=== PATIENT | male | born 1990 | race Hispanic/Latino ===

== ENCOUNTER 2019-12-17 10:45 | Inpatient (IN) | payer OTHER ==
[2019-12-17] VITALS (19 sets, daily range): BP systolic 126–159; BP diastolic 73–97
[~2019-12-17] VITALS: Ht 165.1 cm; Wt 97.5 kg
[2019-12-17 11:09] LABS: BASOPHILS % (AUTO) 0.4 % (0.0-5.0); HEMATOCRIT 42.5 % (42-54); LYMPHOCYTES % (AUTO) 7.3 % (21.0-51.0); MEAN CORPUSCULAR HEMOGLOBIN 30.9 pg (27.0-33.0); MEAN CORPUSCULAR HGB CONC 35.3 g/dL (32.0-36.0); MEAN CORPUSCULAR VOLUME 87.4 fL (79-99); NEUTROPHILS % (AUTO) 86.2 % (40.0-77.0); PLATELET COUNT (AUTO) 291 K/uL (130-400); RED BLOOD CELL COUNT(AUTO) 4.86 MIL/uL (4.50-6.20); RED CELL DISTRIBUTION WIDTH 11.8 % (11.0-15.5)
[2019-12-17] MEDS ORDERED: MORPHINE SULFATE 4 MG/1ML SYG ONE ×2 (11:18→15:00)
[2019-12-17] MEDS ORDERED: ONDANSETRON HCL 4 MG/2 ML VIAL ONE (11:18)
[2019-12-17] MEDS ORDERED: SODIUM CHLORIDE 0.9% 1000ML 1,000 ML IV ONE ×4 (11:19→17:09)
[2019-12-17] MEDS ORDERED: MORPHINE SULFATE 2 MG/ML 1ML SYG ONE (11:19)
[2019-12-17 11:21] LABS: CREATININE 0.9 mg/dL (0.5-1.5); POTASSIUM 4.1 mmol/L (3.5-5.1)
[2019-12-17 11:27] LABS: ALBUMIN 3.8 g/dL (3.5-5.0); BILIRUBIN,TOTAL 1.2 mg/dL (0.2-1.0); TOTAL PROTEIN, SERUM 8.3 g/dL (6.0-8.3)
[2019-12-17] MEDS ORDERED: IOHEXOL-350 75 ML VIAL IV ONE (12:40)
[2019-12-17 14:40] LABS: APPEARANCE,URINE Cloudy (CLEAR); BILIRUBIN,URINE Negative (NEGATIVE); COLOR,URINE Yellow (YELLOW); GLUCOSE, URINE (UA) >=1000 mg/dL (NEGATIVE); KETONES,URINE Trace mg/dL (NEGATIVE); LEUKOCYTE ESTERASE ,URINE Negative (NEGATIVE); NITRATE,URINE Negative (NEGATIVE); OCCULT BLOOD,URINE Negative (NEGATIVE); PH,URINE 6.5 (5.0-8.0); PROTEIN,URINE POS 1+ mg/dL (NEGATIVE)
[2019-12-17 14:42] LABS: CHOLESTEROL 311 mg/dL (<200); HDL CHOLESTEROL 20 mg/dL (29-71); LDL DIRECT 96 mg/dL (0-99)
[2019-12-17 15:07] LABS: TRIGLYCERIDES 2464 mg/dL (30-200)
[2019-12-17 15:15] LABS: HEMOGLOBIN A1C 7.2 % (4.0-6.0)
[2019-12-17 15:35] LABS: AMORPHOUS SEDIMENT,UR Few /LPF (None Seen); BACTERIA,URINE Few /HPF (None Seen); RBC,URINE None Seen /HPF (0-1); SQUAMOUS EPITHELIAL CELL,UR None Seen /HPF (0-2)
[2019-12-17] MEDS ORDERED: GLUCAGON 1MG KIT 1 MG ML IM PRN (16:30)
[2019-12-17] MEDS ORDERED: INSULIN REGULAR, HUMAN 3ML 100 UNIT in SODIUM CHLORIDE 0.9% 99 ML IV PRN ×2 (16:30)
[2019-12-17] MEDS ORDERED: DEXTROSE 50%-WATER 50 ML DISP.SYRIN IV PRN (16:30)
[2019-12-17] MEDS ORDERED: SODIUM CHLORIDE 0.9% 1000ML 1,000 ML IV SCH ×2 (16:34→16:45)
[2019-12-17] MEDS ORDERED: HYDRALAZINE HCL 20 MG/ML VIAL IV PRN ×2 (16:45→17:00)
[2019-12-17] MEDS ORDERED: ONDANSETRON HCL 4 MG/2 ML VIAL IV PRN (16:45)
[2019-12-17] MEDS ORDERED: ACETAMINOPHEN 325 MG TAB PO PRN ×2 (16:45)
[2019-12-17] MEDS ORDERED: IPRATROPIUM/ALBUTEROL SULFATE 3 ML SOLUTION IH PRN (17:00)
[2019-12-17] MEDS ORDERED: ONDANSETRON HCL 4 MG/2 ML VIAL IVP PRN (17:00)
[2019-12-17] MEDS ORDERED: SODIUM CHLORIDE 0.9% 500ML 500 ML IV ONE (17:10)
[2019-12-17] MEDS ORDERED: INSULIN HUMULIN R 100 UNIT/ML 3ML ONE (17:11)
[2019-12-17 17:20] LABS: ABG BASE EXCESS -3.7 mmol/L (-2.0-3.0); ABG HCO3 20.2 mmol/L (21.0-28.0); ABG OXYGEN SATURATION 92.8 % (95.0-99.0); ABG PCO2 34 mmHg (35-48)
[2019-12-17] MEDS ORDERED: DEXTROSE 5 %-0.45 % NACL 1,000 ML IV ONE (17:50)
--- NOTE | 2019-12-17 18:33 | NUR ---
DR GUEVARA NOTIFIED ABOUT PT'S ADMISSION, C/O ABD PAIN, SUSTAINED TACHYCARDIA 130-136, NEW ORDERS GIVEN.
[2019-12-17] MEDS: HYDROMORPHONE HCL 0.5 MG/0.5 ML ML IVP PRN ×2 (18:59→23:41)
[2019-12-17] MEDS ORDERED: POTASSIUM CHLORIDE 10% ELIXIR 20 MEQ/15 ML UDCUP PO PRN (20:45)
[2019-12-17] MEDS: SODIUM CHLORIDE 0.9% 1000ML 1,000 ML IV SCH (20:53)
[2019-12-17] MEDS: ENOXAPARIN SODIUM 40 MG/0.4 ML SYRINGE SQ SCH (20:54)
[2019-12-17] MEDS: FAMOTIDINE/PF 20 MG/2 ML VIAL IV SCH (20:54)
[2019-12-17] MEDS: ZOSYN 3.375GM+NS 50ML 50 ML IV SCH (21:01)
[2019-12-17] MEDS: METRONIDAZOLE 500 MG TABLET PO SCH (21:01)
[2019-12-18] VITALS (22 sets, daily range): BP systolic 129–157; BP diastolic 76–97
[2019-12-18] MEDS: HYDROMORPHONE HCL 0.5 MG/0.5 ML ML IVP PRN ×2 (03:42→23:44)
[2019-12-18] MEDS: ZOSYN 3.375GM+NS 50ML 50 ML IV SCH ×3 (04:57→21:53)
[2019-12-18] MEDS: SODIUM CHLORIDE 0.9% 1000ML 1,000 ML IV SCH ×3 (04:59→16:45)
[2019-12-18 05:18] LABS: BASOPHILS % (AUTO) 0.3 % (0.0-5.0); EOSINOPHILS % (AUTO) 0.1 % (0.0-8.0); HEMATOCRIT 42.4 % (42-54); LYMPHOCYTES % (AUTO) 13.3 % (21.0-51.0); MEAN CORPUSCULAR HEMOGLOBIN 30.5 pg (27.0-33.0); MEAN CORPUSCULAR HGB CONC 34.2 g/dL (32.0-36.0); MEAN CORPUSCULAR VOLUME 89.1 fL (79-99); MONOCYTES % (AUTO) 4.8 % (3.0-13.0); PLATELET COUNT (AUTO) 230 K/uL (130-400); RED BLOOD CELL COUNT(AUTO) 4.76 MIL/uL (4.50-6.20); WHITE BLOOD COUNT (AUTO) 12.8 K/uL (4.8-10.8)
[2019-12-18 06:03] LABS: ALBUMIN 2.6 g/dL (3.5-5.0); CREATININE 0.9 mg/dL (0.5-1.5); MAGNESIUM 1.3 mg/dL (1.80-2.40); POTASSIUM 3.3 mmol/L (3.5-5.1); TOTAL PROTEIN, SERUM 6.3 g/dL (6.0-8.3)
[2019-12-18] MEDS: MAGNESIUM 2GM PREMIX 50ML 50 ML IV PRN (06:26)
[2019-12-18] MEDS: LIDOCAINE HCL-MPF 1% 2ML VIAL IV PRN (06:26)
[2019-12-18] MEDS: POTASSIUM CHLORIDE 20MEQ/100ML 100 ML IV PRN ×2 (06:27→09:05)
[2019-12-18 06:59] LABS: ABG BASE EXCESS -1.3 mmol/L (-2.0-3.0); ABG HCO3 22.6 mmol/L (21.0-28.0); ABG OXYGEN SATURATION 90.6 % (95.0-99.0); ABG PCO2 36 mmHg (35-48)
--- NOTE | 2019-12-18 07:00 | NUR ---
STATUS 0552 CXR COMPLETED. AFTER CXR PATIENT INDEPENDENTLY REPOSITIONED SELF HR INCREASED TO 140'S AND RESPIRATORY RATE TO HIGH 30'S. SHALLOW AND TACHYPNEIC, UNLABORED. PATIENT CURRENTLY ON 4 L. O2 SATURATIONS DECREASED TO 90-91% PREVIOUSLY 94-96%. DENIES SHORTNESS OF BREATH. 0611 CC DRAPERY COUNSELOR PAGED WAS CALLED WHILE WAS ON THE LINE, NO ANSWER. 0635 CC DRAPERY COUNSELOR WAS PAGED AGAIN. 0641 HOSPITALIST WAS PAGED. AWAITING RETURN PAGE. ABG COMPLETED WHILE ON 4L AND PATIENT WAS PLACED ON VENTI MASK AT 50%. SPO2 INCREASED TO 93%. REPORT GIVEN TO RALPH GONZALEZ
--- NOTE | 2019-12-18 08:00 | NUR ---
Notification to [employer] Notified FIELD COORDINATOR-Amy of patient's current condition, tachycardia and desaturating and SOB laying flat and actions taken. Orders were received, readback and entered into system/ 829: Dr. Galeana at bedside notified of patient's current condition D-Dimer and orders receive by FIELD COORDINATOR. Orders were received and entered into system. See EMR.
[2019-12-18] MEDS: PANTOPRAZOLE SODIUM 40 MG TABLET.DR PO SCH (08:18)
[2019-12-18] MEDS: FAMOTIDINE/PF 20 MG/2 ML VIAL IV SCH ×2 (08:18→21:53)
[2019-12-18] MEDS: GEMFIBROZIL 600 MG TABLET PO SCH ×2 (08:18→16:23)
[2019-12-18] MEDS: METRONIDAZOLE 500 MG TABLET PO SCH ×3 (08:18→21:39)
[2019-12-18] MEDS: ENOXAPARIN SODIUM 40 MG/0.4 ML SYRINGE SQ SCH ×2 (08:19→21:53)
[2019-12-18] MEDS: HYDROCODONE/ACETAMINOPHEN 5/325 MG TAB PO PRN ×2 (09:05→16:27)
--- NOTE | 2019-12-18 11:57 | NUR ---
RD NOTIFICATION DX ACUTE PANCREATITIS AND ELEVATED TG. ALTERED NUTRITION RELATED LABS REVIEWED (TG 865 (IMPROVING), CHOL 224, LIPASE 1061, A1C 7.2). MEDS REVIEWED. SKIN INTACT. DIET: NPO AT THIS TIME. RD RECOMMENDS TO CONTINUE NPO DUE TO ELEVATED LABS ADVANCE DIET TOLERATED TO 75GMCCD, LOW FAT, AND HEART HEALTHY RD PENDING NUTRITION EDUCATION AT THIS TIME RD WILL CONTINUE TO MONITOR AND FOLLOW UP, THANK YOU. Addendum: 12/18/19 at [address] Amended: Links added.
[2019-12-18] MEDS: DEXTROSE 5 % AND 0.9 % NACL 1,000 ML IV SCH ×2 (12:09→21:39)
[2019-12-18] MEDS ORDERED: HYDR25TA PO (14:20)
[2019-12-18] MEDS ORDERED: ATEN25TA PO (14:20)
[2019-12-18] MEDS ORDERED: ALLO100T PO (14:20)
--- NOTE | 2019-12-18 14:42 | NUR ---
INITIAL Patient lives with spouse, Edelmira Benitez, [phone]. No home services. DME: BPM. Patient is independent and drives. PCP is MD at [facility]. Pharmacy is [facility]. DCP is home. Patient has no insurance or benefits. He is a [place] citizen and has worked in the [place]. Patient was provided with community resources for post hospitalization follow up. Patient was also provided with Good RX card for prescriptions and educated on [employer] $4 medication program and [employer] $5 medication program. Patient is being assisted by [employer] for financial matters. Addendum: 12/18/19 at 1444 by TUNG HOGUE Amended: Links added.
[2019-12-19] VITALS (24 sets, daily range): BP systolic 131–157; BP diastolic 74–102
[2019-12-19] MEDS: SODIUM CHLORIDE 0.9% 1000ML 1,000 ML IV SCH ×4 (00:45→23:50)
[2019-12-19] MEDS: DEXTROSE 5 % AND 0.9 % NACL 1,000 ML IV SCH ×3 (03:38→20:17)
[2019-12-19] MEDS: ZOSYN 3.375GM+NS 50ML 50 ML IV SCH ×3 (05:08→21:12)
[2019-12-19 05:20] LABS: BASOPHILS % (AUTO) 0.3 % (0.0-5.0); EOSINOPHILS % (AUTO) 0.1 % (0.0-8.0); HEMATOCRIT 39.6 % (42-54); LYMPHOCYTES % (AUTO) 9.7 % (21.0-51.0); MEAN CORPUSCULAR HEMOGLOBIN 29.6 pg (27.0-33.0); MEAN CORPUSCULAR HGB CONC 33.1 g/dL (32.0-36.0); MEAN CORPUSCULAR VOLUME 89.6 fL (79-99); MONOCYTES % (AUTO) 5.5 % (3.0-13.0); NEUTROPHILS % (AUTO) 83.2 % (40.0-77.0); PLATELET COUNT (AUTO) 212 K/uL (130-400); RED BLOOD CELL COUNT(AUTO) 4.42 MIL/uL (4.50-6.20); RED CELL DISTRIBUTION WIDTH 12.2 % (11.0-15.5); WHITE BLOOD COUNT (AUTO) 15.6 K/uL (4.8-10.8)
[2019-12-19] MEDS: HYDROMORPHONE HCL 0.5 MG/0.5 ML ML IVP PRN (05:20)
[2019-12-19 05:29] LABS: MAGNESIUM 1.9 mg/dL (1.80-2.40); POTASSIUM 3.6 mmol/L (3.5-5.1)
[2019-12-19 08:11] LABS: ABG BASE EXCESS -0.8 mmol/L (-2.0-3.0); ABG HCO3 23.4 mmol/L (21.0-28.0); ABG OXYGEN SATURATION 92.6 % (95.0-99.0); ABG PCO2 37 mmHg (35-48)
[2019-12-19] MEDS: PANTOPRAZOLE SODIUM 40 MG TABLET.DR PO SCH (10:18)
[2019-12-19] MEDS: FAMOTIDINE/PF 20 MG/2 ML VIAL IV SCH (10:18)
[2019-12-19] MEDS: GEMFIBROZIL 600 MG TABLET PO SCH ×2 (10:18→18:19)
[2019-12-19] MEDS: HYDROCODONE/ACETAMINOPHEN 5/325 MG TAB PO PRN ×2 (10:20→18:19)
[2019-12-19] MEDS: ENOXAPARIN SODIUM 40 MG/0.4 ML SYRINGE SQ SCH ×2 (10:21→21:13)
[2019-12-19] MEDS: INSULIN HUMULIN R 100 UNIT/ML 3ML SQ SCH ×3 (11:03→21:00)
[2019-12-19] MEDS: METOCLOPRAMIDE 10 MG/2 ML VIAL IVP SCH ×2 (15:19→21:12)
[2019-12-19] MEDS: ATENOLOL 25 MG TABLET PO SCH (21:12)
[2019-12-19] MEDS: INSULIN GLARGINE 100 UNITS/ML 10 ML VIAL SQ SCH (21:19)
[2019-12-20] VITALS (17 sets, daily range): BP systolic 113–145; BP diastolic 52–88
[2019-12-20] MEDS: DEXTROSE 5 % AND 0.9 % NACL 1,000 ML IV SCH ×3 (03:35→23:19)
[2019-12-20 04:15] LABS: BASOPHILS % (AUTO) 0.3 % (0.0-5.0); EOSINOPHILS % (AUTO) 0.6 % (0.0-8.0); HEMATOCRIT 32.5 % (42-54); LYMPHOCYTES % (AUTO) 12.6 % (21.0-51.0); MEAN CORPUSCULAR HEMOGLOBIN 30.6 pg (27.0-33.0); MEAN CORPUSCULAR HGB CONC 33.8 g/dL (32.0-36.0); MEAN CORPUSCULAR VOLUME 90.3 fL (79-99); MONOCYTES % (AUTO) 6.5 % (3.0-13.0); NEUTROPHILS % (AUTO) 78.5 % (40.0-77.0); PLATELET COUNT (AUTO) 244 K/uL (130-400); RED CELL DISTRIBUTION WIDTH 12.2 % (11.0-15.5); WHITE BLOOD COUNT (AUTO) 17.4 K/uL (4.8-10.8)
[2019-12-20 04:39] LABS: CREATININE 0.7 mg/dL (0.5-1.5); MAGNESIUM 1.9 mg/dL (1.80-2.40); POTASSIUM 3.9 mmol/L (3.5-5.1)
[2019-12-20] MEDS: MAGNESIUM 2GM PREMIX 50ML 50 ML IV PRN (05:41)
[2019-12-20] MEDS: GEMFIBROZIL 600 MG TABLET PO SCH ×2 (05:41→16:52)
[2019-12-20] MEDS: ZOSYN 3.375GM+NS 50ML 50 ML IV SCH ×3 (05:41→20:39)
[2019-12-20] MEDS: METOCLOPRAMIDE 10 MG/2 ML VIAL IVP SCH ×3 (05:42→23:16)
[2019-12-20] MEDS: INSULIN HUMULIN R 100 UNIT/ML 3ML SQ SCH ×3 (06:35→20:13)
[2019-12-20] MEDS: SODIUM CHLORIDE 0.9% 1000ML 1,000 ML IV SCH ×2 (08:42→16:45)
[2019-12-20] MEDS: PANTOPRAZOLE SODIUM 40 MG TABLET.DR PO SCH (08:43)
[2019-12-20] MEDS: ATENOLOL 25 MG TABLET PO SCH ×2 (08:43→20:42)
[2019-12-20] MEDS: ALLOPURINOL 100 MG TABLET PO SCH (08:43)
[2019-12-20] MEDS: HYDROCHLOROTHIAZIDE 25 MG TABLET PO SCH (08:43)
[2019-12-20] MEDS: ENOXAPARIN SODIUM 40 MG/0.4 ML SYRINGE SQ SCH ×2 (08:44→20:41)
--- NOTE | 2019-12-20 13:08 | NUR ---
TRANSFERRED TO 324 WITHOUT INCIDENT. VS STABLE. SBAR REPORT TO ROSLYN ROSAS
--- NOTE | 2019-12-20 15:18 | NUR ---
NUTRITION EDUCATION LEW Provided Pancreatitis, Diabetes nutrition education. RD provided reference materials and handouts. RD answered all of Pt questions. Pt verbalized understanding. Addendum: 12/20/19 at [address] Amended: Links added.
[2019-12-20] MEDS: INSULIN GLARGINE 100 UNITS/ML 10 ML VIAL SQ SCH (20:44)
[2019-12-20] MEDS ORDERED: NIACIN 250 MG TABLET.SA PO SCH (21:00)
[2019-12-21] MEDS: SODIUM CHLORIDE 0.9% 1000ML 1,000 ML IV SCH ×3 (00:45→16:45)
[2019-12-21 03:32] VITALS: BP 122/69
[2019-12-21] MEDS: ZOSYN 3.375GM+NS 50ML 50 ML IV SCH ×3 (05:20→21:52)
[2019-12-21] MEDS: GEMFIBROZIL 600 MG TABLET PO SCH (06:24)
[2019-12-21] MEDS: METOCLOPRAMIDE 10 MG/2 ML VIAL IVP SCH ×3 (06:24→22:00)
[2019-12-21] MEDS: INSULIN HUMULIN R 100 UNIT/ML 3ML SQ SCH ×4 (06:55→21:00)
[2019-12-21 07:30] VITALS: BP 130/80
[2019-12-21] MEDS: ATENOLOL 25 MG TABLET PO SCH ×2 (09:00→21:53)
[2019-12-21] MEDS: PANTOPRAZOLE SODIUM 40 MG TABLET.DR PO SCH (09:41)
[2019-12-21] MEDS: ALLOPURINOL 100 MG TABLET PO SCH (09:41)
[2019-12-21] MEDS: HYDROCHLOROTHIAZIDE 25 MG TABLET PO SCH (09:41)
[2019-12-21] MEDS: ENOXAPARIN SODIUM 40 MG/0.4 ML SYRINGE SQ SCH ×2 (09:43→21:54)
--- NOTE | 2019-12-21 09:44 | NUR ---
ATENOLOL HELD THIS AM .BP 97/69
[2019-12-21 11:00] VITALS: BP 126/77
--- NOTE | 2019-12-21 12:08 | NUR ---
DR CALLE IN TO SEE PT.
[2019-12-21 16:00] VITALS: BP 124/71
[2019-12-21] MEDS ORDERED: ATORVASTATIN CALCIUM 40 MG TABLET PO SCH (16:30)
[2019-12-21] MEDS ORDERED: FENOFIBRATE NANOCRYSTALLIZED 145 MG TAB PO SCH (16:30)
[2019-12-21] MEDS: DEXTROSE 5 % AND 0.9 % NACL 1,000 ML IV SCH ×2 (17:22→20:00)
[2019-12-21 20:13] VITALS: BP 131/80
[2019-12-21] MEDS: INSULIN GLARGINE 100 UNITS/ML 10 ML VIAL SQ SCH (21:49)
[2019-12-21 23:37] VITALS: BP 131/81
[2019-12-22] MEDS: SODIUM CHLORIDE 0.9% 1000ML 1,000 ML IV SCH ×3 (00:45→16:45)
[2019-12-22] MEDS: DEXTROSE 5 % AND 0.9 % NACL 1,000 ML IV SCH ×4 (04:00→21:44)
[2019-12-22 04:07] VITALS: BP 129/73
[2019-12-22] MEDS: METOCLOPRAMIDE 10 MG/2 ML VIAL IVP SCH ×3 (05:22→21:36)
[2019-12-22] MEDS: ZOSYN 3.375GM+NS 50ML 50 ML IV SCH ×3 (05:29→21:41)
[2019-12-22 05:35] LABS: LIPASE 1575 U/L (114-286); TRIGLYCERIDES 524 mg/dL (30-200)
[2019-12-22] MEDS: INSULIN HUMULIN R 100 UNIT/ML 3ML SQ SCH ×4 (05:39→21:00)
[2019-12-22 07:30] VITALS: BP 126/80
[2019-12-22] MEDS: PANTOPRAZOLE SODIUM 40 MG TABLET.DR PO SCH (09:04)
[2019-12-22] MEDS: FENOFIBRATE NANOCRYSTALLIZED 145 MG TAB PO SCH (09:05)
[2019-12-22] MEDS: ATORVASTATIN CALCIUM 40 MG TABLET PO SCH (09:05)
[2019-12-22] MEDS: ENOXAPARIN SODIUM 40 MG/0.4 ML SYRINGE SQ SCH ×2 (09:05→21:36)
[2019-12-22] MEDS: ATENOLOL 25 MG TABLET PO SCH ×2 (09:05→21:37)
[2019-12-22] MEDS: ALLOPURINOL 100 MG TABLET PO SCH (09:05)
[2019-12-22] MEDS: HYDROCHLOROTHIAZIDE 25 MG TABLET PO SCH (09:05)
[2019-12-22 11:00] VITALS: BP 134/79
[2019-12-22 13:11] LABS: CREATININE 0.9 mg/dL (0.5-1.5); POTASSIUM 3.1 mmol/L (3.5-5.1)
[2019-12-22 16:00] VITALS: BP 131/76
[2019-12-22 19:58] VITALS: BP 149/83
[2019-12-22] MEDS: INSULIN GLARGINE 100 UNITS/ML 10 ML VIAL SQ SCH (21:35)
[2019-12-22 23:20] VITALS: BP 140/83
[2019-12-23] MEDS: SODIUM CHLORIDE 0.9% 1000ML 1,000 ML IV SCH (00:45)
[2019-12-23 04:36] VITALS: BP 136/79
[2019-12-23] MEDS: METOCLOPRAMIDE 10 MG/2 ML VIAL IVP SCH (05:31)
[2019-12-23] MEDS: DEXTROSE 5 % AND 0.9 % NACL 1,000 ML IV SCH ×2 (05:31→12:00)
[2019-12-23] MEDS: ZOSYN 3.375GM+NS 50ML 50 ML IV SCH ×2 (05:31→13:00)
[2019-12-23 05:35] LABS: EOSINOPHILS % (AUTO) 0.8 % (0.0-8.0); HEMATOCRIT 34.2 % (42-54); LYMPHOCYTES % (AUTO) 14.5 % (21.0-51.0); MEAN CORPUSCULAR HEMOGLOBIN 29.7 pg (27.0-33.0); MEAN CORPUSCULAR HGB CONC 32.7 g/dL (32.0-36.0); MEAN CORPUSCULAR VOLUME 90.7 fL (79-99); MONOCYTES % (AUTO) 6.8 % (3.0-13.0); NEUTROPHILS % (AUTO) 60.6 % (40.0-77.0); NUCLEATED RED BLOOD CELLS 0.5 % (0.0-0.19); PLATELET COUNT (AUTO) 315 K/uL (130-400); RED BLOOD CELL COUNT(AUTO) 3.77 MIL/uL (4.50-6.20); RED CELL DISTRIBUTION WIDTH 12.3 % (11.0-15.5); WHITE BLOOD COUNT (AUTO) 19.5 K/uL (4.8-10.8)
[2019-12-23 06:06] LABS: CREATININE 0.9 mg/dL (0.5-1.5)
[2019-12-23] MEDS: INSULIN HUMULIN R 100 UNIT/ML 3ML SQ SCH ×4 (06:15→21:00)
[2019-12-23] MEDS: POTASSIUM CHLORIDE 20 MEQ ERTAB PO PRN ×2 (06:31→12:51)
[2019-12-23 08:00] VITALS: BP 130/76
[2019-12-23] MEDS: ENOXAPARIN SODIUM 40 MG/0.4 ML SYRINGE SQ SCH ×2 (09:31→22:59)
[2019-12-23] MEDS: MAGNESIUM 2GM PREMIX 50ML 50 ML IV PRN (09:32)
[2019-12-23] MEDS: HYDROCHLOROTHIAZIDE 25 MG TABLET PO SCH (09:32)
[2019-12-23] MEDS: FENOFIBRATE NANOCRYSTALLIZED 145 MG TAB PO SCH (09:32)
[2019-12-23] MEDS: ATENOLOL 25 MG TABLET PO SCH ×2 (09:33→23:00)
[2019-12-23] MEDS: PANTOPRAZOLE SODIUM 40 MG TABLET.DR PO SCH (09:33)
[2019-12-23] MEDS: ALLOPURINOL 100 MG TABLET PO SCH (09:34)
[2019-12-23] MEDS: LIDOCAINE HCL-MPF 1% 2ML VIAL IV PRN (09:34)
[2019-12-23] MEDS: ATORVASTATIN CALCIUM 40 MG TABLET PO SCH (09:34)
[2019-12-23] MEDS: POTASSIUM CHLORIDE 20MEQ/100ML 100 ML IV PRN (09:35)
[2019-12-23 11:50] VITALS: BP 136/88
[2019-12-23 13:18] LABS: ALBUMIN 2.5 g/dL (3.5-5.0); BILIRUBIN,DIRECT 0.2 mg/dL (0.0-0.3); BILIRUBIN,TOTAL 0.7 mg/dL (0.2-1.0); TOTAL PROTEIN, SERUM 7.1 g/dL (6.0-8.3)
[2019-12-23 16:00] VITALS: BP 140/81
[2019-12-23 17:04] LABS: CREATININE 0.9 mg/dL (0.5-1.5); MAGNESIUM 2.3 mg/dL (1.80-2.40)
[2019-12-23 20:00] VITALS: BP 138/84
[2019-12-23] MEDS: INSULIN GLARGINE 100 UNITS/ML 10 ML VIAL SQ SCH (23:02)
[2019-12-23 23:43] VITALS: BP 144/79
[2019-12-24 04:01] VITALS: BP 144/83
[2019-12-24] MEDS: ZOSYN 3.375GM+NS 50ML 50 ML IV SCH ×3 (05:06→20:54)
[2019-12-24] MEDS: DEXTROSE 5 % AND 0.9 % NACL 1,000 ML IV SCH ×2 (05:06→16:40)
[2019-12-24] MEDS: INSULIN HUMULIN R 100 UNIT/ML 3ML SQ SCH ×4 (05:12→20:56)
[2019-12-24 05:58] LABS: BASOPHILS % (AUTO) 0.4 % (0.0-5.0); EOSINOPHILS % (AUTO) 0.9 % (0.0-8.0); HEMATOCRIT 36.1 % (42-54); LYMPHOCYTES % (AUTO) 14.4 % (21.0-51.0); MEAN CORPUSCULAR HEMOGLOBIN 30.5 pg (27.0-33.0); MEAN CORPUSCULAR VOLUME 92.6 fL (79-99); MONOCYTES % (AUTO) 5.7 % (3.0-13.0); NEUTROPHILS % (AUTO) 58.2 % (40.0-77.0); NUCLEATED RED BLOOD CELLS 0.4 % (0.0-0.19); PLATELET COUNT (AUTO) 369 K/uL (130-400); RED CELL DISTRIBUTION WIDTH 12.3 % (11.0-15.5)
[2019-12-24 06:27] LABS: CREATININE 0.9 mg/dL (0.5-1.5); MAGNESIUM 2.1 mg/dL (1.80-2.40); POTASSIUM 3.7 mmol/L (3.5-5.1)
[2019-12-24 08:00] VITALS: BP 127/74
[2019-12-24] MEDS: ENOXAPARIN SODIUM 40 MG/0.4 ML SYRINGE SQ SCH ×2 (09:00→20:55)
--- NOTE | 2019-12-24 09:10 | NUR ---
FLORENTINO FROM DR. SIMS'S OFFICE AWARE OF CONSULT PANCREATIC CYST.
[2019-12-24] MEDS: ATORVASTATIN CALCIUM 40 MG TABLET PO SCH (11:10)
[2019-12-24] MEDS: PANTOPRAZOLE SODIUM 40 MG TABLET.DR PO SCH (11:10)
[2019-12-24] MEDS: HYDROCHLOROTHIAZIDE 25 MG TABLET PO SCH (11:10)
[2019-12-24] MEDS: ALLOPURINOL 100 MG TABLET PO SCH (11:11)
[2019-12-24] MEDS: FENOFIBRATE NANOCRYSTALLIZED 145 MG TAB PO SCH (11:11)
[2019-12-24] MEDS: ATENOLOL 25 MG TABLET PO SCH ×2 (11:13→20:58)
--- NOTE | 2019-12-24 11:20 | NUR ---
DR. BOOTH AWARE OF WBC 22 STATES HE WILL SEE PT, CONT. ZOSYN.
[2019-12-24 12:00] VITALS: BP 108/56
--- NOTE | 2019-12-24 13:00 | NUR ---
PT DIALYZED; 1.3 LITERS OUT TOLERATED WELL. MILD NAUSEA. Addendum: 12/24/19 at 1941 by MERI XAVIER RN RN WRONG PATIENT
[2019-12-24 16:00] VITALS: BP 128/82
[2019-12-24 20:00] VITALS: BP 130/79
[2019-12-24] MEDS: INSULIN GLARGINE 100 UNITS/ML 10 ML VIAL SQ SCH (20:54)
[2019-12-25] VITALS (7 sets, daily range): BP systolic 113–140; BP diastolic 64–86
[2019-12-25] MEDS: ZOSYN 3.375GM+NS 50ML 50 ML IV SCH ×3 (04:39→21:12)
[2019-12-25] MEDS: DEXTROSE 5 % AND 0.9 % NACL 1,000 ML IV SCH ×2 (04:40→16:34)
[2019-12-25 05:10] LABS: BASOPHILS % (AUTO) 1.4 % (0.0-5.0); EOSINOPHILS % (AUTO) 1.1 % (0.0-8.0); HEMATOCRIT 37.7 % (42-54); LYMPHOCYTES % (AUTO) 13.9 % (21.0-51.0); MEAN CORPUSCULAR HGB CONC 32.6 g/dL (32.0-36.0); MONOCYTES % (AUTO) 5.8 % (3.0-13.0); NEUTROPHILS % (AUTO) 60.2 % (40.0-77.0); NUCLEATED RED BLOOD CELLS 0.3 % (0.0-0.19); PLATELET COUNT (AUTO) 398 K/uL (130-400); RED CELL DISTRIBUTION WIDTH 12.3 % (11.0-15.5); WHITE BLOOD COUNT (AUTO) 19.2 K/uL (4.8-10.8)
[2019-12-25 05:33] LABS: CREATININE 1.1 mg/dL (0.5-1.5); POTASSIUM 4.2 mmol/L (3.5-5.1)
[2019-12-25] MEDS: INSULIN HUMULIN R 100 UNIT/ML 3ML SQ SCH ×4 (06:19→21:00)
[2019-12-25] MEDS: ATORVASTATIN CALCIUM 40 MG TABLET PO SCH (09:51)
[2019-12-25] MEDS: ENOXAPARIN SODIUM 40 MG/0.4 ML SYRINGE SQ SCH ×2 (09:51→21:16)
[2019-12-25] MEDS: FENOFIBRATE NANOCRYSTALLIZED 145 MG TAB PO SCH (09:52)
[2019-12-25] MEDS: ATENOLOL 25 MG TABLET PO SCH ×2 (09:52→21:14)
[2019-12-25] MEDS: HYDROCHLOROTHIAZIDE 25 MG TABLET PO SCH (09:53)
[2019-12-25] MEDS: PANTOPRAZOLE SODIUM 40 MG TABLET.DR PO SCH (09:53)
[2019-12-25] MEDS: ALLOPURINOL 100 MG TABLET PO SCH (09:53)
--- NOTE | 2019-12-25 11:37 | NUR ---
PAGED DR. PRITCHETT FOR THE CONSULT AT THIS TIME. WILL WAIT FOR THE CALL BACK.
--- NOTE | 2019-12-25 11:39 | NUR ---
DR. PRITCHETT NOTIFIED OF THE CONSULT AND VERBALIZED THAT HE WILL TAKE A LOOK AT PATIENT'S CHART.
--- NOTE | 2019-12-25 15:05 | NUR ---
notify dr. seay of dr. fuentes's nursing communication, he verbalized that he will talk to dr. fuentes.
--- NOTE | 2019-12-25 20:10 | NUR ---
PM Assessment Received pt watching TV with D5NS at 75cc/hr infusing well, routine assessment done, plan of care discuss, reminded to remain NPO till further orders. Pt currently denies discomfort.
[2019-12-25] MEDS: INSULIN GLARGINE 100 UNITS/ML 10 ML VIAL SQ SCH (21:24)
[2019-12-26 03:25] VITALS: BP 114/74
[2019-12-26] MEDS: ZOSYN 3.375GM+NS 50ML 50 ML IV SCH ×2 (05:17→13:00)
[2019-12-26 06:15] LABS: EOSINOPHILS % (AUTO) 1.4 % (0.0-8.0); HEMATOCRIT 36.9 % (42-54); LYMPHOCYTES % (AUTO) 14.8 % (21.0-51.0); MEAN CORPUSCULAR HEMOGLOBIN 29.7 pg (27.0-33.0); MEAN CORPUSCULAR VOLUME 92.9 fL (79-99); MONOCYTES % (AUTO) 5.4 % (3.0-13.0); NEUTROPHILS % (AUTO) 64.9 % (40.0-77.0); NUCLEATED RED BLOOD CELLS 0.1 % (0.0-0.19); PLATELET COUNT (AUTO) 430 K/uL (130-400); RED BLOOD CELL COUNT(AUTO) 3.97 MIL/uL (4.50-6.20); RED CELL DISTRIBUTION WIDTH 12.2 % (11.0-15.5); WHITE BLOOD COUNT (AUTO) 17.3 K/uL (4.8-10.8)
[2019-12-26] MEDS: DEXTROSE 5 % AND 0.9 % NACL 1,000 ML IV SCH (07:19)
[2019-12-26] MEDS: INSULIN HUMULIN R 100 UNIT/ML 3ML SQ SCH ×2 (07:30→11:30)
[2019-12-26 08:00] VITALS: BP 115/63
[2019-12-26] MEDS: ENOXAPARIN SODIUM 40 MG/0.4 ML SYRINGE SQ SCH (09:00)
[2019-12-26 12:00] VITALS: BP 119/64
[2019-12-26 13:12] VITALS: BP 119/64
[2019-12-26] MEDS: ATENOLOL 25 MG TABLET PO SCH (13:12)
[2019-12-26] MEDS: HYDROCHLOROTHIAZIDE 25 MG TABLET PO SCH (13:14)
[2019-12-26] MEDS: PANTOPRAZOLE SODIUM 40 MG TABLET.DR PO SCH (13:16)
[2019-12-26] MEDS: ATORVASTATIN CALCIUM 40 MG TABLET PO SCH (13:16)
[2019-12-26] MEDS: FENOFIBRATE NANOCRYSTALLIZED 145 MG TAB PO SCH (13:17)
[2019-12-26] MEDS: ALLOPURINOL 100 MG TABLET PO SCH (13:17)
[2019-12-26] MEDS ORDERED: LEVOFLOXACIN 750 MG TABLET PO SCH (15:30)
== END 2019-12-26 16:30 | disposition home or self-care (01) | DRG 438 ==
LOC: EDH 10:45 → EDHIP 10:46 → 2BH 18:00 → 3DH 12-20 14:28
PROVIDERS: ADMIT Hospitalist; ATTEND Hospitalist
DX: K85.90 Acute pancreatitis without necrosis or infection, unspecified (principal); J96.01 Acute respiratory failure with hypoxia; E87.1 Hypo-osmolality and hyponatremia; E87.2 Acidosis; K56.7 Ileus, unspecified; J98.11 Atelectasis; K86.3 Pseudocyst of pancreas; N39.0 Urinary tract infection, site not specified; E78.1 Pure hyperglyceridemia; E11.65 Type 2 diabetes mellitus with hyperglycemia; E86.1 Hypovolemia; Z68.35 Body mass index [BMI] 35.0-35.9, adult; E78.5 Hyperlipidemia, unspecified; E66.9 Obesity, unspecified; E78.00 Pure hypercholesterolemia, unspecified; E87.6 Hypokalemia; F17.210 Nicotine dependence, cigarettes, uncomplicated; I10 Essential (primary) hypertension; Z79.4 Long term (current) use of insulin; Z83.3 Family history of diabetes mellitus; Z91.14 Patient's other noncompliance with medication regimen; R53.81 Other malaise
CPT/HCPCS: 36415; 36600; 71045; 74176; 74177; 80048; 80053; 80061; 80076; 81001; 82150; 82803; 82948; 83036; 83690; 83735; 84100; 84145; 84478; 84484; 85025; 85378; 93005; 94664; G0378; J1170; J1650; J1815; J2270; J2405; J2543; J2765; J3475; J3480; J3490; J7030; J7040; J7042; Q9967

== ENCOUNTER 2020-02-02 20:16 | Inpatient (IN) | payer OTHER, SELFPAY ==
[~2020-02-02] VITALS: Ht 172.7 cm; Wt 86.1 kg
[~2020-02-02 20:16] MED LIST: ALLO100T PO; ATEN25TA PO; HYDR25TA PO
[2020-02-02 20:35] LABS: BASOPHILS % (AUTO) 0.4 % (0.0-5.0); EOSINOPHILS % (AUTO) 0.2 % (0.0-8.0); LYMPHOCYTES % (AUTO) 16.2 % (21.0-51.0); MEAN CORPUSCULAR HEMOGLOBIN 30.8 pg (27.0-33.0); MEAN CORPUSCULAR HGB CONC 35.5 g/dL (32.0-36.0); MEAN CORPUSCULAR VOLUME 86.8 fL (79-99); MONOCYTES % (AUTO) 5.5 % (3.0-13.0); NEUTROPHILS % (AUTO) 76.7 % (40.0-77.0); PLATELET COUNT (AUTO) 396 K/uL (130-400); RED BLOOD CELL COUNT(AUTO) 5.07 MIL/uL (4.50-6.20); WHITE BLOOD COUNT (AUTO) 22.5 K/uL (4.8-10.8)
[2020-02-02] MEDS ORDERED: ONDANSETRON HCL 4 MG/2 ML VIAL ONE (20:43)
[2020-02-02] MEDS ORDERED: MORPHINE SULFATE 4 MG/1ML SYG ONE ×2 (20:44→21:29)
[2020-02-02] MEDS ORDERED: KETOROLAC TROMETHAMINE 30MG/ML ONE (20:44)
[2020-02-02 20:46] LABS: CREATININE 0.7 mg/dL (0.5-1.5); POTASSIUM 4.1 mmol/L (3.5-5.1)
[2020-02-02 20:55] LABS: ALBUMIN 3.9 g/dL (3.5-5.0); BILIRUBIN,TOTAL 0.9 mg/dL (0.2-1.0); TOTAL PROTEIN, SERUM 8.3 g/dL (6.0-8.3)
[2020-02-02 21:05] LABS: CHOLESTEROL 296 mg/dL (<200); LDL DIRECT 79 mg/dL (0-99)
[2020-02-02 21:07] LABS: APPEARANCE,URINE Clear (CLEAR); BILIRUBIN,URINE Negative (NEGATIVE); COLOR,URINE Yellow (YELLOW); GLUCOSE, URINE (UA) Negative (NEGATIVE); KETONES,URINE Negative (NEGATIVE); LEUKOCYTE ESTERASE ,URINE Negative (NEGATIVE); NITRATE,URINE Negative (NEGATIVE); OCCULT BLOOD,URINE Negative (NEGATIVE); PH,URINE 7.5 (5.0-8.0); PROTEIN,URINE POS 1+ mg/dL (NEGATIVE); UROBILINOGEN,URINE 0.2 mg/dL (0.2-1.0)
[2020-02-02 21:20] LABS: HDL CHOLESTEROL 60 mg/dL (29-71); TRIGLYCERIDES 1874 mg/dL (30-200)
[2020-02-02 22:00] LABS: BACTERIA,URINE Few /HPF (None Seen); RBC,URINE 0-1 /HPF (0-1); SQUAMOUS EPITHELIAL CELL,UR 0-2 /HPF (0-2)
[2020-02-02] MEDS ORDERED: MORPHINE SULFATE 2 MG/ML 1ML SYG IV PRN (22:15)
[2020-02-02] MEDS: DEXTROSE 5 % AND 0.9 % NACL 1,000 ML IV SCH (22:15)
[2020-02-02] MEDS ORDERED: ONDANSETRON HCL 4 MG/2 ML VIAL IV PRN (22:15)
[2020-02-02] MEDS ORDERED: ZOSYN 3.375GM+NS 50ML 50 ML IV SCH (22:45)
[2020-02-02] MEDS ORDERED: ZOSYN 3.375GM+NS 50ML 50 ML IV ONE (23:01)
[2020-02-02] MEDS ORDERED: FAMOTIDINE/PF 20 MG/2 ML VIAL IV ONE (23:02)
[2020-02-02] MEDS ORDERED: LACTATED RINGERS 1000ML 1,000 ML IV ONE (23:02)
[2020-02-02] MEDS ORDERED: INSULIN HUMULIN R 100 UNIT/ML 3ML ONE (23:04)
[2020-02-02] MEDS ORDERED: PHARMACY COMMUNICATION MISC SCH (23:45)
[2020-02-03] VITALS (12 sets, daily range): BP systolic 92–133; BP diastolic 66–83
[2020-02-03] MEDS ORDERED: ONDANSETRON HCL 4 MG/2 ML VIAL ONE (02:07)
[2020-02-03] MEDS ORDERED: MORPHINE SULFATE 2 MG/ML 1ML SYG ONE ×3 (03:49→06:29)
[2020-02-03] MEDS ORDERED: LACTATED RINGERS 1000ML IV SCH (04:00)
[2020-02-03] MEDS ORDERED: MORPHINE SULFATE 4 MG/1ML SYG IV PRN (04:00)
[2020-02-03] MEDS ORDERED: MORPHINE SULFATE 2 MG/ML 1ML SYG IVP ONE (04:00)
[2020-02-03] MEDS ORDERED: LACTATED RINGERS 1000ML 1,000 ML IV ONE (04:12)
[2020-02-03 04:29] LABS: BASOPHILS % (AUTO) 0.6 % (0.0-5.0); EOSINOPHILS % (AUTO) 1.2 % (0.0-8.0); HEMATOCRIT 48.9 % (42-54); MEAN CORPUSCULAR HGB CONC 34.6 g/dL (32.0-36.0); MEAN CORPUSCULAR VOLUME 86.9 fL (79-99); MONOCYTES % (AUTO) 3.9 % (3.0-13.0); NEUTROPHILS % (AUTO) 85.8 % (40.0-77.0); PLATELET COUNT (AUTO) 402 K/uL (130-400); RED BLOOD CELL COUNT(AUTO) 5.63 MIL/uL (4.50-6.20); RED CELL DISTRIBUTION WIDTH 12.1 % (11.0-15.5); WHITE BLOOD COUNT (AUTO) 15.4 K/uL (4.8-10.8)
[2020-02-03] MEDS: DEXTROSE 5 % AND 0.9 % NACL 1,000 ML IV SCH (04:55)
[2020-02-03 04:59] LABS: ALBUMIN 3.6 g/dL (3.5-5.0); BILIRUBIN,TOTAL 1.2 mg/dL (0.2-1.0); CREATININE 1.1 mg/dL (0.5-1.5); POTASSIUM 4.2 mmol/L (3.5-5.1); TOTAL PROTEIN, SERUM 7.1 g/dL (6.0-8.3)
[2020-02-03] MEDS ORDERED: ACETAMINOPHEN 650 MG SUPPOSITORY RC PRN (07:15)
[2020-02-03] MEDS: ZOSYN 3.375GM+NS 50ML 50 ML IV SCH ×3 (07:15→22:14)
[2020-02-03] MEDS ORDERED: ZOSYN 3.375GM+NS 50ML 50 ML IV ONE (07:33)
[2020-02-03] MEDS ORDERED: ACETAMINOPHEN EXTRA STRENGTH 500 MG TABLET ONE (07:34)
[2020-02-03] MEDS ORDERED: METOPROLOL TARTRATE 1 MG/ML 5ML VIAL IV ONE (07:50)
[2020-02-03] MEDS ORDERED: ENOXAPARIN SODIUM 30 MG/0.3 ML SQ SCH (09:00)
[2020-02-03] MEDS: FAMOTIDINE/PF 20 MG/2 ML VIAL IV SCH ×2 (09:00→22:14)
[2020-02-03] MEDS ORDERED: FAMOTIDINE/PF 20 MG/2 ML VIAL IV SCH (09:00)
[2020-02-03] MEDS: METOPROLOL TARTRATE 1 MG/ML 5ML VIAL IV SCH ×3 (09:30→21:00)
[2020-02-03] MEDS ORDERED: HYDROMORPHONE HCL 2 MG/ML VIAL IVP PRN (09:30)
--- NOTE | 2020-02-03 09:30 | NUR ---
ADMISSION RECEIVED PT FROM ER, A&OX3, CALM COOPERATIVE AND DOES NOT APPEAR TO BE IN ANY DISTRESS NOR ANY NEURO DEFICIT PRESENT. PT DOES HAVE C/O ABDOMINAL DISCOMFORT WITH INTERMITTENT NAUSEA. TELE MONITOR DISPLAYS SINUS TACHYCARDIA WITH A RATE OF 150-160 BEATS PER MINUTE, O2SATS 92% ON 4LNC. PT INFORMED TO REMAIN NPO. CALL LIGHT WITHIN REACH.
--- NOTE | 2020-02-03 09:35 | NUR ---
DR CALLE/DR GARCIA AT BEDSIDE UPDATE GIVEN, ORDERS RECEIVED.
[2020-02-03] MEDS ORDERED: INSULIN REGULAR, HUMAN 3ML 100 UNIT in SODIUM CHLORIDE 0.9% 99 ML IV PRN ×2 (09:45)
[2020-02-03] MEDS: HYDROMORPHONE HCL 0.5 MG/0.5 ML ML IVP PRN ×3 (10:06→17:15)
[2020-02-03] MEDS ORDERED: SODIUM CHLORIDE 0.9% 250 ML IV ONE (10:08)
[2020-02-03] MEDS ORDERED: METOPROLOL TARTRATE 1 MG/ML 5ML VIAL IV PRN (10:30)
[2020-02-03] MEDS ORDERED: LACTATED RINGERS 1000ML 1,000 ML IV SCH ×2 (10:30→10:46)
[2020-02-03] MEDS: AZITHROMYCIN 500MG+NS 250ML 250 ML IV SCH (10:30)
[2020-02-03] MEDS: DEXTROSE 5%-LACTATED RINGERS 1,000 ML IV SCH ×3 (11:30→22:15)
[2020-02-03 16:22] LABS: APPEARANCE,URINE Cloudy (CLEAR); BILIRUBIN,URINE Negative (NEGATIVE); COLOR,URINE Yellow (YELLOW); GLUCOSE, URINE (UA) Negative (NEGATIVE); KETONES,URINE Trace mg/dL (NEGATIVE); LEUKOCYTE ESTERASE ,URINE Negative (NEGATIVE); NITRATE,URINE Negative (NEGATIVE); OCCULT BLOOD,URINE Small (NEGATIVE); PROTEIN,URINE POS 1+ mg/dL (NEGATIVE); UROBILINOGEN,URINE 0.2 mg/dL (0.2-1.0)
[2020-02-03 16:29] LABS: AMPHET/METH SCREEN,URINE NEGATIVE (NEGATIVE); BARBITURATE SCREEN, URINE NEGATIVE (NEGATIVE); BENZODIAZEPINES SCREEN,URINE NEGATIVE (NEGATIVE); CANNABINOID SCREEN,URINE NEGATIVE (NEGATIVE); COCAINE SCREEN,URINE NEGATIVE (NEGATIVE); OPIATE SCREEN,URINE POSITIVE (NEGATIVE); PHENCYCLIDINE SCREEN,URINE NEGATIVE (NEGATIVE)
[2020-02-03 16:32] LABS: WBC,URINE 0-1 /HPF (0-1)
[2020-02-03 16:34] LABS: BACTERIA,URINE Few /HPF (None Seen); MUCUS,URINE Rare LPF (None Seen); SQUAMOUS EPITHELIAL CELL,UR Few /HPF (0-2)
[2020-02-03 17:04] LABS: ALBUMIN 2.6 g/dL (3.5-5.0); BILIRUBIN,TOTAL 1.1 mg/dL (0.2-1.0); CREATININE 2.2 mg/dL (0.5-1.5); POTASSIUM 4.4 mmol/L (3.5-5.1)
--- NOTE | 2020-02-03 17:20 | NUR ---
PLACED ON NONREBREATHER PT ASLEEP BUT AROUSEABLE AFTER DILAUDID IV ADMINISTRATION, PT SNORING AND BREATHING THROUGH MOUTH, O2SATS 83% ON 6LNC, 84% ON 40% VM AND THEN 96% ON NON REBREATHER. DR GARCIA AND DR BULLOCK UPDATED, ORDERS RECEIVED.
[2020-02-03] MEDS: METOPROLOL TARTRATE 1 MG/ML 5ML VIAL IV PRN (19:48)
[2020-02-03] MEDS ORDERED: KETOROLAC TROMETHAMINE 30MG/ML IV SCH (21:45)
[2020-02-03] MEDS: HYDROMORPHONE HCL 2 MG/ML VIAL IVP PRN (22:20)
[2020-02-04] VITALS (23 sets, daily range): BP systolic 115–160; BP diastolic 50–98
[2020-02-04] MEDS: METOPROLOL TARTRATE 1 MG/ML 5ML VIAL IV SCH ×4 (03:30→20:09)
[2020-02-04] MEDS: DEXTROSE 5%-LACTATED RINGERS 1,000 ML IV SCH ×2 (03:59→08:52)
[2020-02-04] MEDS: METOPROLOL TARTRATE 1 MG/ML 5ML VIAL IV PRN ×2 (03:59→07:31)
[2020-02-04] MEDS: ZOSYN 3.375GM+NS 50ML 50 ML IV SCH ×3 (05:57→21:58)
[2020-02-04 07:49] LABS: HEMATOCRIT 41.9 % (42-54); MEAN CORPUSCULAR HEMOGLOBIN 30.3 pg (27.0-33.0); MEAN CORPUSCULAR HGB CONC 33.7 g/dL (32.0-36.0); MEAN CORPUSCULAR VOLUME 89.9 fL (79-99); RED BLOOD CELL COUNT(AUTO) 4.66 MIL/uL (4.50-6.20); RED CELL DISTRIBUTION WIDTH 12.5 % (11.0-15.5); WHITE BLOOD COUNT (AUTO) 13.6 K/uL (4.8-10.8)
[2020-02-04 08:16] LABS: CREATININE 1.8 mg/dL (0.5-1.5); POTASSIUM 3.5 mmol/L (3.5-5.1)
[2020-02-04] MEDS: FAMOTIDINE/PF 20 MG/2 ML VIAL IV SCH ×2 (08:51→20:06)
[2020-02-04] MEDS: ENOXAPARIN SODIUM 40 MG/0.4 ML SYRINGE SQ SCH (08:52)
[2020-02-04] MEDS ORDERED: D5 NS WITH 20 mEq KCl 1000ML IV SCH (09:15)
[2020-02-04] MEDS ORDERED: LIDOCAINE HCL-MPF 1% 2ML VIAL IV PRN (09:15)
[2020-02-04] MEDS ORDERED: POTASSIUM CHLORIDE 20MEQ/100ML 100 ML IV PRN (09:15)
[2020-02-04] MEDS ORDERED: DEXTROSE IV SCH (09:30)
[2020-02-04] MEDS ORDERED: POTASSIUM CHLORIDE IV SCH (09:30)
[2020-02-04] MEDS ORDERED: NACL IV SCH (09:30)
--- NOTE | 2020-02-04 09:50 | NUR ---
RD NOTIFICATION - POST PYLORIC TUBE FEEDING Recommend initiate continuous Vital AF 1.2 @25mls/hour for 5 hours. Increase rate as tolerated by 5mls every 5 hours to goal. Goal rate: 60mls/hour to provide 1728kcal, 108gm protein, 1168 free H2O Recommend flushes: 100mL every 4 hours. Recommendations faxed to 2nd floor POD C [phone]. RN notified. Pt admitted with acute pancreatitis, acute hypertriglyceridemia. Improving TG (571), Lipase (995). Hypoxemic respiratory failure per EMR. RD to follow up with nutrition education when stable. RD to continue to monitor nutritional labs, weight, tolerance. Please notify as additional nutrition concerns arise. Thank you. Addendum: 02/04/20 at [address] Amended: Links added.
[2020-02-04] MEDS: AZITHROMYCIN 500MG+NS 250ML 250 ML IV SCH (10:11)
[2020-02-04] MEDS: POTASSIUM CHLORIDE 20 MEQ in DEXTROSE 5%-LACTATED RINGERS 1,000 ML IV SCH ×2 (10:27→14:52)
[2020-02-04] MEDS ORDERED: DIATR MEGLU/DIATRIZOATE SODIUM 30 ML BOTTLE ONE (10:29)
[2020-02-04] MEDS: HYDROMORPHONE HCL 0.5 MG/0.5 ML ML IVP PRN (12:02)
[2020-02-04 13:05] LABS: ABG BASE EXCESS -1.6 mmol/L (-2.0-3.0); ABG HCO3 22.6 mmol/L (21.0-28.0); ABG OXYGEN SATURATION 94.1 % (95.0-99.0); ABG PCO2 37 mmHg (35-48)
[2020-02-04 13:06] LABS: ABG BASE EXCESS -6.9 mmol/L (-2.0-3.0); ABG HCO3 18.1 mmol/L (21.0-28.0); ABG OXYGEN SATURATION 95.2 % (95.0-99.0); ABG PCO2 35 mmHg (35-48)
--- NOTE | 2020-02-04 14:53 | NUR ---
INITAL SPOKE W SPOUSE ARAM VIA PHONE STATES PT OF [facility], HAS NOT HAD DM FOR VERY LONG, DIAGNOSEDWITHIN THE LAST FEW MONTHS- WAS HERE IN THE HOSPITAL WITH PANCREATITIS 2/2/ HIGH TRIGLYCERIDES LAST ADMIT - SENT HOME WITHOUT RX FOR FENOFIBRATE AND LIPITOR. UNABLE TO GET APPOINTMENT AT [facility] FOR FOLLOW UP ON DC. PT INDEPENDENT, NO DME, DRIVES, SUPPORTIVE FAMILY, STATES TOOK MEDICINE FAITHFULLY THAT WAS PRESCRIBED BACK AGAIN WITH PANCREATITIS AND HIGH TRIGLYCERIDES. ASSURED SPOUSE THAT THIS TIME WE CAN FLAG CHART TO SEND INFO TO [facility] AT DISCHARGE AND MAKE SURE MEDS FOR HIGH TRIGLYCERIDES ARE PRESCRIBED. WILL FOLLOW UP WITH MD. Addendum: 02/04/20 at 1457 by MICHAEL DOWNING RN CM Amended: Links added.
--- NOTE | 2020-02-04 14:59 | NUR ---
REVIEW OF OLD CHART SPOUSE STATES NO RX FOR triglycerides was given at last discharge chart reviewd, cannot find RX for lipitor or fenofibrate note in dc summary, spouse states did not recieve. noted welder setter resistance machine note that says pt was not compliant with meds. adding this info to assist MD with correction.
[2020-02-04] MEDS: FISH OIL 1000 MG/CAP NG SCH (20:06)
[2020-02-04] MEDS: FENOFIBRATE NANOCRYSTALLIZED 145 MG TAB NG SCH (20:06)
[2020-02-04] MEDS: METOPROLOL TARTRATE 25 MG TAB PO SCH (20:07)
[2020-02-05] VITALS (20 sets, daily range): BP systolic 134–170; BP diastolic 84–99
[2020-02-05] MEDS: POTASSIUM CHLORIDE 20 MEQ in DEXTROSE 5%-LACTATED RINGERS 1,000 ML IV SCH ×3 (01:33→21:12)
[2020-02-05] MEDS: METOPROLOL TARTRATE 1 MG/ML 5ML VIAL IV SCH ×4 (02:50→21:12)
[2020-02-05 03:58] LABS: ABG BASE EXCESS 1.2 mmol/L (-2.0-3.0); ABG HCO3 25.4 mmol/L (21.0-28.0); ABG OXYGEN SATURATION 94.3 % (95.0-99.0); ABG PCO2 39 mmHg (35-48)
[2020-02-05 05:16] LABS: BASOPHILS % (AUTO) 0.2 % (0.0-5.0); EOSINOPHILS % (AUTO) 0.6 % (0.0-8.0); HEMATOCRIT 32.6 % (42-54); LYMPHOCYTES % (AUTO) 15.3 % (21.0-51.0); MEAN CORPUSCULAR HEMOGLOBIN 30.3 pg (27.0-33.0); MEAN CORPUSCULAR HGB CONC 33.1 g/dL (32.0-36.0); MEAN CORPUSCULAR VOLUME 91.3 fL (79-99); MONOCYTES % (AUTO) 3.7 % (3.0-13.0); NEUTROPHILS % (AUTO) 79.3 % (40.0-77.0); PLATELET COUNT (AUTO) 207 K/uL (130-400); RED BLOOD CELL COUNT(AUTO) 3.57 MIL/uL (4.50-6.20); RED CELL DISTRIBUTION WIDTH 12.3 % (11.0-15.5); WHITE BLOOD COUNT (AUTO) 13.2 K/uL (4.8-10.8)
[2020-02-05 05:43] LABS: ALBUMIN 2.2 g/dL (3.5-5.0); BILIRUBIN,TOTAL 1.1 mg/dL (0.2-1.0); CREATININE 0.9 mg/dL (0.5-1.5); MAGNESIUM 1.3 mg/dL (1.80-2.40); PHOSPHORUS 4.1 mg/dL (2.5-4.9); POTASSIUM 3.6 mmol/L (3.5-5.1); TOTAL PROTEIN, SERUM 5.9 g/dL (6.0-8.3)
[2020-02-05] MEDS: ZOSYN 3.375GM+NS 50ML 50 ML IV SCH ×3 (05:51→21:12)
[2020-02-05 05:59] LABS: CRP QUANTITATIVE 472.9 mg/L (0.00-9.0)
[2020-02-05] MEDS: MAGNESIUM 2GM PREMIX 50ML 50 ML IV PRN (08:20)
[2020-02-05] MEDS: ENOXAPARIN SODIUM 40 MG/0.4 ML SYRINGE SQ SCH (08:21)
[2020-02-05] MEDS: FISH OIL 1000 MG/CAP NG SCH ×3 (08:22→21:12)
[2020-02-05] MEDS: FAMOTIDINE/PF 20 MG/2 ML VIAL IV SCH ×2 (08:22→21:12)
[2020-02-05] MEDS: METOPROLOL TARTRATE 25 MG TAB PO SCH ×2 (08:22→21:11)
[2020-02-05] MEDS ORDERED: SODIUM CHLORIDE 0.9% 500ML 500 ML IV ONE (08:34)
--- NOTE | 2020-02-05 08:40 | NUR ---
DISCUSSED patient compliance w MD- Advised him that spouse insisted pt was given limited RX's on last discharge- CM unable to determine r/t conflicting information from spouse /pt. On this admit, CM to assist w seamless transition to aftercare. RD consult appropriate on this admission when more stable, CM to follow up. Client of Sonia Moreno, Spouse encouraged to call to inquire re educational services/programs for follow up on discharge.
[2020-02-05] MEDS: AZITHROMYCIN 500MG+NS 250ML 250 ML IV SCH (09:34)
[2020-02-05] MEDS: FENOFIBRATE NANOCRYSTALLIZED 145 MG TAB NG SCH (21:11)
[2020-02-06] VITALS (24 sets, daily range): BP systolic 130–161; BP diastolic 75–101
[2020-02-06] MEDS: METOPROLOL TARTRATE 1 MG/ML 5ML VIAL IV SCH ×4 (03:52→21:30)
[2020-02-06] MEDS: POTASSIUM CHLORIDE 20 MEQ in DEXTROSE 5%-LACTATED RINGERS 1,000 ML IV SCH ×4 (04:00→23:45)
[2020-02-06 05:55] LABS: BASOPHILS % (AUTO) 0.3 % (0.0-5.0); EOSINOPHILS % (AUTO) 0.8 % (0.0-8.0); HEMATOCRIT 31.6 % (42-54); LYMPHOCYTES % (AUTO) 12.8 % (21.0-51.0); MEAN CORPUSCULAR HGB CONC 33.5 g/dL (32.0-36.0); MEAN CORPUSCULAR VOLUME 89.5 fL (79-99); MONOCYTES % (AUTO) 5.6 % (3.0-13.0); NEUTROPHILS % (AUTO) 79.1 % (40.0-77.0); PLATELET COUNT (AUTO) 256 K/uL (130-400); RED BLOOD CELL COUNT(AUTO) 3.53 MIL/uL (4.50-6.20); RED CELL DISTRIBUTION WIDTH 12.2 % (11.0-15.5); WHITE BLOOD COUNT (AUTO) 14.2 K/uL (4.8-10.8)
[2020-02-06] MEDS: ZOSYN 3.375GM+NS 50ML 50 ML IV SCH ×3 (05:58→22:06)
[2020-02-06 06:18] LABS: ALBUMIN 2.3 g/dL (3.5-5.0); BILIRUBIN,TOTAL 0.8 mg/dL (0.2-1.0); CREATININE 0.8 mg/dL (0.5-1.5); MAGNESIUM 1.5 mg/dL (1.80-2.40); PHOSPHORUS 1.7 mg/dL (2.5-4.9); POTASSIUM 3.3 mmol/L (3.5-5.1); TOTAL PROTEIN, SERUM 6.4 g/dL (6.0-8.3)
[2020-02-06] MEDS ORDERED: POTASSIUM CHLORIDE 10% ELIXIR 20 MEQ/15 ML UDCUP PO PRN (06:30)
[2020-02-06] MEDS ORDERED: POTASSIUM PHOS 15 mMOL+NS250ML 250 ML IV PRN ×2 (06:30→07:15)
[2020-02-06] MEDS ORDERED: POTASSIUM CHLORIDE 10% ELIXIR 20 MEQ/15 ML UDCUP ONE (06:32)
[2020-02-06] MEDS: MAGNESIUM 2GM PREMIX 50ML 50 ML IV PRN (06:34)
[2020-02-06] MEDS: FAMOTIDINE/PF 20 MG/2 ML VIAL IV SCH ×2 (08:30→20:45)
[2020-02-06] MEDS: ENOXAPARIN SODIUM 40 MG/0.4 ML SYRINGE SQ SCH (08:30)
[2020-02-06] MEDS: FISH OIL 1000 MG/CAP NG SCH ×3 (08:30→20:45)
[2020-02-06] MEDS: METOPROLOL TARTRATE 25 MG TAB PO SCH ×2 (08:30→20:46)
[2020-02-06] MEDS: AZITHROMYCIN 500MG+NS 250ML 250 ML IV SCH (09:39)
[2020-02-06] MEDS: ACETAMINOPHEN EXTRA STRENGTH 500 MG TABLET PO PRN (10:11)
--- NOTE | 2020-02-06 10:20 | NUR ---
Patient stable. Transferred safely to Day Patient ICU. Report given to RALPH Ortiz
[2020-02-06] MEDS: HYDROMORPHONE HCL 2 MG/ML VIAL IVP PRN (14:33)
[2020-02-06 18:29] LABS: PHOSPHORUS 3.2 mg/dL (2.5-4.9)
[2020-02-06] MEDS: FENOFIBRATE NANOCRYSTALLIZED 145 MG TAB NG SCH (20:45)
[2020-02-06] MEDS: ATORVASTATIN CALCIUM 20 MG TABLET PO SCH (20:46)
[2020-02-07] VITALS (17 sets, daily range): BP systolic 114–158; BP diastolic 52–98
[2020-02-07] MEDS: METOPROLOL TARTRATE 1 MG/ML 5ML VIAL IV SCH ×3 (02:31→14:20)
[2020-02-07] MEDS: ZOSYN 3.375GM+NS 50ML 50 ML IV SCH ×3 (05:08→19:20)
[2020-02-07] MEDS: HYDROMORPHONE HCL 2 MG/ML VIAL IVP PRN ×2 (05:20→14:14)
[2020-02-07 09:17] LABS: CREATININE 0.9 mg/dL (0.5-1.5); MAGNESIUM 1.6 mg/dL (1.80-2.40); PHOSPHORUS 3.7 mg/dL (2.5-4.9); POTASSIUM 3.8 mmol/L (3.5-5.1)
[2020-02-07] MEDS: POTASSIUM CHLORIDE 20 MEQ in DEXTROSE 5%-LACTATED RINGERS 1,000 ML IV SCH (09:31)
[2020-02-07] MEDS: METOPROLOL TARTRATE 25 MG TAB PO SCH ×2 (09:31→19:42)
[2020-02-07] MEDS: FAMOTIDINE/PF 20 MG/2 ML VIAL IV SCH ×2 (09:31→19:20)
[2020-02-07] MEDS: FISH OIL 1000 MG/CAP NG SCH ×3 (09:31→19:21)
[2020-02-07] MEDS: ENOXAPARIN SODIUM 40 MG/0.4 ML SYRINGE SQ SCH (09:33)
[2020-02-07] MEDS: METOPROLOL TARTRATE 1 MG/ML 5ML VIAL IV PRN ×2 (09:55→19:22)
[2020-02-07] MEDS: MAGNESIUM 2GM PREMIX 50ML 50 ML IV PRN (09:56)
[2020-02-07] MEDS: INSULIN GLARGINE 100 UNITS/ML 10 ML VIAL SQ SCH ×2 (15:53→17:41)
[2020-02-07] MEDS: INSULIN LISPRO 100 UNIT/ML 3ML SQ SCH ×2 (15:58→20:14)
--- NOTE | 2020-02-07 18:25 | NUR ---
RECEIVED PT UNIT TRANSFER FROM [facility]; PT IS AAOX3, NO C/O PAIN; I HAVE ORIENTED HIM TO ROOM AND CALL LIGHT SYSTEM.
[2020-02-07] MEDS: ATORVASTATIN CALCIUM 20 MG TABLET PO SCH (19:21)
[2020-02-07] MEDS: FENOFIBRATE NANOCRYSTALLIZED 145 MG TAB NG SCH (19:21)
--- NOTE | 2020-02-07 22:52 | NUR ---
patient refused a shower
[2020-02-08] MEDS: HYDROMORPHONE HCL 2 MG/ML VIAL IVP PRN (03:28)
[2020-02-08 04:13] VITALS: BP 142/95
[2020-02-08] MEDS: ZOSYN 3.375GM+NS 50ML 50 ML IV SCH (05:03)
[2020-02-08] MEDS: INSULIN LISPRO 100 UNIT/ML 3ML SQ SCH ×4 (05:23→21:00)
[2020-02-08 05:38] LABS: BASOPHILS % (AUTO) 0.9 % (0.0-5.0); EOSINOPHILS % (AUTO) 0.5 % (0.0-8.0); HEMATOCRIT 35.8 % (42-54); MEAN CORPUSCULAR HEMOGLOBIN 30.4 pg (27.0-33.0); MEAN CORPUSCULAR HGB CONC 33.2 g/dL (32.0-36.0); MEAN CORPUSCULAR VOLUME 91.3 fL (79-99); MONOCYTES % (AUTO) 7.6 % (3.0-13.0); NEUTROPHILS % (AUTO) 65.9 % (40.0-77.0); NUCLEATED RED BLOOD CELLS 0.2 % (0.0-0.19); PLATELET COUNT (AUTO) 398 K/uL (130-400); RED BLOOD CELL COUNT(AUTO) 3.92 MIL/uL (4.50-6.20); RED CELL DISTRIBUTION WIDTH 12.3 % (11.0-15.5); WHITE BLOOD COUNT (AUTO) 21.7 K/uL (4.8-10.8)
[2020-02-08 05:56] LABS: ALBUMIN 2.9 g/dL (3.5-5.0); BILIRUBIN,TOTAL 0.8 mg/dL (0.2-1.0); CREATININE 0.9 mg/dL (0.5-1.5); POTASSIUM 4.2 mmol/L (3.5-5.1); TOTAL PROTEIN, SERUM 7.6 g/dL (6.0-8.3)
[2020-02-08 07:34] VITALS: BP 138/98
[2020-02-08] MEDS ORDERED: ACETAMINOPHEN 325 MG TAB ONE (10:04)
[2020-02-08] MEDS: FAMOTIDINE/PF 20 MG/2 ML VIAL IV SCH ×2 (10:08→21:23)
[2020-02-08] MEDS: ENOXAPARIN SODIUM 40 MG/0.4 ML SYRINGE SQ SCH (10:09)
[2020-02-08] MEDS: FISH OIL 1000 MG/CAP NG SCH ×3 (10:09→21:24)
[2020-02-08] MEDS: METOPROLOL TARTRATE 25 MG TAB PO SCH ×2 (10:09→21:24)
[2020-02-08 10:52] VITALS: BP 129/85
--- NOTE | 2020-02-08 15:12 | NUR ---
RD FOLLOW UP Tube feeding discontinued. Pt tolerating 75gm CC diet order with no report of GI distress, fair PO intake, as per RN. Recommend continue diet order. RD to continue to monitor. Please notify as additional nutrition concerns arise. Thank you. Addendum: 02/08/20 at [address] Amended: Links added.
[2020-02-08 15:49] VITALS: BP 139/90
[2020-02-08] MEDS: LEVOFLOXACIN 750 MG/D5W 150 ML 150 ML IV SCH (17:14)
[2020-02-08 20:52] VITALS: BP 142/92
[2020-02-08] MEDS: FENOFIBRATE NANOCRYSTALLIZED 145 MG TAB NG SCH (21:24)
[2020-02-08] MEDS: ATORVASTATIN CALCIUM 20 MG TABLET PO SCH (21:24)
[2020-02-08] MEDS: ACETAMINOPHEN EXTRA STRENGTH 500 MG TABLET PO PRN (21:25)
[2020-02-08] MEDS: INSULIN GLARGINE 100 UNITS/ML 10 ML VIAL SQ SCH (21:33)
[2020-02-08 23:38] VITALS: BP 139/87
[2020-02-09 03:54] VITALS: BP 148/93
[2020-02-09] MEDS: HYDROMORPHONE HCL 0.5 MG/0.5 ML ML IVP PRN (04:53)
[2020-02-09 06:23] LABS: BASOPHILS % (AUTO) 0.2 % (0.0-5.0); EOSINOPHILS % (AUTO) 0.6 % (0.0-8.0); HEMATOCRIT 38.4 % (42-54); LYMPHOCYTES % (AUTO) 13.6 % (21.0-51.0); MEAN CORPUSCULAR HEMOGLOBIN 29.4 pg (27.0-33.0); MEAN CORPUSCULAR HGB CONC 32.8 g/dL (32.0-36.0); MEAN CORPUSCULAR VOLUME 89.7 fL (79-99); MONOCYTES % (AUTO) 7.6 % (3.0-13.0); NEUTROPHILS % (AUTO) 63.9 % (40.0-77.0); NUCLEATED RED BLOOD CELLS 0.1 % (0.0-0.19); PLATELET COUNT (AUTO) 461 K/uL (130-400); RED BLOOD CELL COUNT(AUTO) 4.28 MIL/uL (4.50-6.20); RED CELL DISTRIBUTION WIDTH 12.3 % (11.0-15.5); WHITE BLOOD COUNT (AUTO) 23.3 K/uL (4.8-10.8)
[2020-02-09] MEDS: INSULIN LISPRO 100 UNIT/ML 3ML SQ SCH ×4 (06:23→20:59)
[2020-02-09 06:41] LABS: ALBUMIN 3.1 g/dL (3.5-5.0); BILIRUBIN,TOTAL 0.6 mg/dL (0.2-1.0); POTASSIUM 4.4 mmol/L (3.5-5.1); TOTAL PROTEIN, SERUM 8.2 g/dL (6.0-8.3)
[2020-02-09 08:25] VITALS: BP 134/84
[2020-02-09] MEDS: FAMOTIDINE/PF 20 MG/2 ML VIAL IV SCH ×2 (09:16→19:59)
[2020-02-09] MEDS: FISH OIL 1000 MG/CAP NG SCH ×3 (09:16→20:01)
[2020-02-09] MEDS: METOPROLOL TARTRATE 25 MG TAB PO SCH ×2 (09:16→19:59)
[2020-02-09] MEDS: LEVOFLOXACIN 500 MG/D5W 100 ML 100 ML IV SCH (09:16)
[2020-02-09] MEDS: ENOXAPARIN SODIUM 40 MG/0.4 ML SYRINGE SQ SCH (09:16)
[2020-02-09 11:26] VITALS: BP 124/78
[2020-02-09] MEDS: LEVOFLOXACIN 750 MG/D5W 150 ML 150 ML IV SCH ×2 (16:00→16:44)
[2020-02-09 16:07] VITALS: BP 128/82
--- NOTE | 2020-02-09 17:51 | NUR ---
CM NOTE/GOOD RX MEET WITH PATIENT IN ROOM. PER PATIENT, NO INSURANCE. [facility] AND [employer] $4 DOLLAR PROGRAM PACKET GIVEN, PATIENT VERBALIZED UNDERSTANDING OF PACKET.
[2020-02-09] MEDS: ATORVASTATIN CALCIUM 20 MG TABLET PO SCH (19:59)
[2020-02-09] MEDS: FENOFIBRATE NANOCRYSTALLIZED 145 MG TAB NG SCH (19:59)
[2020-02-09 20:45] VITALS: BP 131/77
[2020-02-09] MEDS: HYDROMORPHONE HCL 2 MG/ML VIAL IVP PRN ×2 (21:01→23:13)
[2020-02-09] MEDS: INSULIN GLARGINE 100 UNITS/ML 10 ML VIAL SQ SCH (21:05)
[2020-02-09 23:59] VITALS: BP 151/89
[2020-02-10] MEDS: HYDROMORPHONE HCL 2 MG/ML VIAL IVP PRN ×3 (01:02→05:08)
[2020-02-10 03:26] VITALS: BP 124/83
[2020-02-10 05:41] LABS: BASOPHILS % (AUTO) 0.2 % (0.0-5.0); EOSINOPHILS % (AUTO) 0.8 % (0.0-8.0); HEMATOCRIT 40.6 % (42-54); LYMPHOCYTES % (AUTO) 17.4 % (21.0-51.0); MEAN CORPUSCULAR HEMOGLOBIN 29.8 pg (27.0-33.0); MEAN CORPUSCULAR VOLUME 90.2 fL (79-99); PLATELET COUNT (AUTO) 524 K/uL (130-400); RED CELL DISTRIBUTION WIDTH 12.1 % (11.0-15.5); WHITE BLOOD COUNT (AUTO) 22.4 K/uL (4.8-10.8)
[2020-02-10] MEDS: INSULIN LISPRO 100 UNIT/ML 3ML SQ SCH ×3 (05:51→16:30)
[2020-02-10 06:17] LABS: ALBUMIN 3.1 g/dL (3.5-5.0); BILIRUBIN,TOTAL 0.4 mg/dL (0.2-1.0); TOTAL PROTEIN, SERUM 8.1 g/dL (6.0-8.3)
[2020-02-10 07:40] VITALS: BP 132/85
[2020-02-10] MEDS: LEVOFLOXACIN 750 MG/D5W 150 ML 150 ML IV SCH (08:02)
[2020-02-10] MEDS: METOPROLOL TARTRATE 25 MG TAB PO SCH (09:01)
[2020-02-10] MEDS: LEVOFLOXACIN 500 MG/D5W 100 ML 100 ML IV SCH (09:01)
[2020-02-10] MEDS: ENOXAPARIN SODIUM 40 MG/0.4 ML SYRINGE SQ SCH (09:01)
[2020-02-10] MEDS: FISH OIL 1000 MG/CAP NG SCH ×2 (09:01→14:25)
[2020-02-10] MEDS: FAMOTIDINE/PF 20 MG/2 ML VIAL IV SCH (09:01)
[2020-02-10 10:47] VITALS: BP 128/81
[2020-02-10 16:00] VITALS: BP 128/85
[2020-02-10] MEDS ORDERED: METO25 PO (17:55)
--- NOTE | 2020-02-10 19:45 | NUR ---
D/C INSTRUCTIONS GIVEN ON PANCREATITIS AND DIABETES; IMPORTANCE STRESSED ON F/U WITH PCP AT [facility] AND FILLING NEW SCRIPTS; PT STATED UNDERSTANDING OF ALL INSTRUCTIONS AND NEED FOR F/U; IV ACCESS REMOVED AND PT'S FAMILY WAITING DOWNSTAIRS FOR TABLE TENDER SLUDGE. PT INSTRUCTED TO RETURN TO ED FOR RETURN OF SYMPTOMS
[2020-02-10] MEDS ORDERED: INSULIN GLARGINE 100 UNITS/ML 10 ML VIAL SQ SCH (21:00)
== END 2020-02-10 19:45 | disposition home or self-care (01) | DRG 438 ==
LOC: EDH 20:16 → EDHIP 20:17 → 2CH 02-03 08:26 → DAHIP 02-06 10:03 → 3CH 02-07 17:57
PROVIDERS: ADMIT Internal Medicine; ATTEND Internal Medicine
PROC: 0DH97UZ Insertion of Feeding Device into Duodenum, Via Natural or Artificial Opening (ICD-10-PCS; principal; 2020-02-04)
DX: K85.80 Other acute pancreatitis without necrosis or infection (principal); J96.01 Acute respiratory failure with hypoxia; K65.0 Generalized (acute) peritonitis; J15.9 Unspecified bacterial pneumonia; E87.1 Hypo-osmolality and hyponatremia; N17.9 Acute kidney failure, unspecified; E87.2 Acidosis; R65.10 Systemic inflammatory response syndrome (SIRS) of non-infectious origin without acute organ dysfunction; K86.1 Other chronic pancreatitis; E86.1 Hypovolemia; E78.1 Pure hyperglyceridemia; D72.828 Other elevated white blood cell count; E11.9 Type 2 diabetes mellitus without complications; E66.9 Obesity, unspecified; E78.5 Hyperlipidemia, unspecified; F17.210 Nicotine dependence, cigarettes, uncomplicated; I10 Essential (primary) hypertension; Z20.828 Contact with and (suspected) exposure to other viral communicable diseases; Z68.28 Body mass index [BMI] 28.0-28.9, adult; Z91.14 Patient's other noncompliance with medication regimen; Z91.19 Patient's noncompliance with other medical treatment and regimen; Z83.3 Family history of diabetes mellitus; Z82.49 Family history of ischemic heart disease and other diseases of the circulatory system
CPT/HCPCS: 36415; 36600; 71045; 74018; 76705; 80048; 80053; 80061; 80305; 81001; 82150; 82803; 82948; 83605; 83615; 83690; 83735; 84100; 84132; 84145; 84478; 85025; 85027; 86140; 87040; 87633; 87635; 93005; B4081; G0378; J0456; J1170; J1650; J1815; J1885; J1956; J2270; J2405; J2543; J3475; J3480; J3490; J7040; J7042; J7050; J7120; Q9963

== ENCOUNTER 2020-03-23 17:23 | Inpatient (IN) | payer OTHER, SELFPAY ==
[~2020-03-23] VITALS: Ht 167.6 cm; Wt 83.5 kg
[~2020-03-23 17:23] MED LIST changes: +METO25 PO
[2020-03-23 19:26] LABS: BASOPHILS % (AUTO) 0.3 % (0.0-5.0); EOSINOPHILS % (AUTO) 0.1 % (0.0-8.0); HEMATOCRIT 48.3 % (42-54); LYMPHOCYTES % (AUTO) 11.8 % (21.0-51.0); MEAN CORPUSCULAR HEMOGLOBIN 29.5 pg (27.0-33.0); MEAN CORPUSCULAR HGB CONC 33.5 g/dL (32.0-36.0); MEAN CORPUSCULAR VOLUME 87.8 fL (79-99); MONOCYTES % (AUTO) 4.2 % (3.0-13.0); NEUTROPHILS % (AUTO) 82.8 % (40.0-77.0); PLATELET COUNT (AUTO) 438 K/uL (130-400); RED CELL DISTRIBUTION WIDTH 12.2 % (11.0-15.5); WHITE BLOOD COUNT (AUTO) 19.2 K/uL (4.8-10.8)
[2020-03-23 19:36] LABS: CREATININE 1.1 mg/dL (0.5-1.5); POTASSIUM 4.7 mmol/L (3.5-5.1)
[2020-03-23 19:38] LABS: ALBUMIN 4.7 g/dL (3.5-5.0); BILIRUBIN,TOTAL 0.5 mg/dL (0.2-1.0); TOTAL PROTEIN, SERUM 8.9 g/dL (6.0-8.3)
[2020-03-23] MEDS ORDERED: MORPHINE SULFATE 4 MG/1ML SYG ONE (19:59)
[2020-03-23] MEDS ORDERED: ONDANSETRON HCL 4 MG/2 ML VIAL ONE (19:59)
[2020-03-23] MEDS ORDERED: KETOROLAC TROMETHAMINE 30MG/ML ONE (19:59)
[2020-03-23] MEDS ORDERED: SODIUM CHLORIDE 0.9% 1000ML 1,000 ML IV ONE (20:00)
[2020-03-23] MEDS ORDERED: IOHEXOL-350 75 ML VIAL IV ONE (20:09)
[2020-03-23 20:39] LABS: INR 0.95 (0.85-1.15); PARTIAL THROMBOPLASTIN TIME 24.8 SEC (26.3-35.5); PROTHROMBIN TIME 10.3 SEC (9.6-11.6)
[2020-03-23] MEDS ORDERED: ONDANSETRON HCL 4 MG/2 ML VIAL IV PRN (21:00)
[2020-03-23] MEDS ORDERED: LACTULOSE 20 GM/30 ML UDCUP PO PRN (21:00)
[2020-03-23] MEDS: ZOSYN 3.375GM+NS 50ML 50 ML IV SCH (21:00)
[2020-03-23] MEDS ORDERED: MORPHINE SULFATE 2 MG/ML 1ML SYG IVP PRN (21:00)
[2020-03-23] MEDS ORDERED: INSULIN REGULAR, HUMAN 3ML 100 UNIT in SODIUM CHLORIDE 0.9% 99 ML IV PRN ×2 (21:00)
[2020-03-23] MEDS ORDERED: ACETAMINOPHEN 325 MG TAB PO PRN ×2 (21:00)
[2020-03-23] MEDS ORDERED: SODIUM CHLORIDE 0.9% 100 ML IV ONE (21:57)
[2020-03-23] MEDS ORDERED: ZOSYN 3.375GM+NS 50ML 50 ML IV ONE (21:57)
[2020-03-23] MEDS ORDERED: MORPHINE SULFATE 2 MG/ML 1ML SYG ONE (21:57)
[2020-03-23] MEDS ORDERED: FAMOTIDINE/PF 20 MG/2 ML VIAL IV ONE (21:58)
[2020-03-23] MEDS ORDERED: INSULIN HUMULIN R 100 UNIT/ML 3ML ONE (21:58)
[2020-03-23 22:22] LABS: CHOLESTEROL 218 mg/dL (<200); LDL DIRECT 103 mg/dL (0-99); TRIGLYCERIDES 699 mg/dL (30-200)
[2020-03-23 22:46] LABS: HDL CHOLESTEROL 34 mg/dL (29-71)
[2020-03-23 23:56] LABS: APPEARANCE,URINE Clear (CLEAR); BILIRUBIN,URINE Negative (NEGATIVE); COLOR,URINE Yellow (YELLOW); GLUCOSE, URINE (UA) Negative (NEGATIVE); KETONES,URINE Negative (NEGATIVE); LEUKOCYTE ESTERASE ,URINE Negative (NEGATIVE); NITRATE,URINE Negative (NEGATIVE); OCCULT BLOOD,URINE Negative (NEGATIVE); PH,URINE 5.5 (5.0-8.0); PROTEIN,URINE Negative (NEGATIVE); UROBILINOGEN,URINE 0.2 mg/dL (0.2-1.0)
[2020-03-24] VITALS (12 sets, daily range): BP systolic 137–158; BP diastolic 76–104
[2020-03-24] MEDS ORDERED: MORPHINE SULFATE 2 MG/ML 1ML SYG ONE ×2 (02:19→20:07)
[2020-03-24] MEDS: SODIUM CHLORIDE 0.9% 1000ML 1,000 ML IV SCH ×4 (04:47→21:34)
[2020-03-24] MEDS: ZOSYN 3.375GM+NS 50ML 50 ML IV SCH ×3 (05:00→21:00)
[2020-03-24 05:26] LABS: BASOPHILS % (AUTO) 0.2 % (0.0-5.0); EOSINOPHILS % (AUTO) 0.5 % (0.0-8.0); HEMATOCRIT 42.9 % (42-54); LYMPHOCYTES % (AUTO) 12.5 % (21.0-51.0); MEAN CORPUSCULAR HEMOGLOBIN 29.3 pg (27.0-33.0); MEAN CORPUSCULAR HGB CONC 33.3 g/dL (32.0-36.0); MEAN CORPUSCULAR VOLUME 87.9 fL (79-99); MONOCYTES % (AUTO) 5.3 % (3.0-13.0); NEUTROPHILS % (AUTO) 80.8 % (40.0-77.0); PLATELET COUNT (AUTO) 333 K/uL (130-400); RED BLOOD CELL COUNT(AUTO) 4.88 MIL/uL (4.50-6.20); RED CELL DISTRIBUTION WIDTH 12.6 % (11.0-15.5); WHITE BLOOD COUNT (AUTO) 16.3 K/uL (4.8-10.8)
[2020-03-24 05:56] LABS: POTASSIUM 3.8 mmol/L (3.5-5.1)
[2020-03-24] MEDS ORDERED: ZOSYN 3.375GM+NS 50ML 50 ML IV ONE ×2 (06:53→15:20)
[2020-03-24] MEDS: ENOXAPARIN SODIUM 40 MG/0.4 ML SYRINGE SQ SCH (09:00)
[2020-03-24] MEDS: FAMOTIDINE/PF 20 MG/2 ML VIAL IV SCH ×3 (09:00→21:32)
[2020-03-24] MEDS ORDERED: ENOXAPARIN SODIUM 40 MG/0.4 ML SYRINGE SQ ONE (09:50)
[2020-03-24] MEDS ORDERED: FAMOTIDINE/PF 20 MG/2 ML VIAL IV ONE (09:50)
[2020-03-24] MEDS ORDERED: ACETAMINOPHEN 325 MG TAB ONE (11:31)
--- NOTE | 2020-03-24 21:00 | NUR ---
ADMISSION PATIENT ARRIVED TO ROOM 216 VIA STRETCHER. PATIENT AMBULATED TO BATHROOM AND TRANSFERRED INDEPENDENTLY TO BED. AAOX3 BREATHING REGULAR AND UNLABORED ON ROOM AIR, ST, HYPERTENSIVE, AFEBRILE. NS INFUSING TO LAC AT 125 ML/HR. ASSESSMENT COMPLETED. PLAN OF CARE DISCUSSED WITH PATIENT. ORIENTED TO ROOM.
[2020-03-24 21:02] LABS: HEMOGLOBIN A1C 6.9 % (4.0-6.0)
[2020-03-25] VITALS (14 sets, daily range): BP systolic 118–150; BP diastolic 69–100
[2020-03-25] MEDS: ZOSYN 3.375GM+NS 50ML 50 ML IV SCH ×4 (04:12→20:16)
[2020-03-25 04:14] LABS: BASOPHILS % (AUTO) 0.3 % (0.0-5.0); EOSINOPHILS % (AUTO) 1.7 % (0.0-8.0); HEMATOCRIT 35.9 % (42-54); LYMPHOCYTES % (AUTO) 21.3 % (21.0-51.0); MEAN CORPUSCULAR HEMOGLOBIN 28.4 pg (27.0-33.0); MEAN CORPUSCULAR HGB CONC 32.3 g/dL (32.0-36.0); MEAN CORPUSCULAR VOLUME 87.8 fL (79-99); MONOCYTES % (AUTO) 6.6 % (3.0-13.0); NEUTROPHILS % (AUTO) 69.5 % (40.0-77.0); PLATELET COUNT (AUTO) 208 K/uL (130-400); RED BLOOD CELL COUNT(AUTO) 4.09 MIL/uL (4.50-6.20); RED CELL DISTRIBUTION WIDTH 12.4 % (11.0-15.5); WHITE BLOOD COUNT (AUTO) 9.8 K/uL (4.8-10.8)
[2020-03-25] MEDS: SODIUM CHLORIDE 0.9% 1000ML 1,000 ML IV SCH ×4 (04:14→20:16)
[2020-03-25 04:43] LABS: CREATININE 0.9 mg/dL (0.5-1.5); POTASSIUM 3.3 mmol/L (3.5-5.1)
[2020-03-25] MEDS ORDERED: LIDOCAINE HCL-MPF 1% 2ML VIAL IV PRN (05:45)
[2020-03-25] MEDS ORDERED: POTASSIUM CHLORIDE 20MEQ/100ML 100 ML IV PRN (05:45)
[2020-03-25] MEDS: ENOXAPARIN SODIUM 40 MG/0.4 ML SYRINGE SQ SCH (08:17)
[2020-03-25] MEDS: FAMOTIDINE/PF 20 MG/2 ML VIAL IV SCH ×2 (08:17→20:16)
[2020-03-25] MEDS: MAGNESIUM 2GM PREMIX 50ML 50 ML IV PRN ×2 (08:18→09:24)
--- NOTE | 2020-03-25 10:22 | NUR ---
Morning Rounds Patient assessed in morning rounds. Patient is known to me from a previous admission with the same medical problem of pancreatitis. Patient was instructed last admission to watch and be mindful of the foods he ate and to continue to take his medication as this is the 3rd admission he has come in with for pancreatitis. He does have abdominal pain 6/10 tender to palpation in all 4 quadrants more so on upper quadrants. Morphine for pain management was given and patient is now resting comfortably. Insulin drip off overnight triglycerides less than 500. DOWNSTAIRS MAID made rounds and added clear liquid diet to be started at lunch time if pain is better controlled and patient is able to tolerate diet. Patient downgraded to Medical status.
[2020-03-26 03:45] LABS: BASOPHILS % (AUTO) 0.4 % (0.0-5.0); EOSINOPHILS % (AUTO) 2.6 % (0.0-8.0); HEMATOCRIT 33.9 % (42-54); LYMPHOCYTES % (AUTO) 22.2 % (21.0-51.0); MEAN CORPUSCULAR HGB CONC 33.3 g/dL (32.0-36.0); MEAN CORPUSCULAR VOLUME 87.1 fL (79-99); MONOCYTES % (AUTO) 5.5 % (3.0-13.0); NEUTROPHILS % (AUTO) 68.9 % (40.0-77.0); PLATELET COUNT (AUTO) 231 K/uL (130-400); RED BLOOD CELL COUNT(AUTO) 3.89 MIL/uL (4.50-6.20); RED CELL DISTRIBUTION WIDTH 12.2 % (11.0-15.5); WHITE BLOOD COUNT (AUTO) 9.8 K/uL (4.8-10.8)
[2020-03-26 03:53] VITALS: BP 155/94
[2020-03-26 04:07] LABS: CREATININE 0.9 mg/dL (0.5-1.5); MAGNESIUM 1.9 mg/dL (1.80-2.40); POTASSIUM 3.4 mmol/L (3.5-5.1)
[2020-03-26] MEDS: ZOSYN 3.375GM+NS 50ML 50 ML IV SCH ×3 (05:11→20:35)
[2020-03-26] MEDS: SODIUM CHLORIDE 0.9% 1000ML 1,000 ML IV SCH ×3 (05:12→20:35)
[2020-03-26] MEDS ORDERED: POTASSIUM CHLORIDE 20 MEQ ERTAB PO ONE (06:22)
[2020-03-26] MEDS: MAGNESIUM 2GM PREMIX 50ML 50 ML IV PRN (06:24)
--- NOTE | 2020-03-26 06:38 | NUR ---
ELECTROLYTES REPLACEMENT K+ this am at 3.4 with Mg sat 1.90, started hypokalemia protocol, 20meq kdur tab administered and 2 gms of Magnesium sulfate hung to run over 2 hrs as per protocol. Pt comfortable overnight, no complaints of any abdominal pain. no nausea and vomiting. Tolerating a clear liquid diet.
[2020-03-26 07:30] VITALS: BP 148/87
[2020-03-26] MEDS ORDERED: METF-446 PO (08:46)
[2020-03-26] MEDS ORDERED: ATOR40TA71 PO (08:46)
[2020-03-26] MEDS ORDERED: FENO145T PO (08:46)
[2020-03-26] MEDS: FAMOTIDINE/PF 20 MG/2 ML VIAL IV SCH ×2 (08:53→20:35)
[2020-03-26] MEDS: ENOXAPARIN SODIUM 40 MG/0.4 ML SYRINGE SQ SCH (08:56)
[2020-03-26 11:20] VITALS: BP 131/83
[2020-03-26 15:30] VITALS: BP 125/80
--- NOTE | 2020-03-26 19:02 | NUR ---
INITIAL SW spoke with patient. Patient lives with spouse, Edelmira Benitez, [phone]. No home services. DME: BPM, glucometer (no insulin). Patient is able to complete ADL's independently and drives. PCP is MD at [facility]. Pharmacy is [facility]. DCP is home. Patient has no insurance or benefits. He is a [place] citizen or legal resident. Patient was educated on [employer] $4 medication program and [employer] $5 medication program. Patient is being assisted by [employer] for financial matters. Addendum: 03/26/20 at 1905 by TUNG HOGUE Amended: Links added.
[2020-03-26 20:18] VITALS: BP 139/82
[2020-03-26 23:56] VITALS: BP 136/89
[2020-03-27 03:40] VITALS: BP 131/94
[2020-03-27 04:28] LABS: HEMATOCRIT 33.7 % (42-54); MEAN CORPUSCULAR HGB CONC 33.5 g/dL (32.0-36.0); MEAN CORPUSCULAR VOLUME 86.4 fL (79-99); PLATELET COUNT (AUTO) 270 K/uL (130-400); RED CELL DISTRIBUTION WIDTH 12.2 % (11.0-15.5); WHITE BLOOD COUNT (AUTO) 7.8 K/uL (4.8-10.8)
[2020-03-27 04:53] LABS: ALBUMIN 3.3 g/dL (3.5-5.0); BILIRUBIN,TOTAL 0.4 mg/dL (0.2-1.0); CREATININE 0.9 mg/dL (0.5-1.5); POTASSIUM 3.6 mmol/L (3.5-5.1)
[2020-03-27 05:16] LABS: BAND NEUTROPHILS % (MANUAL) 7 % (0-2); EOSINOPHILS % (MANUAL) 7 % (1-6); LYMPHOCYTES % (MANUAL) 11 % (22-44); MAN.DIFF COMMENT-IMPRESSION MANUAL DIFFERENTIAL; MONOCYTES % (MANUAL) 8 % (2-9); SEGMENTED NEUTROPHILS % 67 % (40-70)
[2020-03-27 05:17] LABS: PLATELET MORPHOLOGY COMMENT ADEQUATE
[2020-03-27] MEDS ORDERED: LIDOCAINE HCL-MPF 1% 2ML VIAL IJ PRN (05:45)
[2020-03-27] MEDS ORDERED: POTASSIUM CHLORIDE 20 MEQ ERTAB PO PRN (05:45)
[2020-03-27] MEDS ORDERED: POTASSIUM CHLORIDE 20MEQ/100ML 100 ML IV PRN (05:45)
[2020-03-27] MEDS ORDERED: POTASSIUM CHLORIDE 10% ELIXIR 20 MEQ/15 ML UDCUP PO PRN (05:45)
[2020-03-27] MEDS: ZOSYN 3.375GM+NS 50ML 50 ML IV SCH ×2 (05:57→13:15)
[2020-03-27] MEDS: SODIUM CHLORIDE 0.9% 1000ML 1,000 ML IV SCH ×2 (05:57→12:47)
[2020-03-27 07:30] VITALS: BP 163/107
[2020-03-27 09:00] VITALS: BP 141/89
[2020-03-27] MEDS: ENOXAPARIN SODIUM 40 MG/0.4 ML SYRINGE SQ SCH (09:00)
[2020-03-27] MEDS: FAMOTIDINE/PF 20 MG/2 ML VIAL IV SCH (09:11)
--- NOTE | 2020-03-27 11:00 | NUR ---
DR. DANI KRUEGER HERE TO SEE PATIENT. MD SPOKE TO PATIENT ABOUT ELEVATION IN LIPASE AND PLAN TO CHANGE DIET FROM SOFT/BLAND TO CLEAR LIQUIDS AND PLAN TO KEEP PATIENT ANOTHER NIGHT. PATIENT IN AGREEMENT.
[2020-03-27 11:30] VITALS: BP 129/77
[2020-03-27 15:30] VITALS: BP 151/97
--- NOTE | 2020-03-27 19:00 | NUR ---
AMA PATIENT CALLED ME TO HIS ROOM TO TELL ME THAT HE WANTS TO "SIGN MYSELF OUT OF HERE." I ASKED PATIENT "YOU WANT TO LEAVE THE HOSPITAL AGAINST MEDICAL ADVICE?" AND PATIENT REPLIED "YES. I FEEL GOOD, I DON'T HAVE ANYMORE STOMACH PAIN, AND I WANT TO SEE MY FAMILY." EDUCATED PATIENT ON RISKS OF GOING HOME AGAINST MEDICAL ADVICE. I TOLD PATIENT THAT IN THE HOSPITAL HIS LABWORK IS BEING EVALUATED ON A DAILY BASIS AND ELECTROLYTES ARE BEING REPLACED TO SUPPLEMENT YOUR DIET. I REINFORCED DR. PEARSON INSTRUCTIONS TO PATIENT THAT ELEVATED LIPASE AFTER STARTING A SOFT DIET WAS NOT AN UNEXPECTED OUTCOME. I REMINDED PATIENT THAT A CLEAR LIQUID DIET MAY HELPFULLY HELP LOWER HIS LIPASE. BUT WE WILL NOT KNOW IF LIPASE WILL BE ELEVATED OR LOWERED TOMORROW IF PATIENT LEAVE THE HOSPITAL. I ADVISED PATIENT THAT STAYING SO WE CAN MONITOR HIS SYMPTOMS AND LABWORK IN RESPONSE TO DIET CHANGE. I TOLD PATIENT THAT THERE IS A RISK THAT IF HE GOES HOME AND EATS REGULAR FOOD, THERE IS A CHANCE LIPASE COULD DRASTICALLY ELEVATED AND ABDOMINAL PAIN WILL RESUME. PATIENT STATES "I GET WHAT YOU'RE TRYING TO SAY. BUT I FEEL LIKE IF I GO HOME AND TAKE CARE OF MYSELF, LIKE WHAT I EAT AND MY MEDICATIONS, THAT I WILL BE OKAY." I INFORMED PATIENT THAT IF HE LEAVES "AMA" THAT HE WILL NOT GET PRESCRIPTIONS AND MAY ALSO AFFECT INSURANCE FINANCING OF HOSPITAL STAY. PATIENT REPLIED THAT HE JUST WANT TO GO HOME. PATIENT SIGNED "AGAINST MEDICAL ADVICE" FORM WILLINGLY. REMOVED 20G IV FROM LEFT AC. SPOKE TO Cherelle BRIGGS NP FOR HOSPITALIST AND INFORMED THAT PATIENT LEFT "AMA".
== END 2020-03-27 19:00 | disposition left against medical advice (07) | DRG 439 ==
LOC: EDH 17:23 → DAHIP 17:24 → EDHIP 17:25 → 2CH 03-24 20:41 → 4DH 03-25 17:40
PROVIDERS: ADMIT Hospitalist; ATTEND Hospitalist
DX: K85.80 Other acute pancreatitis without necrosis or infection (principal); K86.3 Pseudocyst of pancreas; K86.1 Other chronic pancreatitis; E78.1 Pure hyperglyceridemia; K76.0 Fatty (change of) liver, not elsewhere classified; F17.200 Nicotine dependence, unspecified, uncomplicated; K57.30 Diverticulosis of large intestine without perforation or abscess without bleeding; E11.9 Type 2 diabetes mellitus without complications; E83.42 Hypomagnesemia; E87.6 Hypokalemia; Z91.14 Patient's other noncompliance with medication regimen; Z83.3 Family history of diabetes mellitus; Z82.49 Family history of ischemic heart disease and other diseases of the circulatory system
CPT/HCPCS: 36415; 71045; 74177; 76705; 80048; 80053; 80061; 81003; 82948; 83036; 83605; 83690; 83735; 84145; 84478; 84484; 85025; 85610; 85730; 87040; G0378; J1650; J1815; J1885; J2270; J2405; J2543; J3475; J3480; J3490; J7030; Q9967

== ENCOUNTER 2020-12-12 14:06 | Inpatient (IN) | payer OTHER ==
[~2020-12-12] VITALS: Ht 167.6 cm; Wt 83.9 kg
[~2020-12-12 14:06] MED LIST changes: +ATOR40TA71 PO; +FENO145T PO; +METF-446 PO
[2020-12-12 14:27] LABS: BASOPHILS % (AUTO) 0.4 % (0.0-5.0); EOSINOPHILS % (AUTO) 0.2 % (0.0-8.0); HEMATOCRIT 39.4 % (42-54); LYMPHOCYTES % (AUTO) 11.2 % (21.0-51.0); MEAN CORPUSCULAR HEMOGLOBIN 30.5 pg (27.0-33.0); MEAN CORPUSCULAR HGB CONC 35.8 g/dL (32.0-36.0); MEAN CORPUSCULAR VOLUME 85.3 fL (79-99); MONOCYTES % (AUTO) 4.2 % (3.0-13.0); NEUTROPHILS % (AUTO) 83.3 % (40.0-77.0); PLATELET COUNT (AUTO) 251 K/uL (130-400); RED BLOOD CELL COUNT(AUTO) 4.62 MIL/uL (4.50-6.20); RED CELL DISTRIBUTION WIDTH 11.6 % (11.0-15.5)
[2020-12-12] MEDS ORDERED: LIDOCAINE HCL 2% VISCOUS 15 ML UDCUP ONE (14:30)
[2020-12-12] MEDS ORDERED: MAG HYDROX/AL HYDROX/SIMETH ES 30 ML SUSP UDCUP ONE (14:30)
[2020-12-12] MEDS ORDERED: DICYCLOMINE HCL 20 MG TAB ONE (14:31)
[2020-12-12] MEDS ORDERED: FAMOTIDINE 20MG TAB 20 MG TAB ONE (14:31)
[2020-12-12] MEDS ORDERED: SODIUM CHLORIDE 0.9% 1000ML 1,000 ML IV ONE (14:32)
[2020-12-12] MEDS ORDERED: SODIUM CHLORIDE 0.9% 50 ML IV ONE (14:33)
[2020-12-12 14:35] LABS: CREATININE 0.9 mg/dL (0.5-1.5); POTASSIUM 3.9 mmol/L (3.5-5.1)
[2020-12-12 14:37] LABS: APPEARANCE,URINE Cloudy (CLEAR); BILIRUBIN,URINE Negative (NEGATIVE); COLOR,URINE Dark Yellow (YELLOW); GLUCOSE, URINE (UA) >=1000 mg/dL (NEGATIVE); KETONES,URINE Trace mg/dL (NEGATIVE); LEUKOCYTE ESTERASE ,URINE Negative (NEGATIVE); NITRATE,URINE Negative (NEGATIVE); OCCULT BLOOD,URINE Negative (NEGATIVE); PROTEIN,URINE POS 2+ mg/dL (NEGATIVE)
[2020-12-12 14:40] LABS: ALBUMIN 4.2 g/dL (3.5-5.0); BILIRUBIN,TOTAL 0.8 mg/dL (0.2-1.0); TOTAL PROTEIN, SERUM 7.9 g/dL (6.0-8.3)
[2020-12-12 14:56] LABS: BACTERIA,URINE Few /HPF (None Seen); MUCUS,URINE Many LPF (None Seen); SQUAMOUS EPITHELIAL CELL,UR Few /HPF (0-2)
[2020-12-12] MEDS ORDERED: IOHEXOL-350 75 ML VIAL IV ONE (15:00)
[2020-12-12] MEDS ORDERED: ZOSYN 3.375GM+NS 50ML 50 ML IV ONE ×2 (15:29→20:39)
[2020-12-12] MEDS ORDERED: KETOROLAC TROMETHAMINE 30MG/ML ONE (15:30)
[2020-12-12] MEDS ORDERED: ACETAMINOPHEN 325 MG TAB PO PRN ×2 (19:00)
[2020-12-12 19:31] LABS: CHOLESTEROL 240 mg/dL (<200); LDL DIRECT 44 mg/dL (0-99); TRIGLYCERIDES 1366 mg/dL (30-200)
[2020-12-12 19:44] LABS: HDL CHOLESTEROL 34 mg/dL (29-71)
[2020-12-12] MEDS ORDERED: MORPHINE SULFATE 2 MG/ML 1ML SYG ONE (20:39)
[2020-12-12] MEDS: ZOSYN 3.375GM+NS 50ML 50 ML IV SCH (21:00)
[2020-12-12 21:30] VITALS: BP 149/84
[2020-12-12] MEDS: SODIUM CHLORIDE 0.9% 1000ML 1,000 ML IV SCH (22:00)
[2020-12-12] MEDS: FAMOTIDINE/PF 20 MG/2 ML VIAL IV SCH (22:00)
[2020-12-12 23:05] VITALS: BP 168/98
[2020-12-13] VITALS (30 sets, daily range): BP systolic 134–159; BP diastolic 73–101
[2020-12-13] MEDS ORDERED: INSULIN REGULAR, HUMAN 3ML 100 UNIT in SODIUM CHLORIDE 0.9% 99 ML IV PRN ×2
[2020-12-13] MEDS ORDERED: INSULIN HUMULIN R 100 UNIT/ML 3ML SQ SCH
[2020-12-13] MEDS ORDERED: SODIUM CHLORIDE 0.9% 100 ML IV ONE (02:16)
[2020-12-13] MEDS: MORPHINE SULFATE 2 MG/ML 1ML SYG IV PRN ×4 (02:21→17:38)
[2020-12-13] MEDS: SODIUM CHLORIDE 0.9% 1000ML 1,000 ML IV SCH ×2 (02:22→05:09)
[2020-12-13] MEDS: ONDANSETRON HCL 4 MG/2 ML VIAL IV PRN (02:24)
[2020-12-13] MEDS: ZOSYN 3.375GM+NS 50ML 50 ML IV SCH ×3 (05:31→20:13)
[2020-12-13 05:41] LABS: BASOPHILS % (AUTO) 0.2 % (0.0-5.0); EOSINOPHILS % (AUTO) 0.4 % (0.0-8.0); HEMATOCRIT 36.4 % (42-54); LYMPHOCYTES % (AUTO) 6.9 % (21.0-51.0); MEAN CORPUSCULAR HEMOGLOBIN 29.6 pg (27.0-33.0); MEAN CORPUSCULAR HGB CONC 34.1 g/dL (32.0-36.0); MEAN CORPUSCULAR VOLUME 86.9 fL (79-99); MONOCYTES % (AUTO) 5.6 % (3.0-13.0); NEUTROPHILS % (AUTO) 86.3 % (40.0-77.0); PLATELET COUNT (AUTO) 230 K/uL (130-400); RED BLOOD CELL COUNT(AUTO) 4.19 MIL/uL (4.50-6.20); RED CELL DISTRIBUTION WIDTH 11.8 % (11.0-15.5)
[2020-12-13 06:01] LABS: ALBUMIN 3.5 g/dL (3.5-5.0); BILIRUBIN,TOTAL 1.2 mg/dL (0.2-1.0); CREATININE 0.9 mg/dL (0.5-1.5); POTASSIUM 3.9 mmol/L (3.5-5.1); TOTAL PROTEIN, SERUM 6.9 g/dL (6.0-8.3)
[2020-12-13] MEDS: FENOFIBRATE NANOCRYSTALLIZED 145 MG TAB PO SCH (08:33)
[2020-12-13] MEDS: FAMOTIDINE/PF 20 MG/2 ML VIAL IV SCH ×2 (08:40→20:08)
[2020-12-13] MEDS: ENOXAPARIN SODIUM 30 MG/0.3 ML SQ SCH (08:40)
[2020-12-13] MEDS ORDERED: DEXTROSE 5 % AND 0.9 % NACL 1,000 ML IV SCH (09:43)
[2020-12-13] MEDS: DEXTROSE 5 % AND 0.9 % NACL 1,000 ML IV SCH ×2 (16:15→20:08)
[2020-12-13] MEDS: ATORVASTATIN CALCIUM 40 MG TABLET PO SCH (20:13)
[2020-12-14] VITALS (19 sets, daily range): BP systolic 102–160; BP diastolic 55–106
[2020-12-14] MEDS: MORPHINE SULFATE 2 MG/ML 1ML SYG IV PRN (00:26)
[2020-12-14] MEDS: ONDANSETRON HCL 4 MG/2 ML VIAL IV PRN (00:26)
[2020-12-14] MEDS: DEXTROSE 5 % AND 0.9 % NACL 1,000 ML IV SCH ×2 (01:01→05:19)
[2020-12-14 04:40] LABS: ALBUMIN 2.9 g/dL (3.5-5.0); BILIRUBIN,TOTAL 0.9 mg/dL (0.2-1.0); POTASSIUM 3.7 mmol/L (3.5-5.1); TOTAL PROTEIN, SERUM 6.1 g/dL (6.0-8.3)
[2020-12-14] MEDS: ZOSYN 3.375GM+NS 50ML 50 ML IV SCH ×3 (04:40→20:31)
[2020-12-14 06:40] LABS: HEMATOCRIT 33.5 % (42-54); MEAN CORPUSCULAR HEMOGLOBIN 29.3 pg (27.0-33.0); MEAN CORPUSCULAR HGB CONC 32.5 g/dL (32.0-36.0); MEAN CORPUSCULAR VOLUME 90.1 fL (79-99); PLATELET COUNT (AUTO) 157 K/uL (130-400); RED BLOOD CELL COUNT(AUTO) 3.72 MIL/uL (4.50-6.20); WHITE BLOOD COUNT (AUTO) 12.3 K/uL (4.8-10.8)
[2020-12-14] MEDS ORDERED: PROPOFOL 10 MG/ML 20ML VIAL IV ONE ×2 (07:07→07:17)
[2020-12-14] MEDS ORDERED: LIDOCAINE HCL 1% 20 ML VIAL ONE (07:07)
[2020-12-14 07:22] LABS: LYMPHOCYTES % (MANUAL) 14 % (22-44); MAN.DIFF COMMENT-IMPRESSION MANUAL DIFFERENTIAL; MONOCYTES % (MANUAL) 3 % (2-9); PLATELET MORPHOLOGY COMMENT ADEQUATE; SEGMENTED NEUTROPHILS % 83 % (40-70)
[2020-12-14] MEDS: FENOFIBRATE NANOCRYSTALLIZED 145 MG TAB PO SCH (09:00)
[2020-12-14] MEDS: ENOXAPARIN SODIUM 30 MG/0.3 ML SQ SCH (09:00)
[2020-12-14] MEDS: FAMOTIDINE/PF 20 MG/2 ML VIAL IV SCH ×2 (09:00→20:31)
[2020-12-14] MEDS ORDERED: INSULIN GLARGINE 100 UNITS/ML 10 ML VIAL SQ SCH (09:45)
[2020-12-14] MEDS ORDERED: LACTATED RINGERS 1000ML 1,000 ML IV SCH (09:45)
[2020-12-14] MEDS: INSULIN HUMULIN R 100 UNIT/ML 3ML SQ SCH ×3 (11:11→23:45)
[2020-12-14] MEDS: FISH OIL 1000 MG/CAP PO SCH ×2 (14:00→20:31)
[2020-12-14] MEDS: ATORVASTATIN CALCIUM 40 MG TABLET PO SCH (20:31)
[2020-12-15] VITALS: BP 125/71
[2020-12-15 04:00] VITALS: BP 127/77
[2020-12-15] MEDS: ZOSYN 3.375GM+NS 50ML 50 ML IV SCH (04:29)
[2020-12-15 04:59] LABS: BASOPHILS % (AUTO) 0.3 % (0.0-5.0); HEMATOCRIT 32.2 % (42-54); LYMPHOCYTES % (AUTO) 16.6 % (21.0-51.0); MEAN CORPUSCULAR HEMOGLOBIN 29.8 pg (27.0-33.0); MEAN CORPUSCULAR HGB CONC 33.9 g/dL (32.0-36.0); MONOCYTES % (AUTO) 7.2 % (3.0-13.0); NEUTROPHILS % (AUTO) 72.5 % (40.0-77.0); PLATELET COUNT (AUTO) 194 K/uL (130-400); RED BLOOD CELL COUNT(AUTO) 3.66 MIL/uL (4.50-6.20); RED CELL DISTRIBUTION WIDTH 11.7 % (11.0-15.5); WHITE BLOOD COUNT (AUTO) 11.5 K/uL (4.8-10.8)
[2020-12-15 05:16] LABS: CREATININE 0.9 mg/dL (0.5-1.5); POTASSIUM 3.4 mmol/L (3.5-5.1)
[2020-12-15] MEDS: INSULIN HUMULIN R 100 UNIT/ML 3ML SQ SCH ×2 (05:38→12:00)
[2020-12-15] MEDS ORDERED: MAGNESIUM 2GM PREMIX 50ML 50 ML IV PRN (05:45)
[2020-12-15] MEDS ORDERED: MAGNESIUM 2GM PREMIX 50ML 50 ML IV ONE (05:48)
[2020-12-15] MEDS: ENOXAPARIN SODIUM 30 MG/0.3 ML SQ SCH (08:23)
[2020-12-15] MEDS: FISH OIL 1000 MG/CAP PO SCH (08:23)
[2020-12-15] MEDS: FAMOTIDINE/PF 20 MG/2 ML VIAL IV SCH (08:23)
[2020-12-15] MEDS: FENOFIBRATE NANOCRYSTALLIZED 145 MG TAB PO SCH (08:23)
[2020-12-15] MEDS ORDERED: POTASSIUM CHLORIDE 20 MEQ ERTAB PO PRN (08:45)
[2020-12-15] MEDS ORDERED: LIDOCAINE HCL-MPF 1% 2ML VIAL IV PRN (08:45)
[2020-12-15] MEDS ORDERED: POTASSIUM CHLORIDE 10% ELIXIR 20 MEQ/15 ML UDCUP PO PRN (08:45)
[2020-12-15] MEDS ORDERED: POTASSIUM CHLORIDE 20MEQ/100ML 100 ML IV PRN (08:45)
[2020-12-15 09:42] VITALS: BP 119/71
[2020-12-15 12:00] VITALS: BP 116/71
[2020-12-15] MEDS ORDERED: FISH1CAP20 PO (15:19)
[2020-12-15] MEDS ORDERED: CIPR500T10 PO (15:22)
== END 2020-12-15 16:00 | disposition home or self-care (01) | DRG 438 ==
LOC: EDH 14:06 → EDHIP 14:07 → 3DH 21:19 → 2CH 12-13 02:07 → 3BH 12-14 18:08
PROVIDERS: ADMIT Hospitalist; ATTEND Hospitalist
PROC: 0F9G8ZZ Drainage of Pancreas, Via Natural or Artificial Opening Endoscopic (ICD-10-PCS; principal; 2020-12-14)
DX: K86.3 Pseudocyst of pancreas (principal); K85.90 Acute pancreatitis without necrosis or infection, unspecified; K86.2 Cyst of pancreas; K86.1 Other chronic pancreatitis; K76.0 Fatty (change of) liver, not elsewhere classified; I10 Essential (primary) hypertension; K29.70 Gastritis, unspecified, without bleeding; E11.9 Type 2 diabetes mellitus without complications; F17.210 Nicotine dependence, cigarettes, uncomplicated; E78.1 Pure hyperglyceridemia; E86.1 Hypovolemia; Z20.822 Contact with and (suspected) exposure to COVID-19; E78.5 Hyperlipidemia, unspecified; Z82.49 Family history of ischemic heart disease and other diseases of the circulatory system; Z91.14 Patient's other noncompliance with medication regimen; Z83.3 Family history of diabetes mellitus; Z84.1 Family history of disorders of kidney and ureter; Z79.899 Other long term (current) drug therapy; Z79.84 Long term (current) use of oral hypoglycemic drugs
CPT/HCPCS: 36415; 43242; 74177; 80048; 80053; 80061; 81001; 82150; 82378; 82948; 83036; 83690; 83735; 84145; 84478; 84484; 85025; 87040; 87071; 87205; 87426; 93005; 99291; G0378; J1650; J1815; J1885; J2405; J2543; J2704; J3475; J3490; J7030; J7042; J7120; Q9967; U0003

== ENCOUNTER 2021-01-08 23:32 | Inpatient (IN) | payer SELFPAY ==
[~2021-01-08] VITALS: Ht 165.1 cm; Wt 86.0 kg
[~2021-01-08 23:32] MED LIST changes: -ALLO100T PO; -ATEN25TA PO; +CIPR500T10 PO; +FISH1CAP20 PO; -HYDR25TA PO; -METO25 PO
[2021-01-08] MEDS ORDERED: ONDANSETRON 4MG INJ ONE (23:49)
[2021-01-08] MEDS ORDERED: ACETAMINOPHEN 325 MG TAB ONE (23:49)
[2021-01-09] VITALS (14 sets, daily range): BP systolic 120–146; BP diastolic 75–97
[2021-01-09 00:17] LABS: BASOPHILS % (AUTO) 0.3 % (0.0-5.0); EOSINOPHILS % (AUTO) 0.2 % (0.0-8.0); HEMATOCRIT 40.5 % (42-54); LYMPHOCYTES % (AUTO) 12.9 % (21.0-51.0); MEAN CORPUSCULAR HEMOGLOBIN 30.3 pg (27.0-33.0); MEAN CORPUSCULAR HGB CONC 35.1 g/dL (32.0-36.0); MEAN CORPUSCULAR VOLUME 86.5 fL (79-99); MONOCYTES % (AUTO) 5.4 % (3.0-13.0); NEUTROPHILS % (AUTO) 80.3 % (40.0-77.0); PLATELET COUNT (AUTO) 281 K/uL (130-400); RED BLOOD CELL COUNT(AUTO) 4.68 MIL/uL (4.50-6.20); RED CELL DISTRIBUTION WIDTH 11.9 % (11.0-15.5); WHITE BLOOD COUNT (AUTO) 18.8 K/uL (4.8-10.8)
[2021-01-09 00:33] LABS: CREATININE 0.9 mg/dL (0.5-1.5); POTASSIUM 3.8 mmol/L (3.5-5.1)
[2021-01-09] MEDS ORDERED: HYDROMORPHONE 1 MG INJ ONE (00:33)
[2021-01-09 00:37] LABS: ALBUMIN 4.2 g/dL (3.5-5.0); BILIRUBIN,TOTAL 1.1 mg/dL (0.2-1.0); TOTAL PROTEIN, SERUM 8.2 g/dL (6.0-8.3)
[2021-01-09 02:50] LABS: APPEARANCE,URINE Clear (CLEAR); BILIRUBIN,URINE Negative (NEGATIVE); COLOR,URINE Yellow (YELLOW); GLUCOSE, URINE (UA) >=1000 mg/dL (NEGATIVE); KETONES,URINE 40 mg/dL (NEGATIVE); LEUKOCYTE ESTERASE ,URINE Negative (NEGATIVE); NITRATE,URINE Negative (NEGATIVE); OCCULT BLOOD,URINE Negative (NEGATIVE); PROTEIN,URINE POS 2+ mg/dL (NEGATIVE); UROBILINOGEN,URINE 0.2 mg/dL (0.2-1.0)
[2021-01-09 02:58] LABS: AMPHET/METH SCREEN,URINE NEGATIVE (NEGATIVE); BARBITURATE SCREEN, URINE NEGATIVE (NEGATIVE); BENZODIAZEPINES SCREEN,URINE NEGATIVE (NEGATIVE); CANNABINOID SCREEN,URINE NEGATIVE (NEGATIVE); COCAINE SCREEN,URINE NEGATIVE (NEGATIVE); OPIATE SCREEN,URINE NEGATIVE (NEGATIVE); PHENCYCLIDINE SCREEN,URINE NEGATIVE (NEGATIVE)
[2021-01-09] MEDS ORDERED: ONDANSETRON 4MG INJ IV PRN (03:00)
[2021-01-09] MEDS: 0.9%NACL 1000ML 1,000 ML IV SCH ×2 (03:00→12:18)
[2021-01-09 03:09] LABS: BACTERIA,URINE None Seen /HPF (None Seen); RBC,URINE None Seen /HPF (0-1); SQUAMOUS EPITHELIAL CELL,UR Rare /HPF (0-2); WBC,URINE None Seen /HPF (0-1); YEAST,URINE BUDDING None Seen /HPF (None Seen)
[2021-01-09] MEDS ORDERED: HYDROMORPHONE 2 MG VIAL (2MG/ML) IVP PRN (03:30)
[2021-01-09 03:32] LABS: HEMOGLOBIN A1C 8.8 % (4.0-6.0)
[2021-01-09 03:44] LABS: CHOLESTEROL 250 mg/dL (<200); LDL DIRECT 56 mg/dL (0-99); TRIGLYCERIDES 1839 mg/dL (30-200)
[2021-01-09] MEDS ORDERED: ZOSYN 3.375GM+NS 50ML 50 ML IV ONE (03:49)
[2021-01-09 03:56] LABS: HDL CHOLESTEROL 22 mg/dL (29-71)
[2021-01-09] MEDS: ZOSYN 3.375GM+NS 50ML 50 ML IV SCH ×3 (05:00→22:26)
[2021-01-09] MEDS: FAMOTIDINE 20MG VIAL IV SCH ×2 (09:57→22:24)
[2021-01-09] MEDS: HYDROMORPHONE 1 MG INJ IVP PRN ×3 (09:58→19:21)
[2021-01-09] MEDS: INSULIN HUMULIN R 100 UNIT/ML 3ML SQ SCH ×2 (12:00→18:00)
[2021-01-09] MEDS ORDERED: INSULIN REGULAR, HUMAN 3ML 100 UNIT in 0.9%NACL 100ML 99 ML IV PRN ×2 (12:17)
[2021-01-09] MEDS: FENOFIBRATE NANOCRYSTALLIZED 145 MG TAB PO SCH (12:18)
[2021-01-09] MEDS ORDERED: DEXTROSE 5 % AND 0.9 % NACL 1,000 ML IV STA (14:46)
[2021-01-09] MEDS ORDERED: DEXTROSE 5 % AND 0.9 % NACL 1,000 ML IV ONE (14:49)
[2021-01-09] MEDS: ATORVASTATIN 20 MG TABLET PO SCH (20:10)
[2021-01-09] MEDS: FISH OIL 1000 MG/CAP PO SCH (20:10)
[2021-01-09] MEDS: DEXTROSE 5 % AND 0.9 % NACL 1,000 ML IV SCH (23:54)
[2021-01-10] VITALS (22 sets, daily range): BP systolic 99–137; BP diastolic 68–97
[2021-01-10] MEDS: HYDROMORPHONE 1 MG INJ IVP PRN ×2 (01:55→22:44)
[2021-01-10] MEDS: DEXTROSE 5 % AND 0.9 % NACL 1,000 ML IV SCH ×3 (02:49→23:11)
[2021-01-10 03:36] LABS: BASOPHILS % (AUTO) 0.4 % (0.0-5.0); EOSINOPHILS % (AUTO) 3.2 % (0.0-8.0); HEMATOCRIT 33.1 % (42-54); LYMPHOCYTES % (AUTO) 16.8 % (21.0-51.0); MEAN CORPUSCULAR HEMOGLOBIN 29.6 pg (27.0-33.0); MEAN CORPUSCULAR HGB CONC 34.1 g/dL (32.0-36.0); MEAN CORPUSCULAR VOLUME 86.6 fL (79-99); MONOCYTES % (AUTO) 7.8 % (3.0-13.0); NEUTROPHILS % (AUTO) 71.2 % (40.0-77.0); PLATELET COUNT (AUTO) 183 K/uL (130-400); RED BLOOD CELL COUNT(AUTO) 3.82 MIL/uL (4.50-6.20); RED CELL DISTRIBUTION WIDTH 11.8 % (11.0-15.5); WHITE BLOOD COUNT (AUTO) 10.3 K/uL (4.8-10.8)
[2021-01-10 03:48] LABS: CREATININE 0.8 mg/dL (0.5-1.5); POTASSIUM 3.4 mmol/L (3.5-5.1)
[2021-01-10 03:50] LABS: ALBUMIN 3.1 g/dL (3.5-5.0); BILIRUBIN,TOTAL 0.7 mg/dL (0.2-1.0); TOTAL PROTEIN, SERUM 6.6 g/dL (6.0-8.3)
[2021-01-10] MEDS: ZOSYN 3.375GM+NS 50ML 50 ML IV SCH ×3 (05:57→19:45)
[2021-01-10] MEDS ORDERED: POTASSIUM CHLORIDE 10% ELIXIR 20 MEQ/15 ML UDCUP PO SCH (08:00)
[2021-01-10] MEDS: FISH OIL 1000 MG/CAP PO SCH ×2 (08:50→19:45)
[2021-01-10] MEDS: FENOFIBRATE NANOCRYSTALLIZED 145 MG TAB PO SCH (08:50)
[2021-01-10] MEDS: FAMOTIDINE 20MG VIAL IV SCH ×2 (08:50→19:45)
[2021-01-10] MEDS: DEXTROSE IV SCH ×2 (09:30→17:06)
[2021-01-10] MEDS: POTASSIUM CHLORIDE IV SCH ×2 (09:30→17:06)
[2021-01-10] MEDS: NACL IV SCH ×2 (09:30→17:06)
[2021-01-10 15:45] LABS: CREATININE 0.8 mg/dL (0.5-1.5); POTASSIUM 3.7 mmol/L (3.5-5.1)
[2021-01-10] MEDS: ATORVASTATIN 20 MG TABLET PO SCH (19:45)
[2021-01-11] VITALS (14 sets, daily range): BP systolic 102–132; BP diastolic 67–91
[2021-01-11] MEDS: POTASSIUM CHLORIDE IV SCH ×2 (00:38→03:21)
[2021-01-11] MEDS: DEXTROSE 5 % AND 0.9 % NACL 1,000 ML IV SCH (00:38)
[2021-01-11] MEDS: DEXTROSE IV SCH ×2 (00:38→03:21)
[2021-01-11] MEDS: NACL IV SCH ×2 (00:38→03:21)
[2021-01-11 03:32] LABS: BASOPHILS % (AUTO) 0.4 % (0.0-5.0); EOSINOPHILS % (AUTO) 4.3 % (0.0-8.0); LYMPHOCYTES % (AUTO) 20.2 % (21.0-51.0); MEAN CORPUSCULAR HGB CONC 33.1 g/dL (32.0-36.0); MEAN CORPUSCULAR VOLUME 87.7 fL (79-99); MONOCYTES % (AUTO) 7.4 % (3.0-13.0); NEUTROPHILS % (AUTO) 67.1 % (40.0-77.0); PLATELET COUNT (AUTO) 196 K/uL (130-400); RED BLOOD CELL COUNT(AUTO) 3.65 MIL/uL (4.50-6.20); RED CELL DISTRIBUTION WIDTH 11.9 % (11.0-15.5); WHITE BLOOD COUNT (AUTO) 7.2 K/uL (4.8-10.8)
[2021-01-11 03:47] LABS: ALBUMIN 3.1 g/dL (3.5-5.0); BILIRUBIN,TOTAL 0.6 mg/dL (0.2-1.0); CREATININE 0.8 mg/dL (0.5-1.5); POTASSIUM 3.5 mmol/L (3.5-5.1); TOTAL PROTEIN, SERUM 6.8 g/dL (6.0-8.3)
[2021-01-11] MEDS: ZOSYN 3.375GM+NS 50ML 50 ML IV SCH ×3 (04:51→20:13)
[2021-01-11] MEDS ORDERED: LACTATED RINGERS 1000ML 1,000 ML IV PRN (07:30)
[2021-01-11] MEDS ORDERED: INSULIN GLARGINE 100 UNITS/ML 10 ML VIAL SQ SCH (07:30)
[2021-01-11] MEDS: INSULIN HUMULIN R 100 UNIT/ML 3ML SQ SCH ×4 (07:30→20:15)
[2021-01-11] MEDS: FISH OIL 1000 MG/CAP PO SCH ×2 (08:00→20:13)
[2021-01-11] MEDS: FENOFIBRATE NANOCRYSTALLIZED 145 MG TAB PO SCH (08:01)
[2021-01-11] MEDS: FAMOTIDINE 20MG VIAL IV SCH ×2 (08:01→20:13)
[2021-01-11] MEDS: ATORVASTATIN 20 MG TABLET PO SCH (20:13)
[2021-01-12 00:04] VITALS: BP 117/71
[2021-01-12] MEDS ORDERED: ACETAMINOPHEN 325 MG TAB PO PRN ×2 (03:15)
[2021-01-12] MEDS ORDERED: ACETAMINOPHEN 325 MG TAB ONE (03:32)
[2021-01-12] MEDS: ZOSYN 3.375GM+NS 50ML 50 ML IV SCH ×2 (03:36→13:03)
[2021-01-12 04:08] VITALS: BP 123/75
[2021-01-12] MEDS: INSULIN HUMULIN R 100 UNIT/ML 3ML SQ SCH ×3 (05:15→16:54)
[2021-01-12 05:44] LABS: BASOPHILS % (AUTO) 0.5 % (0.0-5.0); HEMATOCRIT 33.9 % (42-54); LYMPHOCYTES % (AUTO) 21.1 % (21.0-51.0); MEAN CORPUSCULAR HGB CONC 33.9 g/dL (32.0-36.0); MEAN CORPUSCULAR VOLUME 85.4 fL (79-99); MONOCYTES % (AUTO) 6.7 % (3.0-13.0); NEUTROPHILS % (AUTO) 67.8 % (40.0-77.0); PLATELET COUNT (AUTO) 248 K/uL (130-400); RED BLOOD CELL COUNT(AUTO) 3.97 MIL/uL (4.50-6.20); RED CELL DISTRIBUTION WIDTH 11.6 % (11.0-15.5); WHITE BLOOD COUNT (AUTO) 7.6 K/uL (4.8-10.8)
[2021-01-12 05:57] LABS: ALBUMIN 3.2 g/dL (3.5-5.0); BILIRUBIN,TOTAL 0.8 mg/dL (0.2-1.0); CREATININE 0.9 mg/dL (0.5-1.5); POTASSIUM 3.4 mmol/L (3.5-5.1); TOTAL PROTEIN, SERUM 7.2 g/dL (6.0-8.3)
[2021-01-12 08:50] VITALS: BP 123/84
[2021-01-12] MEDS: FAMOTIDINE 20MG VIAL IV SCH (09:15)
[2021-01-12] MEDS: FENOFIBRATE NANOCRYSTALLIZED 145 MG TAB PO SCH (09:15)
[2021-01-12] MEDS: FISH OIL 1000 MG/CAP PO SCH (09:15)
[2021-01-12 12:00] VITALS: BP 135/77
[2021-01-12 17:04] VITALS: BP 127/76
== END 2021-01-12 17:30 | disposition home or self-care (01) | DRG 637 ==
LOC: EDH 23:32 → INTOOBSV 23:33 → 3DH 23:33 → OBSVTOIN 23:33 → 2DH 01-09 12:56 → 3BH 01-11 14:49
PROVIDERS: ADMIT Internal Medicine; ATTEND Internal Medicine
DX: E11.65 Type 2 diabetes mellitus with hyperglycemia (principal); K85.90 Acute pancreatitis without necrosis or infection, unspecified; K86.1 Other chronic pancreatitis; E78.5 Hyperlipidemia, unspecified; E78.1 Pure hyperglyceridemia; F17.210 Nicotine dependence, cigarettes, uncomplicated; M54.5 Low back pain; I10 Essential (primary) hypertension; Z82.49 Family history of ischemic heart disease and other diseases of the circulatory system; Z91.14 Patient's other noncompliance with medication regimen; Z56.0 Unemployment, unspecified
CPT/HCPCS: 36415; 74150; 80048; 80053; 80061; 80305; 81001; 82550; 82948; 83036; 83605; 83690; 83735; 85025; 87040; 87088; 93005; G0378; J1170; J1815; J2405; J2543; J3480; J3490; J7030; J7042

== ENCOUNTER 2021-04-05 09:48 | Inpatient (IN) | payer SELFPAY ==
[~2021-04-05] VITALS: Ht 172.7 cm; Wt 81.8 kg
[~2021-04-05 09:48] MED LIST changes: -CIPR500T10 PO
[2021-04-05 09:49] VITALS: BP 149/92
[2021-04-05 10:13] LABS: BASOPHILS % (AUTO) 0.4 % (0.0-5.0); EOSINOPHILS % (AUTO) 0.6 % (0.0-8.0); HEMATOCRIT 43.2 % (42-54); LYMPHOCYTES % (AUTO) 18.3 % (21.0-51.0); MEAN CORPUSCULAR HEMOGLOBIN 29.4 pg (27.0-33.0); MEAN CORPUSCULAR HGB CONC 32.6 g/dL (32.0-36.0); MONOCYTES % (AUTO) 5.7 % (3.0-13.0); NEUTROPHILS % (AUTO) 74.2 % (40.0-77.0); PLATELET COUNT (AUTO) 332 K/uL (130-400); RED CELL DISTRIBUTION WIDTH 11.9 % (11.0-15.5); WHITE BLOOD COUNT (AUTO) 15.6 K/uL (4.8-10.8)
[2021-04-05 10:23] LABS: APPEARANCE,URINE Clear (CLEAR); BILIRUBIN,URINE Negative (NEGATIVE); COLOR,URINE Yellow (YELLOW); GLUCOSE, URINE (UA) Negative (NEGATIVE); KETONES,URINE Trace mg/dL (NEGATIVE); LEUKOCYTE ESTERASE ,URINE Trace (NEGATIVE); NITRATE,URINE Negative (NEGATIVE); OCCULT BLOOD,URINE Nonhemolyzed Trace (NEGATIVE); PROTEIN,URINE POS 1+ mg/dL (NEGATIVE)
[2021-04-05 10:25] LABS: CREATININE 1.1 mg/dL (0.5-1.5); POTASSIUM 4.4 mmol/L (3.5-5.1)
[2021-04-05 10:25] LABS: BACTERIA,URINE Rare /HPF (None Seen); CALCIUM OXALATE CRYSTALS,UR Few /LPF (None Seen); MUCUS,URINE Few LPF (None Seen); RBC,URINE 0-1 /HPF (0-1); SQUAMOUS EPITHELIAL CELL,UR Rare /HPF (0-2); URIC ACID CRYSTALS,URINE Few /LPF (None Seen); WBC,URINE 0-1 /HPF (0-1)
[2021-04-05 10:30] LABS: AMPHET/METH SCREEN,URINE NEGATIVE (NEGATIVE); BARBITURATE SCREEN, URINE NEGATIVE (NEGATIVE); BENZODIAZEPINES SCREEN,URINE NEGATIVE (NEGATIVE); CANNABINOID SCREEN,URINE NEGATIVE (NEGATIVE); COCAINE SCREEN,URINE NEGATIVE (NEGATIVE); OPIATE SCREEN,URINE NEGATIVE (NEGATIVE); PHENCYCLIDINE SCREEN,URINE NEGATIVE (NEGATIVE)
[2021-04-05 10:30] LABS: ALBUMIN 4.2 g/dL (3.5-5.0); BILIRUBIN,TOTAL 0.3 mg/dL (0.2-1.0); TOTAL PROTEIN, SERUM 7.9 g/dL (6.0-8.3)
[2021-04-05] MEDS ORDERED: 0.9%NACL 1000ML 1,000 ML IV SCH (11:00)
[2021-04-05 11:10] VITALS: BP 141/94
[2021-04-05] MEDS ORDERED: MORPHINE 4 MG SYG ONE (11:27)
[2021-04-05] MEDS ORDERED: PROCHLORPERAZINE EDISYLATE 10 MG/2 ML VIAL ONE (11:27)
[2021-04-05] MEDS ORDERED: PROCHLORPERAZINE EDISYLATE 10 MG/2 ML VIAL IV SCH (11:30)
[2021-04-05] MEDS ORDERED: MORPHINE 4 MG SYG IV SCH (11:30)
[2021-04-05] MEDS ORDERED: ONDANSETRON 4MG INJ IV PRN (12:30)
[2021-04-05] MEDS: 0.9%NACL 1000ML 1,000 ML IV SCH ×2 (12:30→22:14)
[2021-04-05] MEDS ORDERED: LACTULOSE 20 GM/30 ML UDCUP PO PRN (12:30)
[2021-04-05] MEDS ORDERED: ACETAMINOPHEN 325 MG TAB PO PRN ×2 (12:30)
[2021-04-05] MEDS ORDERED: PIP/TAZ ZOSYN 3.375G 3.375 GM VIAL IVPB SCH (12:30)
[2021-04-05] MEDS ORDERED: 0.9%NACL 50ML IV SCH (12:30)
[2021-04-05] MEDS: 0.9%NACL 50ML 50 ML IV SCH ×2 (13:00→22:07)
[2021-04-05] MEDS: ZOSYN 3.375GM +NS 50ML IV SCH ×2 (13:00→22:07)
[2021-04-05 13:36] LABS: CHOLESTEROL 152 mg/dL (<200); HDL CHOLESTEROL 25 mg/dL (29-71); LDL DIRECT 69 mg/dL (0-99); TRIGLYCERIDES 327 mg/dL (30-200)
[2021-04-05 14:19] VITALS: BP 137/89
[2021-04-05 14:26] LABS: AMPHET/METH SCREEN,URINE NEGATIVE (NEGATIVE); BARBITURATE SCREEN, URINE NEGATIVE (NEGATIVE); BENZODIAZEPINES SCREEN,URINE NEGATIVE (NEGATIVE); CANNABINOID SCREEN,URINE NEGATIVE (NEGATIVE); COCAINE SCREEN,URINE NEGATIVE (NEGATIVE); OPIATE SCREEN,URINE NEGATIVE (NEGATIVE); PHENCYCLIDINE SCREEN,URINE NEGATIVE (NEGATIVE)
[2021-04-05] MEDS: MORPHINE 2 MG SYG IV PRN (17:15)
[2021-04-05] MEDS: KETOROLAC 15MG/ML VIAL (15MG/ML) IV PRN (17:48)
[2021-04-05] MEDS: INSULIN HUMULIN R 100 UNIT/ML 3ML SQ SCH ×2 (18:00→23:36)
[2021-04-05 20:46] VITALS: BP 131/85
[2021-04-05] MEDS: ATORVASTATIN 40 MG TABLET PO SCH (20:55)
[2021-04-05] MEDS: FISH OIL 1000 MG/CAP PO SCH (20:55)
[2021-04-05] MEDS: FAMOTIDINE 20MG VIAL IV SCH (22:07)
[2021-04-05 22:41] VITALS: BP 136/85
[2021-04-05 23:00] VITALS: BP 156/88
[2021-04-06] MEDS ORDERED: HYDROMORPHONE 0.5 MG SYG (0.5MG/0.5ML) IVP ONE
[2021-04-06] MEDS ORDERED: HYDROMORPHONE 0.5 MG SYG (0.5MG/0.5ML) ONE (00:14)
[2021-04-06] MEDS: 0.9%NACL 1000ML 1,000 ML IV SCH ×4 (01:50→19:44)
[2021-04-06 04:01] LABS: BASOPHILS % (AUTO) 0.2 % (0.0-5.0); EOSINOPHILS % (AUTO) 0.2 % (0.0-8.0); HEMATOCRIT 38.9 % (42-54); LYMPHOCYTES % (AUTO) 11.2 % (21.0-51.0); MEAN CORPUSCULAR HEMOGLOBIN 29.4 pg (27.0-33.0); MEAN CORPUSCULAR HGB CONC 33.7 g/dL (32.0-36.0); MEAN CORPUSCULAR VOLUME 87.2 fL (79-99); MONOCYTES % (AUTO) 6.7 % (3.0-13.0); NEUTROPHILS % (AUTO) 81.1 % (40.0-77.0); PLATELET COUNT (AUTO) 283 K/uL (130-400); RED BLOOD CELL COUNT(AUTO) 4.46 MIL/uL (4.50-6.20); WHITE BLOOD COUNT (AUTO) 12.6 K/uL (4.8-10.8)
[2021-04-06] MEDS: MORPHINE 2 MG SYG IV PRN ×4 (04:30→21:50)
[2021-04-06 04:32] LABS: CREATININE 1.1 mg/dL (0.5-1.5); POTASSIUM 3.9 mmol/L (3.5-5.1)
[2021-04-06 04:59] VITALS: BP 146/94
[2021-04-06] MEDS: ZOSYN 3.375GM +NS 50ML IV SCH ×3 (05:26→19:40)
[2021-04-06] MEDS: 0.9%NACL 50ML 50 ML IV SCH ×3 (05:26→19:40)
[2021-04-06] MEDS: INSULIN HUMULIN R 100 UNIT/ML 3ML SQ SCH ×3 (06:00→18:00)
[2021-04-06] MEDS: FENOFIBRATE NANOCRYSTALLIZED 145 MG TAB PO SCH (07:13)
[2021-04-06] MEDS: FISH OIL 1000 MG/CAP PO SCH ×2 (07:13→19:40)
[2021-04-06] MEDS: FAMOTIDINE 20MG VIAL IV SCH ×2 (07:16→19:41)
[2021-04-06 08:00] VITALS: BP 158/93
[2021-04-06 12:00] VITALS: BP 141/85
[2021-04-06 16:00] VITALS: BP 137/86
[2021-04-06] MEDS: KETOROLAC 15MG/ML VIAL (15MG/ML) IV PRN (18:03)
[2021-04-06] MEDS: ATORVASTATIN 40 MG TABLET PO SCH (19:41)
[2021-04-06 20:05] VITALS: BP 121/72
[2021-04-06] MEDS: MAGNESIUM 2GM PREMIX 50ML 50 ML IV SCH (21:23)
[2021-04-07] VITALS (7 sets, daily range): BP systolic 125–136; BP diastolic 73–82
[2021-04-07] MEDS: 0.9%NACL 50ML 50 ML IV SCH ×3 (04:42→20:56)
[2021-04-07] MEDS: ZOSYN 3.375GM +NS 50ML IV SCH ×3 (04:42→20:56)
[2021-04-07] MEDS: 0.9%NACL 1000ML 1,000 ML IV SCH ×3 (04:43→16:48)
[2021-04-07] MEDS: MORPHINE 2 MG SYG IV PRN (05:27)
[2021-04-07] MEDS: INSULIN HUMULIN R 100 UNIT/ML 3ML SQ SCH ×4 (06:00→16:48)
[2021-04-07 06:11] LABS: BILIRUBIN,TOTAL 0.6 mg/dL (0.2-1.0); CREATININE 0.9 mg/dL (0.5-1.5); POTASSIUM 3.5 mmol/L (3.5-5.1); TOTAL PROTEIN, SERUM 6.1 g/dL (6.0-8.3)
[2021-04-07] MEDS: MAGNESIUM 2GM PREMIX 50ML 50 ML IV SCH (06:49)
[2021-04-07] MEDS: FENOFIBRATE NANOCRYSTALLIZED 145 MG TAB PO SCH (09:00)
[2021-04-07] MEDS: FISH OIL 1000 MG/CAP PO SCH ×2 (09:00→20:56)
[2021-04-07] MEDS: FAMOTIDINE 20MG VIAL IV SCH ×2 (09:49→20:56)
[2021-04-07] MEDS ORDERED: POTASSIUM CHLORIDE 20MEQ/100ML 100 ML IV PRN (10:00)
[2021-04-07] MEDS ORDERED: LIDOCAINE HCL-MPF 1% 2ML VIAL IV PRN (10:00)
[2021-04-07] MEDS: ATORVASTATIN 40 MG TABLET PO SCH (20:56)
[2021-04-08] MEDS: 0.9%NACL 1000ML 1,000 ML IV SCH ×4 (00:30→23:39)
[2021-04-08] MEDS: MORPHINE 2 MG SYG IV PRN (03:38)
[2021-04-08 03:41] VITALS: BP 139/86
[2021-04-08] MEDS: 0.9%NACL 50ML 50 ML IV SCH ×3 (04:16→20:33)
[2021-04-08] MEDS: ZOSYN 3.375GM +NS 50ML IV SCH ×3 (04:16→20:33)
[2021-04-08] MEDS: INSULIN HUMULIN R 100 UNIT/ML 3ML SQ SCH ×4 (06:00→17:01)
[2021-04-08 06:03] LABS: BASOPHILS % (AUTO) 0.4 % (0.0-5.0); EOSINOPHILS % (AUTO) 3.3 % (0.0-8.0); HEMATOCRIT 31.4 % (42-54); LYMPHOCYTES % (AUTO) 21.4 % (21.0-51.0); MEAN CORPUSCULAR HEMOGLOBIN 29.7 pg (27.0-33.0); MEAN CORPUSCULAR HGB CONC 33.8 g/dL (32.0-36.0); MONOCYTES % (AUTO) 6.8 % (3.0-13.0); NEUTROPHILS % (AUTO) 67.7 % (40.0-77.0); PLATELET COUNT (AUTO) 210 K/uL (130-400); RED BLOOD CELL COUNT(AUTO) 3.57 MIL/uL (4.50-6.20); RED CELL DISTRIBUTION WIDTH 11.8 % (11.0-15.5); WHITE BLOOD COUNT (AUTO) 10.4 K/uL (4.8-10.8)
[2021-04-08 06:17] LABS: ALBUMIN 2.9 g/dL (3.5-5.0); BILIRUBIN,TOTAL 0.6 mg/dL (0.2-1.0); CREATININE 0.8 mg/dL (0.5-1.5); POTASSIUM 3.7 mmol/L (3.5-5.1); TOTAL PROTEIN, SERUM 6.2 g/dL (6.0-8.3)
[2021-04-08 08:45] VITALS: BP 130/75
[2021-04-08] MEDS: FISH OIL 1000 MG/CAP PO SCH ×2 (09:48→20:33)
[2021-04-08] MEDS: FAMOTIDINE 20MG VIAL IV SCH ×2 (09:48→20:33)
[2021-04-08] MEDS: FENOFIBRATE NANOCRYSTALLIZED 145 MG TAB PO SCH (09:48)
[2021-04-08 11:42] VITALS: BP 133/82
[2021-04-08 17:09] VITALS: BP 140/91
[2021-04-08] MEDS ORDERED: IOHEXOL 350 MG/ML 100ML INFUS..BTL IV ONE (17:48)
[2021-04-08 19:28] VITALS: BP 143/93
[2021-04-08] MEDS: ATORVASTATIN 40 MG TABLET PO SCH (20:33)
[2021-04-08 23:22] VITALS: BP 140/90
[2021-04-09] MEDS: HEPARIN 5,000 UNIT VIAL SQ SCH ×3 (02:00→16:37)
[2021-04-09 04:07] VITALS: BP 141/87
[2021-04-09] MEDS: 0.9%NACL 50ML 50 ML IV SCH ×3 (04:26→21:49)
[2021-04-09] MEDS: ZOSYN 3.375GM +NS 50ML IV SCH ×3 (04:26→21:49)
[2021-04-09 05:49] LABS: BASOPHILS % (AUTO) 0.4 % (0.0-5.0); EOSINOPHILS % (AUTO) 3.5 % (0.0-8.0); HEMATOCRIT 30.3 % (42-54); LYMPHOCYTES % (AUTO) 21.7 % (21.0-51.0); MEAN CORPUSCULAR HEMOGLOBIN 29.6 pg (27.0-33.0); MEAN CORPUSCULAR VOLUME 84.6 fL (79-99); PLATELET COUNT (AUTO) 252 K/uL (130-400); RED BLOOD CELL COUNT(AUTO) 3.58 MIL/uL (4.50-6.20); RED CELL DISTRIBUTION WIDTH 11.6 % (11.0-15.5); WHITE BLOOD COUNT (AUTO) 8.4 K/uL (4.8-10.8)
[2021-04-09 06:14] LABS: ALBUMIN 3.1 g/dL (3.5-5.0); BILIRUBIN,TOTAL 0.6 mg/dL (0.2-1.0); CREATININE 0.8 mg/dL (0.5-1.5); POTASSIUM 3.6 mmol/L (3.5-5.1); TOTAL PROTEIN, SERUM 6.7 g/dL (6.0-8.3)
[2021-04-09] MEDS: INSULIN HUMULIN R 100 UNIT/ML 3ML SQ SCH ×4 (07:30→21:00)
[2021-04-09 08:35] VITALS: BP 132/84
[2021-04-09] MEDS: FAMOTIDINE 20MG VIAL IV SCH ×2 (09:39→21:49)
[2021-04-09] MEDS: FENOFIBRATE NANOCRYSTALLIZED 145 MG TAB PO SCH (09:39)
[2021-04-09] MEDS: FISH OIL 1000 MG/CAP PO SCH ×2 (09:40→21:48)
[2021-04-09 12:05] VITALS: BP 134/79
[2021-04-09] MEDS: 0.9%NACL 1000ML 1,000 ML IV SCH (12:15)
[2021-04-09 16:45] VITALS: BP 140/88
[2021-04-09 20:10] VITALS: BP 139/87
[2021-04-09] MEDS: ATORVASTATIN 40 MG TABLET PO SCH (21:48)
[2021-04-09 23:49] VITALS: BP 131/79
[2021-04-10] MEDS: HEPARIN 5,000 UNIT VIAL SQ SCH ×2 (02:00→08:53)
[2021-04-10 04:03] VITALS: BP 126/87
[2021-04-10] MEDS: ZOSYN 3.375GM +NS 50ML IV SCH (05:00)
[2021-04-10] MEDS: 0.9%NACL 50ML 50 ML IV SCH (05:00)
[2021-04-10 06:32] LABS: BASOPHILS % (AUTO) 0.4 % (0.0-5.0); EOSINOPHILS % (AUTO) 3.1 % (0.0-8.0); HEMATOCRIT 33.7 % (42-54); LYMPHOCYTES % (AUTO) 25.4 % (21.0-51.0); MEAN CORPUSCULAR HGB CONC 33.5 g/dL (32.0-36.0); MEAN CORPUSCULAR VOLUME 86.4 fL (79-99); MONOCYTES % (AUTO) 7.3 % (3.0-13.0); NEUTROPHILS % (AUTO) 63.2 % (40.0-77.0); PLATELET COUNT (AUTO) 269 K/uL (130-400); RED CELL DISTRIBUTION WIDTH 11.7 % (11.0-15.5); WHITE BLOOD COUNT (AUTO) 7.9 K/uL (4.8-10.8)
[2021-04-10 07:09] LABS: ALBUMIN 3.3 g/dL (3.5-5.0); BILIRUBIN,TOTAL 0.5 mg/dL (0.2-1.0); CREATININE 0.9 mg/dL (0.5-1.5); POTASSIUM 3.4 mmol/L (3.5-5.1)
[2021-04-10] MEDS: INSULIN HUMULIN R 100 UNIT/ML 3ML SQ SCH ×2 (07:30→11:30)
[2021-04-10 07:53] VITALS: BP 132/87
[2021-04-10] MEDS: FENOFIBRATE NANOCRYSTALLIZED 145 MG TAB PO SCH (08:48)
[2021-04-10] MEDS: FISH OIL 1000 MG/CAP PO SCH (08:48)
[2021-04-10] MEDS: 0.9%NACL 1000ML 1,000 ML IV SCH (08:48)
[2021-04-10] MEDS: FAMOTIDINE 20MG VIAL IV SCH (08:48)
[2021-04-10 11:36] VITALS: BP 139/91
== END 2021-04-10 19:00 | disposition home or self-care (01) | DRG 439 ==
LOC: EDH 09:48 → EDHIP 09:49 → 4BH 23:37
PROVIDERS: ADMIT Internal Medicine; ATTEND Internal Medicine
DX: K85.90 Acute pancreatitis without necrosis or infection, unspecified (principal); K86.3 Pseudocyst of pancreas; K86.1 Other chronic pancreatitis; E78.5 Hyperlipidemia, unspecified; E78.1 Pure hyperglyceridemia; K76.0 Fatty (change of) liver, not elsewhere classified; E11.9 Type 2 diabetes mellitus without complications; E78.00 Pure hypercholesterolemia, unspecified; E86.0 Dehydration; F17.210 Nicotine dependence, cigarettes, uncomplicated; I10 Essential (primary) hypertension; K57.90 Diverticulosis of intestine, part unspecified, without perforation or abscess without bleeding; Z83.3 Family history of diabetes mellitus; Z84.1 Family history of disorders of kidney and ureter; Z82.49 Family history of ischemic heart disease and other diseases of the circulatory system
CPT/HCPCS: 36415; 71045; 74176; 74177; 80048; 80053; 80061; 80305; 81001; 82150; 82330; 82948; 83036; 83690; 83735; 84484; 85025; G0378; J0780; J1170; J1644; J1815; J1885; J2270; J2543; J3475; J3480; J3490; J7030; Q9967

== ENCOUNTER 2021-05-16 16:31 | Inpatient (IN) | payer SELFPAY ==
[~2021-05-16] VITALS: Ht 172.7 cm; Wt 83.0 kg
[2021-05-16 16:32] VITALS: BP 159/99
[2021-05-16 22:37] LABS: BASOPHILS % (AUTO) 0.3 % (0.0-5.0); HEMATOCRIT 39.5 % (42-54); LYMPHOCYTES % (AUTO) 6.2 % (21.0-51.0); MEAN CORPUSCULAR HEMOGLOBIN 31.2 pg (27.0-33.0); MEAN CORPUSCULAR HGB CONC 36.2 g/dL (32.0-36.0); MEAN CORPUSCULAR VOLUME 86.1 fL (79-99); MONOCYTES % (AUTO) 4.4 % (3.0-13.0); NEUTROPHILS % (AUTO) 88.4 % (40.0-77.0); PLATELET COUNT (AUTO) 346 K/uL (130-400); RED BLOOD CELL COUNT(AUTO) 4.59 MIL/uL (4.50-6.20); RED CELL DISTRIBUTION WIDTH 12.4 % (11.0-15.5); WHITE BLOOD COUNT (AUTO) 20.6 K/uL (4.8-10.8)
[2021-05-16 22:59] LABS: ALBUMIN 3.9 g/dL (3.5-5.0); BILIRUBIN,TOTAL 1.6 mg/dL (0.2-1.0); POTASSIUM 5.6 mmol/L (3.5-5.1)
[2021-05-16 23:28] LABS: APPEARANCE,URINE Clear (CLEAR); BILIRUBIN,URINE Negative (NEGATIVE); COLOR,URINE Yellow (YELLOW); GLUCOSE, URINE (UA) >=1000 mg/dL (NEGATIVE); KETONES,URINE 40 mg/dL (NEGATIVE); LEUKOCYTE ESTERASE ,URINE Negative (NEGATIVE); NITRATE,URINE Negative (NEGATIVE); OCCULT BLOOD,URINE Trace (NEGATIVE); PROTEIN,URINE POS 1+ mg/dL (NEGATIVE); UROBILINOGEN,URINE 0.2 mg/dL (0.2-1.0)
[2021-05-16 23:35] LABS: AMPHET/METH SCREEN,URINE NEGATIVE (NEGATIVE); BARBITURATE SCREEN, URINE NEGATIVE (NEGATIVE); BENZODIAZEPINES SCREEN,URINE NEGATIVE (NEGATIVE); CANNABINOID SCREEN,URINE NEGATIVE (NEGATIVE); COCAINE SCREEN,URINE NEGATIVE (NEGATIVE); OPIATE SCREEN,URINE NEGATIVE (NEGATIVE); PHENCYCLIDINE SCREEN,URINE NEGATIVE (NEGATIVE)
[2021-05-16] MEDS ORDERED: 0.9%NACL 1000ML 1,000 ML IV ONE (23:35)
[2021-05-16] MEDS ORDERED: FAMOTIDINE 20MG TAB ONE (23:38)
[2021-05-16] MEDS ORDERED: ONDANSETRON 4MG INJ ONE (23:38)
[2021-05-16 23:41] LABS: BACTERIA,URINE Rare /HPF (None Seen); MUCUS,URINE Rare LPF (None Seen); RBC,URINE 0-1 /HPF (0-1); SQUAMOUS EPITHELIAL CELL,UR None Seen /HPF (0-2); WBC,URINE 0-1 /HPF (0-1)
[2021-05-16 23:56] LABS: CREATININE 0.8 mg/dL (0.5-1.5); TOTAL PROTEIN, SERUM 8.6 g/dL (6.0-8.3)
[2021-05-17] VITALS (13 sets, daily range): BP systolic 125–155; BP diastolic 76–92
[2021-05-17] MEDS ORDERED: LIDOCAINE HCL 2% VISCOUS 15 ML UDCUP PO ONE
[2021-05-17] MEDS ORDERED: FAMOTIDINE 20MG TAB PO ONE
[2021-05-17] MEDS ORDERED: 0.9%NACL 1000ML 1,000 ML IV ONE
[2021-05-17] MEDS ORDERED: ONDANSETRON 4MG INJ IVP ONE ×2 (01:00)
[2021-05-17] MEDS ORDERED: MORPHINE 10 MG SYG IVP ONE (01:00)
[2021-05-17 01:06] LABS: ABG HCO3 22.7 mmol/L (21.0-28.0); ABG PCO2 39 mmHg (35-48)
[2021-05-17] MEDS ORDERED: GLUCAGON 1MG KIT 1 MG ML IM PRN (01:30)
[2021-05-17] MEDS: LACTATED RINGERS 1000ML 1,000 ML IV SCH ×4 (01:30→19:24)
[2021-05-17] MEDS ORDERED: ONDANSETRON 4MG INJ IV PRN (01:30)
[2021-05-17] MEDS ORDERED: DEXTROSE 50%-WATER 50 ML DISP.SYRIN IV PRN (01:30)
[2021-05-17] MEDS ORDERED: LACTATED RINGERS 1000ML 1,000 ML IV ONE (01:30)
[2021-05-17] MEDS ORDERED: NITROGLYCERIN 0.4 MG SL TAB SL PRN (01:30)
[2021-05-17] MEDS ORDERED: INSULIN HUMULIN R 100 UNIT/ML 3ML SQ ONE (01:30)
[2021-05-17] MEDS ORDERED: MORPHINE 4 MG SYG ONE (02:01)
[2021-05-17 02:19] LABS: HEMOGLOBIN A1C 9.6 % (4.0-6.0)
[2021-05-17] MEDS ORDERED: MORPHINE 4 MG SYG IV ONE (02:30)
[2021-05-17 02:50] LABS: CRP QUANTITATIVE 9.9 mg/L (0.00-9.0); MAGNESIUM 1.6 mg/dL (1.80-2.40)
[2021-05-17] MEDS ORDERED: INSULIN HUMULIN R 100 UNIT/ML 3ML SQ SCH (06:00)
[2021-05-17 06:28] LABS: HEMATOCRIT 37.7 % (42-54); MEAN CORPUSCULAR HEMOGLOBIN 30.2 pg (27.0-33.0); MEAN CORPUSCULAR VOLUME 86.3 fL (79-99); PLATELET COUNT (AUTO) 257 K/uL (130-400); RED BLOOD CELL COUNT(AUTO) 4.37 MIL/uL (4.50-6.20); RED CELL DISTRIBUTION WIDTH 12.3 % (11.0-15.5); WHITE BLOOD COUNT (AUTO) 14.1 K/uL (4.8-10.8)
[2021-05-17 06:43] LABS: LYMPHOCYTES % (MANUAL) 18 % (22-44); MONOCYTES % (MANUAL) 3 % (2-9); SEGMENTED NEUTROPHILS % 79 % (40-70)
[2021-05-17 06:44] LABS: MAN.DIFF COMMENT-IMPRESSION MANUAL DIFFERENTIAL; PLATELET MORPHOLOGY COMMENT ADEQUATE
[2021-05-17 06:52] LABS: POTASSIUM 4.1 mmol/L (3.5-5.1)
[2021-05-17] MEDS ORDERED: PHARMACY COMMUNICATION MISC SCH (08:30)
[2021-05-17] MEDS ORDERED: INSULIN IV PRN ×2 (09:00)
[2021-05-17] MEDS: FAMOTIDINE 20MG VIAL IV SCH ×2 (09:42→20:23)
[2021-05-17] MEDS: ENOXAPARIN SODIUM 30 MG/0.3 ML SQ SCH (09:43)
[2021-05-17 11:16] LABS: CREATININE 0.8 mg/dL (0.5-1.5); MAGNESIUM 1.5 mg/dL (1.80-2.40); POTASSIUM 3.6 mmol/L (3.5-5.1)
[2021-05-17] MEDS ORDERED: KCL 20 MEQ ERTAB PO ONE ×2 (12:30→15:36)
[2021-05-17] MEDS: MAGNESIUM 2GM PREMIX 50ML 50 ML IV SCH (15:27)
[2021-05-17] MEDS: FISH OIL 1000 MG/CAP PO SCH (20:23)
[2021-05-17 21:15] LABS: CREATININE 0.8 mg/dL (0.5-1.5); POTASSIUM 3.5 mmol/L (3.5-5.1)
[2021-05-17] MEDS: DEXTROSE 5%-LACTATED RINGERS 1,000 ML IV SCH (21:38)
[2021-05-18] VITALS (16 sets, daily range): BP systolic 116–146; BP diastolic 68–101
[2021-05-18] MEDS: MORPHINE 2 MG SYG IVP PRN ×2 (02:12→22:06)
[2021-05-18 03:27] LABS: BASOPHILS % (AUTO) 0.4 % (0.0-5.0); EOSINOPHILS % (AUTO) 1.5 % (0.0-8.0); HEMATOCRIT 34.3 % (42-54); LYMPHOCYTES % (AUTO) 18.8 % (21.0-51.0); MEAN CORPUSCULAR HEMOGLOBIN 29.7 pg (27.0-33.0); MEAN CORPUSCULAR HGB CONC 33.8 g/dL (32.0-36.0); MEAN CORPUSCULAR VOLUME 87.9 fL (79-99); MONOCYTES % (AUTO) 6.3 % (3.0-13.0); NEUTROPHILS % (AUTO) 72.6 % (40.0-77.0); PLATELET COUNT (AUTO) 180 K/uL (130-400); RED CELL DISTRIBUTION WIDTH 12.4 % (11.0-15.5); WHITE BLOOD COUNT (AUTO) 10.3 K/uL (4.8-10.8)
[2021-05-18] MEDS: DEXTROSE 5%-LACTATED RINGERS 1,000 ML IV SCH ×3 (03:37→21:57)
[2021-05-18 03:48] LABS: ALBUMIN 2.9 g/dL (3.5-5.0); BILIRUBIN,TOTAL 1.4 mg/dL (0.2-1.0); CREATININE 0.8 mg/dL (0.5-1.5); MAGNESIUM 1.8 mg/dL (1.80-2.40); POTASSIUM 3.5 mmol/L (3.5-5.1); TOTAL PROTEIN, SERUM 6.5 g/dL (6.0-8.3)
[2021-05-18] MEDS: MAGNESIUM 2GM PREMIX 50ML 50 ML IV SCH (04:07)
[2021-05-18] MEDS ORDERED: KCL 20 MEQ ERTAB PO ONE (08:13)
[2021-05-18] MEDS: FISH OIL 1000 MG/CAP PO SCH ×2 (08:16→21:53)
[2021-05-18] MEDS: FAMOTIDINE 20MG VIAL IV SCH ×2 (08:16→21:53)
[2021-05-18] MEDS: ENOXAPARIN SODIUM 30 MG/0.3 ML SQ SCH (08:17)
[2021-05-18] MEDS ORDERED: POTASSIUM CHLORIDE 20MEQ/100ML 100 ML IV PRN (08:30)
[2021-05-18] MEDS ORDERED: LIDOCAINE HCL-MPF 1% 2ML VIAL IV PRN (08:30)
[2021-05-18 08:53] LABS: CHOLESTEROL 290 mg/dL (<200); HDL CHOLESTEROL 24 mg/dL (29-71); LDL DIRECT 45 mg/dL (0-99); TRIGLYCERIDES 1219 mg/dL (30-200)
[2021-05-19] VITALS (24 sets, daily range): BP systolic 107–155; BP diastolic 62–97
[2021-05-19] MEDS: DEXTROSE 5%-LACTATED RINGERS 1,000 ML IV SCH ×3 (09:00→19:37)
[2021-05-19] MEDS: ENOXAPARIN SODIUM 30 MG/0.3 ML SQ SCH (09:00)
[2021-05-19] MEDS: FISH OIL 1000 MG/CAP PO SCH ×2 (09:00→19:37)
[2021-05-19] MEDS: FAMOTIDINE 20MG VIAL IV SCH ×2 (09:00→19:37)
[2021-05-19] MEDS: FENOFIBRATE NANOCRYSTALLIZED 145 MG TAB PO SCH (14:00)
[2021-05-19] MEDS: ATORVASTATIN 40 MG TABLET PO SCH (19:37)
[2021-05-20] VITALS (13 sets, daily range): BP systolic 118–145; BP diastolic 70–93
[2021-05-20 03:53] LABS: CREATININE 0.7 mg/dL (0.5-1.5); POTASSIUM 3.4 mmol/L (3.5-5.1)
[2021-05-20] MEDS: DEXTROSE 5%-LACTATED RINGERS 1,000 ML IV SCH (04:38)
[2021-05-20] MEDS: INSULIN HUMULIN R 100 UNIT/ML 3ML SQ SCH ×5 (06:00→20:27)
[2021-05-20] MEDS: FAMOTIDINE 20MG VIAL IV SCH ×2 (08:10→21:07)
[2021-05-20] MEDS: FENOFIBRATE NANOCRYSTALLIZED 145 MG TAB PO SCH (08:10)
[2021-05-20] MEDS: ENOXAPARIN SODIUM 30 MG/0.3 ML SQ SCH (08:10)
[2021-05-20] MEDS: FISH OIL 1000 MG/CAP PO SCH ×2 (08:10→21:06)
[2021-05-20] MEDS ORDERED: INSULIN GLARGINE 100 UNITS/ML 10 ML VIAL SQ ONE (09:00)
[2021-05-20] MEDS: ATORVASTATIN 40 MG TABLET PO SCH (21:07)
[2021-05-21 03:31] VITALS: BP 134/85
[2021-05-21 04:09] LABS: CREATININE 0.7 mg/dL (0.5-1.5); POTASSIUM 3.6 mmol/L (3.5-5.1)
[2021-05-21] MEDS ORDERED: KCL 20 MEQ ERTAB PO ONE (04:28)
[2021-05-21] MEDS ORDERED: POTASSIUM CHLORIDE 10% ELIXIR 20 MEQ/15 ML UDCUP PO PRN (04:30)
[2021-05-21] MEDS ORDERED: KCL 20 MEQ ERTAB PO PRN (04:30)
[2021-05-21] MEDS: INSULIN HUMULIN R 100 UNIT/ML 3ML SQ SCH ×2 (05:43→11:10)
[2021-05-21] MEDS ORDERED: GLIM2TAB30 PO (07:34)
[2021-05-21 08:00] VITALS: BP 121/75
[2021-05-21] MEDS: FAMOTIDINE 20MG VIAL IV SCH (09:07)
[2021-05-21] MEDS: ENOXAPARIN SODIUM 30 MG/0.3 ML SQ SCH (09:07)
[2021-05-21] MEDS: FISH OIL 1000 MG/CAP PO SCH (09:08)
[2021-05-21] MEDS: FENOFIBRATE NANOCRYSTALLIZED 145 MG TAB PO SCH (09:08)
[2021-05-21 12:00] VITALS: BP 126/76
== END 2021-05-21 16:00 | disposition home or self-care (01) | DRG 637 ==
LOC: EDH 16:31 → EDHIP 16:32 → OBSVTOIN 16:32 → INTOOBSV 16:32 → 2CH 05-17 16:24 → 2DH 05-18 04:25
PROVIDERS: ADMIT Internal Medicine; ATTEND Internal Medicine
DX: E11.65 Type 2 diabetes mellitus with hyperglycemia (principal); K85.90 Acute pancreatitis without necrosis or infection, unspecified; K86.1 Other chronic pancreatitis; E87.5 Hyperkalemia; E78.5 Hyperlipidemia, unspecified; E83.42 Hypomagnesemia; K76.0 Fatty (change of) liver, not elsewhere classified; R16.0 Hepatomegaly, not elsewhere classified; F17.210 Nicotine dependence, cigarettes, uncomplicated; I10 Essential (primary) hypertension; E78.1 Pure hyperglyceridemia; E78.00 Pure hypercholesterolemia, unspecified; Z20.822 Contact with and (suspected) exposure to COVID-19; Z79.84 Long term (current) use of oral hypoglycemic drugs; Z79.899 Other long term (current) drug therapy; Z91.19 Patient's noncompliance with other medical treatment and regimen; Z91.14 Patient's other noncompliance with medication regimen; Z83.3 Family history of diabetes mellitus; Z84.1 Family history of disorders of kidney and ureter; Z82.49 Family history of ischemic heart disease and other diseases of the circulatory system
CPT/HCPCS: 36415; 36600; 71046; 76705; 80048; 80053; 80061; 80305; 81001; 82150; 82803; 82948; 83036; 83690; 83735; 84132; 84478; 85025; 86140; 87040; 87426; 87635; G0378; J1650; J1815; J2270; J2405; J3475; J3480; J3490; J7030; J7120

== ENCOUNTER 2021-07-19 15:15 | Inpatient (IN) | payer OTHER ==
[~2021-07-19] VITALS: Ht 172.7 cm; Wt 77.1 kg
[~2021-07-19 15:15] MED LIST changes: +GLIM2TAB30 PO
[2021-07-19] MEDS ORDERED: ONDANSETRON 4MG INJ IVP SCH (16:00)
[2021-07-19] MEDS ORDERED: 0.9%NACL 1000ML 1,000 ML IV SCH (16:00)
[2021-07-19] MEDS ORDERED: HYDROMORPHONE 1 MG INJ IVP SCH (16:00)
[2021-07-19 16:08] LABS: BASOPHILS % (AUTO) 0.2 % (0.0-5.0); EOSINOPHILS % (AUTO) 0.2 % (0.0-8.0); HEMATOCRIT 42.9 % (42-54); LYMPHOCYTES % (AUTO) 13.4 % (21.0-51.0); MEAN CORPUSCULAR HEMOGLOBIN 29.6 pg (27.0-33.0); MEAN CORPUSCULAR VOLUME 86.8 fL (79-99); MONOCYTES % (AUTO) 5.7 % (3.0-13.0); NEUTROPHILS % (AUTO) 79.9 % (40.0-77.0); PLATELET COUNT (AUTO) 291 K/uL (130-400); RED BLOOD CELL COUNT(AUTO) 4.94 MIL/uL (4.50-6.20); RED CELL DISTRIBUTION WIDTH 12.2 % (11.0-15.5); WHITE BLOOD COUNT (AUTO) 14.2 K/uL (4.8-10.8)
[2021-07-19 16:33] LABS: ALBUMIN 4.5 g/dL (3.5-5.0); BILIRUBIN,TOTAL 0.9 mg/dL (0.2-1.0); CREATININE 0.8 mg/dL (0.5-1.5); POTASSIUM 3.9 mmol/L (3.5-5.1); TOTAL PROTEIN, SERUM 7.7 g/dL (6.0-8.3)
[2021-07-19] MEDS ORDERED: ACETAMINOPHEN 325 MG TAB PO PRN ×2 (18:30)
[2021-07-19] MEDS ORDERED: DEXTROSE 50%-WATER 50 ML DISP.SYRIN IV PRN (18:30)
[2021-07-19] MEDS: INSULIN HUMULIN R 100 UNIT/ML 3ML SQ SCH (18:30)
[2021-07-19] MEDS ORDERED: ONDANSETRON 4MG INJ IV PRN (18:30)
[2021-07-19] MEDS ORDERED: NITROGLYCERIN 0.4 MG SL TAB SL PRN (18:30)
[2021-07-19] MEDS ORDERED: GLUCAGON 1MG KIT 1 MG ML IM PRN (18:30)
[2021-07-19] MEDS ORDERED: IOHEXOL-350 75 ML VIAL IV ONE (18:54)
[2021-07-19 19:11] LABS: CRP QUANTITATIVE 19.8 mg/L (0.00-9.0)
[2021-07-19 19:22] LABS: INR 1.01 (0.85-1.15)
[2021-07-19 19:23] LABS: PARTIAL THROMBOPLASTIN TIME 24.4 SEC (26.3-35.5)
[2021-07-19] MEDS: LACTATED RINGERS 1000ML 1,000 ML IV SCH (20:15)
[2021-07-19] MEDS: ZOSYN 3.375GM +NS 50ML IV SCH (20:15)
[2021-07-19] MEDS ORDERED: MAGNESIUM 2GM PREMIX 50ML 50 ML IV SCH (20:30)
[2021-07-19] MEDS: FAMOTIDINE 20MG VIAL IV SCH (20:53)
[2021-07-19] MEDS: HYDROMORPHONE 0.5 MG SYG (0.5MG/0.5ML) IVP PRN (20:54)
[2021-07-20] VITALS (7 sets, daily range): BP systolic 116–149; BP diastolic 72–92
[2021-07-20] MEDS: HYDROMORPHONE 0.5 MG SYG (0.5MG/0.5ML) IVP PRN ×3 (01:06→14:35)
[2021-07-20] MEDS: LACTATED RINGERS 1000ML 1,000 ML IV SCH ×3 (03:23→15:45)
[2021-07-20] MEDS: ZOSYN 3.375GM +NS 50ML IV SCH ×3 (03:23→20:58)
[2021-07-20 05:17] LABS: BASOPHILS % (AUTO) 0.4 % (0.0-5.0); EOSINOPHILS % (AUTO) 1.1 % (0.0-8.0); HEMATOCRIT 37.2 % (42-54); LYMPHOCYTES % (AUTO) 16.9 % (21.0-51.0); MEAN CORPUSCULAR HEMOGLOBIN 29.5 pg (27.0-33.0); MEAN CORPUSCULAR HGB CONC 33.3 g/dL (32.0-36.0); MEAN CORPUSCULAR VOLUME 88.6 fL (79-99); NEUTROPHILS % (AUTO) 74.3 % (40.0-77.0); PLATELET COUNT (AUTO) 236 K/uL (130-400); RED CELL DISTRIBUTION WIDTH 12.2 % (11.0-15.5); WHITE BLOOD COUNT (AUTO) 10.4 K/uL (4.8-10.8)
[2021-07-20 05:30] LABS: ALBUMIN 3.6 g/dL (3.5-5.0); BILIRUBIN,TOTAL 0.9 mg/dL (0.2-1.0); CREATININE 0.9 mg/dL (0.5-1.5); MAGNESIUM 1.9 mg/dL (1.80-2.40); TOTAL PROTEIN, SERUM 6.5 g/dL (6.0-8.3)
[2021-07-20] MEDS: INSULIN HUMULIN R 100 UNIT/ML 3ML SQ SCH ×3 (06:00→12:00)
[2021-07-20] MEDS: FAMOTIDINE 20MG VIAL IV SCH ×2 (08:23→20:58)
[2021-07-20] MEDS: ENOXAPARIN SODIUM 40 MG/0.4 ML SYRINGE SQ SCH (08:24)
[2021-07-21] MEDS: LACTATED RINGERS 1000ML 1,000 ML IV SCH ×3 (01:19→19:00)
[2021-07-21] MEDS: HYDROMORPHONE 0.5 MG SYG (0.5MG/0.5ML) IVP PRN (01:23)
[2021-07-21 03:19] VITALS: BP 122/76
[2021-07-21 04:10] LABS: BASOPHILS % (AUTO) 0.4 % (0.0-5.0); HEMATOCRIT 34.7 % (42-54); MEAN CORPUSCULAR HEMOGLOBIN 29.4 pg (27.0-33.0); MEAN CORPUSCULAR HGB CONC 33.4 g/dL (32.0-36.0); MEAN CORPUSCULAR VOLUME 87.8 fL (79-99); MONOCYTES % (AUTO) 7.2 % (3.0-13.0); NEUTROPHILS % (AUTO) 64.8 % (40.0-77.0); PLATELET COUNT (AUTO) 205 K/uL (130-400); RED BLOOD CELL COUNT(AUTO) 3.95 MIL/uL (4.50-6.20); RED CELL DISTRIBUTION WIDTH 11.9 % (11.0-15.5)
[2021-07-21 04:22] LABS: ALBUMIN 3.3 g/dL (3.5-5.0); BILIRUBIN,TOTAL 0.8 mg/dL (0.2-1.0); CREATININE 0.9 mg/dL (0.5-1.5); POTASSIUM 3.6 mmol/L (3.5-5.1); TOTAL PROTEIN, SERUM 6.6 g/dL (6.0-8.3)
[2021-07-21] MEDS: ZOSYN 3.375GM +NS 50ML IV SCH ×3 (05:07→20:43)
[2021-07-21] MEDS: INSULIN HUMULIN R 100 UNIT/ML 3ML SQ SCH ×4 (06:00→17:22)
[2021-07-21 08:26] VITALS: BP 116/74
[2021-07-21] MEDS: ENOXAPARIN SODIUM 40 MG/0.4 ML SYRINGE SQ SCH (08:34)
[2021-07-21] MEDS: FAMOTIDINE 20MG VIAL IV SCH ×2 (08:34→20:43)
[2021-07-21 10:50] VITALS: BP 126/72
[2021-07-21 16:01] VITALS: BP 141/86
[2021-07-21 20:00] VITALS: BP 134/79
[2021-07-22 00:34] VITALS: BP 124/77
[2021-07-22] MEDS: LACTATED RINGERS 1000ML 1,000 ML IV SCH (02:24)
[2021-07-22] MEDS: ZOSYN 3.375GM +NS 50ML IV SCH (02:37)
[2021-07-22 04:42] VITALS: BP 123/75
[2021-07-22 05:27] LABS: BASOPHILS % (AUTO) 0.4 % (0.0-5.0); EOSINOPHILS % (AUTO) 2.2 % (0.0-8.0); HEMATOCRIT 34.5 % (42-54); LYMPHOCYTES % (AUTO) 26.9 % (21.0-51.0); MEAN CORPUSCULAR HEMOGLOBIN 29.3 pg (27.0-33.0); MEAN CORPUSCULAR HGB CONC 33.3 g/dL (32.0-36.0); MONOCYTES % (AUTO) 7.3 % (3.0-13.0); NEUTROPHILS % (AUTO) 62.8 % (40.0-77.0); PLATELET COUNT (AUTO) 244 K/uL (130-400); RED BLOOD CELL COUNT(AUTO) 3.92 MIL/uL (4.50-6.20); RED CELL DISTRIBUTION WIDTH 12.1 % (11.0-15.5); WHITE BLOOD COUNT (AUTO) 7.7 K/uL (4.8-10.8)
[2021-07-22] MEDS: INSULIN HUMULIN R 100 UNIT/ML 3ML SQ SCH ×3 (05:36→11:51)
[2021-07-22 05:54] LABS: ALBUMIN 3.4 g/dL (3.5-5.0); BILIRUBIN,TOTAL 0.6 mg/dL (0.2-1.0); CREATININE 0.9 mg/dL (0.5-1.5); POTASSIUM 3.7 mmol/L (3.5-5.1)
[2021-07-22 08:07] VITALS: BP 116/75
[2021-07-22] MEDS ORDERED: FAMOTIDINE 20MG TAB PO SCH (09:00)
[2021-07-22] MEDS: ENOXAPARIN SODIUM 40 MG/0.4 ML SYRINGE SQ SCH (09:18)
[2021-07-22 11:00] VITALS: BP 121/64
[2021-07-22] MEDS ORDERED: ZOSYN 3.375GM+NS 50ML 50 ML IV SCH (13:00)
== END 2021-07-22 17:15 | disposition home or self-care (01) | DRG 439 ==
LOC: EDH 15:15 → EDHIP 15:16 → 3CH 07-20 01:56
PROVIDERS: ADMIT Hospitalist; ATTEND Hospitalist
DX: K85.90 Acute pancreatitis without necrosis or infection, unspecified (principal); K86.3 Pseudocyst of pancreas; K86.1 Other chronic pancreatitis; E83.42 Hypomagnesemia; E11.9 Type 2 diabetes mellitus without complications; E78.5 Hyperlipidemia, unspecified; I10 Essential (primary) hypertension; Z20.822 Contact with and (suspected) exposure to COVID-19; E78.00 Pure hypercholesterolemia, unspecified; K57.30 Diverticulosis of large intestine without perforation or abscess without bleeding; E78.1 Pure hyperglyceridemia; Z83.3 Family history of diabetes mellitus; Z84.1 Family history of disorders of kidney and ureter; Z82.49 Family history of ischemic heart disease and other diseases of the circulatory system
CPT/HCPCS: 36415; 71045; 74177; 80053; 80061; 82150; 82550; 82948; 83036; 83605; 83690; 83735; 84145; 85025; 85610; 85651; 85730; 86140; 87040; 87635; 87804; 87880; 93005; 99291; G0378; J1170; J1650; J1815; J2405; J2543; J3475; J3490; J7030; J7120; Q9967

== ENCOUNTER 2021-10-06 06:25 | Inpatient (IN) | payer SELFPAY ==
[~2021-10-06] VITALS: Ht 167.6 cm; Wt 82.4 kg
[2021-10-06 06:47] LABS: BASOPHILS % (AUTO) 0.3 % (0.0-5.0); EOSINOPHILS % (AUTO) 1.2 % (0.0-8.0); HEMATOCRIT 40.3 % (42-54); LYMPHOCYTES % (AUTO) 36.8 % (21.0-51.0); MEAN CORPUSCULAR HEMOGLOBIN 29.9 pg (27.0-33.0); MEAN CORPUSCULAR HGB CONC 35.2 g/dL (32.0-36.0); MEAN CORPUSCULAR VOLUME 84.8 fL (79-99); MONOCYTES % (AUTO) 7.2 % (3.0-13.0); NEUTROPHILS % (AUTO) 53.7 % (40.0-77.0); PLATELET COUNT (AUTO) 250 K/uL (130-400); RED BLOOD CELL COUNT(AUTO) 4.75 MIL/uL (4.50-6.20); RED CELL DISTRIBUTION WIDTH 11.4 % (11.0-15.5); WHITE BLOOD COUNT (AUTO) 9.5 K/uL (4.8-10.8)
[2021-10-06 06:55] LABS: APPEARANCE,URINE Clear (CLEAR); BILIRUBIN,URINE Negative (NEGATIVE); COLOR,URINE Yellow (YELLOW); GLUCOSE, URINE (UA) >=1000 mg/dL (NEGATIVE); KETONES,URINE Negative (NEGATIVE); LEUKOCYTE ESTERASE ,URINE Negative (NEGATIVE); NITRATE,URINE Negative (NEGATIVE); OCCULT BLOOD,URINE Negative (NEGATIVE); PH,URINE 5.5 (5.0-8.0); PROTEIN,URINE Trace mg/dL (NEGATIVE)
[2021-10-06 07:01] LABS: BILIRUBIN,TOTAL 0.7 mg/dL (0.2-1.0); CREATININE 0.8 mg/dL (0.5-1.5); POTASSIUM 4.4 mmol/L (3.5-5.1)
[2021-10-06 07:01] LABS: BACTERIA,URINE Rare /HPF (None Seen); CALCIUM OXALATE CRYSTALS,UR Rare /LPF (None Seen); RBC,URINE 0-1 /HPF (0-1); SQUAMOUS EPITHELIAL CELL,UR Rare /HPF (0-2); WBC,URINE 0-1 /HPF (0-1)
[2021-10-06] MEDS ORDERED: MORPHINE 4 MG SYG IVP ONE (07:30)
[2021-10-06] MEDS ORDERED: LACTATED RINGERS 1000ML 1,000 ML IV ONE (07:30)
[2021-10-06] MEDS ORDERED: KETOROLAC 15MG/ML VIAL (15MG/ML) IV ONE (07:30)
[2021-10-06] MEDS ORDERED: ONDANSETRON 4MG INJ IVP ONE (07:30)
[2021-10-06 07:49] LABS: TOTAL PROTEIN, SERUM 7.9 g/dL (6.0-8.3)
[2021-10-06 08:07] LABS: AMPHET/METH SCREEN,URINE NEGATIVE (NEGATIVE); BARBITURATE SCREEN, URINE NEGATIVE (NEGATIVE); BENZODIAZEPINES SCREEN,URINE NEGATIVE (NEGATIVE); CANNABINOID SCREEN,URINE NEGATIVE (NEGATIVE); COCAINE SCREEN,URINE NEGATIVE (NEGATIVE); OPIATE SCREEN,URINE NEGATIVE (NEGATIVE); PHENCYCLIDINE SCREEN,URINE NEGATIVE (NEGATIVE)
[2021-10-06 08:14] LABS: CHOLESTEROL 237 mg/dL (<200); HDL CHOLESTEROL 18 mg/dL (29-71); LDL DIRECT 35 mg/dL (0-99)
[2021-10-06] MEDS ORDERED: IOHEXOL-350 75 ML VIAL IV ONE (08:51)
[2021-10-06 09:00] LABS: TRIGLYCERIDES 2048 mg/dL (30-200)
[2021-10-06] MEDS ORDERED: MORPHINE 4 MG SYG IV ONE (11:00)
[2021-10-06] MEDS ORDERED: MORPHINE 4 MG SYG ONE (11:01)
[2021-10-06] MEDS ORDERED: HYDRALAZINE 20MG/ML VIAL IV PRN (12:30)
[2021-10-06] MEDS: LACTATED RINGERS 1000ML 1,000 ML IV SCH ×4 (13:26→21:13)
[2021-10-06 15:30] VITALS: BP 147/92
[2021-10-06] MEDS ORDERED: MORPHINE 2 MG SYG ONE (17:45)
[2021-10-06] MEDS: INSULIN HUMULIN R 100 UNIT/ML 3ML SQ SCH (18:44)
[2021-10-06 20:07] VITALS: BP 151/96
[2021-10-06] MEDS ORDERED: KETOROLAC 30MG VIAL (30MG/ML) ONE (21:08)
[2021-10-06] MEDS: PANTOPRAZOLE 40 MG/VIAL IVP SCH (21:13)
[2021-10-06] MEDS: ATORVASTATIN 40 MG TABLET PO SCH (21:13)
[2021-10-06] MEDS ORDERED: KETOROLAC 30MG VIAL (30MG/ML) IV ONE (21:30)
[2021-10-07] VITALS (14 sets, daily range): BP systolic 115–150; BP diastolic 55–98
[2021-10-07] MEDS: ONDANSETRON 4MG INJ IV PRN ×2 (00:05→10:22)
[2021-10-07] MEDS: MORPHINE 2 MG SYG IVP PRN ×3 (00:06→17:04)
[2021-10-07] MEDS: INSULIN HUMULIN R 100 UNIT/ML 3ML SQ SCH ×2 (00:18→06:43)
[2021-10-07 02:24] LABS: CHLORIDE,URINE RANDOM 151 mmol/L (110-250); CREATININE,URINE RANDOM 177 mg/dL (30-135); POTASSIUM,URINE RANDOM 43 mmol/L (25-125); SODIUM,URINE RANDOM 134 mmol/l (40-220)
[2021-10-07] MEDS: LACTATED RINGERS 1000ML 1,000 ML IV SCH ×2 (03:54→20:08)
[2021-10-07 04:12] LABS: HEMATOCRIT 38.2 % (42-54); MEAN CORPUSCULAR HEMOGLOBIN 29.1 pg (27.0-33.0); MEAN CORPUSCULAR HGB CONC 33.8 g/dL (32.0-36.0); MEAN CORPUSCULAR VOLUME 86.2 fL (79-99); RED BLOOD CELL COUNT(AUTO) 4.43 MIL/uL (4.50-6.20); RED CELL DISTRIBUTION WIDTH 11.4 % (11.0-15.5); WHITE BLOOD COUNT (AUTO) 16.4 K/uL (4.8-10.8)
[2021-10-07 04:32] LABS: ALBUMIN 3.7 g/dL (3.5-5.0); BILIRUBIN,TOTAL 1.1 mg/dL (0.2-1.0); CREATININE 0.8 mg/dL (0.5-1.5); MAGNESIUM 1.3 mg/dL (1.80-2.40); POTASSIUM 3.7 mmol/L (3.5-5.1); TOTAL PROTEIN, SERUM 6.9 g/dL (6.0-8.3); URIC ACID 4.5 mg/dL (2.6-7.2)
[2021-10-07 06:49] LABS: LIPASE 1526 U/L (114-286); TRIGLYCERIDES 825 mg/dL (30-200)
[2021-10-07] MEDS: FENOFIBRATE NANOCRYSTALLIZED 145 MG TAB PO SCH (09:00)
[2021-10-07] MEDS ORDERED: FISH OIL 1000 MG/CAP PO SCH (09:00)
[2021-10-07] MEDS: PANTOPRAZOLE 40 MG/VIAL IVP SCH ×2 (10:26→20:09)
[2021-10-07] MEDS: MAGNESIUM 2GM PREMIX 50ML 50 ML IV PRN ×2 (10:27→17:03)
[2021-10-07] MEDS ORDERED: INSULIN REGULAR, HUMAN 3ML 100 UNIT in 0.9%NACL 100ML 99 ML IV PRN ×2 (11:00)
[2021-10-07 11:30] LABS: CREATININE 0.9 mg/dL (0.5-1.5); MAGNESIUM 1.7 mg/dL (1.80-2.40); POTASSIUM 3.9 mmol/L (3.5-5.1)
[2021-10-07] MEDS: DEXTROSE 5 %-0.45 % NACL 1,000 ML IV SCH (11:30)
[2021-10-07 11:35] LABS: AMYLASE 165 U/L (25-115); CREATINE KINASE, TOTAL 40 U/L (21-232)
[2021-10-07] MEDS ORDERED: KETOROLAC 15MG/ML VIAL (15MG/ML) IV PRN (12:00)
[2021-10-07] MEDS: KETOROLAC 15MG/ML VIAL (15MG/ML) IV PRN ×2 (12:00→20:10)
[2021-10-07] MEDS: ZOSYN 3.375GM +NS 50ML IV SCH ×2 (12:50→20:09)
[2021-10-07] MEDS: LACTATED RINGERS 1000ML IV SCH (12:50)
[2021-10-07 16:03] LABS: CREATININE 0.8 mg/dL (0.5-1.5); MAGNESIUM 1.8 mg/dL (1.80-2.40); POTASSIUM 3.5 mmol/L (3.5-5.1)
[2021-10-07] MEDS ORDERED: KCL 20 MEQ ERTAB PO SCH (16:30)
[2021-10-07] MEDS: FISH OIL 1000 MG/CAP PO SCH (17:00)
[2021-10-07] MEDS ORDERED: PHARMACY COMMUNICATION MISC SCH (19:30)
[2021-10-07 19:50] LABS: CREATININE 0.8 mg/dL (0.5-1.5); MAGNESIUM 2.3 mg/dL (1.80-2.40); POTASSIUM 3.5 mmol/L (3.5-5.1)
[2021-10-07] MEDS: ATORVASTATIN 40 MG TABLET PO SCH (20:10)
[2021-10-08] VITALS (13 sets, daily range): BP systolic 120–151; BP diastolic 66–99
[2021-10-08 01:00] LABS: MAGNESIUM 1.9 mg/dL (1.80-2.40); POTASSIUM 3.3 mmol/L (3.5-5.1)
[2021-10-08] MEDS: MAGNESIUM 2GM PREMIX 50ML 50 ML IV PRN (01:06)
[2021-10-08] MEDS: FISH OIL 1000 MG/CAP PO SCH ×3 (01:06→17:08)
[2021-10-08] MEDS ORDERED: KCL 20 MEQ ERTAB PO ONE ×2 (01:42→02:00)
[2021-10-08] MEDS: LACTATED RINGERS 1000ML 1,000 ML IV SCH ×3 (01:44→20:57)
[2021-10-08] MEDS: KETOROLAC 15MG/ML VIAL (15MG/ML) IV PRN (02:22)
[2021-10-08] MEDS: ZOSYN 3.375GM +NS 50ML IV SCH ×3 (03:20→20:57)
[2021-10-08 04:33] LABS: BASOPHILS % (AUTO) 0.2 % (0.0-5.0); HEMATOCRIT 32.6 % (42-54); LYMPHOCYTES % (AUTO) 11.3 % (21.0-51.0); MEAN CORPUSCULAR HEMOGLOBIN 28.6 pg (27.0-33.0); MEAN CORPUSCULAR HGB CONC 33.7 g/dL (32.0-36.0); MEAN CORPUSCULAR VOLUME 84.9 fL (79-99); MONOCYTES % (AUTO) 7.1 % (3.0-13.0); NEUTROPHILS % (AUTO) 79.9 % (40.0-77.0); PLATELET COUNT (AUTO) 184 K/uL (130-400); RED BLOOD CELL COUNT(AUTO) 3.84 MIL/uL (4.50-6.20); RED CELL DISTRIBUTION WIDTH 11.9 % (11.0-15.5); WHITE BLOOD COUNT (AUTO) 11.2 K/uL (4.8-10.8)
[2021-10-08 05:00] LABS: ALBUMIN 3.1 g/dL (3.5-5.0); BILIRUBIN,DIRECT 0.1 mg/dL (0.0-0.3); BILIRUBIN,TOTAL 0.8 mg/dL (0.2-1.0); CREATININE 0.9 mg/dL (0.5-1.5); MAGNESIUM 2.5 mg/dL (1.80-2.40); POTASSIUM 3.6 mmol/L (3.5-5.1); TOTAL PROTEIN, SERUM 6.5 g/dL (6.0-8.3)
[2021-10-08] MEDS: DEXTROSE 5 %-0.45 % NACL 1,000 ML IV SCH (07:30)
[2021-10-08 08:08] LABS: CREATININE 0.8 mg/dL (0.5-1.5); POTASSIUM 3.8 mmol/L (3.5-5.1)
[2021-10-08] MEDS: PANTOPRAZOLE 40 MG/VIAL IVP SCH (08:36)
[2021-10-08] MEDS: FENOFIBRATE NANOCRYSTALLIZED 145 MG TAB PO SCH (08:36)
[2021-10-08] MEDS ORDERED: KETOROLAC 15MG/ML VIAL (15MG/ML) IV PRN (11:00)
[2021-10-08] MEDS: LACTATED RINGERS 1000ML IV SCH (12:00)
[2021-10-08] MEDS: INSULIN HUMULIN R 100 UNIT/ML 3ML SQ SCH ×2 (16:30→20:57)
[2021-10-08] MEDS: ATORVASTATIN 40 MG TABLET PO SCH (20:57)
[2021-10-09] MEDS: FISH OIL 1000 MG/CAP PO SCH ×3 (01:28→16:45)
[2021-10-09] MEDS: ZOSYN 3.375GM +NS 50ML IV SCH ×2 (03:54→12:39)
[2021-10-09 04:49] VITALS: BP_SYST 126; BP_SYST 130; BP_DIAS 85; BP_DIAS 86
[2021-10-09] MEDS: INSULIN HUMULIN R 100 UNIT/ML 3ML SQ SCH ×3 (06:23→16:48)
[2021-10-09 07:07] LABS: BASOPHILS % (AUTO) 0.4 % (0.0-5.0); EOSINOPHILS % (AUTO) 2.1 % (0.0-8.0); HEMATOCRIT 34.1 % (42-54); LYMPHOCYTES % (AUTO) 22.8 % (21.0-51.0); MEAN CORPUSCULAR HEMOGLOBIN 29.2 pg (27.0-33.0); MEAN CORPUSCULAR HGB CONC 33.4 g/dL (32.0-36.0); MEAN CORPUSCULAR VOLUME 87.2 fL (79-99); MONOCYTES % (AUTO) 7.7 % (3.0-13.0); NEUTROPHILS % (AUTO) 66.3 % (40.0-77.0); PLATELET COUNT (AUTO) 230 K/uL (130-400); RED BLOOD CELL COUNT(AUTO) 3.91 MIL/uL (4.50-6.20); RED CELL DISTRIBUTION WIDTH 11.9 % (11.0-15.5); WHITE BLOOD COUNT (AUTO) 10.4 K/uL (4.8-10.8)
[2021-10-09 07:25] LABS: ALBUMIN 3.2 g/dL (3.5-5.0); BILIRUBIN,TOTAL 0.8 mg/dL (0.2-1.0); CREATININE 0.9 mg/dL (0.5-1.5); POTASSIUM 3.9 mmol/L (3.5-5.1); TOTAL PROTEIN, SERUM 7.1 g/dL (6.0-8.3)
[2021-10-09 07:52] VITALS: BP 124/79
[2021-10-09] MEDS: FENOFIBRATE NANOCRYSTALLIZED 145 MG TAB PO SCH (08:29)
[2021-10-09] MEDS ORDERED: PANTOPRAZOLE 40 MG/VIAL IVP SCH (09:00)
[2021-10-09 12:00] VITALS: BP 121/72
[2021-10-09] MEDS: LACTATED RINGERS 1000ML IV SCH (12:00)
[2021-10-09] MEDS: LACTATED RINGERS 1000ML 1,000 ML IV SCH (12:45)
[2021-10-09] MEDS ORDERED: PIOG45TA4 PO (13:23)
[2021-10-09 16:00] VITALS: BP 120/74
== END 2021-10-09 19:08 | disposition home or self-care (01) | DRG 439 ==
LOC: EDH 06:25 → EDHIP 06:26 → OBSVTOIN 06:26 → 4CH 14:43 → 2DH 10-07 14:25 → 3DH 10-09 06:35
PROVIDERS: ADMIT Internal Medicine; ATTEND Internal Medicine
DX: K86.3 Pseudocyst of pancreas (principal); E87.1 Hypo-osmolality and hyponatremia; E86.0 Dehydration; K86.1 Other chronic pancreatitis; E87.6 Hypokalemia; E83.42 Hypomagnesemia; E86.1 Hypovolemia; E78.1 Pure hyperglyceridemia; E78.5 Hyperlipidemia, unspecified; I10 Essential (primary) hypertension; E11.9 Type 2 diabetes mellitus without complications; F17.210 Nicotine dependence, cigarettes, uncomplicated; K76.0 Fatty (change of) liver, not elsewhere classified; E78.00 Pure hypercholesterolemia, unspecified; Z91.14 Patient's other noncompliance with medication regimen; Z79.84 Long term (current) use of oral hypoglycemic drugs; Z83.3 Family history of diabetes mellitus; Z84.1 Family history of disorders of kidney and ureter; Z82.49 Family history of ischemic heart disease and other diseases of the circulatory system
CPT/HCPCS: 36415; 74177; 76705; 80048; 80053; 80061; 80076; 80305; 81001; 82150; 82436; 82550; 82570; 82948; 83690; 83735; 83935; 84133; 84145; 84300; 84478; 84550; 85025; 85027; C9113; G0378; J0360; J1815; J1885; J2270; J2405; J2543; J3475; J7120; Q9967

== ENCOUNTER 2022-02-13 23:33 | Inpatient (IN) | payer OTHER ==
[~2022-02-13] VITALS: Ht 172.7 cm; Wt 77.4 kg
[~2022-02-13 23:33] MED LIST changes: -GLIM2TAB30 PO; +INSU3INS3 SQ; +PIOG45TA4 PO
[2022-02-14] MEDS ORDERED: MORPHINE 4 MG SYG IVP ONE ×2 (00:30→01:30)
[2022-02-14] MEDS ORDERED: KETOROLAC 15MG/ML VIAL (15MG/ML) IV ONE (00:30)
[2022-02-14] MEDS ORDERED: ONDANSETRON 4MG INJ IVP ONE (00:30)
[2022-02-14] MEDS ORDERED: 0.9%NACL 1000ML 1,000 ML IV ONE (00:30)
[2022-02-14 00:43] LABS: POTASSIUM 4.5 mmol/L (3.5-5.1)
[2022-02-14 00:48] LABS: ALBUMIN 4.4 g/dL (3.5-5.0); BILIRUBIN,TOTAL 0.5 mg/dL (0.2-1.0); MAGNESIUM 1.5 mg/dL (1.80-2.40)
[2022-02-14 00:51] LABS: BASOPHILS % (AUTO) 0.5 % (0.0-5.0); EOSINOPHILS % (AUTO) 0.7 % (0.0-8.0); HEMATOCRIT 41.7 % (42-54); LYMPHOCYTES % (AUTO) 32.9 % (21.0-51.0); MEAN CORPUSCULAR HEMOGLOBIN 29.2 pg (27.0-33.0); MEAN CORPUSCULAR HGB CONC 34.1 g/dL (32.0-36.0); MEAN CORPUSCULAR VOLUME 85.8 fL (79-99); MONOCYTES % (AUTO) 5.6 % (3.0-13.0); NEUTROPHILS % (AUTO) 59.5 % (40.0-77.0); PLATELET COUNT (AUTO) 260 K/uL (130-400); RED BLOOD CELL COUNT(AUTO) 4.86 MIL/uL (4.50-6.20); RED CELL DISTRIBUTION WIDTH 11.5 % (11.0-15.5)
[2022-02-14] MEDS: MAGNESIUM 2GM PREMIX 50ML 50 ML IV SCH (02:13)
[2022-02-14 02:23] LABS: CHOLESTEROL 180 mg/dL (<200); HDL CHOLESTEROL 24 mg/dL (29-71); LDL DIRECT 46 mg/dL (0-99); TRIGLYCERIDES 786 mg/dL (30-200)
[2022-02-14] MEDS ORDERED: MORPHINE 4 MG SYG IV PRN (03:00)
[2022-02-14] MEDS ORDERED: MAGNESIUM 2GM PREMIX 50ML 50 ML IV PRN (03:00)
[2022-02-14] MEDS ORDERED: LIDOCAINE HCL-MPF 1% 2ML VIAL IV PRN (03:00)
[2022-02-14] MEDS ORDERED: POTASSIUM CHLORIDE 20MEQ/100ML 100 ML IV PRN (03:00)
[2022-02-14] MEDS ORDERED: KETOROLAC 30MG VIAL (30MG/ML) IM PRN (03:00)
[2022-02-14] MEDS ORDERED: ONDANSETRON 4MG INJ IV PRN (03:00)
[2022-02-14 03:12] LABS: HEMOGLOBIN A1C 10.9 % (4.0-6.0)
[2022-02-14] MEDS: 0.9%NACL 1000ML 1,000 ML IV SCH ×4 (03:20→23:00)
[2022-02-14 04:55] VITALS: BP 136/96
[2022-02-14] MEDS: INSULIN HUMULIN R 100 UNIT/ML 3ML SQ SCH ×4 (06:42→21:00)
[2022-02-14 08:00] VITALS: BP 130/91
[2022-02-14] MEDS: ENOXAPARIN SODIUM 40 MG/0.4 ML SYRINGE SQ SCH (09:23)
[2022-02-14] MEDS: FAMOTIDINE 20MG VIAL IV SCH ×2 (09:24→21:53)
[2022-02-14] MEDS: FENOFIBRATE NANOCRYSTALLIZED 145 MG TAB PO SCH (09:24)
[2022-02-14 10:04] LABS: APPEARANCE,URINE Turbid (CLEAR); BILIRUBIN,URINE Negative (NEGATIVE); COLOR,URINE Yellow (YELLOW); GLUCOSE, URINE (UA) >=1000 mg/dL (NEGATIVE); KETONES,URINE Trace mg/dL (NEGATIVE); LEUKOCYTE ESTERASE ,URINE Moderate (NEGATIVE); NITRATE,URINE Negative (NEGATIVE); OCCULT BLOOD,URINE Negative (NEGATIVE); PH,URINE 6.5 (5.0-8.0); PROTEIN,URINE Negative (NEGATIVE)
[2022-02-14 10:31] LABS: BACTERIA,URINE Few /HPF (None Seen); WBC,URINE 51-100 /HPF (0-1)
[2022-02-14 10:32] LABS: AMORPHOUS SEDIMENT,UR Few /LPF (None Seen); SQUAMOUS EPITHELIAL CELL,UR Few /HPF (0-2)
[2022-02-14 12:00] VITALS: BP 113/65
[2022-02-14 16:00] VITALS: BP 132/90
[2022-02-14] MEDS: MORPHINE 2 MG SYG IV PRN ×2 (16:33→22:05)
[2022-02-14 19:45] VITALS: BP 134/85
[2022-02-14] MEDS: ATORVASTATIN 40 MG TABLET PO SCH (21:53)
[2022-02-14 23:31] VITALS: BP 126/79
[2022-02-15 03:34] VITALS: BP 125/82
[2022-02-15 05:12] LABS: BASOPHILS % (AUTO) 0.1 % (0.0-5.0); EOSINOPHILS % (AUTO) 1.1 % (0.0-8.0); HEMATOCRIT 32.5 % (42-54); LYMPHOCYTES % (AUTO) 29.5 % (21.0-51.0); MEAN CORPUSCULAR HEMOGLOBIN 28.7 pg (27.0-33.0); MEAN CORPUSCULAR HGB CONC 32.6 g/dL (32.0-36.0); MEAN CORPUSCULAR VOLUME 88.1 fL (79-99); MONOCYTES % (AUTO) 7.7 % (3.0-13.0); NEUTROPHILS % (AUTO) 61.5 % (40.0-77.0); PLATELET COUNT (AUTO) 167 K/uL (130-400); RED BLOOD CELL COUNT(AUTO) 3.69 MIL/uL (4.50-6.20); RED CELL DISTRIBUTION WIDTH 11.9 % (11.0-15.5); WHITE BLOOD COUNT (AUTO) 7.3 K/uL (4.8-10.8)
[2022-02-15 05:29] LABS: CREATININE 0.8 mg/dL (0.5-1.5); MAGNESIUM 1.5 mg/dL (1.80-2.40); PHOSPHORUS 2.7 mg/dL (2.5-4.9); POTASSIUM 3.5 mmol/L (3.5-5.1)
[2022-02-15] MEDS: 0.9%NACL 1000ML 1,000 ML IV SCH (05:40)
[2022-02-15] MEDS: MORPHINE 2 MG SYG IV PRN ×2 (06:01→22:24)
[2022-02-15] MEDS: INSULIN HUMULIN R 100 UNIT/ML 3ML SQ SCH ×4 (07:08→19:42)
[2022-02-15] MEDS ORDERED: MAGNESIUM 2GM PREMIX 50ML 50 ML IV PRN (07:30)
[2022-02-15 07:45] VITALS: BP 129/83
[2022-02-15] MEDS: FAMOTIDINE 20MG VIAL IV SCH ×2 (08:35→21:29)
[2022-02-15] MEDS: FENOFIBRATE NANOCRYSTALLIZED 145 MG TAB PO SCH (08:35)
[2022-02-15] MEDS: ENOXAPARIN SODIUM 40 MG/0.4 ML SYRINGE SQ SCH (08:36)
[2022-02-15 09:01] LABS: AMYLASE 152 U/L (25-115); LIPASE 855 U/L (114-286); TRIGLYCERIDES 250 mg/dL (30-200)
[2022-02-15] MEDS: MAGNESIUM 2GM PREMIX 50ML 50 ML IV SCH (09:12)
[2022-02-15 11:30] VITALS: BP 131/79
[2022-02-15 15:45] VITALS: BP 117/77
[2022-02-15 19:44] VITALS: BP 124/81
[2022-02-15] MEDS: ATORVASTATIN 40 MG TABLET PO SCH (21:29)
[2022-02-15 23:45] VITALS: BP 115/74
[2022-02-16 03:38] VITALS: BP 126/72
[2022-02-16 04:52] LABS: BASOPHILS % (AUTO) 0.4 % (0.0-5.0); EOSINOPHILS % (AUTO) 2.2 % (0.0-8.0); HEMATOCRIT 33.3 % (42-54); LYMPHOCYTES % (AUTO) 30.9 % (21.0-51.0); MEAN CORPUSCULAR HEMOGLOBIN 28.4 pg (27.0-33.0); MEAN CORPUSCULAR HGB CONC 33.6 g/dL (32.0-36.0); MEAN CORPUSCULAR VOLUME 84.5 fL (79-99); MONOCYTES % (AUTO) 7.8 % (3.0-13.0); NEUTROPHILS % (AUTO) 58.3 % (40.0-77.0); PLATELET COUNT (AUTO) 188 K/uL (130-400); RED BLOOD CELL COUNT(AUTO) 3.94 MIL/uL (4.50-6.20); RED CELL DISTRIBUTION WIDTH 11.6 % (11.0-15.5); WHITE BLOOD COUNT (AUTO) 7.9 K/uL (4.8-10.8)
[2022-02-16 05:04] LABS: ALBUMIN 3.4 g/dL (3.5-5.0); BILIRUBIN,TOTAL 0.9 mg/dL (0.2-1.0); CREATININE 0.7 mg/dL (0.5-1.5); POTASSIUM 3.6 mmol/L (3.5-5.1); TOTAL PROTEIN, SERUM 6.6 g/dL (6.0-8.3)
[2022-02-16] MEDS: INSULIN HUMULIN R 100 UNIT/ML 3ML SQ SCH ×3 (07:20→16:21)
[2022-02-16 07:45] VITALS: BP 116/72
[2022-02-16] MEDS: ENOXAPARIN SODIUM 40 MG/0.4 ML SYRINGE SQ SCH (09:09)
[2022-02-16] MEDS: FENOFIBRATE NANOCRYSTALLIZED 145 MG TAB PO SCH (09:09)
[2022-02-16] MEDS: FAMOTIDINE 20MG VIAL IV SCH (09:09)
[2022-02-16 11:10] VITALS: BP 124/79
[2022-02-16 15:45] VITALS: BP 121/74
== END 2022-02-16 18:44 | disposition home or self-care (01) | DRG 440 ==
LOC: EDH 23:33 → EDHIP 23:34 → 3DH 02-14 04:36
PROVIDERS: ADMIT Internal Medicine; ATTEND Internal Medicine
DX: K85.90 Acute pancreatitis without necrosis or infection, unspecified (principal); E11.65 Type 2 diabetes mellitus with hyperglycemia; E83.42 Hypomagnesemia; K76.0 Fatty (change of) liver, not elsewhere classified; F17.210 Nicotine dependence, cigarettes, uncomplicated; E78.5 Hyperlipidemia, unspecified; D72.829 Elevated white blood cell count, unspecified; Z82.49 Family history of ischemic heart disease and other diseases of the circulatory system; Z83.3 Family history of diabetes mellitus; Z79.4 Long term (current) use of insulin
CPT/HCPCS: 36415; 80048; 80053; 80061; 81001; 82150; 82948; 83036; 83690; 83735; 84100; 84478; 85025; 87088; G0378; J1650; J1815; J1885; J2270; J2405; J3475; J3490; J7030

== ENCOUNTER 2022-04-24 14:27 | Inpatient (IN) | payer OTHER ==
[2022-04-24 15:24] LABS: BASOPHILS % (AUTO) 0.3 % (0.0-5.0); EOSINOPHILS % (AUTO) 0.5 % (0.0-8.0); HEMATOCRIT 40.9 % (42-54); LYMPHOCYTES % (AUTO) 24.2 % (21.0-51.0); MEAN CORPUSCULAR HEMOGLOBIN 29.4 pg (27.0-33.0); MEAN CORPUSCULAR HGB CONC 34.2 g/dL (32.0-36.0); MEAN CORPUSCULAR VOLUME 85.7 fL (79-99); MONOCYTES % (AUTO) 4.9 % (3.0-13.0); NEUTROPHILS % (AUTO) 69.6 % (40.0-77.0); PLATELET COUNT (AUTO) 302 K/uL (130-400); RED BLOOD CELL COUNT(AUTO) 4.77 MIL/uL (4.50-6.20); RED CELL DISTRIBUTION WIDTH 12.2 % (11.0-15.5); WHITE BLOOD COUNT (AUTO) 9.9 K/uL (4.8-10.8)
[2022-04-24 15:27] LABS: APPEARANCE,URINE Cloudy (CLEAR); BILIRUBIN,URINE Small (NEGATIVE); COLOR,URINE Dark Yellow (YELLOW); GLUCOSE, URINE (UA) TRACE mg/dL (NEGATIVE); KETONES,URINE Trace mg/dL (NEGATIVE); LEUKOCYTE ESTERASE ,URINE Moderate (NEGATIVE); NITRATE,URINE Negative (NEGATIVE); OCCULT BLOOD,URINE Negative (NEGATIVE); PROTEIN,URINE POS 1+ mg/dL (NEGATIVE)
[2022-04-24] MEDS ORDERED: KETOROLAC 30MG VIAL (30MG/ML) IVP ONE (15:30)
[2022-04-24] MEDS ORDERED: ONDANSETRON 4MG INJ IVP ONE (15:30)
[2022-04-24] MEDS ORDERED: MORPHINE 2 MG SYG IVP ONE (15:30)
[2022-04-24] MEDS ORDERED: 0.9%NACL 1000ML 1,000 ML IV ONE (15:30)
[2022-04-24 15:38] LABS: CREATININE 0.9 mg/dL (0.5-1.5); POTASSIUM 3.7 mmol/L (3.5-5.1)
[2022-04-24 15:43] LABS: TOTAL PROTEIN, SERUM 7.2 g/dL (6.0-8.3)
[2022-04-24 15:52] LABS: BACTERIA,URINE Few /HPF (None Seen); MUCUS,URINE Few LPF (None Seen); SQUAMOUS EPITHELIAL CELL,UR Few /HPF (0-2); WBC,URINE 26-50 /HPF (0-1)
[2022-04-24] MEDS ORDERED: ONDANSETRON 4MG INJ IV PRN (19:00)
[2022-04-24] MEDS ORDERED: ACETAMINOPHEN 325 MG TAB PO PRN (19:00)
[2022-04-24] MEDS ORDERED: MAGNESIUM 2GM PREMIX 50ML 50 ML IV PRN (19:00)
[2022-04-24 19:04] LABS: CHOLESTEROL 161 mg/dL (<200); HDL CHOLESTEROL 29 mg/dL (29-71); LDL DIRECT 81 mg/dL (0-99); TRIGLYCERIDES 336 mg/dL (30-200)
[2022-04-24] MEDS: FAMOTIDINE 20MG VIAL IV SCH (19:33)
[2022-04-24] MEDS: CEFTRIAXONE 1G VIAL IV SCH (19:33)
[2022-04-24] MEDS: 0.9%NACL 1000ML 1,000 ML IV SCH (19:33)
[2022-04-24] MEDS: HYDROMORPHONE 1 MG INJ IV PRN (22:00)
[2022-04-25] MEDS: 0.9%NACL 1000ML 1,000 ML IV SCH ×3 (04:56→22:02)
[2022-04-25] MEDS: HYDROMORPHONE 1 MG INJ IV PRN ×2 (08:34→15:55)
[2022-04-25] MEDS: FAMOTIDINE 20MG VIAL IV SCH ×2 (08:34→22:01)
[2022-04-25] MEDS: ENOXAPARIN SODIUM 40 MG/0.4 ML SYRINGE SQ SCH (08:37)
[2022-04-25 09:00] LABS: BASOPHILS % (AUTO) 0.2 % (0.0-5.0); EOSINOPHILS % (AUTO) 0.3 % (0.0-8.0); HEMATOCRIT 34.9 % (42-54); LYMPHOCYTES % (AUTO) 16.2 % (21.0-51.0); MEAN CORPUSCULAR HEMOGLOBIN 29.4 pg (27.0-33.0); MEAN CORPUSCULAR HGB CONC 34.1 g/dL (32.0-36.0); MEAN CORPUSCULAR VOLUME 86.2 fL (79-99); NEUTROPHILS % (AUTO) 75.9 % (40.0-77.0); PLATELET COUNT (AUTO) 234 K/uL (130-400); RED BLOOD CELL COUNT(AUTO) 4.05 MIL/uL (4.50-6.20); RED CELL DISTRIBUTION WIDTH 11.9 % (11.0-15.5); WHITE BLOOD COUNT (AUTO) 11.2 K/uL (4.8-10.8)
[2022-04-25 09:05] LABS: HEMOGLOBIN A1C 9.2 % (4.0-6.0)
[2022-04-25 09:26] LABS: CREATININE 0.7 mg/dL (0.5-1.5); MAGNESIUM 1.4 mg/dL (1.80-2.40); POTASSIUM 3.5 mmol/L (3.5-5.1)
[2022-04-25 18:05] VITALS: BP 128/80
[2022-04-25] MEDS: CEFTRIAXONE 1G VIAL IV SCH (18:44)
[2022-04-25] MEDS: MORPHINE 2 MG SYG IV PRN (18:46)
[2022-04-25 20:00] VITALS: BP 122/77
[2022-04-25] MEDS ORDERED: DEXTROSE 5%-WATER 500 ML IV SCH ×2 (20:25→20:30)
[2022-04-25] MEDS ORDERED: ATORVASTATIN 40 MG TABLET PO SCH (21:00)
[2022-04-25] MEDS ORDERED: DEXTROSE 50%-WATER 50 ML DISP.SYRIN IV ONE (21:29)
[2022-04-26] VITALS: BP 126/75
[2022-04-26] MEDS: MORPHINE 2 MG SYG IV PRN ×2 (00:26→06:38)
[2022-04-26 04:00] VITALS: BP 124/72
[2022-04-26] MEDS: FAMOTIDINE 20MG VIAL IV SCH (08:47)
[2022-04-26] MEDS: ENOXAPARIN SODIUM 40 MG/0.4 ML SYRINGE SQ SCH (08:48)
[2022-04-26] MEDS ORDERED: FENOFIBRATE NANOCRYSTALLIZED 145 MG TAB PO SCH (09:00)
[2022-04-26] MEDS ORDERED: FENO145T PO (09:44)
[2022-04-26] MEDS ORDERED: ATOR40TA71 PO (09:44)
[2022-04-26 12:00] VITALS: BP 128/80
== END 2022-04-26 14:30 | disposition home or self-care (01) | DRG 439 ==
LOC: EDH 14:27 → EDHIP 14:28 → UNDOADMIN 18:43 → 3CH 04-25 18:17
PROVIDERS: ADMIT Internal Medicine; ATTEND Internal Medicine
DX: K85.90 Acute pancreatitis without necrosis or infection, unspecified (principal); N39.0 Urinary tract infection, site not specified; E78.1 Pure hyperglyceridemia; E11.65 Type 2 diabetes mellitus with hyperglycemia; F17.210 Nicotine dependence, cigarettes, uncomplicated; E78.00 Pure hypercholesterolemia, unspecified; I10 Essential (primary) hypertension; K86.1 Other chronic pancreatitis; Z83.3 Family history of diabetes mellitus; Z82.49 Family history of ischemic heart disease and other diseases of the circulatory system
CPT/HCPCS: 36415; 76705; 80048; 80053; 80061; 81001; 82948; 83036; 83690; 83735; 84100; 84478; 85025; 87088; G0378; J0696; J1170; J1650; J1885; J2405; J3475; J3490; J7030; J7070

== ENCOUNTER 2022-06-28 00:30 | Inpatient (IN) | payer OTHER ==
[~2022-06-28] VITALS: Ht 165.1 cm; Wt 84.9 kg
[~2022-06-28 00:30] MED LIST changes: -METF-446 PO
[2022-06-28 00:59] LABS: BASOPHILS % (AUTO) 0.4 % (0.0-5.0); EOSINOPHILS % (AUTO) 0.4 % (0.0-8.0); HEMATOCRIT 40.5 % (42-54); LYMPHOCYTES % (AUTO) 34.6 % (21.0-51.0); MEAN CORPUSCULAR HEMOGLOBIN 29.4 pg (27.0-33.0); MEAN CORPUSCULAR HGB CONC 34.3 g/dL (32.0-36.0); MEAN CORPUSCULAR VOLUME 85.8 fL (79-99); MONOCYTES % (AUTO) 4.6 % (3.0-13.0); NEUTROPHILS % (AUTO) 58.9 % (40.0-77.0); PLATELET COUNT (AUTO) 342 K/uL (130-400); RED BLOOD CELL COUNT(AUTO) 4.72 MIL/uL (4.50-6.20); RED CELL DISTRIBUTION WIDTH 11.8 % (11.0-15.5); WHITE BLOOD COUNT (AUTO) 17.2 K/uL (4.8-10.8)
[2022-06-28 01:14] LABS: CARBON DIOXIDE 30 mmol/L (21-32); CHLORIDE 104 mmol/L (101-111); GLOMERULAR FILTR. RATE CALC 93 mL/min (>60); GLUCOSE,RANDOM 332 mg/dL (70-105); POTASSIUM 3.7 mmol/L (3.5-5.1); SODIUM SERUM 139 mmol/L (136-145); UREA NITROGEN, BLOOD 14 mg/dL (7-18)
[2022-06-28 01:19] LABS: ALANINE AMINOTRANSFERASE 48 U/L (12-78); ALBUMIN 3.4 g/dL (3.5-5.0); ASPARTATE AMINOTRANSFERASE 6 U/L (10-37); TOTAL PROTEIN, SERUM 6.1 g/dL (6.0-8.3)
[2022-06-28 01:28] LABS: INR 0.96 (0.85-1.15); LIPASE 4650 U/L (114-286); PROTHROMBIN TIME 10.5 SEC (9.6-11.6)
[2022-06-28 01:29] LABS: PARTIAL THROMBOPLASTIN TIME 21.2 SEC (26.3-35.5)
[2022-06-28] MEDS ORDERED: HALOPERIDOL INJ 5 MG/ML VIAL ONE (01:29)
[2022-06-28] MEDS ORDERED: KETOROLAC 30MG VIAL (30MG/ML) IVP ONE (01:30)
[2022-06-28] MEDS ORDERED: HALOPERIDOL INJ 5 MG/ML VIAL IM SCH (01:30)
[2022-06-28 01:41] LABS: ACETAMINOPHEN < 1 mcg/mL (10-29); SALICYLATE < 2.8 mg/dL (2.8-20.0)
[2022-06-28] MEDS ORDERED: MORPHINE 4 MG SYG IVP ONE (02:00)
[2022-06-28] MEDS ORDERED: MORPHINE 4 MG SYG ONE (02:12)
[2022-06-28 02:23] LABS: ALCOHOL, BLOOD < 3 mg/dL (0-10); TRIGLYCERIDES 608 mg/dL (30-200)
[2022-06-28] MEDS ORDERED: 0.9%NACL 1000ML 2,000 ML IV ONE (02:30)
[2022-06-28] MEDS ORDERED: ONDANSETRON 4MG INJ IV PRN (03:00)
[2022-06-28] MEDS ORDERED: ACETAMINOPHEN 325 MG TAB PO PRN ×2 (03:00)
[2022-06-28] MEDS ORDERED: LACTULOSE 20 GM/30 ML UDCUP PO PRN (03:00)
[2022-06-28 03:34] LABS: AMPHET/METH SCREEN,URINE NEGATIVE (NEGATIVE); BARBITURATE SCREEN, URINE NEGATIVE (NEGATIVE); BENZODIAZEPINES SCREEN,URINE NEGATIVE (NEGATIVE); CANNABINOID SCREEN,URINE NEGATIVE (NEGATIVE); COCAINE SCREEN,URINE NEGATIVE (NEGATIVE); PHENCYCLIDINE SCREEN,URINE NEGATIVE (NEGATIVE)
[2022-06-28 03:36] LABS: APPEARANCE,URINE CLEAR (CLEAR); BACTERIA,URINE RARE /HPF (None Seen); BILIRUBIN,URINE NEGATIVE (NEGATIVE); COLOR,URINE COLORLESS (YELLOW); GLUCOSE, URINE (UA) >=1000 mg/dL (NEGATIVE); KETONES,URINE 10 mg/dL (NEGATIVE); LEUKOCYTE ESTERASE ,URINE 75 Leu/uL (NEGATIVE); MUCUS,URINE RARE LPF (None Seen); NITRATE,URINE NEGATIVE (NEGATIVE); OCCULT BLOOD,URINE NEGATIVE (NEGATIVE); PH,URINE 5.5 (5.0-8.0); PROTEIN,URINE NEGATIVE (NEGATIVE); UROBILINOGEN,URINE 0.2 mg/dL (0.2-1.0)
[2022-06-28] MEDS: 0.9%NACL 1000ML 1,000 ML IV SCH ×3 (04:01→16:58)
[2022-06-28] MEDS: INSULIN HUMULIN R 100 UNIT/ML 3ML SQ SCH ×4 (07:06→23:40)
[2022-06-28] MEDS: FAMOTIDINE 20MG VIAL IV SCH ×2 (08:10→19:59)
[2022-06-28] MEDS: ENOXAPARIN SODIUM 40 MG/0.4 ML SYRINGE SQ SCH (08:11)
[2022-06-28] MEDS: MORPHINE 2 MG SYG IV PRN ×4 (08:15→22:11)
[2022-06-28 14:23] VITALS: BP 137/90
[2022-06-28 15:52] VITALS: BP 144/94
[2022-06-28 20:12] VITALS: BP 136/82
[2022-06-28 23:58] VITALS: BP 124/84
[2022-06-29] MEDS: 0.9%NACL 1000ML 1,000 ML IV SCH ×3 (03:33→20:28)
[2022-06-29] MEDS: MORPHINE 2 MG SYG IV PRN ×3 (04:11→20:28)
[2022-06-29 04:16] VITALS: BP 126/79
[2022-06-29] MEDS: INSULIN HUMULIN R 100 UNIT/ML 3ML SQ SCH ×3 (06:00→23:44)
[2022-06-29 08:00] VITALS: BP 124/73
[2022-06-29 08:41] LABS: HEMATOCRIT 31.8 % (42-54); MEAN CORPUSCULAR HEMOGLOBIN 29.6 pg (27.0-33.0); MEAN CORPUSCULAR HGB CONC 34.3 g/dL (32.0-36.0); MEAN CORPUSCULAR VOLUME 86.4 fL (79-99); RED BLOOD CELL COUNT(AUTO) 3.68 MIL/uL (4.50-6.20); RED CELL DISTRIBUTION WIDTH 11.9 % (11.0-15.5); WHITE BLOOD COUNT (AUTO) 9.9 K/uL (4.8-10.8)
[2022-06-29 08:55] LABS: CREATININE 0.8 mg/dL (0.5-1.5); POTASSIUM 3.2 mmol/L (3.5-5.1)
[2022-06-29 08:59] LABS: ALBUMIN 2.6 g/dL (3.5-5.0); TOTAL PROTEIN, SERUM 5.3 g/dL (6.0-8.3)
[2022-06-29] MEDS: ENOXAPARIN SODIUM 40 MG/0.4 ML SYRINGE SQ SCH (09:10)
[2022-06-29] MEDS: FAMOTIDINE 20MG VIAL IV SCH ×2 (09:10→20:28)
[2022-06-29 11:21] VITALS: BP 125/78
[2022-06-29 16:00] VITALS: BP 127/76
[2022-06-29 20:17] VITALS: BP 127/79
[2022-06-30 00:02] VITALS: BP 119/72
[2022-06-30] MEDS: 0.9%NACL 1000ML 1,000 ML IV SCH ×3 (02:17→20:07)
[2022-06-30] MEDS: MORPHINE 2 MG SYG IV PRN (03:34)
[2022-06-30 04:04] VITALS: BP 118/71
[2022-06-30 04:56] LABS: HEMATOCRIT 29.5 % (42-54); MEAN CORPUSCULAR HEMOGLOBIN 29.7 pg (27.0-33.0); MEAN CORPUSCULAR HGB CONC 34.6 g/dL (32.0-36.0); RED BLOOD CELL COUNT(AUTO) 3.43 MIL/uL (4.50-6.20); RED CELL DISTRIBUTION WIDTH 11.6 % (11.0-15.5); WHITE BLOOD COUNT (AUTO) 9.8 K/uL (4.8-10.8)
[2022-06-30 05:07] LABS: POTASSIUM 3.1 mmol/L (3.5-5.1)
[2022-06-30 05:45] LABS: CREATININE 0.6 mg/dL (0.5-1.5)
[2022-06-30] MEDS: INSULIN HUMULIN R 100 UNIT/ML 3ML SQ SCH ×4 (06:00→20:11)
[2022-06-30 08:36] VITALS: BP 108/64
[2022-06-30] MEDS: FAMOTIDINE 20MG VIAL IV SCH ×2 (08:50→20:08)
[2022-06-30] MEDS: ENOXAPARIN SODIUM 40 MG/0.4 ML SYRINGE SQ SCH (08:50)
[2022-06-30] MEDS ORDERED: KETOROLAC 15MG/ML VIAL (15MG/ML) IV PRN (10:00)
[2022-06-30] MEDS ORDERED: POTASSIUM CHLORIDE 10MEQ/100ML 10 MEQ/100 ML ML IV SCH (10:00)
[2022-06-30] MEDS: MAGNESIUM 2GM PREMIX 50ML 50 ML IV SCH (10:34)
[2022-06-30] MEDS: KCL 20 MEQ ERTAB PO SCH (10:37)
[2022-06-30 11:36] VITALS: BP 120/80
[2022-06-30 16:39] VITALS: BP 115/76
[2022-06-30 20:00] VITALS: BP 126/68
[2022-06-30] MEDS: FISH OIL 1000 MG/CAP PO SCH (20:08)
[2022-06-30] MEDS ORDERED: ATORVASTATIN 40 MG TABLET PO SCH (21:00)
[2022-07-01] VITALS: BP 122/69
[2022-07-01 04:00] VITALS: BP 117/72
[2022-07-01] MEDS: INSULIN HUMULIN R 100 UNIT/ML 3ML SQ SCH ×2 (06:00→12:00)
[2022-07-01] MEDS: 0.9%NACL 1000ML 1,000 ML IV SCH ×2 (06:27→10:39)
[2022-07-01 08:00] VITALS: BP 126/68
[2022-07-01] MEDS ORDERED: FENOFIBRATE NANOCRYSTALLIZED 145 MG TAB PO SCH (09:00)
[2022-07-01] MEDS: FAMOTIDINE 20MG VIAL IV SCH (09:27)
[2022-07-01] MEDS: ENOXAPARIN SODIUM 40 MG/0.4 ML SYRINGE SQ SCH (09:27)
[2022-07-01] MEDS: FISH OIL 1000 MG/CAP PO SCH (09:27)
[2022-07-01 10:01] LABS: ALBUMIN 2.7 g/dL (3.5-5.0); CREATININE 0.7 mg/dL (0.5-1.5); MAGNESIUM 1.5 mg/dL (1.80-2.40); POTASSIUM 3.4 mmol/L (3.5-5.1)
[2022-07-01] MEDS: MAGNESIUM 2GM PREMIX 50ML 50 ML IV SCH (10:39)
[2022-07-01] MEDS: KCL 20 MEQ ERTAB PO SCH (10:39)
[2022-07-01 12:00] VITALS: BP 117/74
[2022-07-01 13:31] LABS: POTASSIUM 3.6 mmol/L (3.5-5.1)
== END 2022-07-01 16:10 | disposition home or self-care (01) | DRG 440 ==
LOC: EDH 00:30 → EDHIP 00:31 → 4DH 13:38
PROVIDERS: ADMIT Hospitalist; ATTEND Hospitalist
DX: K85.90 Acute pancreatitis without necrosis or infection, unspecified (principal); E11.65 Type 2 diabetes mellitus with hyperglycemia; K86.1 Other chronic pancreatitis; I10 Essential (primary) hypertension; E78.00 Pure hypercholesterolemia, unspecified; E78.1 Pure hyperglyceridemia; Z79.4 Long term (current) use of insulin; Z82.49 Family history of ischemic heart disease and other diseases of the circulatory system; Z83.3 Family history of diabetes mellitus
CPT/HCPCS: 36415; 74176; 80048; 80053; 80305; 81001; 82948; 83690; 83735; 84132; 84478; 85025; 85027; 85610; 85730; 87088; G0378; G0481; J1630; J1650; J1815; J1885; J2270; J3475; J3490; J7030

== ENCOUNTER 2022-12-12 05:46 | Inpatient (IN) | payer OTHER ==
[2022-12-12] VITALS (10 sets, daily range): BP systolic 111–149; BP diastolic 72–101
[~2022-12-12] VITALS: Ht 172.7 cm; Wt 74.8 kg
[2022-12-12] MEDS ORDERED: ONDANSETRON 4MG INJ ONE (06:15)
[2022-12-12 06:17] LABS: BASOPHILS % (AUTO) 0.3 % (0.0-5.0); EOSINOPHILS % (AUTO) 1.2 % (0.0-8.0); HEMATOCRIT 39.3 % (42-54); LYMPHOCYTES % (AUTO) 54.3 % (21.0-51.0); MEAN CORPUSCULAR HEMOGLOBIN 30.1 pg (27.0-33.0); MEAN CORPUSCULAR HGB CONC 35.4 g/dL (32.0-36.0); MEAN CORPUSCULAR VOLUME 85.1 fL (79-99); MONOCYTES % (AUTO) 6.3 % (3.0-13.0); NEUTROPHILS % (AUTO) 37.4 % (40.0-77.0); PLATELET COUNT (AUTO) 294 K/uL (130-400); RED BLOOD CELL COUNT(AUTO) 4.62 MIL/uL (4.50-6.20); RED CELL DISTRIBUTION WIDTH 11.5 % (11.0-15.5); WHITE BLOOD COUNT (AUTO) 11.6 K/uL (4.8-10.8)
[2022-12-12] MEDS ORDERED: ONDANSETRON 4MG INJ IVP ONE (06:30)
[2022-12-12 06:41] LABS: CREATININE 0.8 mg/dL (0.5-1.5); POTASSIUM 3.7 mmol/L (3.5-5.1); TOTAL PROTEIN, SERUM 7.5 g/dL (6.0-8.3)
[2022-12-12 06:45] LABS: APPEARANCE,URINE CLEAR (CLEAR); BILIRUBIN,URINE NEGATIVE (NEGATIVE); COLOR,URINE LIGHT-YELLOW (YELLOW); GLUCOSE, URINE (UA) >=1000 mg/dL (NEGATIVE); KETONES,URINE NEGATIVE (NEGATIVE); LEUKOCYTE ESTERASE ,URINE 75 Leu/uL (NEGATIVE); NITRATE,URINE NEGATIVE (NEGATIVE); OCCULT BLOOD,URINE NEGATIVE (NEGATIVE); PH,URINE 5.5 (5.0-8.0); PROTEIN,URINE 10 mg/dL (NEGATIVE); UROBILINOGEN,URINE 0.2 mg/dL (0.2-1.0)
[2022-12-12] MEDS ORDERED: POTASSIUM CHLORIDE 10MEQ/100ML 100 ML IV PRN (07:30)
[2022-12-12] MEDS ORDERED: MORPHINE 2 MG SYG IV PRN (07:30)
[2022-12-12] MEDS ORDERED: INSULIN REGULAR, HUMAN 3ML 100 UNIT in 0.9%NACL 100ML 100 ML IV SCH ×2 (07:30)
[2022-12-12] MEDS ORDERED: D5W-1/2 NS/20MEQ KCL 1,000 ML IV SCH (07:30)
[2022-12-12] MEDS ORDERED: ONDANSETRON 4MG INJ IVP PRN (07:30)
[2022-12-12] MEDS ORDERED: POTASSIUM CHLORIDE 10% ELIXIR 20 MEQ/15 ML UDCUP PO PRN (07:30)
[2022-12-12] MEDS ORDERED: MAGNESIUM 2GM PREMIX 50ML 50 ML IV PRN (07:30)
[2022-12-12] MEDS ORDERED: KCL 20 MEQ ERTAB PO PRN (07:30)
[2022-12-12] MEDS ORDERED: MAGNESIUM 2GM PREMIX 50ML 50 ML IV SCH (07:30)
[2022-12-12] MEDS ORDERED: 0.9%NACL 1000ML 1,000 ML IV SCH (07:30)
[2022-12-12 07:54] LABS: SQUAMOUS EPITHELIAL CELL,UR RARE /HPF (0-2); WBC,URINE 26-50 /HPF (0-1)
[2022-12-12] MEDS ORDERED: INSULIN HUMULIN R 100 UNIT/ML 3ML ONE (07:54)
[2022-12-12] MEDS: ENOXAPARIN SODIUM 40 MG/0.4 ML SYRINGE SQ SCH (07:57)
[2022-12-12] MEDS: HYDROMORPHONE 1 MG INJ IV PRN ×2 (08:27→21:57)
[2022-12-12] MEDS ORDERED: D5 NS WITH 20 mEq KCl 1000ML IV SCH (08:30)
[2022-12-12] MEDS ORDERED: D5 NS WITH 20 mEq KCl 1000ML 1,000 ML IV PRN (08:30)
[2022-12-12] MEDS ORDERED: INSULIN REGULAR, HUMAN 3ML 100 UNIT in 0.9%NACL 100ML 99 ML IV PRN ×2 (08:30)
[2022-12-12 13:15] LABS: CREATININE 0.7 mg/dL (0.5-1.5); POTASSIUM 3.4 mmol/L (3.5-5.1)
[2022-12-12 13:19] LABS: LIPASE 448 U/L (114-286); TRIGLYCERIDES 814 mg/dL (30-200)
[2022-12-12] MEDS: D5W-1/2 NS/20MEQ KCL 1,000 ML IV SCH ×2 (13:50→18:52)
[2022-12-12] MEDS: LIDOCAINE HCL-MPF 1% 2ML VIAL IV PRN ×2 (14:15→17:04)
[2022-12-12] MEDS: POTASSIUM CHLORIDE 20MEQ/100ML 100 ML IV PRN ×2 (14:15→17:04)
[2022-12-12] MEDS ORDERED: METF-444 PO (15:49)
[2022-12-12 17:22] LABS: CREATININE 0.8 mg/dL (0.5-1.5); POTASSIUM 3.8 mmol/L (3.5-5.1)
[2022-12-13] VITALS (18 sets, daily range): BP systolic 99–140; BP diastolic 61–101
[2022-12-13] MEDS: D5W-1/2 NS/20MEQ KCL 1,000 ML IV SCH ×2 (00:03→06:22)
[2022-12-13 07:29] LABS: ALBUMIN 3.3 g/dL (3.5-5.0); CREATININE 0.6 mg/dL (0.5-1.5); POTASSIUM 4.1 mmol/L (3.5-5.1); TOTAL PROTEIN, SERUM 5.8 g/dL (6.0-8.3)
[2022-12-13] MEDS: ENOXAPARIN SODIUM 40 MG/0.4 ML SYRINGE SQ SCH (08:05)
[2022-12-13] MEDS: 0.9%NACL 1000ML 1,000 ML IV SCH (08:48)
[2022-12-13] MEDS ORDERED: DEXTROSE 50%-WATER 50 ML DISP.SYRIN IV PRN (09:00)
[2022-12-13] MEDS ORDERED: GLUCAGON 1MG KIT 1 MG ML IM PRN (09:00)
[2022-12-13] MEDS: INSULIN HUMULIN R 100 UNIT/ML 3ML SQ SCH ×3 (11:26→21:05)
[2022-12-13] MEDS ORDERED: ATORVASTATIN 40 MG TABLET ONE (17:29)
[2022-12-13] MEDS ORDERED: ATORVASTATIN 40 MG TABLET PO SCH (21:00)
[2022-12-13] MEDS ORDERED: INSULIN GLARGINE 100 UNITS/ML 10 ML VIAL SQ SCH (21:00)
[2022-12-14] VITALS: BP 149/81
[2022-12-14 04:00] VITALS: BP 115/71
[2022-12-14 04:45] LABS: BASOPHILS % (AUTO) 0.6 % (0.0-5.0); EOSINOPHILS % (AUTO) 1.7 % (0.0-8.0); HEMATOCRIT 37.7 % (42-54); LYMPHOCYTES % (AUTO) 34.4 % (21.0-51.0); MEAN CORPUSCULAR HEMOGLOBIN 29.5 pg (27.0-33.0); MEAN CORPUSCULAR HGB CONC 34.2 g/dL (32.0-36.0); MEAN CORPUSCULAR VOLUME 86.3 fL (79-99); MONOCYTES % (AUTO) 7.1 % (3.0-13.0); NEUTROPHILS % (AUTO) 55.6 % (40.0-77.0); PLATELET COUNT (AUTO) 248 K/uL (130-400); RED BLOOD CELL COUNT(AUTO) 4.37 MIL/uL (4.50-6.20); RED CELL DISTRIBUTION WIDTH 11.7 % (11.0-15.5); WHITE BLOOD COUNT (AUTO) 7.2 K/uL (4.8-10.8)
[2022-12-14] MEDS: INSULIN HUMULIN R 100 UNIT/ML 3ML SQ SCH ×2 (05:23→11:30)
[2022-12-14 05:27] LABS: ALBUMIN 3.6 g/dL (3.5-5.0); CREATININE 0.9 mg/dL (0.5-1.5); POTASSIUM 3.7 mmol/L (3.5-5.1); TOTAL PROTEIN, SERUM 6.8 g/dL (6.0-8.3)
[2022-12-14] MEDS: 0.9%NACL 1000ML 1,000 ML IV SCH (05:56)
[2022-12-14 07:05] VITALS: BP 112/73
[2022-12-14] MEDS: ENOXAPARIN SODIUM 40 MG/0.4 ML SYRINGE SQ SCH (09:00)
[2022-12-14] MEDS ORDERED: FENOFIBRATE NANOCRYSTALLIZED 145 MG TAB PO SCH (09:00)
[2022-12-14 11:05] VITALS: BP 130/83
== END 2022-12-14 12:01 | disposition home or self-care (01) | DRG 440 ==
LOC: EDH 05:46 → EDHIP 05:47 → 2BH 14:00 → 4AH 12-13 17:00
PROVIDERS: ADMIT Internal Medicine; ATTEND Internal Medicine
DX: K85.90 Acute pancreatitis without necrosis or infection, unspecified (principal); K86.1 Other chronic pancreatitis; E11.9 Type 2 diabetes mellitus without complications; E78.2 Mixed hyperlipidemia; Z79.4 Long term (current) use of insulin; Z91.14 Patient's other noncompliance with medication regimen; Z82.49 Family history of ischemic heart disease and other diseases of the circulatory system; Z83.3 Family history of diabetes mellitus
CPT/HCPCS: 36415; 80048; 80053; 81001; 82948; 83690; 84478; 85025; 87088; G0378; J1170; J1650; J1815; J2405; J3480; J3490; J7030

== ENCOUNTER 2023-02-08 08:42 | Inpatient (IN) | payer OTHER ==
[~2023-02-08] VITALS: Ht 167.6 cm; Wt 73.9 kg
[~2023-02-08 08:42] MED LIST changes: +METF-444 PO; -PIOG45TA4 PO
[2023-02-08] MEDS ORDERED: MORPHINE 2 MG SYG IVP ONE (09:00)
[2023-02-08] MEDS ORDERED: ONDANSETRON 4MG INJ IVP ONE (09:00)
[2023-02-08] MEDS ORDERED: LACTATED RINGERS 1000ML 1,000 ML IV ONE (09:00)
[2023-02-08 09:08] LABS: BASOPHILS % (AUTO) 0.6 % (0.0-5.0); EOSINOPHILS % (AUTO) 1.1 % (0.0-8.0); HEMATOCRIT 40.9 % (42-54); LYMPHOCYTES % (AUTO) 33.2 % (21.0-51.0); MEAN CORPUSCULAR HEMOGLOBIN 29.4 pg (27.0-33.0); MEAN CORPUSCULAR HGB CONC 34.2 g/dL (32.0-36.0); MEAN CORPUSCULAR VOLUME 85.7 fL (79-99); MONOCYTES % (AUTO) 6.6 % (3.0-13.0); PLATELET COUNT (AUTO) 275 K/uL (130-400); RED BLOOD CELL COUNT(AUTO) 4.77 MIL/uL (4.50-6.20); RED CELL DISTRIBUTION WIDTH 11.3 % (11.0-15.5); WHITE BLOOD COUNT (AUTO) 8.4 K/uL (4.8-10.8)
[2023-02-08 09:23] LABS: CREATININE 0.9 mg/dL (0.5-1.5); POTASSIUM 3.7 mmol/L (3.5-5.1)
[2023-02-08 09:28] LABS: ALBUMIN 4.3 g/dL (3.5-5.0); TOTAL PROTEIN, SERUM 6.9 g/dL (6.0-8.3)
[2023-02-08 11:25] LABS: APPEARANCE,URINE CLEAR (CLEAR); BILIRUBIN,URINE NEGATIVE (NEGATIVE); COLOR,URINE YELLOW (YELLOW); GLUCOSE, URINE (UA) >=1000 mg/dL (NEGATIVE); KETONES,URINE 5 mg/dL (NEGATIVE); LEUKOCYTE ESTERASE ,URINE NEGATIVE Leu/uL (NEGATIVE); NITRATE,URINE NEGATIVE (NEGATIVE); OCCULT BLOOD,URINE NEGATIVE (NEGATIVE); PROTEIN,URINE 30 mg/dL (NEGATIVE); UROBILINOGEN,URINE 0.2 mg/dL (0.2-1.0)
[2023-02-08 11:26] LABS: MUCUS,URINE RARE LPF (None Seen); SQUAMOUS EPITHELIAL CELL,UR RARE /HPF (0-2)
[2023-02-08 11:45] LABS: AMPHET/METH SCREEN,URINE NEGATIVE (NEGATIVE); BARBITURATE SCREEN, URINE NEGATIVE (NEGATIVE); BENZODIAZEPINES SCREEN,URINE NEGATIVE (NEGATIVE); CANNABINOID SCREEN,URINE NEGATIVE (NEGATIVE); COCAINE SCREEN,URINE NEGATIVE (NEGATIVE); OPIATE SCREEN,URINE POSITIVE (NEGATIVE); PHENCYCLIDINE SCREEN,URINE NEGATIVE (NEGATIVE)
[2023-02-08] MEDS ORDERED: ACETAMINOPHEN 325 MG TAB PO PRN (12:00)
[2023-02-08] MEDS ORDERED: ONDANSETRON 4MG INJ IV PRN (12:00)
[2023-02-08] MEDS: LACTATED RINGERS 1000ML 1,000 ML IV SCH ×2 (12:24→22:03)
[2023-02-08] MEDS: MORPHINE 2 MG SYG IV PRN ×2 (13:57→20:14)
[2023-02-08 16:00] VITALS: BP 126/82
[2023-02-08 20:00] VITALS: BP 119/77
[2023-02-08] MEDS: ATORVASTATIN 40 MG TABLET PO SCH (20:13)
[2023-02-08] MEDS: FISH OIL 1000 MG/CAP PO SCH (20:13)
[2023-02-09] VITALS (7 sets, daily range): BP systolic 110–131; BP diastolic 66–82
[2023-02-09 06:04] LABS: HEMATOCRIT 36.5 % (42-54); MEAN CORPUSCULAR HEMOGLOBIN 29.4 pg (27.0-33.0); MEAN CORPUSCULAR HGB CONC 34.2 g/dL (32.0-36.0); MEAN CORPUSCULAR VOLUME 85.9 fL (79-99); RED BLOOD CELL COUNT(AUTO) 4.25 MIL/uL (4.50-6.20); RED CELL DISTRIBUTION WIDTH 11.6 % (11.0-15.5); WHITE BLOOD COUNT (AUTO) 10.9 K/uL (4.8-10.8)
[2023-02-09 06:24] LABS: CREATININE 0.9 mg/dL (0.5-1.5); POTASSIUM 3.6 mmol/L (3.5-5.1)
[2023-02-09] MEDS: FENOFIBRATE NANOCRYSTALLIZED 145 MG TAB PO SCH (09:00)
[2023-02-09] MEDS: FISH OIL 1000 MG/CAP PO SCH ×2 (09:00→21:09)
[2023-02-09] MEDS: PANTOPRAZOLE 40 MG/VIAL IVP SCH (09:52)
[2023-02-09] MEDS: ENOXAPARIN SODIUM 40 MG/0.4 ML SYRINGE SQ SCH (09:53)
[2023-02-09] MEDS: MORPHINE 2 MG SYG IV PRN (10:00)
[2023-02-09 10:09] LABS: HEMOGLOBIN A1C 11.7 % (4.0-6.0)
[2023-02-09] MEDS: LACTATED RINGERS 1000ML 1,000 ML IV SCH (13:25)
[2023-02-09] MEDS: ATORVASTATIN 40 MG TABLET PO SCH (21:09)
[2023-02-10] MEDS: LACTATED RINGERS 1000ML 1,000 ML IV SCH (00:53)
[2023-02-10 04:00] VITALS: BP 121/72
[2023-02-10 06:25] LABS: BASOPHILS % (AUTO) 0.5 % (0.0-5.0); EOSINOPHILS % (AUTO) 1.9 % (0.0-8.0); HEMATOCRIT 34.8 % (42-54); LYMPHOCYTES % (AUTO) 32.2 % (21.0-51.0); MEAN CORPUSCULAR HEMOGLOBIN 29.2 pg (27.0-33.0); MEAN CORPUSCULAR HGB CONC 34.2 g/dL (32.0-36.0); MEAN CORPUSCULAR VOLUME 85.5 fL (79-99); MONOCYTES % (AUTO) 7.4 % (3.0-13.0); NEUTROPHILS % (AUTO) 57.7 % (40.0-77.0); PLATELET COUNT (AUTO) 238 K/uL (130-400); RED BLOOD CELL COUNT(AUTO) 4.07 MIL/uL (4.50-6.20); RED CELL DISTRIBUTION WIDTH 11.4 % (11.0-15.5); WHITE BLOOD COUNT (AUTO) 8.8 K/uL (4.8-10.8)
[2023-02-10 06:35] LABS: CREATININE 0.7 mg/dL (0.5-1.5); POTASSIUM 3.5 mmol/L (3.5-5.1)
[2023-02-10 07:55] VITALS: BP 106/66
[2023-02-10] MEDS: FENOFIBRATE NANOCRYSTALLIZED 145 MG TAB PO SCH (08:27)
[2023-02-10] MEDS: FISH OIL 1000 MG/CAP PO SCH (08:27)
[2023-02-10] MEDS: PANTOPRAZOLE 40 MG/VIAL IVP SCH (08:27)
[2023-02-10] MEDS: ENOXAPARIN SODIUM 40 MG/0.4 ML SYRINGE SQ SCH (08:28)
[2023-02-10 12:00] VITALS: BP 118/74
[2023-02-10] MEDS ORDERED: LIPASE/PROTEASE/AMYLASE 5000/17000/24000 PO SCH (12:00)
[2023-02-10] MEDS ORDERED: AMYL1CAP63 PO (12:27)
== END 2023-02-10 13:35 | disposition home or self-care (01) | DRG 440 ==
LOC: EDH 08:42 → EDHIP 08:43 → 3BH 14:25
PROVIDERS: ADMIT Internal Medicine; ATTEND Internal Medicine
DX: K85.90 Acute pancreatitis without necrosis or infection, unspecified (principal); E11.65 Type 2 diabetes mellitus with hyperglycemia; E78.00 Pure hypercholesterolemia, unspecified; E78.1 Pure hyperglyceridemia; I10 Essential (primary) hypertension; Z82.49 Family history of ischemic heart disease and other diseases of the circulatory system; Z83.3 Family history of diabetes mellitus
CPT/HCPCS: 36415; 71045; 74176; 76705; 80048; 80053; 80061; 80305; 81001; 82010; 82150; 82550; 82948; 83036; 83605; 83690; 84145; 84478; 84484; 85025; 85027; 85651; 86140; 87088; 99291; C9113; G0378; J1650; J2405; J7120

== ENCOUNTER 2023-03-06 11:15 | Inpatient (IN) | payer OTHER ==
[~2023-03-06] VITALS: Ht 172.7 cm; Wt 74.8 kg
[~2023-03-06 11:15] MED LIST changes: +AMYL1CAP63 PO
[2023-03-06] MEDS ORDERED: ONDANSETRON 4MG INJ IVP ONE (11:30)
[2023-03-06] MEDS ORDERED: 0.9%NACL 1000ML 2,000 ML IV ONE (11:30)
[2023-03-06 11:46] LABS: BASOPHILS % (AUTO) 0.7 % (0.0-5.0); HEMATOCRIT 41.7 % (42-54); LYMPHOCYTES % (AUTO) 29.7 % (21.0-51.0); MEAN CORPUSCULAR HEMOGLOBIN 29.6 pg (27.0-33.0); MEAN CORPUSCULAR HGB CONC 35.3 g/dL (32.0-36.0); MEAN CORPUSCULAR VOLUME 83.9 fL (79-99); MONOCYTES % (AUTO) 7.5 % (3.0-13.0); NEUTROPHILS % (AUTO) 60.4 % (40.0-77.0); PLATELET COUNT (AUTO) 280 K/uL (130-400); RED BLOOD CELL COUNT(AUTO) 4.97 MIL/uL (4.50-6.20); RED CELL DISTRIBUTION WIDTH 11.4 % (11.0-15.5); WHITE BLOOD COUNT (AUTO) 7.6 K/uL (4.8-10.8)
[2023-03-06 12:07] LABS: CREATININE 0.7 mg/dL (0.5-1.5); POTASSIUM 3.8 mmol/L (3.5-5.1)
[2023-03-06 12:13] LABS: ALBUMIN 4.7 g/dL (3.5-5.0); TOTAL PROTEIN, SERUM 7.9 g/dL (6.0-8.3)
[2023-03-06] MEDS ORDERED: MORPHINE 4 MG SYG IVP ONE (12:30)
[2023-03-06 12:31] LABS: APPEARANCE,URINE CLEAR (CLEAR); BILIRUBIN,URINE NEGATIVE (NEGATIVE); COLOR,URINE YELLOW (YELLOW); GLUCOSE, URINE (UA) >=1000 mg/dL (NEGATIVE); KETONES,URINE 5 mg/dL (NEGATIVE); LEUKOCYTE ESTERASE ,URINE 250 Leu/uL (NEGATIVE); NITRATE,URINE NEGATIVE (NEGATIVE); OCCULT BLOOD,URINE NEGATIVE (NEGATIVE); PH,URINE 5.5 (5.0-8.0); PROTEIN,URINE 30 mg/dL (NEGATIVE); UROBILINOGEN,URINE 0.2 mg/dL (0.2-1.0)
[2023-03-06 12:55] LABS: BACTERIA,URINE FEW /HPF (None Seen); MUCUS,URINE RARE LPF (None Seen); RBC,URINE 26-50 /HPF (0-1); SQUAMOUS EPITHELIAL CELL,UR RARE /HPF (0-2); WBC,URINE 26-50 /HPF (0-1)
[2023-03-06] MEDS ORDERED: IOHEXOL-350 75 ML VIAL IV ONE (13:02)
[2023-03-06 13:23] LABS: AMPHET/METH SCREEN,URINE NEGATIVE (NEGATIVE); BARBITURATE SCREEN, URINE NEGATIVE (NEGATIVE); BENZODIAZEPINES SCREEN,URINE NEGATIVE (NEGATIVE); CANNABINOID SCREEN,URINE NEGATIVE (NEGATIVE); COCAINE SCREEN,URINE NEGATIVE (NEGATIVE); OPIATE SCREEN,URINE NEGATIVE (NEGATIVE); PHENCYCLIDINE SCREEN,URINE NEGATIVE (NEGATIVE)
[2023-03-06] MEDS ORDERED: ONDANSETRON 4MG INJ IVP PRN (14:00)
[2023-03-06] MEDS ORDERED: MAGNESIUM 2GM PREMIX 50ML 50 ML IV PRN (14:00)
[2023-03-06] MEDS ORDERED: 0.9%NACL 1000ML 1,000 ML IV ONE (14:00)
[2023-03-06] MEDS ORDERED: CEFTRIAXONE 1G VIAL IVPB ONE (14:00)
[2023-03-06] MEDS ORDERED: 0.9%NACL 50ML IV SCH (14:00)
[2023-03-06] MEDS ORDERED: POTASSIUM CHLORIDE 20MEQ/100ML 100 ML IV PRN (14:00)
[2023-03-06 14:18] LABS: ABG BASE EXCESS -3.7 mmol/L (-2.0-3.0); ABG HCO3 22.6 mmol/L (21.0-28.0); ABG OXYGEN SATURATION 93.5 % (95.0-99.0); ABG PCO2 46 mmHg (35-48)
[2023-03-06] MEDS: ZOSYN 3.375GM +NS 50ML IVPB SCH ×2 (15:32→21:43)
[2023-03-06] MEDS: AZITHROMYCIN 500MG+NS 250ML IVPB SCH (15:32)
[2023-03-06] MEDS: 0.9%NACL 1000ML 1,000 ML IV SCH ×2 (15:32→20:40)
[2023-03-06] MEDS: MORPHINE 2 MG SYG IVP PRN ×2 (15:35→21:46)
[2023-03-06] MEDS: INSULIN HUMULIN R 100 UNIT/ML 3ML SQ SCH ×2 (16:50→21:04)
[2023-03-06 18:00] VITALS: BP 122/79
[2023-03-06 19:00] VITALS: BP 131/74
[2023-03-06] MEDS: FAMOTIDINE 20MG VIAL IV SCH (20:24)
[2023-03-06] MEDS: ATORVASTATIN 40 MG TABLET PO SCH (20:24)
[2023-03-06] MEDS ORDERED: INSULIN GLARGINE 100 UNITS/ML 10 ML VIAL SQ SCH (21:00)
[2023-03-06 23:33] VITALS: BP 118/68
[2023-03-07] MEDS: 0.9%NACL 1000ML 1,000 ML IV SCH ×4 (03:20→20:27)
[2023-03-07 04:00] VITALS: BP 115/76
[2023-03-07 05:27] LABS: HEMOGLOBIN A1C 11.8 % (4.0-6.0)
[2023-03-07 05:35] LABS: CHOLESTEROL 118 mg/dL (<200); HDL CHOLESTEROL 21 mg/dL (29-71); LDL DIRECT 48 mg/dL (0-99); LIPASE 805 U/L (114-286); TRIGLYCERIDES 294 mg/dL (30-200)
[2023-03-07] MEDS: MORPHINE 2 MG SYG IVP PRN ×2 (05:38→23:35)
[2023-03-07] MEDS: ZOSYN 3.375GM +NS 50ML IVPB SCH ×3 (05:38→23:33)
[2023-03-07] MEDS: INSULIN HUMULIN R 100 UNIT/ML 3ML SQ SCH ×4 (06:09→20:23)
[2023-03-07 07:38] LABS: HEMATOCRIT 31.1 % (42-54); MEAN CORPUSCULAR HEMOGLOBIN 30.6 pg (27.0-33.0); MEAN CORPUSCULAR HGB CONC 36.7 g/dL (32.0-36.0); MEAN CORPUSCULAR VOLUME 83.6 fL (79-99); PLATELET COUNT (AUTO) 372 K/uL (130-400); RED BLOOD CELL COUNT(AUTO) 3.72 MIL/uL (4.50-6.20); RED CELL DISTRIBUTION WIDTH 11.9 % (11.0-15.5); WHITE BLOOD COUNT (AUTO) 9.7 K/uL (4.8-10.8)
[2023-03-07 08:00] VITALS: BP 110/67
[2023-03-07] MEDS: FAMOTIDINE 20MG VIAL IV SCH ×2 (08:59→20:27)
[2023-03-07 09:00] LABS: ERYTHROCYTE SEDIMENTATION RATE 10 MM/HR (0-15)
[2023-03-07] MEDS: FENOFIBRATE NANOCRYSTALLIZED 145 MG TAB PO SCH (09:00)
[2023-03-07] MEDS: AZITHROMYCIN 500MG+NS 250ML IVPB SCH (14:37)
[2023-03-07 15:30] VITALS: BP 108/77
[2023-03-07 19:00] VITALS: BP 118/72
[2023-03-07] MEDS: ATORVASTATIN 40 MG TABLET PO SCH (20:24)
[2023-03-07 23:41] VITALS: BP 120/69
[2023-03-08] MEDS: 0.9%NACL 1000ML 1,000 ML IV SCH ×2 (02:22→08:59)
[2023-03-08 04:00] VITALS: BP 109/69
[2023-03-08 05:21] LABS: HEMATOCRIT 31.7 % (42-54); MEAN CORPUSCULAR HEMOGLOBIN 29.7 pg (27.0-33.0); MEAN CORPUSCULAR HGB CONC 34.1 g/dL (32.0-36.0); MEAN CORPUSCULAR VOLUME 87.1 fL (79-99); RED BLOOD CELL COUNT(AUTO) 3.64 MIL/uL (4.50-6.20); RED CELL DISTRIBUTION WIDTH 11.7 % (11.0-15.5); WHITE BLOOD COUNT (AUTO) 7.5 K/uL (4.8-10.8)
[2023-03-08 05:49] LABS: ALBUMIN 2.8 g/dL (3.5-5.0); CREATININE 0.7 mg/dL (0.5-1.5); POTASSIUM 3.3 mmol/L (3.5-5.1); TOTAL PROTEIN, SERUM 5.5 g/dL (6.0-8.3)
[2023-03-08] MEDS: INSULIN HUMULIN R 100 UNIT/ML 3ML SQ SCH ×2 (05:58→11:30)
[2023-03-08] MEDS: ZOSYN 3.375GM +NS 50ML IVPB SCH (06:51)
[2023-03-08] MEDS: FENOFIBRATE NANOCRYSTALLIZED 145 MG TAB PO SCH (07:45)
[2023-03-08 07:59] VITALS: BP 112/77
[2023-03-08] MEDS: FAMOTIDINE 20MG VIAL IV SCH (08:56)
[2023-03-08 12:00] VITALS: BP 120/81
[2023-03-08] MEDS ORDERED: LEVO-70 PO (13:43)
[2023-03-08] MEDS ORDERED: AZIT500T4 PO (13:55)
== END 2023-03-08 16:25 | disposition home or self-care (01) | DRG 439 ==
LOC: EDH 11:15 → EDHIP 11:16 → 3BH 17:46
PROVIDERS: ADMIT Hospitalist; ATTEND Hospitalist
DX: K85.90 Acute pancreatitis without necrosis or infection, unspecified (principal); N39.0 Urinary tract infection, site not specified; J02.0 Streptococcal pharyngitis; K86.1 Other chronic pancreatitis; Z20.822 Contact with and (suspected) exposure to COVID-19; E78.1 Pure hyperglyceridemia; E11.65 Type 2 diabetes mellitus with hyperglycemia; E78.00 Pure hypercholesterolemia, unspecified; I10 Essential (primary) hypertension; Z79.4 Long term (current) use of insulin; Z79.899 Other long term (current) drug therapy; Z82.49 Family history of ischemic heart disease and other diseases of the circulatory system; Z83.3 Family history of diabetes mellitus
CPT/HCPCS: 36415; 36600; 71045; 74177; 80053; 80061; 80305; 81001; 82803; 82948; 83036; 83605; 83690; 84145; 85025; 85027; 85651; 86140; 87088; 87635; 87804; 87880; C9803; G0378; J0456; J0696; J1815; J2270; J2405; J2543; J3490; Q9967

== ENCOUNTER 2023-04-26 16:49 | Emergency (ER) | payer OTHER ==
[~2023-04-26] VITALS: Ht 172.7 cm; Wt 72.6 kg
[~2023-04-26 16:49] MED LIST changes: +AZIT500T4 PO
[2023-04-26 16:51] VITALS: BP 155/96; PULSE 78; RESP 16
[2023-04-26 18:08] LABS: BASOPHILS % (AUTO) 0.4 % (0.0-5.0); EOSINOPHILS % (AUTO) 0.4 % (0.0-8.0); HEMATOCRIT 40.1 % (42-54); LYMPHOCYTES % (AUTO) 29.2 % (21.0-51.0); MEAN CORPUSCULAR HEMOGLOBIN 29.3 pg (27.0-33.0); MEAN CORPUSCULAR HGB CONC 33.7 g/dL (32.0-36.0); MEAN CORPUSCULAR VOLUME 87.2 fL (79-99); MONOCYTES % (AUTO) 7.1 % (3.0-13.0); NEUTROPHILS % (AUTO) 62.4 % (40.0-77.0); PLATELET COUNT (AUTO) 282 K/uL (130-400); RED CELL DISTRIBUTION WIDTH 11.7 % (11.0-15.5); WHITE BLOOD COUNT (AUTO) 9.7 K/uL (4.8-10.8)
[2023-04-26 18:16] LABS: CREATININE 0.9 mg/dL (0.5-1.5); POTASSIUM 3.9 mmol/L (3.5-5.1)
[2023-04-26 18:25] LABS: ALBUMIN 4.2 g/dL (3.5-5.0); TOTAL PROTEIN, SERUM 7.5 g/dL (6.0-8.3)
[2023-04-26] MEDS ORDERED: ONDANSETRON 4MG INJ IVP ONE (18:30)
[2023-04-26] MEDS ORDERED: MORPHINE 2 MG SYG IVP ONE (18:30)
[2023-04-26] MEDS ORDERED: 0.9%NACL 1000ML 1,000 ML IV ONE (18:30)
== END 2023-04-26 20:20 | disposition home or self-care (01) ==
LOC: EDH 16:49
DX: K29.70 Gastritis, unspecified, without bleeding (principal); R11.0 Nausea; I10 Essential (primary) hypertension; E78.00 Pure hypercholesterolemia, unspecified; E11.9 Type 2 diabetes mellitus without complications; Z79.84 Long term (current) use of oral hypoglycemic drugs; Z79.899 Other long term (current) drug therapy
CPT/HCPCS: 99285; 96374; 71045; 96361; 96375; 84484; 80053; 83690; 85025; 36415; 93005; J2270; J7030; J2405

== ENCOUNTER 2023-09-24 15:54 | Inpatient (IN) | payer OTHER ==
[~2023-09-24] VITALS: Ht 172.7 cm; Wt 75.2 kg
[~2023-09-24 15:54] MED LIST changes: -AZIT500T4 PO
[2023-09-24 16:45] LABS: BASOPHILS # (AUTO) 0.04 K/uL (0.00-0.20); BASOPHILS % (AUTO) 0.3 % (0.0-5.0); EOSINOPHILS # (AUTO) 0.07 K/uL (0.00-0.70); EOSINOPHILS % (AUTO) 0.6 % (0.0-8.0); HEMATOCRIT 41.6 % (42-54); IMMATURE GRANULOCYTE ABSOLUTE 0.05 K/uL (0-1); LYMPHOCYTES # (AUTO) 3.2 K/uL (1.0-4.8); LYMPHOCYTES % (AUTO) 27.7 % (21.0-51.0); MEAN CORPUSCULAR HEMOGLOBIN 29.4 pg (27.0-33.0); MEAN CORPUSCULAR HGB CONC 34.4 g/dL (32.0-36.0); MEAN CORPUSCULAR VOLUME 85.4 fL (79-99); MONOCYTES % (AUTO) 8.2 % (3.0-13.0); NEUTROPHILS # (AUTO) 7.3 K/uL (1.8-7.7); NEUTROPHILS % (AUTO) 62.8 % (40.0-77.0); PLATELET COUNT (AUTO) 334 K/uL (130-400); RED BLOOD CELL COUNT(AUTO) 4.87 MIL/uL (4.50-6.20); RED CELL DISTRIBUTION WIDTH 11.6 % (11.0-15.5); WHITE BLOOD COUNT (AUTO) 11.7 K/uL (4.8-10.8)
[2023-09-24 16:58] LABS: CREATININE 0.9 mg/dL (0.5-1.5); POTASSIUM 4.2 mmol/L (3.5-5.1)
[2023-09-24 17:04] LABS: ALBUMIN 4.6 g/dL (3.5-5.0); BILIRUBIN,TOTAL 0.5 mg/dL (0.2-1.0); TOTAL PROTEIN, SERUM 8.1 g/dL (6.0-8.3)
[2023-09-24 18:55] LABS: CHOLESTEROL 131 mg/dL (<200); HDL CHOLESTEROL 29 mg/dL (29-71); LDL DIRECT 62 mg/dL (0-99); TRIGLYCERIDES 286 mg/dL (30-200)
[2023-09-24] MEDS ORDERED: 0.9%NACL 1000ML 1,000 ML IV ONE (19:00)
[2023-09-24] MEDS ORDERED: MORPHINE 4 MG SYG IVP ONE (19:00)
[2023-09-24] MEDS ORDERED: ONDANSETRON 4MG INJ IVP ONE (19:00)
[2023-09-24] MEDS ORDERED: MAGNESIUM 2GM PREMIX 50ML 50 ML IV PRN (20:30)
[2023-09-24] MEDS ORDERED: ONDANSETRON 4MG INJ IV PRN (20:30)
[2023-09-24] MEDS ORDERED: POTASSIUM CHLORIDE 20MEQ/100ML 100 ML IV PRN (20:30)
[2023-09-24] MEDS: FAMOTIDINE 20MG VIAL IV SCH (21:35)
[2023-09-24] MEDS: INSULIN HUMULIN R 100 UNIT/ML 3ML SQ SCH (21:35)
[2023-09-24] MEDS: HYDROMORPHONE 1 MG INJ IV PRN (21:36)
[2023-09-24] MEDS: LACTATED RINGERS 1000ML 1,000 ML IV SCH (21:36)
[2023-09-24 23:00] VITALS: BP 140/94; PULSE 84; RESP 18; O2SAT 93
[2023-09-25] VITALS (8 sets, daily range): BP systolic 122–141; BP diastolic 78–97; PULSE 81–89; RESP 16–20; O2SAT 97
[2023-09-25] MEDS: HYDROMORPHONE 1 MG INJ IV PRN (02:03)
[2023-09-25 04:37] LABS: BASOPHILS # (AUTO) 0.02 K/uL (0.00-0.20); BASOPHILS % (AUTO) 0.2 % (0.0-5.0); HEMATOCRIT 38.5 % (42-54); IMMATURE GRANULOCYTE ABSOLUTE 0.06 K/uL (0-1); LYMPHOCYTES # (AUTO) 1.7 K/uL (1.0-4.8); MEAN CORPUSCULAR HEMOGLOBIN 30.2 pg (27.0-33.0); MEAN CORPUSCULAR HGB CONC 34.5 g/dL (32.0-36.0); MEAN CORPUSCULAR VOLUME 87.5 fL (79-99); MONOCYTES # (AUTO) 0.8 K/uL (0.1-1.0); MONOCYTES % (AUTO) 6.4 % (3.0-13.0); NEUTROPHILS # (AUTO) 10.1 K/uL (1.8-7.7); NEUTROPHILS % (AUTO) 79.9 % (40.0-77.0); PLATELET COUNT (AUTO) 276 K/uL (130-400); RED CELL DISTRIBUTION WIDTH 11.8 % (11.0-15.5); WHITE BLOOD COUNT (AUTO) 12.7 K/uL (4.8-10.8)
[2023-09-25 04:43] LABS: HEMOGLOBIN A1C 8.5 % (4.0-6.0)
[2023-09-25 04:53] LABS: CREATININE 0.8 mg/dL (0.5-1.5); MAGNESIUM 1.5 mg/dL (1.80-2.40); PHOSPHORUS 3.8 mg/dL (2.5-4.9); POTASSIUM 3.8 mmol/L (3.5-5.1)
[2023-09-25] MEDS: LACTATED RINGERS 1000ML 1,000 ML IV SCH ×3 (05:30→16:30)
[2023-09-25] MEDS: INSULIN HUMULIN R 100 UNIT/ML 3ML SQ SCH ×4 (06:14→21:00)
[2023-09-25] MEDS: ENOXAPARIN SODIUM 40 MG/0.4 ML SYRINGE SQ SCH (09:54)
[2023-09-25] MEDS: FAMOTIDINE 20MG VIAL IV SCH ×2 (09:54→21:22)
[2023-09-25] MEDS: MORPHINE 2 MG SYG IV PRN ×2 (09:55→16:31)
[2023-09-26] MEDS: MORPHINE 2 MG SYG IV PRN (01:02)
[2023-09-26 03:00] VITALS: BP 120/78; PULSE 70; RESP 16
[2023-09-26 07:10] LABS: BASOPHILS # (AUTO) 0.02 K/uL (0.00-0.20); BASOPHILS % (AUTO) 0.2 % (0.0-5.0); EOSINOPHILS # (AUTO) 0.06 K/uL (0.00-0.70); EOSINOPHILS % (AUTO) 0.6 % (0.0-8.0); HEMATOCRIT 33.3 % (42-54); IMMATURE GRANULOCYTE ABSOLUTE 0.04 K/uL (0-1); LYMPHOCYTES # (AUTO) 2.1 K/uL (1.0-4.8); LYMPHOCYTES % (AUTO) 20.4 % (21.0-51.0); MEAN CORPUSCULAR HEMOGLOBIN 29.7 pg (27.0-33.0); MEAN CORPUSCULAR HGB CONC 34.5 g/dL (32.0-36.0); MONOCYTES # (AUTO) 0.8 K/uL (0.1-1.0); MONOCYTES % (AUTO) 7.7 % (3.0-13.0); NEUTROPHILS # (AUTO) 7.2 K/uL (1.8-7.7); NEUTROPHILS % (AUTO) 70.7 % (40.0-77.0); PLATELET COUNT (AUTO) 211 K/uL (130-400); RED BLOOD CELL COUNT(AUTO) 3.87 MIL/uL (4.50-6.20); RED CELL DISTRIBUTION WIDTH 11.9 % (11.0-15.5); WHITE BLOOD COUNT (AUTO) 10.2 K/uL (4.8-10.8)
[2023-09-26 07:27] LABS: ALBUMIN 3.2 g/dL (3.5-5.0); BILIRUBIN,TOTAL 0.9 mg/dL (0.2-1.0); CREATININE 0.8 mg/dL (0.5-1.5); POTASSIUM 3.5 mmol/L (3.5-5.1); TOTAL PROTEIN, SERUM 6.2 g/dL (6.0-8.3)
[2023-09-26 07:30] VITALS: BP 125/77; PULSE 88; RESP 20
[2023-09-26 08:15] VITALS: O2SAT 96
[2023-09-26] MEDS: FAMOTIDINE 20MG VIAL IV SCH ×2 (10:09→21:39)
[2023-09-26] MEDS: ENOXAPARIN SODIUM 40 MG/0.4 ML SYRINGE SQ SCH (10:10)
[2023-09-26 11:30] VITALS: BP 120/79; PULSE 83; RESP 20
[2023-09-26 15:15] VITALS: BP 132/80; PULSE 89; RESP 20
[2023-09-26 20:00] VITALS: BP 133/76; PULSE 89; RESP 18; O2SAT 97
[2023-09-26] MEDS: INSULIN HUMULIN R 100 UNIT/ML 3ML SQ SCH (21:00)
[2023-09-27] VITALS: BP 123/73; PULSE 90; RESP 16
[2023-09-27 04:00] VITALS: BP 116/71; PULSE 80; RESP 16
[2023-09-27 06:39] LABS: BASOPHILS # (AUTO) 0.03 K/uL (0.00-0.20); BASOPHILS % (AUTO) 0.3 % (0.0-5.0); EOSINOPHILS # (AUTO) 0.14 K/uL (0.00-0.70); EOSINOPHILS % (AUTO) 1.6 % (0.0-8.0); HEMATOCRIT 33.5 % (42-54); IMMATURE GRANULOCYTE ABSOLUTE 0.04 K/uL (0-1); LYMPHOCYTES # (AUTO) 2.2 K/uL (1.0-4.8); LYMPHOCYTES % (AUTO) 25.8 % (21.0-51.0); MEAN CORPUSCULAR HEMOGLOBIN 30.1 pg (27.0-33.0); MEAN CORPUSCULAR HGB CONC 34.3 g/dL (32.0-36.0); MEAN CORPUSCULAR VOLUME 87.7 fL (79-99); MONOCYTES # (AUTO) 0.8 K/uL (0.1-1.0); MONOCYTES % (AUTO) 8.9 % (3.0-13.0); NEUTROPHILS # (AUTO) 5.5 K/uL (1.8-7.7); NEUTROPHILS % (AUTO) 62.9 % (40.0-77.0); PLATELET COUNT (AUTO) 222 K/uL (130-400); RED BLOOD CELL COUNT(AUTO) 3.82 MIL/uL (4.50-6.20); RED CELL DISTRIBUTION WIDTH 11.7 % (11.0-15.5); WHITE BLOOD COUNT (AUTO) 8.7 K/uL (4.8-10.8)
[2023-09-27] MEDS: INSULIN HUMULIN R 100 UNIT/ML 3ML SQ SCH (06:44)
[2023-09-27 06:53] LABS: ALBUMIN 3.2 g/dL (3.5-5.0); BILIRUBIN,TOTAL 0.8 mg/dL (0.2-1.0); POTASSIUM 3.5 mmol/L (3.5-5.1); TOTAL PROTEIN, SERUM 6.6 g/dL (6.0-8.3)
[2023-09-27 08:00] VITALS: O2SAT 97
[2023-09-27] MEDS ORDERED: LIPASE/PROTEASE/AMYLASE 5000/17000/24000 PO SCH (08:00)
[2023-09-27] MEDS ORDERED: [UNRECOGNIZED DRUG - OTHER] PO SCH (08:00)
[2023-09-27] MEDS ORDERED: LIPASE PO SCH (08:00)
[2023-09-27] MEDS ORDERED: AMYLASE PO SCH (08:00)
[2023-09-27] MEDS ORDERED: PROTEASE PO SCH (08:00)
[2023-09-27] MEDS ORDERED: FENOFIBRATE NANOCRYSTALLIZED 145 MG TAB PO SCH (09:00)
[2023-09-27] MEDS ORDERED: METFORMIN HCL 500 MG TABLET PO SCH (09:00)
[2023-09-27] MEDS ORDERED: FISH OIL 1000 MG/CAP PO SCH (09:00)
[2023-09-27 09:20] VITALS: BP 123/77; PULSE 72; RESP 16
[2023-09-27] MEDS ORDERED: ATORVASTATIN 40 MG TABLET PO SCH (21:00)
[2023-09-27] MEDS ORDERED: [UNRECOGNIZED DRUG - OTHER] SQ SCH (21:00)
[2023-09-27] MEDS ORDERED: INSULIN GLARGINE 100 UNITS/ML 10 ML VIAL SQ SCH (21:00)
[2023-09-27] MEDS ORDERED: INSULIN GLARGINE HUM REC ANLOG 15 UNIT SQ SCH (21:00)
== END 2023-09-27 10:00 | disposition home or self-care (01) | DRG 440 ==
LOC: EDH 15:54 → EDHIP 15:55 → 3DH 22:33
PROVIDERS: ADMIT Internal Medicine; ATTEND Internal Medicine
DX: K85.90 Acute pancreatitis without necrosis or infection, unspecified (principal); E11.9 Type 2 diabetes mellitus without complications; E78.00 Pure hypercholesterolemia, unspecified; F17.210 Nicotine dependence, cigarettes, uncomplicated; I10 Essential (primary) hypertension; K86.1 Other chronic pancreatitis; Z79.4 Long term (current) use of insulin; Z82.49 Family history of ischemic heart disease and other diseases of the circulatory system; Z83.3 Family history of diabetes mellitus; Z84.1 Family history of disorders of kidney and ureter
CPT/HCPCS: 36415; 74176; 80048; 80053; 80061; 82948; 83036; 83690; 83735; 84100; 85025; G0378; J1170; J1650; J1815; J2270; J2405; J3475; J3490; J7120

== ENCOUNTER 2024-01-03 15:51 | Observation (INO) | payer OTHER ==
[~2024-01-03] VITALS: Ht 172.7 cm; Wt 74.3 kg
[~2024-01-03 15:51] MED LIST changes: +CEPH500B PO
[2024-01-03 21:17] LABS: BASOPHILS # (AUTO) 0.04 K/uL (0.00-0.20); BASOPHILS % (AUTO) 0.3 % (0.0-5.0); EOSINOPHILS # (AUTO) 0.04 K/uL (0.00-0.70); EOSINOPHILS % (AUTO) 0.3 % (0.0-8.0); IMMATURE GRANULOCYTE ABSOLUTE 0.08 K/uL (0-1); LYMPHOCYTES # (AUTO) 2.7 K/uL (1.0-4.8); LYMPHOCYTES % (AUTO) 19.3 % (21.0-51.0); MEAN CORPUSCULAR HEMOGLOBIN 29.5 pg (27.0-33.0); MEAN CORPUSCULAR HGB CONC 34.2 g/dL (32.0-36.0); MEAN CORPUSCULAR VOLUME 86.2 fL (79-99); MONOCYTES # (AUTO) 0.7 K/uL (0.1-1.0); NEUTROPHILS # (AUTO) 10.4 K/uL (1.8-7.7); NEUTROPHILS % (AUTO) 74.5 % (40.0-77.0); PLATELET COUNT (AUTO) 325 K/uL (130-400); RED BLOOD CELL COUNT(AUTO) 5.22 MIL/uL (4.50-6.20); RED CELL DISTRIBUTION WIDTH 12.2 % (11.0-15.5)
[2024-01-03 21:38] LABS: TRIGLYCERIDES 346 mg/dL (30-200)
[2024-01-03] MEDS: ONDANSETRON 4MG INJ IVP ONE (21:50)
[2024-01-03] MEDS: 0.9%NACL 1000ML 1,000 ML IV ONE (21:51)
[2024-01-03] MEDS: MORPHINE 2 MG SYG IVP ONE (21:51)
[2024-01-03 23:24] LABS: CREATININE 0.9 mg/dL (0.5-1.3); POTASSIUM 3.8 mmol/L (3.5-5.1)
[2024-01-03 23:29] LABS: ALBUMIN 4.3 g/dL (3.5-5.0); BILIRUBIN,TOTAL 0.7 mg/dL (0.2-1.0); TOTAL PROTEIN, SERUM 7.3 g/dL (6.0-8.3)
[2024-01-03] MEDS ORDERED: ACETAMINOPHEN WITH CODEINE 1 TAB TAB PO PRN (23:30)
[2024-01-03] MEDS ORDERED: MAG/ALUM/SIMETH 30 ML UDCUP PO PRN (23:30)
[2024-01-03] MEDS ORDERED: ACETAMINOPHEN 325 MG TAB PO PRN ×2 (23:30)
[2024-01-03] MEDS ORDERED: HYDRALAZINE 20MG/ML VIAL IV PRN (23:30)
[2024-01-03] MEDS ORDERED: ZOLPIDEM TARTRATE 5 MG TAB PO PRN (23:30)
[2024-01-03] MEDS ORDERED: GUAIFENESIN-DM 200/20 MG 10 ML PO PRN (23:30)
[2024-01-03] MEDS ORDERED: ONDANSETRON 4MG INJ IV PRN (23:30)
[2024-01-03] MEDS ORDERED: DiphenhydrAMINE HCL 50 MG/ML VIAL IV PRN (23:30)
[2024-01-03] MEDS ORDERED: NITROGLYCERIN 0.4 MG SL TAB SL PRN (23:30)
[2024-01-03] MEDS ORDERED: LACTULOSE 20 GM/30 ML UDCUP PO PRN (23:30)
[2024-01-03] MEDS ORDERED: FAMOTIDINE 20MG VIAL IV PRN (23:30)
[2024-01-04] VITALS (7 sets, daily range): BP systolic 113–125; BP diastolic 68–80; PULSE 67–76; RESP 17–18; O2SAT 94
[2024-01-04] MEDS: LACTATED RINGERS 1000ML 1,000 ML IV SCH (00:04)
[2024-01-04] MEDS ORDERED: IOHEXOL-350 75 ML VIAL IV ONE (00:31)
[2024-01-04] MEDS: ACETAMINOPHEN WITH CODEINE 1 TAB TAB PO PRN (03:54)
[2024-01-04] MEDS: INSULIN HUMULIN R 100 UNIT/ML 3ML SQ SCH (05:47)
[2024-01-04 05:55] LABS: BASOPHILS # (AUTO) 0.03 K/uL (0.00-0.20); BASOPHILS % (AUTO) 0.3 % (0.0-5.0); EOSINOPHILS # (AUTO) 0.07 K/uL (0.00-0.70); EOSINOPHILS % (AUTO) 0.6 % (0.0-8.0); HEMATOCRIT 37.2 % (42-54); IMMATURE GRANULOCYTE ABSOLUTE 0.06 K/uL (0-1); LYMPHOCYTES # (AUTO) 3.3 K/uL (1.0-4.8); LYMPHOCYTES % (AUTO) 29.2 % (21.0-51.0); MEAN CORPUSCULAR HEMOGLOBIN 30.2 pg (27.0-33.0); MEAN CORPUSCULAR HGB CONC 34.7 g/dL (32.0-36.0); MEAN CORPUSCULAR VOLUME 87.1 fL (79-99); MONOCYTES # (AUTO) 0.7 K/uL (0.1-1.0); MONOCYTES % (AUTO) 6.1 % (3.0-13.0); NEUTROPHILS # (AUTO) 7.2 K/uL (1.8-7.7); NEUTROPHILS % (AUTO) 63.3 % (40.0-77.0); PLATELET COUNT (AUTO) 264 K/uL (130-400); RED BLOOD CELL COUNT(AUTO) 4.27 MIL/uL (4.50-6.20); RED CELL DISTRIBUTION WIDTH 12.2 % (11.0-15.5); WHITE BLOOD COUNT (AUTO) 11.3 K/uL (4.8-10.8)
[2024-01-04 06:12] LABS: INR 0.95 (0.85-1.15); PROTHROMBIN TIME 11.3 SEC (9.6-11.6)
[2024-01-04 06:16] LABS: ALBUMIN 3.9 g/dL (3.5-5.0); BILIRUBIN,DIRECT 0.1 mg/dL (0.0-0.3); BILIRUBIN,TOTAL 0.7 mg/dL (0.2-1.0); CREATININE 0.9 mg/dL (0.5-1.3); MAGNESIUM 1.3 mg/dL (1.80-2.40); POTASSIUM 3.6 mmol/L (3.5-5.1); THYROID STIMULATING HORMONE 4.17 uIU/mL (0.36-3.74); TOTAL PROTEIN, SERUM 6.9 g/dL (6.0-8.3)
[2024-01-04] MEDS: MAGNESIUM 2GM PREMIX 50ML 50 ML IV PRN (06:24)
[2024-01-04] MEDS: FENOFIBRATE NANOCRYSTALLIZED 145 MG TAB PO SCH (09:06)
[2024-01-04] MEDS: FISH OIL 1000 MG/CAP PO SCH (09:07)
[2024-01-04] MEDS: LIPASE/PROTEASE/AMYLASE 5000/17000/24000 PO SCH (09:07)
[2024-01-04] MEDS: FAMOTIDINE 20MG VIAL IV SCH (09:07)
[2024-01-04] MEDS: HEPARIN 5,000 UNIT VIAL SQ SCH (09:08)
[2024-01-04] MEDS: ATORVASTATIN 40 MG TABLET PO SCH (21:10)
[2024-01-04] MEDS: INSULIN GLARGINE 100 UNITS/ML 10 ML VIAL SQ SCH (21:14)
[2024-01-05 03:44] VITALS: BP_SYST 102; BP_SYST 120; BP_DIAS 43; BP_DIAS 58; PULSE 70; RESP 17
[2024-01-05 06:19] LABS: MEAN CORPUSCULAR HGB CONC 34.7 g/dL (32.0-36.0); MEAN CORPUSCULAR VOLUME 86.5 fL (79-99); RED BLOOD CELL COUNT(AUTO) 3.93 MIL/uL (4.50-6.20); RED CELL DISTRIBUTION WIDTH 11.9 % (11.0-15.5); WHITE BLOOD COUNT (AUTO) 7.6 K/uL (4.8-10.8)
[2024-01-05 06:42] LABS: CREATININE 0.9 mg/dL (0.5-1.3); POTASSIUM 3.8 mmol/L (3.5-5.1)
[2024-01-05 08:00] VITALS: O2SAT 94
[2024-01-05 08:30] VITALS: BP 115/74; PULSE 70; RESP 48
[2024-01-05 12:17] VITALS: BP 132/78; PULSE 68; RESP 18
== END 2024-01-05 15:10 | disposition home or self-care (01) ==
LOC: EDH 15:51 → EDHIP 15:52 → 3BH 01-04 00:23
PROVIDERS: ADMIT Hospitalist; ATTEND Hospitalist
DX: K86.1 Other chronic pancreatitis (principal); K85.90 Acute pancreatitis without necrosis or infection, unspecified; K57.30 Diverticulosis of large intestine without perforation or abscess without bleeding; K76.0 Fatty (change of) liver, not elsewhere classified; E11.65 Type 2 diabetes mellitus with hyperglycemia; I10 Essential (primary) hypertension; E78.5 Hyperlipidemia, unspecified; E78.1 Pure hyperglyceridemia; K80.20 Calculus of gallbladder without cholecystitis without obstruction; E86.0 Dehydration; Z79.4 Long term (current) use of insulin; Z79.84 Long term (current) use of oral hypoglycemic drugs
CPT/HCPCS: 96374; 96361 ×3; 96375 ×3; 99284; 84478 ×2; 80053; 83690 ×2; 85025 ×2; 85378; 85651; 87040 ×2; 36415 ×3; 71045; 74177; 96376 ×2; 96372 ×2; 83036; 84443; 82550; 80076; 83735; 80048 ×2; 83880; 82140; 85610; 82948 ×5; 83605; 76700; 97161; 97116; 97530 ×2; 84145; 85027; G0378 ×38; J2270; J7030; J2405; J3475; J3490 ×3; J1644 ×3; Q9967; J7120

== ENCOUNTER 2024-02-01 23:37 | Inpatient (IN) | payer OTHER ==
[~2024-02-01] VITALS: Ht 172.7 cm; Wt 72.3 kg
[2024-02-01 23:59] LABS: BASOPHILS # (AUTO) 0.05 K/uL (0.00-0.20); BASOPHILS % (AUTO) 0.5 % (0.0-5.0); EOSINOPHILS # (AUTO) 0.12 K/uL (0.00-0.70); EOSINOPHILS % (AUTO) 1.3 % (0.0-8.0); HEMATOCRIT 38.7 % (42-54); IMMATURE GRANULOCYTE ABSOLUTE 0.04 K/uL (0-1); LYMPHOCYTES # (AUTO) 3.7 K/uL (1.0-4.8); LYMPHOCYTES % (AUTO) 40.4 % (21.0-51.0); MEAN CORPUSCULAR HEMOGLOBIN 31.1 pg (27.0-33.0); MEAN CORPUSCULAR HGB CONC 35.4 g/dL (32.0-36.0); MONOCYTES # (AUTO) 0.7 K/uL (0.1-1.0); MONOCYTES % (AUTO) 7.1 % (3.0-13.0); NEUTROPHILS # (AUTO) 4.6 K/uL (1.8-7.7); NEUTROPHILS % (AUTO) 50.3 % (40.0-77.0); PLATELET COUNT (AUTO) 264 K/uL (130-400); RED CELL DISTRIBUTION WIDTH 11.8 % (11.0-15.5); WHITE BLOOD COUNT (AUTO) 9.1 K/uL (4.8-10.8)
[2024-02-02 00:19] LABS: CREATININE 1.1 mg/dL (0.5-1.3); POTASSIUM 4.1 mmol/L (3.5-5.1)
[2024-02-02 00:23] LABS: ALBUMIN 4.4 g/dL (3.5-5.0); BILIRUBIN,TOTAL 0.4 mg/dL (0.2-1.0); TOTAL PROTEIN, SERUM 7.8 g/dL (6.0-8.3)
[2024-02-02] MEDS: KETOROLAC 15MG/ML VIAL (15MG/ML) IV ONE (00:54)
[2024-02-02] MEDS ORDERED: IOHEXOL-350 75 ML VIAL IV ONE (01:24)
[2024-02-02] MEDS: DEXTROSE 10%-WATER 1,000 ML IV SCH (02:19)
[2024-02-02] MEDS: INSULIN HUMULIN R 100 UNIT/ML 3ML ONE (02:20)
[2024-02-02] MEDS ORDERED: INSULIN REGULAR, HUMAN 3ML 100 UNIT in 0.9%NACL 100ML 99 ML IV PRN (02:30)
[2024-02-02] MEDS: POTASSIUM BICARB/CIT AC 25 MEQ TABLET.EFF PO STA (03:09)
[2024-02-02] MEDS: MEROPENEM 1 GM in 0.9%NACL 100ML 100 ML IVPB STA (03:56)
[2024-02-02] MEDS: MEROPENEM 1 GM VIAL ONE (04:01)
[2024-02-02] MEDS: DEXTROSE 5%-LACTATED RINGERS 1,000 ML IV SCH (04:17)
[2024-02-02] MEDS: CEFEPIME HCL 1 GM VIAL IVPB SCH (04:22)
[2024-02-02] MEDS ORDERED: DEXTROSE 50%-WATER 50 ML DISP.SYRIN IV PRN (04:30)
[2024-02-02] MEDS ORDERED: ONDANSETRON 4MG INJ IV PRN (04:30)
[2024-02-02] MEDS ORDERED: GLUCAGON 1MG KIT 1 MG ML IM PRN (04:30)
[2024-02-02] MEDS: MORPHINE 2 MG SYG IVP PRN (08:02)
[2024-02-02] MEDS: FAMOTIDINE 20MG VIAL IV SCH (08:31)
[2024-02-02 08:50] LABS: BASOPHILS # (AUTO) 0.03 K/uL (0.00-0.20); BASOPHILS % (AUTO) 0.3 % (0.0-5.0); EOSINOPHILS # (AUTO) 0.11 K/uL (0.00-0.70); EOSINOPHILS % (AUTO) 0.9 % (0.0-8.0); IMMATURE GRANULOCYTE ABSOLUTE 0.05 K/uL (0-1); LYMPHOCYTES # (AUTO) 3.7 K/uL (1.0-4.8); LYMPHOCYTES % (AUTO) 31.3 % (21.0-51.0); MEAN CORPUSCULAR HGB CONC 35.4 g/dL (32.0-36.0); MEAN CORPUSCULAR VOLUME 84.7 fL (79-99); MONOCYTES % (AUTO) 8.4 % (3.0-13.0); NEUTROPHILS % (AUTO) 58.7 % (40.0-77.0); PLATELET COUNT (AUTO) 253 K/uL (130-400); RED BLOOD CELL COUNT(AUTO) 4.13 MIL/uL (4.50-6.20); RED CELL DISTRIBUTION WIDTH 11.9 % (11.0-15.5); WHITE BLOOD COUNT (AUTO) 11.9 K/uL (4.8-10.8)
[2024-02-02 09:38] LABS: ABG BASE EXCESS -1.8 mmol/L (-2.0-3.0); ABG HCO3 22.7 mmol/L (21.0-28.0); ABG PCO2 38 mmHg (35-48); ABG PH 7.395 (7.350-7.450); DEVICE COMMENT RR RA; PO2, ARTERIAL BG 81.3 mmHg (83.0-108.0)
[2024-02-02 09:39] LABS: ALBUMIN 4.1 g/dL (3.5-5.0); BILIRUBIN,TOTAL 0.4 mg/dL (0.2-1.0); CREATININE 0.8 mg/dL (0.5-1.3)
[2024-02-02 09:53] LABS: POTASSIUM 2.9 mmol/L (3.5-5.1)
[2024-02-02] MEDS: POTASSIUM CHLORIDE 20MEQ/100ML 100 ML IV PRN (10:03)
[2024-02-02] MEDS: LACTATED RINGERS 1000ML 1,000 ML IV SCH (10:34)
[2024-02-02 11:00] VITALS: BP 113/78; PULSE 81; RESP 16
[2024-02-02] MEDS: PROTEASE PO SCH (11:09)
[2024-02-02] MEDS: AMYLASE PO SCH (11:09)
[2024-02-02] MEDS: LIPASE PO SCH (11:09)
[2024-02-02 11:13] VITALS: O2SAT 98
[2024-02-02] MEDS ORDERED: POTASSIUM CHLORIDE 20MEQ/100ML 100 ML IV PRN (11:30)
[2024-02-02] MEDS ORDERED: POTASSIUM CHLORIDE 10% ELIXIR 20 MEQ/15 ML UDCUP PO PRN (11:30)
[2024-02-02] MEDS: KCL 20 MEQ ERTAB PO PRN (11:43)
[2024-02-02 16:00] VITALS: BP 129/80; PULSE 77; RESP 16
[2024-02-02 19:29] LABS: MAGNESIUM 1.4 mg/dL (1.80-2.40); POTASSIUM 3.9 mmol/L (3.5-5.1)
[2024-02-02 20:00] VITALS: BP 138/93; PULSE 78; RESP 16; O2SAT 98
[2024-02-02] MEDS: ATORVASTATIN 40 MG TABLET PO SCH (21:18)
[2024-02-02] MEDS: FISH OIL 1000 MG/CAP PO SCH (21:18)
[2024-02-02 21:58] LABS: AMPHET/METH SCREEN,URINE NEGATIVE (NEGATIVE); APPEARANCE,URINE CLOUDY (CLEAR); BARBITURATE SCREEN, URINE NEGATIVE (NEGATIVE); BENZODIAZEPINES SCREEN,URINE NEGATIVE (NEGATIVE); BILIRUBIN,URINE NEGATIVE (NEGATIVE); CANNABINOID SCREEN,URINE NEGATIVE (NEGATIVE); COCAINE SCREEN,URINE NEGATIVE (NEGATIVE); COLOR,URINE YELLOW (YELLOW); GLUCOSE, URINE (UA) NEGATIVE (NEGATIVE); KETONES,URINE 5 mg/dL (NEGATIVE); LEUKOCYTE ESTERASE ,URINE 250 Leu/uL (NEGATIVE); NITRATE,URINE NEGATIVE (NEGATIVE); OCCULT BLOOD,URINE NEGATIVE (NEGATIVE); OPIATE SCREEN,URINE NEGATIVE (NEGATIVE); PH,URINE 6.5 (5.0-8.0); PHENCYCLIDINE SCREEN,URINE NEGATIVE (NEGATIVE); PROTEIN,URINE 20 mg/dL (NEGATIVE); UROBILINOGEN,URINE 0.2 mg/dL (0.2-1.0)
[2024-02-02 22:06] LABS: BACTERIA,URINE None Seen /HPF (None Seen); RBC,URINE 0-1 /HPF (0-1); SQUAMOUS EPITHELIAL CELL,UR Rare /HPF (0-2)
[2024-02-03] VITALS (8 sets, daily range): BP systolic 124–139; BP diastolic 80–88; PULSE 69–81; RESP 16–19; O2SAT 99
[2024-02-03 04:36] LABS: BASOPHILS # (AUTO) 0.02 K/uL (0.00-0.20); BASOPHILS % (AUTO) 0.2 % (0.0-5.0); EOSINOPHILS # (AUTO) 0.11 K/uL (0.00-0.70); EOSINOPHILS % (AUTO) 1.3 % (0.0-8.0); IMMATURE GRANULOCYTE ABSOLUTE 0.03 K/uL (0-1); LYMPHOCYTES # (AUTO) 2.4 K/uL (1.0-4.8); LYMPHOCYTES % (AUTO) 29.5 % (21.0-51.0); MEAN CORPUSCULAR HGB CONC 34.1 g/dL (32.0-36.0); MEAN CORPUSCULAR VOLUME 87.9 fL (79-99); MONOCYTES # (AUTO) 0.6 K/uL (0.1-1.0); NEUTROPHILS # (AUTO) 5.1 K/uL (1.8-7.7); NEUTROPHILS % (AUTO) 61.6 % (40.0-77.0); PLATELET COUNT (AUTO) 213 K/uL (130-400); RED BLOOD CELL COUNT(AUTO) 3.87 MIL/uL (4.50-6.20); RED CELL DISTRIBUTION WIDTH 11.8 % (11.0-15.5); WHITE BLOOD COUNT (AUTO) 8.3 K/uL (4.8-10.8)
[2024-02-03 04:48] LABS: ALBUMIN 3.6 g/dL (3.5-5.0); BILIRUBIN,TOTAL 0.8 mg/dL (0.2-1.0); CREATININE 0.7 mg/dL (0.5-1.3); MAGNESIUM 1.3 mg/dL (1.80-2.40); POTASSIUM 3.6 mmol/L (3.5-5.1); TOTAL PROTEIN, SERUM 6.3 g/dL (6.0-8.3)
[2024-02-03] MEDS: MAGNESIUM 2GM PREMIX 50ML 50 ML IV PRN (06:12)
[2024-02-03] MEDS: FENOFIBRATE NANOCRYSTALLIZED 145 MG TAB PO SCH (09:00)
[2024-02-03] MEDS: MAGNESIUM 4GM PREMIX 100ML IV SCH (18:36)
[2024-02-03] MEDS: KCL 20 MEQ ERTAB PO ONE (18:38)
[2024-02-04] VITALS: BP 128/87; PULSE 73; RESP 18
[2024-02-04 04:00] VITALS: BP 127/86; PULSE 70; RESP 18
[2024-02-04 04:26] LABS: HEMATOCRIT 35.8 % (42-54); MEAN CORPUSCULAR HEMOGLOBIN 29.6 pg (27.0-33.0); MEAN CORPUSCULAR HGB CONC 34.6 g/dL (32.0-36.0); MEAN CORPUSCULAR VOLUME 85.4 fL (79-99); RED BLOOD CELL COUNT(AUTO) 4.19 MIL/uL (4.50-6.20); RED CELL DISTRIBUTION WIDTH 11.8 % (11.0-15.5); WHITE BLOOD COUNT (AUTO) 7.4 K/uL (4.8-10.8)
[2024-02-04 05:40] LABS: BILIRUBIN,TOTAL 0.6 mg/dL (0.2-1.0); CREATININE 0.8 mg/dL (0.5-1.3); MAGNESIUM 2.5 mg/dL (1.80-2.40); TOTAL PROTEIN, SERUM 7.4 g/dL (6.0-8.3)
[2024-02-04 08:00] VITALS: BP 131/80; PULSE 72; RESP 17; O2SAT 96
[2024-02-04 10:00] LABS: ABG BASE EXCESS -2.4 mmol/L (-2.0-3.0); ABG HCO3 22.1 mmol/L (21.0-28.0); ABG OXYGEN SATURATION 94.1 % (95.0-99.0); ABG PCO2 37 mmHg (35-48); PO2, ARTERIAL BG 70.5 mmHg (83.0-108.0); VENT MODE, BG RA (ROOM AIR)
[2024-02-04 12:02] VITALS: BP 127/87; PULSE 72; RESP 17
[2024-02-04] MEDS ORDERED: METF-444 PO (12:23)
== END 2024-02-04 14:00 | disposition home or self-care (01) | DRG 440 ==
LOC: EDH 23:37 → EDHIP 23:38 → 4BH 02-02 10:27
PROVIDERS: ADMIT Internal Medicine; ATTEND Internal Medicine
DX: K85.80 Other acute pancreatitis without necrosis or infection (principal); N20.0 Calculus of kidney; K57.30 Diverticulosis of large intestine without perforation or abscess without bleeding; K76.0 Fatty (change of) liver, not elsewhere classified; E11.65 Type 2 diabetes mellitus with hyperglycemia; D64.9 Anemia, unspecified; I10 Essential (primary) hypertension; E78.00 Pure hypercholesterolemia, unspecified; E78.1 Pure hyperglyceridemia; Z79.4 Long term (current) use of insulin; Z82.49 Family history of ischemic heart disease and other diseases of the circulatory system; Z83.3 Family history of diabetes mellitus
CPT/HCPCS: 36415; 36600; 74177; 80053; 80061; 80305; 81001; 82150; 82803; 82948; 83036; 83615; 83690; 83735; 84132; 84478; 85025; 85027; 87088; 96365; 96366; 96375; G0378; J0692; J1815; J1885; J2185; J2270; J3475; J3480; J3490; Q9967

== ENCOUNTER 2024-02-20 21:06 | Emergency (ER) | payer OTHER ==
[~2024-02-20] VITALS: Ht 172.7 cm; Wt 73.5 kg
[~2024-02-20 21:06] MED LIST changes: -AMYL1CAP63 PO; -CEPH500B PO
[2024-02-20 21:16] VITALS: BP 141/88; PULSE 99; RESP 18
[2024-02-20 21:25] LABS: BASOPHILS # (AUTO) 0.03 K/uL (0.00-0.20); BASOPHILS % (AUTO) 0.4 % (0.0-5.0); EOSINOPHILS % (AUTO) 1.2 % (0.0-8.0); IMMATURE GRANULOCYTE ABSOLUTE 0.03 K/uL (0-1); LYMPHOCYTES # (AUTO) 2.7 K/uL (1.0-4.8); LYMPHOCYTES % (AUTO) 31.9 % (21.0-51.0); MEAN CORPUSCULAR HEMOGLOBIN 30.5 pg (27.0-33.0); MEAN CORPUSCULAR HGB CONC 33.8 g/dL (32.0-36.0); MEAN CORPUSCULAR VOLUME 90.1 fL (79-99); MONOCYTES # (AUTO) 0.6 K/uL (0.1-1.0); MONOCYTES % (AUTO) 7.4 % (3.0-13.0); NEUTROPHILS % (AUTO) 58.7 % (40.0-77.0); PLATELET COUNT (AUTO) 293 K/uL (130-400); RED BLOOD CELL COUNT(AUTO) 4.33 MIL/uL (4.50-6.20); RED CELL DISTRIBUTION WIDTH 11.9 % (11.0-15.5); WHITE BLOOD COUNT (AUTO) 8.4 K/uL (4.8-10.8)
[2024-02-20 21:33] LABS: APPEARANCE,URINE CLOUDY (CLEAR); BILIRUBIN,URINE NEGATIVE (NEGATIVE); COLOR,URINE LIGHT-BROWN (YELLOW); GLUCOSE, URINE (UA) 500 mg/dL (NEGATIVE); KETONES,URINE NEGATIVE (NEGATIVE); LEUKOCYTE ESTERASE ,URINE 250 Leu/uL (NEGATIVE); NITRATE,URINE NEGATIVE (NEGATIVE); OCCULT BLOOD,URINE LARGE (NEGATIVE); PROTEIN,URINE 20 mg/dL (NEGATIVE); UROBILINOGEN,URINE 0.2 mg/dL (0.2-1.0)
[2024-02-20 21:34] LABS: ADD UA MICROSCOPIC YES
[2024-02-20 21:39] LABS: MUCUS,URINE RARE LPF (None Seen); RBC,URINE TNTC /HPF (0-1); WBC,URINE TNTC /HPF (0-1); YEAST,URINE BUDDING FEW /HPF (None Seen)
[2024-02-20 21:40] LABS: POTASSIUM 3.9 mmol/L (3.5-5.1)
[2024-02-20 21:44] LABS: ALBUMIN 4.6 g/dL (3.5-5.0); BILIRUBIN,TOTAL 0.4 mg/dL (0.2-1.0); TOTAL PROTEIN, SERUM 7.8 g/dL (6.0-8.3)
[2024-02-20] MEDS ORDERED: TAMS-1 PO (22:30)
[2024-02-20] MEDS ORDERED: CEPH500B PO (22:30)
[2024-02-20] MEDS: CEFTRIAXONE 1G VIAL IM ONE (22:53)
[2024-02-20] MEDS: TAMSULOSIN HCL 0.4 MG CAP.ER.24H PO ONE (22:53)
== END 2024-02-20 23:30 | disposition home or self-care (01) ==
LOC: EDH 21:06
DX: N20.0 Calculus of kidney (principal); N39.0 Urinary tract infection, site not specified; E11.9 Type 2 diabetes mellitus without complications; E78.00 Pure hypercholesterolemia, unspecified
CPT/HCPCS: 99285; 74176; 80053; 83690; 85025; 87088; 83605; 81001; 36415; 96372; J0696

== ENCOUNTER 2024-02-26 04:28 | Inpatient (IN) | payer OTHER ==
[~2024-02-26] VITALS: Ht 172.7 cm; Wt 72.6 kg
[~2024-02-26 04:28] MED LIST changes: +CEPH500B PO; +TAMS-1 PO
[2024-02-26] MEDS: 0.9%NACL 1000ML 1,000 ML IV ONE (05:04)
[2024-02-26] MEDS: FAMOTIDINE 20MG VIAL IV ONE (05:04)
[2024-02-26] MEDS: ONDANSETRON 4MG INJ IVP ONE (05:04)
[2024-02-26 05:06] LABS: BASOPHILS # (AUTO) 0.03 K/uL (0.00-0.20); BASOPHILS % (AUTO) 0.4 % (0.0-5.0); EOSINOPHILS # (AUTO) 0.12 K/uL (0.00-0.70); EOSINOPHILS % (AUTO) 1.7 % (0.0-8.0); HEMATOCRIT 36.3 % (42-54); IMMATURE GRANULOCYTE ABSOLUTE 0.02 K/uL (0-1); LYMPHOCYTES % (AUTO) 43.3 % (21.0-51.0); MEAN CORPUSCULAR HEMOGLOBIN 29.6 pg (27.0-33.0); MEAN CORPUSCULAR HGB CONC 33.9 g/dL (32.0-36.0); MEAN CORPUSCULAR VOLUME 87.5 fL (79-99); MONOCYTES # (AUTO) 0.5 K/uL (0.1-1.0); MONOCYTES % (AUTO) 7.7 % (3.0-13.0); NEUTROPHILS # (AUTO) 3.2 K/uL (1.8-7.7); NEUTROPHILS % (AUTO) 46.6 % (40.0-77.0); PLATELET COUNT (AUTO) 256 K/uL (130-400); RED BLOOD CELL COUNT(AUTO) 4.15 MIL/uL (4.50-6.20); RED CELL DISTRIBUTION WIDTH 11.9 % (11.0-15.5); WHITE BLOOD COUNT (AUTO) 6.9 K/uL (4.8-10.8)
[2024-02-26] MEDS: MORPHINE 4 MG SYG ONE (05:10)
[2024-02-26] MEDS: MORPHINE 2 MG SYG IVP ONE (05:11)
[2024-02-26 05:13] LABS: CREATININE 0.9 mg/dL (0.5-1.3); POTASSIUM 3.8 mmol/L (3.5-5.1)
[2024-02-26 05:18] LABS: ALBUMIN 4.2 g/dL (3.5-5.0); BILIRUBIN,TOTAL 0.3 mg/dL (0.2-1.0); TOTAL PROTEIN, SERUM 7.3 g/dL (6.0-8.3)
[2024-02-26] MEDS ORDERED: IOHEXOL-350 75 ML VIAL IV ONE (08:22)
[2024-02-26] MEDS: HYDROMORPHONE 0.5 MG SYG (0.5MG/0.5ML) IM ONE (10:00)
[2024-02-26] MEDS ORDERED: GLUCAGON 1MG KIT 1 MG ML IM PRN (12:00)
[2024-02-26] MEDS ORDERED: DEXTROSE 50%-WATER 50 ML DISP.SYRIN IV PRN (12:00)
[2024-02-26] MEDS ORDERED: NITROGLYCERIN 0.4 MG SL TAB SL PRN (13:30)
[2024-02-26] MEDS ORDERED: LACTULOSE 20 GM/30 ML UDCUP PO PRN (13:30)
[2024-02-26] MEDS ORDERED: HYDRALAZINE 20MG/ML VIAL IV PRN (13:30)
[2024-02-26] MEDS ORDERED: DIPHENHYDRAMINE HCL 25 MG CAPSULE PO PRN (13:30)
[2024-02-26] MEDS ORDERED: MAG/ALUM/SIMETH 30 ML UDCUP PO PRN (13:30)
[2024-02-26] MEDS ORDERED: ONDANSETRON 4MG INJ IV PRN (13:30)
[2024-02-26] MEDS ORDERED: GUAIFENESIN-DM 200/20 MG 10 ML PO PRN (13:30)
[2024-02-26] MEDS ORDERED: ACETAMINOPHEN 325 MG TAB PO PRN (13:30)
[2024-02-26] MEDS: MORPHINE 4 MG SYG IV PRN (14:07)
[2024-02-26] MEDS: 0.9%NACL 1000ML 1,000 ML IV SCH (14:18)
[2024-02-26] MEDS ORDERED: LEVEMIR (14:48)
[2024-02-26] MEDS ORDERED: METF-446 PO (14:48)
[2024-02-26 15:00] VITALS: BP 143/91; PULSE 63; RESP 18
[2024-02-26] MEDS: INSULIN HUMULIN R 100 UNIT/ML 3ML SQ SCH (16:30)
[2024-02-26] MEDS: MORPHINE 2 MG SYG IV PRN (18:37)
[2024-02-26 19:00] VITALS: BP 139/87; PULSE 64; RESP 16
[2024-02-26 21:04] VITALS: O2SAT 95
[2024-02-26 23:53] VITALS: BP 132/75; PULSE 74; RESP 14
[2024-02-27 03:00] VITALS: BP 145/88; PULSE 65; RESP 14
[2024-02-27 07:44] LABS: CREATININE 0.9 mg/dL (0.5-1.3); POTASSIUM 3.3 mmol/L (3.5-5.1)
[2024-02-27 07:50] LABS: ALBUMIN 3.7 g/dL (3.5-5.0); BILIRUBIN,TOTAL 0.7 mg/dL (0.2-1.0); MAGNESIUM 1.3 mg/dL (1.80-2.40); TOTAL PROTEIN, SERUM 6.2 g/dL (6.0-8.3)
[2024-02-27 08:00] VITALS: BP 126/77; PULSE 65; RESP 20
[2024-02-27] MEDS ORDERED: POTASSIUM CHLORIDE 20MEQ/100ML 100 ML IV PRN (08:00)
[2024-02-27 08:06] VITALS: O2SAT 95
[2024-02-27 12:00] VITALS: BP 127/80; PULSE 70; RESP 20
[2024-02-27] MEDS ORDERED: PHARMACY COMMUNICATION MISC SCH (12:00)
[2024-02-27] MEDS: PANTOPRAZOLE 40 MG/VIAL IVP SCH (12:25)
[2024-02-27] MEDS: FISH OIL 1000 MG/CAP PO SCH (12:26)
[2024-02-27] MEDS: TAMSULOSIN HCL 0.4 MG CAP.ER.24H PO SCH (12:26)
[2024-02-27] MEDS: ENOXAPARIN SODIUM 40 MG/0.4 ML SYRINGE SQ SCH (12:26)
[2024-02-27] MEDS: FENOFIBRATE NANOCRYSTALLIZED 145 MG TAB PO SCH (12:27)
[2024-02-27 16:00] VITALS: BP 132/80; PULSE 60; RESP 17
[2024-02-27 20:00] VITALS: BP 127/79; PULSE 68; RESP 16; O2SAT 94
[2024-02-27] MEDS: ATORVASTATIN 40 MG TABLET PO SCH (20:51)
[2024-02-28] VITALS: BP 126/79; PULSE 68; RESP 15
[2024-02-28 04:00] VITALS: BP 131/83; PULSE 69; RESP 16
[2024-02-28 05:00] LABS: BASOPHILS # (AUTO) 0.02 K/uL (0.00-0.20); BASOPHILS % (AUTO) 0.3 % (0.0-5.0); EOSINOPHILS # (AUTO) 0.15 K/uL (0.00-0.70); EOSINOPHILS % (AUTO) 2.4 % (0.0-8.0); HEMATOCRIT 31.5 % (42-54); IMMATURE GRANULOCYTE ABSOLUTE 0.01 K/uL (0-1); LYMPHOCYTES # (AUTO) 2.1 K/uL (1.0-4.8); LYMPHOCYTES % (AUTO) 33.3 % (21.0-51.0); MEAN CORPUSCULAR HEMOGLOBIN 29.9 pg (27.0-33.0); MEAN CORPUSCULAR HGB CONC 34.9 g/dL (32.0-36.0); MEAN CORPUSCULAR VOLUME 85.6 fL (79-99); MONOCYTES # (AUTO) 0.5 K/uL (0.1-1.0); MONOCYTES % (AUTO) 7.7 % (3.0-13.0); NEUTROPHILS # (AUTO) 3.5 K/uL (1.8-7.7); NEUTROPHILS % (AUTO) 56.1 % (40.0-77.0); PLATELET COUNT (AUTO) 218 K/uL (130-400); RED BLOOD CELL COUNT(AUTO) 3.68 MIL/uL (4.50-6.20); RED CELL DISTRIBUTION WIDTH 11.6 % (11.0-15.5); WHITE BLOOD COUNT (AUTO) 6.2 K/uL (4.8-10.8)
[2024-02-28 05:16] LABS: ALBUMIN 3.6 g/dL (3.5-5.0); BILIRUBIN,TOTAL 0.8 mg/dL (0.2-1.0); CREATININE 0.8 mg/dL (0.5-1.3); MAGNESIUM 1.4 mg/dL (1.80-2.40); POTASSIUM 3.2 mmol/L (3.5-5.1); TOTAL PROTEIN, SERUM 6.5 g/dL (6.0-8.3)
[2024-02-28] MEDS: MAGNESIUM 2GM PREMIX 50ML 50 ML IV PRN (05:27)
[2024-02-28] MEDS ORDERED: POTASSIUM CHLORIDE 10% ELIXIR 20 MEQ/15 ML UDCUP PO PRN (05:30)
[2024-02-28 08:00] VITALS: BP 132/80; PULSE 69; RESP 16
[2024-02-28] MEDS: KCL 20 MEQ ERTAB PO PRN (09:25)
[2024-02-28 10:30] VITALS: O2SAT 98
[2024-02-28 12:00] VITALS: BP 134/84; PULSE 71; RESP 18
== END 2024-02-28 15:15 | disposition home or self-care (01) | DRG 440 ==
LOC: EDH 04:28 → EDHIP 04:29 → 3BH 13:59
PROVIDERS: ADMIT Internal Medicine; ATTEND Internal Medicine
DX: K85.90 Acute pancreatitis without necrosis or infection, unspecified (principal); E11.9 Type 2 diabetes mellitus without complications; K86.1 Other chronic pancreatitis; E78.00 Pure hypercholesterolemia, unspecified; E78.1 Pure hyperglyceridemia; I10 Essential (primary) hypertension; K59.00 Constipation, unspecified; Z82.49 Family history of ischemic heart disease and other diseases of the circulatory system; Z83.3 Family history of diabetes mellitus
CPT/HCPCS: 36415; 74177; 80053; 82948; 83036; 83690; 83735; 84478; 85025; 96372; 96374; 96375; 99291; C9113; G0378; J1170; J1650; J2270; J2405; J3475; J3490; J7030; Q9967

== ENCOUNTER 2024-03-15 20:55 | Inpatient (IN) | payer OTHER ==
[~2024-03-15] VITALS: Ht 172.7 cm; Wt 72.1 kg
[~2024-03-15 20:55] MED LIST changes: -CEPH500B PO; -INSU3INS3 SQ; +LEVEMIR; +METF-446 PO
[2024-03-15] MEDS: ONDANSETRON 4MG INJ IVP ONE (21:21)
[2024-03-15] MEDS: FAMOTIDINE 20MG VIAL IV ONE (21:21)
[2024-03-15] MEDS: MORPHINE 2 MG SYG IVP ONE (21:22)
[2024-03-15 21:26] LABS: BASOPHILS # (AUTO) 0.03 K/uL (0.00-0.20); BASOPHILS % (AUTO) 0.4 % (0.0-5.0); EOSINOPHILS % (AUTO) 1.2 % (0.0-8.0); HEMATOCRIT 44.4 % (42-54); IMMATURE GRANULOCYTE ABSOLUTE 0.03 K/uL (0-1); LYMPHOCYTES # (AUTO) 3.1 K/uL (1.0-4.8); LYMPHOCYTES % (AUTO) 36.8 % (21.0-51.0); MEAN CORPUSCULAR HEMOGLOBIN 29.8 pg (27.0-33.0); MEAN CORPUSCULAR HGB CONC 33.8 g/dL (32.0-36.0); MEAN CORPUSCULAR VOLUME 88.1 fL (79-99); MONOCYTES # (AUTO) 0.6 K/uL (0.1-1.0); MONOCYTES % (AUTO) 7.1 % (3.0-13.0); NEUTROPHILS # (AUTO) 4.5 K/uL (1.8-7.7); NEUTROPHILS % (AUTO) 54.1 % (40.0-77.0); PLATELET COUNT (AUTO) 323 K/uL (130-400); RED BLOOD CELL COUNT(AUTO) 5.04 MIL/uL (4.50-6.20); RED CELL DISTRIBUTION WIDTH 11.7 % (11.0-15.5); WHITE BLOOD COUNT (AUTO) 8.3 K/uL (4.8-10.8)
[2024-03-15 21:28] LABS: ADD UA MICROSCOPIC YES; APPEARANCE,URINE CLEAR (CLEAR); BILIRUBIN,URINE NEGATIVE (NEGATIVE); COLOR,URINE LIGHT-YELLOW (YELLOW); GLUCOSE, URINE (UA) >=1000 mg/dL (NEGATIVE); KETONES,URINE NEGATIVE (NEGATIVE); LEUKOCYTE ESTERASE ,URINE 25 Leu/uL (NEGATIVE); NITRATE,URINE NEGATIVE (NEGATIVE); OCCULT BLOOD,URINE LARGE (NEGATIVE); PROTEIN,URINE NEGATIVE (NEGATIVE); UROBILINOGEN,URINE 0.2 mg/dL (0.2-1.0)
[2024-03-15 21:31] LABS: BACTERIA,URINE RARE /HPF (None Seen); MUCUS,URINE RARE LPF (None Seen); RBC,URINE 51-100 /HPF (0-1); WBC,URINE 26-50 /HPF (0-1); YEAST,URINE BUDDING FEW /HPF (None Seen)
[2024-03-15 21:38] LABS: POTASSIUM 4.1 mmol/L (3.5-5.1)
[2024-03-15] MEDS: 0.9%NACL 1000ML 1,000 ML IV ONE (21:41)
[2024-03-15 21:43] LABS: ALBUMIN 5.1 g/dL (3.5-5.0); BILIRUBIN,TOTAL 0.4 mg/dL (0.2-1.0); TOTAL PROTEIN, SERUM 8.7 g/dL (6.0-8.3)
[2024-03-15] MEDS ORDERED: ACETAMINOPHEN 325 MG TAB PO PRN ×2 (23:00)
[2024-03-15] MEDS ORDERED: POTASSIUM CHLORIDE 20MEQ/100ML 100 ML IV PRN (23:00)
[2024-03-15] MEDS ORDERED: ONDANSETRON 4MG INJ IV PRN (23:00)
[2024-03-15] MEDS: CEFTRIAXONE 1G VIAL IVPB SCH (23:16)
[2024-03-15] MEDS: LACTATED RINGERS 1000ML 1,000 ML IV SCH (23:16)
[2024-03-15] MEDS: HYDROMORPHONE 1 MG INJ IV PRN (23:23)
[2024-03-15 23:50] VITALS: O2SAT 98
[2024-03-16] VITALS (7 sets, daily range): BP systolic 121–136; BP diastolic 84–91; PULSE 65–85; RESP 17–19; O2SAT 96–99
[2024-03-16] MEDS ORDERED: INSU100V12 SQ (00:22)
[2024-03-16] MEDS ORDERED: METF-444 PO (00:22)
[2024-03-16 04:22] LABS: BASOPHILS # (AUTO) 0.03 K/uL (0.00-0.20); BASOPHILS % (AUTO) 0.4 % (0.0-5.0); EOSINOPHILS # (AUTO) 0.11 K/uL (0.00-0.70); EOSINOPHILS % (AUTO) 1.4 % (0.0-8.0); HEMATOCRIT 35.7 % (42-54); IMMATURE GRANULOCYTE ABSOLUTE 0.02 K/uL (0-1); LYMPHOCYTES % (AUTO) 38.5 % (21.0-51.0); MEAN CORPUSCULAR HEMOGLOBIN 29.8 pg (27.0-33.0); MEAN CORPUSCULAR HGB CONC 34.2 g/dL (32.0-36.0); MEAN CORPUSCULAR VOLUME 87.3 fL (79-99); MONOCYTES # (AUTO) 0.5 K/uL (0.1-1.0); MONOCYTES % (AUTO) 6.7 % (3.0-13.0); NEUTROPHILS # (AUTO) 4.1 K/uL (1.8-7.7); NEUTROPHILS % (AUTO) 52.7 % (40.0-77.0); PLATELET COUNT (AUTO) 272 K/uL (130-400); RED BLOOD CELL COUNT(AUTO) 4.09 MIL/uL (4.50-6.20); RED CELL DISTRIBUTION WIDTH 11.6 % (11.0-15.5); WHITE BLOOD COUNT (AUTO) 7.7 K/uL (4.8-10.8)
[2024-03-16 04:37] LABS: CREATININE 0.8 mg/dL (0.5-1.3); MAGNESIUM 1.4 mg/dL (1.80-2.40); PHOSPHORUS 3.8 mg/dL (2.5-4.9); POTASSIUM 3.9 mmol/L (3.5-5.1)
[2024-03-16] MEDS: MAGNESIUM 2GM PREMIX 50ML 50 ML IV PRN (04:49)
[2024-03-16] MEDS: INSULIN HUMULIN R 100 UNIT/ML 3ML SQ SCH (07:30)
[2024-03-16] MEDS: ENOXAPARIN SODIUM 40 MG/0.4 ML SYRINGE SQ SCH (09:54)
[2024-03-16] MEDS: FAMOTIDINE 20MG VIAL IV SCH (09:54)
[2024-03-16] MEDS: ATORVASTATIN 40 MG TABLET PO SCH (21:26)
[2024-03-17 03:52] VITALS: BP 123/77; PULSE 60; RESP 17
[2024-03-17 05:14] LABS: BASOPHILS # (AUTO) 0.04 K/uL (0.00-0.20); BASOPHILS % (AUTO) 0.5 % (0.0-5.0); EOSINOPHILS # (AUTO) 0.14 K/uL (0.00-0.70); EOSINOPHILS % (AUTO) 1.6 % (0.0-8.0); HEMATOCRIT 35.3 % (42-54); IMMATURE GRANULOCYTE ABSOLUTE 0.03 K/uL (0-1); LYMPHOCYTES # (AUTO) 2.5 K/uL (1.0-4.8); LYMPHOCYTES % (AUTO) 28.2 % (21.0-51.0); MEAN CORPUSCULAR VOLUME 88.3 fL (79-99); MONOCYTES # (AUTO) 0.6 K/uL (0.1-1.0); MONOCYTES % (AUTO) 6.9 % (3.0-13.0); NEUTROPHILS # (AUTO) 5.5 K/uL (1.8-7.7); NEUTROPHILS % (AUTO) 62.5 % (40.0-77.0); PLATELET COUNT (AUTO) 241 K/uL (130-400); RED CELL DISTRIBUTION WIDTH 11.5 % (11.0-15.5); WHITE BLOOD COUNT (AUTO) 8.7 K/uL (4.8-10.8)
[2024-03-17 05:19] LABS: ALBUMIN 3.7 g/dL (3.5-5.0); BILIRUBIN,TOTAL 0.7 mg/dL (0.2-1.0); CREATININE 0.8 mg/dL (0.5-1.3); POTASSIUM 3.6 mmol/L (3.5-5.1); TOTAL PROTEIN, SERUM 6.5 g/dL (6.0-8.3)
[2024-03-17 07:57] VITALS: BP 121/81; PULSE 60; RESP 16
[2024-03-17 08:00] VITALS: O2SAT 98
[2024-03-17 11:24] VITALS: BP 115/7; PULSE 59; RESP 16
[2024-03-17 16:32] VITALS: BP 125/82; PULSE 62; RESP 16
[2024-03-17 20:00] VITALS: BP 130/85; PULSE 65; RESP 17; O2SAT 97
[2024-03-17] MEDS: ATORVASTATIN 40 MG TABLET ONE (21:42)
[2024-03-17] MEDS: CEFTRIAXONE 1G VIAL ONE (21:42)
[2024-03-17] MEDS: FAMOTIDINE 20MG VIAL IV ONE (21:43)
[2024-03-18] VITALS: BP 133/80; PULSE 63; RESP 17
[2024-03-18] MEDS: HYDROMORPHONE 0.5 MG SYG (0.5MG/0.5ML) ONE (00:28)
[2024-03-18 03:45] VITALS: BP 124/74; PULSE 60; RESP 18
[2024-03-18 07:57] VITALS: BP 144/80; PULSE 62; RESP 18
[2024-03-18 08:28] LABS: CREATININE 0.8 mg/dL (0.5-1.3); POTASSIUM 3.5 mmol/L (3.5-5.1)
[2024-03-18 09:26] VITALS: O2SAT 95
[2024-03-18 12:00] VITALS: BP 121/76; PULSE 70; RESP 18
[2024-03-18] MEDS: KCL 20 MEQ ERTAB PO ONE (15:06)
[2024-03-18 16:00] VITALS: BP 131/81; PULSE 64; RESP 20
== END 2024-03-18 18:00 | disposition home or self-care (01) | DRG 439 ==
LOC: EDH 20:55 → EDHIP 20:56 → 3CH 23:34 → UNDODISIN 03-17 14:05
PROVIDERS: ADMIT Internal Medicine; ATTEND Internal Medicine
DX: K85.90 Acute pancreatitis without necrosis or infection, unspecified (principal); N39.0 Urinary tract infection, site not specified; K86.1 Other chronic pancreatitis; E11.65 Type 2 diabetes mellitus with hyperglycemia; I10 Essential (primary) hypertension; J42 Unspecified chronic bronchitis; E78.00 Pure hypercholesterolemia, unspecified; E78.1 Pure hyperglyceridemia; F17.210 Nicotine dependence, cigarettes, uncomplicated; Z75.3 Unavailability and inaccessibility of health-care facilities; Z82.49 Family history of ischemic heart disease and other diseases of the circulatory system; Z83.3 Family history of diabetes mellitus; Z84.1 Family history of disorders of kidney and ureter
CPT/HCPCS: 36415; 76705; 80048; 80053; 81001; 82948; 83690; 83735; 84100; 84478; 85025; 87088; 96375; G0378; J0696; J1170; J1650; J1815; J2270; J2405; J3475; J3490

== ENCOUNTER 2024-03-24 05:52 | Inpatient (IN) | payer OTHER ==
[~2024-03-24] VITALS: Ht 172.7 cm; Wt 73.4 kg
[~2024-03-24 05:52] MED LIST changes: +INSU100V12 SQ; -LEVEMIR; -METF-446 PO
[2024-03-24 06:19] LABS: BASOPHILS # (AUTO) 0.03 K/uL (0.00-0.20); BASOPHILS % (AUTO) 0.3 % (0.0-5.0); EOSINOPHILS # (AUTO) 0.12 K/uL (0.00-0.70); HEMATOCRIT 37.5 % (42-54); IMMATURE GRANULOCYTE ABSOLUTE 0.05 K/uL (0-1); LYMPHOCYTES # (AUTO) 2.3 K/uL (1.0-4.8); LYMPHOCYTES % (AUTO) 19.9 % (21.0-51.0); MEAN CORPUSCULAR HGB CONC 34.4 g/dL (32.0-36.0); MEAN CORPUSCULAR VOLUME 87.2 fL (79-99); MONOCYTES # (AUTO) 0.9 K/uL (0.1-1.0); MONOCYTES % (AUTO) 7.4 % (3.0-13.0); NEUTROPHILS # (AUTO) 8.3 K/uL (1.8-7.7); PLATELET COUNT (AUTO) 277 K/uL (130-400); RED CELL DISTRIBUTION WIDTH 11.8 % (11.0-15.5); WHITE BLOOD COUNT (AUTO) 11.7 K/uL (4.8-10.8)
[2024-03-24 06:33] LABS: CREATININE 1.4 mg/dL (0.5-1.3); POTASSIUM 3.4 mmol/L (3.5-5.1)
[2024-03-24 06:39] LABS: ALBUMIN 4.3 g/dL (3.5-5.0); BILIRUBIN,TOTAL 0.7 mg/dL (0.2-1.0); TOTAL PROTEIN, SERUM 7.6 g/dL (6.0-8.3)
[2024-03-24] MEDS: HYDROMORPHONE 0.5 MG SYG (0.5MG/0.5ML) IVP ONE (06:50)
[2024-03-24] MEDS: ONDANSETRON 4MG INJ IVP ONE ×2 (06:50→07:38)
[2024-03-24 07:35] LABS: APPEARANCE,URINE CLEAR (CLEAR); BILIRUBIN,URINE NEGATIVE (NEGATIVE); COLOR,URINE LIGHT-YELLOW (YELLOW); GLUCOSE, URINE (UA) 200 mg/dL (NEGATIVE); KETONES,URINE 10 mg/dL (NEGATIVE); LEUKOCYTE ESTERASE ,URINE 250 Leu/uL (NEGATIVE); NITRATE,URINE NEGATIVE (NEGATIVE); OCCULT BLOOD,URINE LARGE (NEGATIVE); PROTEIN,URINE 20 mg/dL (NEGATIVE); UROBILINOGEN,URINE 0.2 mg/dL (0.2-1.0)
[2024-03-24] MEDS: KETOROLAC 15MG/ML VIAL (15MG/ML) IV ONE (07:39)
[2024-03-24 07:55] LABS: ADD UA MICROSCOPIC YES
[2024-03-24 08:18] LABS: BACTERIA,URINE FEW /HPF (None Seen); CALCIUM OXALATE CRYSTALS,UR RARE /LPF (None Seen); MUCUS,URINE RARE LPF (None Seen); RBC,URINE TNTC /HPF (0-1); SQUAMOUS EPITHELIAL CELL,UR RARE /HPF (0-2); UNCLASSIFIED CRYSTAL 1 /HPF (None Seen); WBC,URINE 51-100 /HPF (0-1)
[2024-03-24] MEDS: CEFTRIAXONE 1G VIAL IVPB SCH (08:55)
[2024-03-24] MEDS: 0.9%NACL 1000ML 1,000 ML IV SCH ×2 (08:55→19:00)
[2024-03-24] MEDS: POTASSIUM BICARB/CIT AC 25 MEQ TABLET.EFF PO ONE (08:55)
[2024-03-24] MEDS: HYDROMORPHONE 1 MG INJ IVP ONE (08:55)
[2024-03-24] MEDS ORDERED: POTASSIUM CHLORIDE 20MEQ/100ML 100 ML IV PRN (09:00)
[2024-03-24] MEDS ORDERED: ACETAMINOPHEN 325 MG TAB PO PRN ×2 (09:00)
[2024-03-24 11:35] VITALS: O2SAT 97
[2024-03-24 12:00] VITALS: BP 117/74; PULSE 76; RESP 18
[2024-03-24] MEDS: MORPHINE 2 MG SYG IVP PRN (12:34)
[2024-03-24 16:00] VITALS: BP 117/75; PULSE 65; RESP 18
[2024-03-24 20:00] VITALS: O2SAT 96
[2024-03-24] MEDS: KETOROLAC 15MG/ML VIAL (15MG/ML) IV PRN (20:15)
[2024-03-24 20:26] VITALS: BP 137/86; PULSE 71; RESP 19
[2024-03-24 23:45] VITALS: BP 128/89; PULSE 72; RESP 18
[2024-03-25 04:28] VITALS: BP 113/76; PULSE 61; RESP 18
[2024-03-25 05:14] LABS: HEMATOCRIT 31.1 % (42-54); MEAN CORPUSCULAR HEMOGLOBIN 29.7 pg (27.0-33.0); MEAN CORPUSCULAR HGB CONC 33.8 g/dL (32.0-36.0); MEAN CORPUSCULAR VOLUME 88.1 fL (79-99); RED BLOOD CELL COUNT(AUTO) 3.53 MIL/uL (4.50-6.20); RED CELL DISTRIBUTION WIDTH 11.7 % (11.0-15.5); WHITE BLOOD COUNT (AUTO) 7.3 K/uL (4.8-10.8)
[2024-03-25 05:34] LABS: ALBUMIN 3.3 g/dL (3.5-5.0); BILIRUBIN,TOTAL 0.7 mg/dL (0.2-1.0); CREATININE 1.1 mg/dL (0.5-1.3); MAGNESIUM 1.3 mg/dL (1.80-2.40); POTASSIUM 3.7 mmol/L (3.5-5.1); TOTAL PROTEIN, SERUM 6.2 g/dL (6.0-8.3)
[2024-03-25 07:56] VITALS: BP 114/69; PULSE 63; RESP 20
[2024-03-25 08:00] VITALS: O2SAT 99
[2024-03-25] MEDS ORDERED: IOHEXOL 350 MG/ML 100ML INFUS..BTL IV ONE (08:42)
[2024-03-25] MEDS: CEFTRIAXONE 1G VIAL IVPB SCH (10:05)
[2024-03-25 10:56] VITALS: BP 115/68; PULSE 60; RESP 16
[2024-03-25] MEDS: MAGNESIUM 2GM PREMIX 50ML 50 ML IV PRN (11:32)
[2024-03-25 16:31] VITALS: BP 118/61; PULSE 66; RESP 18
[2024-03-25 20:00] VITALS: BP 134/95; PULSE 69; RESP 18; O2SAT 97
[2024-03-26] VITALS (7 sets, daily range): BP systolic 122–136; BP diastolic 76–87; PULSE 61–75; RESP 16–18; O2SAT 96–99
[2024-03-26 04:19] LABS: BASOPHILS # (AUTO) 0.03 K/uL (0.00-0.20); BASOPHILS % (AUTO) 0.4 % (0.0-5.0); EOSINOPHILS # (AUTO) 0.09 K/uL (0.00-0.70); EOSINOPHILS % (AUTO) 1.3 % (0.0-8.0); HEMATOCRIT 32.6 % (42-54); IMMATURE GRANULOCYTE ABSOLUTE 0.01 K/uL (0-1); LYMPHOCYTES # (AUTO) 2.2 K/uL (1.0-4.8); LYMPHOCYTES % (AUTO) 32.4 % (21.0-51.0); MEAN CORPUSCULAR HEMOGLOBIN 30.1 pg (27.0-33.0); MEAN CORPUSCULAR HGB CONC 34.4 g/dL (32.0-36.0); MEAN CORPUSCULAR VOLUME 87.6 fL (79-99); MONOCYTES # (AUTO) 0.7 K/uL (0.1-1.0); MONOCYTES % (AUTO) 9.7 % (3.0-13.0); NEUTROPHILS # (AUTO) 3.8 K/uL (1.8-7.7); NEUTROPHILS % (AUTO) 56.1 % (40.0-77.0); PLATELET COUNT (AUTO) 244 K/uL (130-400); RED BLOOD CELL COUNT(AUTO) 3.72 MIL/uL (4.50-6.20); RED CELL DISTRIBUTION WIDTH 11.6 % (11.0-15.5); WHITE BLOOD COUNT (AUTO) 6.8 K/uL (4.8-10.8)
[2024-03-26 04:45] LABS: MAGNESIUM 1.7 mg/dL (1.80-2.40); POTASSIUM 3.6 mmol/L (3.5-5.1)
[2024-03-26] MEDS ORDERED: POTASSIUM CHLORIDE 10% ELIXIR 20 MEQ/15 ML UDCUP PO PRN (07:30)
[2024-03-26] MEDS ORDERED: KCL 20 MEQ ERTAB PO PRN (07:30)
[2024-03-26] MEDS: ATORVASTATIN 40 MG TABLET PO SCH (20:24)
[2024-03-26] MEDS: FISH OIL 1000 MG/CAP PO SCH (20:24)
[2024-03-26] MEDS ORDERED: METFORMIN HCL 500 MG TABLET PO SCH (21:00)
[2024-03-26] MEDS: INSULIN GLARGINE 100 UNITS/ML 10 ML VIAL SQ SCH (21:02)
[2024-03-27] VITALS (15 sets, daily range): BP systolic 115–144; BP diastolic 70–98; PULSE 55–73; RESP 17–19; O2SAT 96
[2024-03-27 04:40] LABS: BASOPHILS # (AUTO) 0.03 K/uL (0.00-0.20); BASOPHILS % (AUTO) 0.4 % (0.0-5.0); EOSINOPHILS # (AUTO) 0.15 K/uL (0.00-0.70); EOSINOPHILS % (AUTO) 2.1 % (0.0-8.0); HEMATOCRIT 31.9 % (42-54); IMMATURE GRANULOCYTE ABSOLUTE 0.02 K/uL (0-1); LYMPHOCYTES # (AUTO) 2.5 K/uL (1.0-4.8); LYMPHOCYTES % (AUTO) 35.7 % (21.0-51.0); MEAN CORPUSCULAR HEMOGLOBIN 29.5 pg (27.0-33.0); MEAN CORPUSCULAR HGB CONC 34.5 g/dL (32.0-36.0); MEAN CORPUSCULAR VOLUME 85.5 fL (79-99); MONOCYTES # (AUTO) 0.6 K/uL (0.1-1.0); MONOCYTES % (AUTO) 8.8 % (3.0-13.0); NEUTROPHILS # (AUTO) 3.7 K/uL (1.8-7.7); NEUTROPHILS % (AUTO) 52.7 % (40.0-77.0); PLATELET COUNT (AUTO) 277 K/uL (130-400); RED BLOOD CELL COUNT(AUTO) 3.73 MIL/uL (4.50-6.20); RED CELL DISTRIBUTION WIDTH 11.7 % (11.0-15.5)
[2024-03-27 04:55] LABS: CREATININE 0.9 mg/dL (0.5-1.3); POTASSIUM 3.9 mmol/L (3.5-5.1); PROTHROMBIN TIME 10.8 SEC (9.6-11.6)
[2024-03-27 04:57] LABS: PARTIAL THROMBOPLASTIN TIME 25.6 SEC (26.3-35.5)
[2024-03-27] MEDS: FENOFIBRATE NANOCRYSTALLIZED 145 MG TAB PO SCH (09:00)
[2024-03-27] MEDS: TAMSULOSIN HCL 0.4 MG CAP.ER.24H PO SCH (09:00)
[2024-03-27] MEDS ORDERED: LIDOCAINE HCL 1% 20 ML VIAL ONE (12:33)
[2024-03-27] MEDS ORDERED: IOHEXOL-350 50ML VIAL IV ONE (12:33)
[2024-03-27] MEDS ORDERED: FENTANYL CITRATE PF 50 MCG/1 ML 2ML VIAL ONE (12:58)
[2024-03-27] MEDS ORDERED: MIDAZOLAM HCL 1 MG/ML 2ML VIAL ONE (12:59)
[2024-03-27] MEDS: ONDANSETRON 4MG INJ IVP PRN (14:10)
[2024-03-27] MEDS: INSULIN HUMULIN R 100 UNIT/ML 3ML SQ SCH (20:33)
[2024-03-28] VITALS: BP 134/87; PULSE 50; RESP 18
[2024-03-28 04:00] VITALS: BP 127/76; PULSE 52; RESP 18
[2024-03-28 08:00] VITALS: BP 113/72; PULSE 54; RESP 17
[2024-03-28] MEDS ORDERED: CEFD300C3 PO (10:04)
[2024-03-28 11:46] VITALS: BP 127/81; PULSE 62; RESP 17
== END 2024-03-28 13:00 | disposition home or self-care (01) | DRG 694 ==
LOC: EDH 05:52 → 4CH 05:53
PROVIDERS: ADMIT Hospitalist; ATTEND Hospitalist
PROC: 0T9330Z Drainage of Right Kidney Pelvis with Drainage Device, Percutaneous Approach (ICD-10-PCS; principal; 2024-03-27)
DX: N13.2 Hydronephrosis with renal and ureteral calculous obstruction (principal); K86.1 Other chronic pancreatitis; N17.0 Acute kidney failure with tubular necrosis; E87.6 Hypokalemia; E87.8 Other disorders of electrolyte and fluid balance, not elsewhere classified; D72.829 Elevated white blood cell count, unspecified; E78.00 Pure hypercholesterolemia, unspecified; E11.65 Type 2 diabetes mellitus with hyperglycemia; F17.210 Nicotine dependence, cigarettes, uncomplicated; I10 Essential (primary) hypertension; K76.0 Fatty (change of) liver, not elsewhere classified; Z82.49 Family history of ischemic heart disease and other diseases of the circulatory system; Z83.3 Family history of diabetes mellitus; Z87.442 Personal history of urinary calculi; Z91.199 Patient's noncompliance with other medical treatment and regimen due to unspecified reason
CPT/HCPCS: 36415; 50432; 74176; 74400; 76942; 80048; 80053; 81001; 82948; 83605; 83735; 85025; 85027; 85610; 85730; 86850; 86900; 86901; 87040; 87086; 99156; 99157; C1769; C1894; G0378; J0696; J1170; J1885; J2250; J2270; J2405; J3010; J3475; J7030; Q9967; C1729

== ENCOUNTER 2024-04-07 13:48 | Emergency (ER) | payer OTHER ==
[~2024-04-07] VITALS: Ht 172.7 cm; Wt 72.6 kg
[~2024-04-07 13:48] MED LIST changes: +CEFD300C3 PO
[2024-04-07] MEDS: KETOROLAC 30MG VIAL (30MG/ML) IVP ONE (14:50)
[2024-04-07] MEDS: 0.9%NACL 1000ML 1,000 ML IV ONE (14:51)
[2024-04-07 14:57] LABS: BASOPHILS # (AUTO) 0.05 K/uL (0.00-0.20); BASOPHILS % (AUTO) 0.8 % (0.0-5.0); EOSINOPHILS # (AUTO) 0.13 K/uL (0.00-0.70); EOSINOPHILS % (AUTO) 2.1 % (0.0-8.0); HEMATOCRIT 39.5 % (42-54); IMMATURE GRANULOCYTE ABSOLUTE 0.02 K/uL (0-1); LYMPHOCYTES % (AUTO) 32.3 % (21.0-51.0); MEAN CORPUSCULAR HEMOGLOBIN 29.5 pg (27.0-33.0); MEAN CORPUSCULAR HGB CONC 33.9 g/dL (32.0-36.0); MONOCYTES # (AUTO) 0.5 K/uL (0.1-1.0); MONOCYTES % (AUTO) 7.4 % (3.0-13.0); NEUTROPHILS # (AUTO) 3.6 K/uL (1.8-7.7); NEUTROPHILS % (AUTO) 57.1 % (40.0-77.0); PLATELET COUNT (AUTO) 343 K/uL (130-400); RED BLOOD CELL COUNT(AUTO) 4.54 MIL/uL (4.50-6.20); RED CELL DISTRIBUTION WIDTH 11.8 % (11.0-15.5); WHITE BLOOD COUNT (AUTO) 6.3 K/uL (4.8-10.8)
[2024-04-07 15:19] LABS: CREATININE 0.8 mg/dL (0.5-1.3); POTASSIUM 4.4 mmol/L (3.5-5.1)
[2024-04-07 15:24] LABS: ALBUMIN 4.3 g/dL (3.5-5.0); BILIRUBIN,TOTAL 0.5 mg/dL (0.2-1.0); TOTAL PROTEIN, SERUM 7.8 g/dL (6.0-8.3)
[2024-04-07 16:00] LABS: APPEARANCE,URINE TURBID (CLEAR); BILIRUBIN,URINE NEGATIVE (NEGATIVE); COLOR,URINE BROWN (YELLOW); GLUCOSE, URINE (UA) 300 mg/dL (NEGATIVE); KETONES,URINE NEGATIVE (NEGATIVE); LEUKOCYTE ESTERASE ,URINE 75 Leu/uL (NEGATIVE); NITRATE,URINE NEGATIVE (NEGATIVE); OCCULT BLOOD,URINE LARGE (NEGATIVE); PH,URINE 6.5 (5.0-8.0); PROTEIN,URINE 100 mg/dL (NEGATIVE); UROBILINOGEN,URINE 0.2 mg/dL (0.2-1.0)
[2024-04-07 16:07] LABS: ADD UA MICROSCOPIC YES
[2024-04-07 16:09] LABS: BACTERIA,URINE RARE /HPF (None Seen); CALCIUM OXALATE CRYSTALS,UR RARE /LPF (None Seen); MUCUS,URINE RARE LPF (None Seen); RBC,URINE TNTC /HPF (0-1); SQUAMOUS EPITHELIAL CELL,UR RARE /HPF (0-2); UNCLASSIFIED CRYSTAL 2 /HPF (None Seen); WBC,URINE 26-50 /HPF (0-1); YEAST,URINE BUDDING FEW /HPF (None Seen)
[2024-04-07 16:53] VITALS: BP 113/79; PULSE 72; RESP 18; O2SAT 99
[2024-04-07] MEDS ORDERED: AMOX1TAB16 PO (17:07)
[2024-04-07] MEDS: AMOX/CLAV 875/125MG TAB PO ONE (17:12)
== END 2024-04-07 17:38 | disposition home or self-care (01) ==
LOC: EDH 13:48
DX: N30.01 Acute cystitis with hematuria (principal); Z93.6 Other artificial openings of urinary tract status; I10 Essential (primary) hypertension; E11.9 Type 2 diabetes mellitus without complications; E78.00 Pure hypercholesterolemia, unspecified; F17.200 Nicotine dependence, unspecified, uncomplicated; Z79.84 Long term (current) use of oral hypoglycemic drugs; Z79.899 Other long term (current) drug therapy; Z98.890 Other specified postprocedural states
CPT/HCPCS: 99285; 74176; 96374; 96361; 80053; 85025; 87086; 87186; 87205; 81001; 36415; 87071; J7030; J1885

== ENCOUNTER 2024-04-27 21:26 | Inpatient (IN) | payer OTHER ==
[~2024-04-27] VITALS: Ht 172.7 cm; Wt 70.7 kg
[~2024-04-27 21:26] MED LIST changes: -CEFD300C3 PO
[2024-04-27 22:08] LABS: APPEARANCE,URINE CLEAR (CLEAR); BILIRUBIN,URINE NEGATIVE (NEGATIVE); COLOR,URINE STRAW (YELLOW); GLUCOSE, URINE (UA) >=1000 mg/dL (NEGATIVE); KETONES,URINE NEGATIVE (NEGATIVE); LEUKOCYTE ESTERASE ,URINE NEGATIVE Leu/uL (NEGATIVE); NITRATE,URINE NEGATIVE (NEGATIVE); OCCULT BLOOD,URINE LARGE (NEGATIVE); PH,URINE 7.5 (5.0-8.0); PROTEIN,URINE 10 mg/dL (NEGATIVE); UROBILINOGEN,URINE 0.2 mg/dL (0.2-1.0)
[2024-04-27 22:09] LABS: ADD UA MICROSCOPIC YES; BACTERIA,URINE RARE /HPF (None Seen); MUCUS,URINE RARE LPF (None Seen); RBC,URINE TNTC /HPF (0-1)
[2024-04-27] MEDS: 0.9%NACL 1000ML 1,000 ML IV STA (22:14)
[2024-04-27] MEDS: MORPHINE 2 MG SYG IVP STA (22:14)
[2024-04-27] MEDS: ONDANSETRON 4MG INJ IVP STA (22:14)
[2024-04-27 22:35] LABS: BASOPHILS # (AUTO) 0.05 K/uL (0.00-0.20); BASOPHILS % (AUTO) 0.5 % (0.0-5.0); EOSINOPHILS # (AUTO) 0.11 K/uL (0.00-0.70); EOSINOPHILS % (AUTO) 1.2 % (0.0-8.0); HEMATOCRIT 38.8 % (42-54); IMMATURE GRANULOCYTE ABSOLUTE 0.04 K/uL (0-1); LYMPHOCYTES # (AUTO) 2.4 K/uL (1.0-4.8); LYMPHOCYTES % (AUTO) 24.9 % (21.0-51.0); MEAN CORPUSCULAR HEMOGLOBIN 30.2 pg (27.0-33.0); MEAN CORPUSCULAR HGB CONC 34.8 g/dL (32.0-36.0); MEAN CORPUSCULAR VOLUME 86.8 fL (79-99); MONOCYTES # (AUTO) 0.6 K/uL (0.1-1.0); MONOCYTES % (AUTO) 5.8 % (3.0-13.0); NEUTROPHILS # (AUTO) 6.4 K/uL (1.8-7.7); NEUTROPHILS % (AUTO) 67.2 % (40.0-77.0); PLATELET COUNT (AUTO) 280 K/uL (130-400); RED BLOOD CELL COUNT(AUTO) 4.47 MIL/uL (4.50-6.20); RED CELL DISTRIBUTION WIDTH 11.8 % (11.0-15.5); WHITE BLOOD COUNT (AUTO) 9.5 K/uL (4.8-10.8)
[2024-04-27 22:46] LABS: CREATININE 0.9 mg/dL (0.5-1.3); POTASSIUM 4.2 mmol/L (3.5-5.1)
[2024-04-27 22:50] LABS: ALBUMIN 4.6 g/dL (3.5-5.0); BILIRUBIN,TOTAL 0.4 mg/dL (0.2-1.0); TOTAL PROTEIN, SERUM 7.9 g/dL (6.0-8.3)
[2024-04-28] MEDS ORDERED: IOHEXOL 350 MG/ML 100ML INFUS..BTL IV ONE
[2024-04-28] MEDS: 0.9%NACL 1000ML 1,000 ML IV STA (01:29)
[2024-04-28] MEDS: INSULIN HUMULIN R 100 UNIT/ML 3ML IV STA (01:36)
[2024-04-28] MEDS: MORPHINE 2 MG SYG IVP STA (02:18)
[2024-04-28] MEDS ORDERED: POTASSIUM CHLORIDE 10% ELIXIR 20 MEQ/15 ML UDCUP PO PRN (04:00)
[2024-04-28] MEDS ORDERED: NITROGLYCERIN 0.4 MG SL TAB SL PRN (04:00)
[2024-04-28] MEDS ORDERED: GUAIFENESIN-DM 200/20 MG 10 ML PO PRN (04:00)
[2024-04-28] MEDS ORDERED: HYDRALAZINE 20MG/ML VIAL IV PRN (04:00)
[2024-04-28] MEDS ORDERED: OXYCODONE/ACETAMIN 5/325MG TAB PO PRN (04:00)
[2024-04-28] MEDS ORDERED: DiphenhydrAMINE HCL 50 MG/ML VIAL IV PRN (04:00)
[2024-04-28] MEDS ORDERED: DEXTROSE 50%-WATER 50 ML DISP.SYRIN IV PRN (04:00)
[2024-04-28] MEDS ORDERED: ACETAMINOPHEN 325 MG TAB PO PRN ×3 (04:00)
[2024-04-28] MEDS ORDERED: LACTULOSE 20 GM/30 ML UDCUP PO PRN (04:00)
[2024-04-28] MEDS ORDERED: ZOLPIDEM TARTRATE 5 MG TAB PO PRN (04:00)
[2024-04-28] MEDS ORDERED: MAG/ALUM/SIMETH 30 ML UDCUP PO PRN (04:00)
[2024-04-28] MEDS ORDERED: FAMOTIDINE 20MG VIAL IV PRN (04:00)
[2024-04-28] MEDS ORDERED: POTASSIUM CHLORIDE 10MEQ/100ML 100 ML IV PRN (04:00)
[2024-04-28] MEDS ORDERED: GLUCAGON 1MG KIT 1 MG ML IM PRN (04:00)
[2024-04-28] MEDS: 0.9%NACL 1000ML 1,000 ML IV SCH (04:17)
[2024-04-28] MEDS: ZOSYN 3.375GM +NS 50ML IVPB SCH (04:17)
[2024-04-28] MEDS: INSULIN HUMULIN R 100 UNIT/ML 3ML SQ SCH (04:39)
[2024-04-28] MEDS: KETOROLAC 15MG/ML VIAL (15MG/ML) IV PRN (04:40)
[2024-04-28] MEDS: ONDANSETRON 4MG INJ IV PRN (04:40)
[2024-04-28 08:59] LABS: ALBUMIN 3.4 g/dL (3.5-5.0); BILIRUBIN,DIRECT 0.1 mg/dL (0.0-0.3); BILIRUBIN,TOTAL 0.5 mg/dL (0.2-1.0); TOTAL PROTEIN, SERUM 5.9 g/dL (6.0-8.3)
[2024-04-28] MEDS ORDERED: 0.9%NACL 50ML IV SCH (09:00)
[2024-04-28] MEDS: FAMOTIDINE 20MG VIAL IV SCH (09:34)
[2024-04-28] MEDS: MORPHINE 2 MG SYG IVP PRN (15:05)
[2024-04-28 17:57] VITALS: BP 135/90; PULSE 71; RESP 19
[2024-04-28 19:00] VITALS: BP 121/75; PULSE 62; RESP 14
[2024-04-28 23:53] VITALS: BP 125/73; PULSE 66; RESP 14
[2024-04-29] VITALS (7 sets, daily range): BP systolic 114–133; BP diastolic 58–88; PULSE 61–70; RESP 14–17; O2SAT 97
[2024-04-29 06:06] LABS: HEMATOCRIT 30.3 % (42-54); MEAN CORPUSCULAR HEMOGLOBIN 30.2 pg (27.0-33.0); MEAN CORPUSCULAR HGB CONC 34.3 g/dL (32.0-36.0); MEAN CORPUSCULAR VOLUME 88.1 fL (79-99); RED BLOOD CELL COUNT(AUTO) 3.44 MIL/uL (4.50-6.20); RED CELL DISTRIBUTION WIDTH 11.6 % (11.0-15.5); WHITE BLOOD COUNT (AUTO) 6.2 K/uL (4.8-10.8)
[2024-04-29 06:24] LABS: ALBUMIN 3.3 g/dL (3.5-5.0); BILIRUBIN,TOTAL 0.9 mg/dL (0.2-1.0); CREATININE 0.9 mg/dL (0.5-1.3); MAGNESIUM 1.2 mg/dL (1.80-2.40); POTASSIUM 3.6 mmol/L (3.5-5.1); TOTAL PROTEIN, SERUM 5.8 g/dL (6.0-8.3)
[2024-04-29] MEDS: KCL 20 MEQ ERTAB PO PRN (09:35)
[2024-04-29] MEDS: MAGNESIUM 2GM PREMIX 50ML 50 ML IV PRN (09:36)
[2024-04-29] MEDS ORDERED: MAGNESIUM 2GM PREMIX 50ML 50 ML IV SCH (10:30)
[2024-04-29] MEDS ORDERED: LACE ASSESSMENT (SCORE > 11) MISC SCH (12:30)
[2024-04-29 18:38] LABS: CREATININE 0.7 mg/dL (0.5-1.3); MAGNESIUM 1.7 mg/dL (1.80-2.40); POTASSIUM 3.7 mmol/L (3.5-5.1)
[2024-04-30] VITALS: BP 126/89; PULSE 64; RESP 17
[2024-04-30 04:00] VITALS: BP 132/89; PULSE 64; RESP 17
[2024-04-30 06:10] LABS: HEMATOCRIT 34.6 % (42-54); MEAN CORPUSCULAR HGB CONC 34.7 g/dL (32.0-36.0); MEAN CORPUSCULAR VOLUME 86.5 fL (79-99); RED CELL DISTRIBUTION WIDTH 11.3 % (11.0-15.5)
[2024-04-30 06:37] LABS: ALBUMIN 3.8 g/dL (3.5-5.0); BILIRUBIN,TOTAL 0.8 mg/dL (0.2-1.0); CREATININE 0.7 mg/dL (0.5-1.3); MAGNESIUM 1.6 mg/dL (1.80-2.40); POTASSIUM 3.8 mmol/L (3.5-5.1); TOTAL PROTEIN, SERUM 6.9 g/dL (6.0-8.3)
[2024-04-30 07:30] VITALS: O2SAT 96
[2024-04-30 08:00] VITALS: BP 118/82; PULSE 64; RESP 17
[2024-04-30 12:00] VITALS: BP 130/87; PULSE 63; RESP 18
[2024-04-30] MEDS ORDERED: POTASSIUM CHLORIDE 10MEQ SR TAB PO PRN (13:00)
[2024-04-30] MEDS ORDERED: MAGNESIUM 2GM PREMIX 50ML 50 ML IV SCH (13:30)
[2024-04-30] MEDS ORDERED: AMYL1CAP62 PO (14:03)
== END 2024-04-30 15:50 | disposition home or self-care (01) | DRG 439 ==
LOC: EDH 21:26 → EDHIP 21:27 → 3BH 04-28 17:45
PROVIDERS: ADMIT Internal Medicine; ATTEND Internal Medicine
DX: K85.90 Acute pancreatitis without necrosis or infection, unspecified (principal); K86.3 Pseudocyst of pancreas; N20.0 Calculus of kidney; K76.0 Fatty (change of) liver, not elsewhere classified; I10 Essential (primary) hypertension; E11.649 Type 2 diabetes mellitus with hypoglycemia without coma; E78.00 Pure hypercholesterolemia, unspecified; E78.1 Pure hyperglyceridemia; F17.200 Nicotine dependence, unspecified, uncomplicated; Z82.49 Family history of ischemic heart disease and other diseases of the circulatory system; Z83.3 Family history of diabetes mellitus; Z87.442 Personal history of urinary calculi; Z79.899 Other long term (current) drug therapy; E78.5 Hyperlipidemia, unspecified
CPT/HCPCS: 36415; 74177; 74181; 80048; 80053; 80061; 80076; 81001; 82150; 82948; 83605; 83690; 83735; 85025; 85027; 87086; 93005; 96374; 96375; G0378; J1885; J2270; J2405; J2543; J3475; J3490; J7030; Q9967; S8037

== ENCOUNTER 2024-05-22 03:55 | Emergency (ER) | payer SELFPAY ==
[~2024-05-22] VITALS: Ht 172.7 cm; Wt 72.6 kg
[~2024-05-22 03:55] MED LIST changes: +CREON PO
[2024-05-22 04:59] LABS: BASOPHILS # (AUTO) 0.04 K/uL (0.00-0.20); BASOPHILS % (AUTO) 0.5 % (0.0-5.0); EOSINOPHILS # (AUTO) 0.07 K/uL (0.00-0.70); EOSINOPHILS % (AUTO) 0.8 % (0.0-8.0); HEMATOCRIT 38.7 % (42-54); IMMATURE GRANULOCYTE ABSOLUTE 0.02 K/uL (0-1); LYMPHOCYTES # (AUTO) 2.6 K/uL (1.0-4.8); LYMPHOCYTES % (AUTO) 29.8 % (21.0-51.0); MEAN CORPUSCULAR HEMOGLOBIN 29.7 pg (27.0-33.0); MEAN CORPUSCULAR HGB CONC 34.6 g/dL (32.0-36.0); MEAN CORPUSCULAR VOLUME 85.8 fL (79-99); MONOCYTES # (AUTO) 0.7 K/uL (0.1-1.0); MONOCYTES % (AUTO) 7.5 % (3.0-13.0); NEUTROPHILS # (AUTO) 5.4 K/uL (1.8-7.7); NEUTROPHILS % (AUTO) 61.2 % (40.0-77.0); PLATELET COUNT (AUTO) 274 K/uL (130-400); RED BLOOD CELL COUNT(AUTO) 4.51 MIL/uL (4.50-6.20); RED CELL DISTRIBUTION WIDTH 11.8 % (11.0-15.5); WHITE BLOOD COUNT (AUTO) 8.9 K/uL (4.8-10.8)
[2024-05-22 05:44] LABS: ALBUMIN 4.5 g/dL (3.5-5.0); BILIRUBIN,TOTAL 0.4 mg/dL (0.2-1.0); CREATININE 0.9 mg/dL (0.5-1.3); POTASSIUM 3.9 mmol/L (3.5-5.1); TOTAL PROTEIN, SERUM 8.1 g/dL (6.0-8.3)
[2024-05-22] MEDS: 0.9%NACL 1000ML 1,000 ML IV ONE (06:15)
[2024-05-22] MEDS: ONDANSETRON 4MG INJ IVP ONE (06:15)
[2024-05-22] MEDS: hydroMORPHone 0.5 MG SYG (0.5MG/0.5ML) IVP ONE (06:15)
[2024-05-22] MEDS: KETOROLAC 15MG/ML VIAL (15MG/ML) IV ONE (11:17)
[2024-05-22 16:46] VITALS: BP 121/84; PULSE 77; RESP 16; O2SAT 97
== END 2024-05-22 17:39 | disposition home or self-care (01) ==
LOC: EDH 03:55
DX: R10.31 Right lower quadrant pain (principal); E11.65 Type 2 diabetes mellitus with hyperglycemia; N13.30 Unspecified hydronephrosis; N99.522 Malfunction of incontinent external stoma of urinary tract; E78.5 Hyperlipidemia, unspecified; E78.00 Pure hypercholesterolemia, unspecified; I10 Essential (primary) hypertension; F17.200 Nicotine dependence, unspecified, uncomplicated; Z79.4 Long term (current) use of insulin; Z79.84 Long term (current) use of oral hypoglycemic drugs; Z79.899 Other long term (current) drug therapy; Y65.8 Other specified misadventures during surgical and medical care; Y82.8 Other medical devices associated with adverse incidents
CPT/HCPCS: 99285; 74176; 96374; 96361; 96375; 80053; 83690; 85025; 36415; J7030; J2405; J1885; J1170

== ENCOUNTER 2024-09-28 12:57 | Emergency (ER) | payer OTHER, BC ==
[~2024-09-28] VITALS: Ht 172.7 cm; Wt 74.8 kg
--- NOTE | 2024-09-28 13:25 | NUR ---
PT IS WEARING A C-COLLR
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
[2024-09-28] MEDS: ketOROlac 15MG/ML VIAL (15MG/ML) IV ONE (13:42)
--- NOTE | 2024-09-28 14:17 | HMCIMG ---
SHOULDER LTD 1VW LT REASON: injury TECHNIQUE: Single AP view was performed. FINDINGS: There is no evidence of fracture or dislocation. There is no joint effusion. The soft tissues appear unremarkable. There is no evidence of a radiopaque foreign body. IMPRESSION: No acute findings.
--- NOTE | 2024-09-28 14:19 | HMCIMG ---
CT CERVICAL SPINE W/O CONTRAST REASON: injury COMPARISON: None TECHNIQUE: Images are obtained from skull base to the upper thoracic spine in the axial plane. Sagittal and coronal reconstruction images were then performed. FINDINGS: There are normal appearing vertebral bodies. Alignment is unremarkable and disc interspace heights are well preserved. There is no evidence of fracture or subluxation. Soft tissues appear normal as well. IMPRESSION: Normal noncontrast CT of the cervical spine. CT was performed with one or more following dose reduction techniques: automated exposure control, adjustment of the mA and kv according to patient's size, or use of a iterative reconstruction technique.
[2024-09-28 14:30] VITALS: BP 126/70; PULSE 81; RESP 18; TEMP 98.2; O2SAT 99
[2024-09-28] MEDS ORDERED: NAPR-1196 PO (14:38)
== END 2024-09-28 14:44 | disposition home or self-care (01) ==
LOC: EDH 12:57
DX: S13.4XXA Sprain of ligaments of cervical spine, initial encounter (principal); E11.9 Type 2 diabetes mellitus without complications; E78.00 Pure hypercholesterolemia, unspecified; F17.200 Nicotine dependence, unspecified, uncomplicated; I10 Essential (primary) hypertension; Z79.84 Long term (current) use of oral hypoglycemic drugs; V89.2XXA Person injured in unspecified motor-vehicle accident, traffic, initial encounter; Y93.89 Activity, other specified; Y92.410 Unspecified street and highway as the place of occurrence of the external cause; Y99.8 Other external cause status
CPT/HCPCS: 99285; 96374; 72125; 73020; J1885

== ENCOUNTER 2025-01-06 13:50 | Emergency (ER) | payer SELFPAY ==
[~2025-01-06] VITALS: Ht 172.7 cm; Wt 72.6 kg
[~2025-01-06 13:50] MED LIST changes: -CREON PO; +DAPA10TA PO; -INSU100V12 SQ; -METF-444 PO; +METF-446 PO; -TAMS-1 PO
--- NOTE | 2025-01-06 14:06 | EKG ---
[facility] Test Date: 2025-01-06 Test Time: 14:04:41 Pat Name: CONCHA OTERO Department: [facility] Room: Gender: Male Calibration Tester: 0802 : 1990 Requested By: RAHEL LAWSON Order Number: [id number] Reading MD: Matthew Locke Measurements Intervals [place] Rate: 75 P: 38 WA: 140 QRS: 66 QRSD: 84 T: 58 QT: 361 QTc: 404 Interpretive Statements Sinus rhythm ST elev, probable normal early repol pattern Compared to ECG 04/27/2024 22:06:19 No significant changes Electronically Signed On 01-06-2025 14:06:41 CDT by Matthew Locke Please click the below link to view image of tracing.
[2025-01-06 14:31] LABS: ADD UA MICROSCOPIC YES; APPEARANCE,URINE CLEAR (CLEAR); BILIRUBIN,URINE NEGATIVE (NEGATIVE); COLOR,URINE LIGHT-YELLOW (YELLOW); GLUCOSE, URINE (UA) >=1000 mg/dL (NEGATIVE); KETONES,URINE 20 mg/dL (NEGATIVE); LEUKOCYTE ESTERASE ,URINE 75 Leu/uL (NEGATIVE); NITRATE,URINE NEGATIVE (NEGATIVE); OCCULT BLOOD,URINE SMALL (NEGATIVE); PH,URINE 5.5 (5.0-8.0); UROBILINOGEN,URINE 0.2 mg/dL (0.2-1.0)
[2025-01-06] MEDS: LACTATED RINGERS 1000ML 1,000 ML IV ONE (14:31)
[2025-01-06 14:32] LABS: PROTEIN,URINE TRACE mg/dL (NEGATIVE)
[2025-01-06 14:33] LABS: BACTERIA,URINE RARE /HPF (None Seen); MUCUS,URINE RARE LPF (None Seen); SQUAMOUS EPITHELIAL CELL,UR RARE /HPF (0-2)
[2025-01-06 14:51] LABS: AMPHET/METH SCREEN,URINE NEGATIVE (NEGATIVE); BARBITURATE SCREEN, URINE NEGATIVE (NEGATIVE); BENZODIAZEPINES SCREEN,URINE NEGATIVE (NEGATIVE); CANNABINOID SCREEN,URINE NEGATIVE (NEGATIVE); COCAINE SCREEN,URINE NEGATIVE (NEGATIVE); OPIATE SCREEN,URINE NEGATIVE (NEGATIVE); PHENCYCLIDINE SCREEN,URINE NEGATIVE (NEGATIVE)
[2025-01-06 14:55] LABS: BASOPHILS # (AUTO) 0.03 K/uL (0.00-0.20); BASOPHILS % (AUTO) 0.3 % (0.0-5.0); EOSINOPHILS # (AUTO) 0.03 K/uL (0.00-0.70); EOSINOPHILS % (AUTO) 0.3 % (0.0-8.0); IMMATURE GRANULOCYTE ABSOLUTE 0.06 K/uL (0-1); LYMPHOCYTES # (AUTO) 1.7 K/uL (1.0-4.8); LYMPHOCYTES % (AUTO) 18.1 % (21.0-51.0); MEAN CORPUSCULAR HEMOGLOBIN 29.6 pg (27.0-33.0); MEAN CORPUSCULAR HGB CONC 33.3 g/dL (32.0-36.0); MEAN CORPUSCULAR VOLUME 88.9 fL (79-99); MONOCYTES # (AUTO) 0.6 K/uL (0.1-1.0); MONOCYTES % (AUTO) 6.4 % (3.0-13.0); NEUTROPHILS % (AUTO) 74.3 % (40.0-77.0); PLATELET COUNT (AUTO) 233 K/uL (130-400); RED BLOOD CELL COUNT(AUTO) 5.06 MIL/uL (4.50-6.20); RED CELL DISTRIBUTION WIDTH 11.9 % (11.0-15.5); WHITE BLOOD COUNT (AUTO) 9.5 K/uL (4.8-10.8)
[2025-01-06 15:02] LABS: CREATININE 0.8 mg/dL (0.5-1.3); POTASSIUM 4.3 mmol/L (3.5-5.1)
[2025-01-06 15:12] LABS: ALBUMIN 4.6 g/dL (3.5-5.0); BILIRUBIN,TOTAL 0.7 mg/dL (0.2-1.0); TOTAL PROTEIN, SERUM 8.1 g/dL (6.0-8.3)
--- NOTE | 2025-01-06 15:30 | ERN ---
General Chief Complaint: Abdominal Pain Stated Complaint: ABD PAIN Time Seen by MD: 13:53 Source: patient History of Present Illness Initial Comments PATIENT IS A 34-YEAR-OLD GENTLEMAN COMING IN TO BE EVALUATED FOR ABDOMINAL PAIN. PATIENT STATES HE HAS A EXTENSIVE HISTORY OF PANCREATITIS DUE TO HYPERTRIGLYCERIDEMIA AND BELIEVES HE MIGHT BE HAVING A FLARE-UP. HE STATES THE SYMPTOMS BEGAN YESTERDAY. NO FEVER NO CHILLS NO NAUSEA NO VOMITING. Allergies: Coded Allergies: No Known Allergies (Verified Allergy, Unknown, 12/17/19) Home Meds Active Scripts [place]-3 Fatty Acids/Fish Oil (Eql Fish Oil 1,000 mg Softgel) 300 Mg-1,000 Mg Capsule, 2000 MG PO BID for 30 Days, #60 CAP Prov:BERONICA HUIZARP 06/27/23 Fenofibrate Nanocrystallized (Tricor) 145 Mg Tablet, 145 MG PO DAILY for 30 Days, #30 TAB 2 Refills Prov:SHENG LAWS NP 04/26/22 Atorvastatin Calcium (Atorvastatin Calcium) 40 Mg Tablet, 40 MG PO HS for 30 Days, #30 TAB 2 Refills Prov:SHENG LAWS NP 04/26/22 Reported Medications Metformin HCl (Metformin HCl) 1,000 Mg Tablet, 1 TAB PO BID for 30 Days, #60 TAB 0 Refills 12/13/24 Dapagliflozin Propanediol (Farxiga) 10 Mg Tablet, 1 TAB PO DAILY for 30 Days, #30 TAB 0 Refills 12/13/24 Past Medical History Past Medical History: Diabetes-Type II, High Cholesterol Medical History Other: PANCREATITIS Past Surgical History: None Surgical History Other: RT NEPHROSTOMY TUBE Family History Family History: DM, HTN Social History Social History: Smokers, Negative, Lives with family, Other ROS Dictation CONSTITUTIONAL: NO CHILLS, NO FEVER, NO WEAKNESS, NO DIAPHORESIS, NO MALAISE. HEAD/FACE: NO SIGNS OF TRAUMA. EENT: NO EYE PAIN, NO BLURRED VISION, NO TEARING, NO DOUBLE VISION, NO EAR PAIN, NO EAR DISCHARGE, NO NOSE PAIN, NO NASAL CONGESTION, NO THROAT PAIN, NO THROAT SWELLING, NO MOUTH PAIN. RESPIRATORY: NO COUGH, NO ORTHOPNEA, NO SOB, NO STRIDOR, NO WHEEZING. CARDIOVASCULAR: NO CHEST PAIN, NO EDEMA, NO PALPITATIONS, NO SYNCOPE. GASTROINTESTINAL/ABDOMINAL: ABDOMINAL PAIN, NO CONSTIPATION, NO DIARRHEA, NO NAUSEA, NO VOMITING. GENITOURINARY: NO ABNORMAL DISCHARGE, NO DYSURIA, NO FREQUENT URINATION, NO HEMATURIA. NO COMPLAINTS OF PAIN IN THE GENITALS. MUSCULOSKELETAL: NO BACK PAIN, NO GOUT, NO JOINT PAIN, NO JOINT SWELLING, NO MUSCLE PAIN, NO MUSCLE STIFFNESS, NO NECK PAIN. INTEGUMENTARY: NO CHANGE IN COLOR, NO CHANGE IN HAIR/NAILS, NO DRYNESS, NO LESION, NO LUMPS, NO RASH. NEUROLOGICAL/PSYCH: NO ANXIETY, NOT DEPRESSED, NO EMOTIONAL PROBLEM, NO HEADACHE, NO NUMBNESS, NO PRE-EXISTING DEFICIT, NO HISTORY OF SEIZURES, NO TREMORS, NO WEAKNESS. HEMATOLOGIC/LYMPHATIC: NOT ANEMIC, NO HISTORY OF BLOOD CLOTS, NO APPARENT BLEEDING, NO BRUISING, GLANDS NOT SWOLLEN. ALL SYSTEMS NEGATIVE, EXCEPT NOTED. Physical Exam Physical Exam Dictation VITAL SIGNS: REVIEWED. GENERAL APPEARANCE: ALERT, ORIENTED X3, NO ACUTE DISTRESS, OBESE. HEAD AND FACE: NON-TRAUMATIC. EYES: PERRL, PINK CONJUNCTIVAS, EYELID NO TRAUMA, ANTERIOR CHAMBER CLEAR. EARS: PINNAS INTACT AND NO SIGNS OF TRAUMA OR ERYTHEMA. EAR CANALS CLEAR AND NO DISCHARGE. TMS NO ERYTHEMA. NOSE: NO DISCHARGE, NO BLEEDING. OROPHARYNX: MOUTH NORMAL, TEETH NO CARIES, TONGUE PINK. PHARYNX CLEAR, NO ERYTHEMA. TONSILS NO EXUDATES, NO ABSCESSES NOTED. MUCOUS MEMBRANE MOIST. NECK: SUPPLE, NON-TENDER, NO THYROMEGALY, NO MASSES, NO JVD, NO BRUITS. BREAST: DEFERRED. CHEST: NO TENDERNESS, NO CREPITUS, NO PARADOXICAL MOVEMENT, NO RETRACTIONS. LUNGS: CLEAR, WELL-VENTILATED, SYMMETRIC, NO RALES, NO WHEEZING, NO RHONCHI, NO STRIDOR, GOOD BREATH SOUNDS BILATERALLY. HEART: REGULAR RATE, REGULAR RHYTHM, NO MURMUR, NO GALLOPS. VASCULAR: NO PERIPHERAL EDEMA. ABDOMEN: SOFT, POSITIVE BOWEL SOUNDS, NONDISTENDED, NO GUARDING, EPIGASTRIC TENDER, NO REBOUND, NO MASSES NO HEPATOMEGALY, NO SPLENOMEGALY, NO BALL'S S IGN, NO HERNIAS. RECTAL: DEFERRED. GENITAL: DEFERRED. NEUROLOGICAL: NORMAL SPEECH, GROSS MOTOR FUNCTION INTACT, GROSS SENSORY FUNCTION INTACT. MUSCULOSKELETAL: NECK NONTENDER, FULL RANGE OF MOTION, BACK NONTENDER, FULL RANGE OF MOTION. EXTREMITIES: NONTENDER, FULL RANGE OF MOTION. SKIN: COLOR PINK, DRY, NO TURGOR, NO RASH, NO LACERATIONS, NO ABRASIONS, NO CONTUSIONS. LYMPHATICS: DEFERRED. Results Laboratory and Microbiology Lab and Micro Result Laboratory Tests Test 01/06/25 13:58 01/06/25 14:45 Urine Color LIGHT-YELLOW (YELLOW) Urine Appearance CLEAR (CLEAR) Urine pH 5.5 (5.0-8.0) Urine Specific [place] 1.039 (1.001-1.031) Urine Protein TRACE mg/dL (NEGATIVE) H Urine Glucose (UA) >=1000 mg/dL (NEGATIVE) H Urine Ketones 20 mg/dL (NEGATIVE) H Urine Occult Blood SMALL (NEGATIVE) H Urine Nitrate NEGATIVE (NEGATIVE) Urine Bilirubin NEGATIVE mg/dL (NEGATIVE) Urine Urobilinogen 0.2 mg/dL (0.2-1.0) Urine Leukocyte Esterase 75 Afshin/uL (NEGATIVE) H Urine RBC 11-25 /HPF (0-1) H Urine WBC 11-25 /HPF (0-1) H Urine Squamous Epithelial Cells RARE /HPF (0-2) Urine Bacteria RARE /HPF (None Seen) Urine Opiates Screen NEGATIVE (NEGATIVE) Urine Barbiturates Screen NEGATIVE (NEGATIVE) Urine Phencyclidine Screen NEGATIVE (NEGATIVE) Urine Amphetamines Screen NEGATIVE (NEGATIVE) Urine Benzodiazepines Screen NEGATIVE (NEGATIVE) Urine Cocaine Screen NEGATIVE (NEGATIVE) Urine Marijuana (THC) Screen NEGATIVE (NEGATIVE) White Blood Count 9.5 K/uL (4.8-10.8) Red Blood Count 5.06 MIL/uL (4.50-6.20) Hemoglobin 15.0 g/dL (14.0-18.0) Hematocrit 45.0 % (42-54) Mean Corpuscular Volume 88.9 fL (79-99) Mean Corpuscular Hemoglobin 29.6 pg (27.0-33.0) Mean Corpuscular Hemoglobin Concent 33.3 g/dL (32.0-36.0) Red Cell Distribution Width 11.9 % (11.0-15.5) Platelet Count 233 K/uL (130-400) Mean Platelet Volume 10.7 fL (7.5-10.5) H Immature Granulocyte % (Auto) 0.6 % (0-1) Neutrophils (%) (Auto) 74.3 % (40.0-77.0) Lymphocytes (%) (Auto) 18.1 % (21.0-51.0) L Monocytes (%) (Auto) 6.4 % (3.0-13.0) Eosinophils (%) (Auto) 0.3 % (0.0-8.0) Basophils (%) (Auto) 0.3 % (0.0-5.0) Neutrophils # (Auto) 7.0 K/uL (1.8-7.7) Lymphocytes # (Auto) 1.7 K/uL (1.0-4.8) Monocytes # (Auto) 0.6 K/uL (0.1-1.0) Eosinophils # (Auto) 0.03 K/uL (0.00-0.70) Basophils # (Auto) 0.03 K/uL (0.00-0.20) Absolute Immature Granulocyte (auto 0.06 K/uL (0-1) Nucleated Red Blood Cells 0.0 % (0.0-0.19) Sodium Level 141 mmol/L (136-145) Potassium Level 4.3 mmol/L (3.5-5.1) Chloride Level 102 mmol/L (101-111) Carbon Dioxide Level 28 mmol/L (21-32) Blood Urea Nitrogen 15 mg/dL (7-18) Creatinine 0.8 mg/dL (0.5-1.3) Glomerular Filtration Rate Calc 120 mL/min (>90) Random Glucose 132 mg/dL (70-105) H Total Calcium 9.7 mg/dL (8.5-10.1) Total Bilirubin 0.7 mg/dL (0.2-1.0) Aspartate Amino Transf (AST/SGOT) 42 U/L (10-37) H Alanine Aminotransferase (ALT/SGPT) 71 U/L (12-78) Alkaline Phosphatase 48 U/L (50-136) L Total Creatine Kinase 45 U/L (21-232) # Troponin I High Sensitivity < 4 ng/L (4-75) L Total Protein 8.1 g/dL (6.0-8.3) Albumin 4.6 g/dL (3.5-5.0) Triglycerides Level 319 mg/dL (30-200) H Lipase 341 U/L (16-77) H Labs Reviewed?: Yes EKG/XRAY/US/CT/MRI EKG Comment 01/06/2025 TIME 2:04 P.M. VENTRICULAR RATE [address] WAVE ELEVATION OR DEPRESSION MDM MDM: DIFFERENTIAL DIAGNOSIS: GASTRITIS, GERD, PANCREATITIS, HYPERTRIGLYCERIDEMIA, RATIONALE: TESTS CONSIDERED AND ORDERED SECONDARY TO SHARED DECISION MAKING INCLUDE: PREVIOUS OUTSIDE RECORDS REVIEWED: OLD ER VISITS. PATIENT IS A 34-YEAR-OLD GENTLEMAN COMING IN TO BE EVALUATED FOR EPIGASTRIC PAIN. PATIENT DOES STATE HE WAS A EXTENSIVE HISTORY OF PANCREATITIS SECONDARY TO HYPERTRIGLYCERIDEMIA. LABORATORY WORKUP DID NOT DISCLOSE ELEVATED LIPASE WERE ELEVATED TRIGLYCERIDES TO THE LEVEL THAT WOULD BE CAUSING INFLAMMATION. I DID ADVISED HIM DIET MODIFICATION AND APPROPRIATE FOLLOW UP WITH PCP IN 1-2 DAYS. ED Course Orders Procedure Category Date Status Time Cbc With Differential LAB 01/06/25 Complete 13:55 Comprehensive LAB 01/06/25 Complete Metabolic Panel 13:55 Troponin I High LAB 01/06/25 Complete Sensitivity 13:55 Urinalysis Profile LAB 01/06/25 Complete 13:55 12 Lead Ekg Tracing- EKG 01/06/25 Resulted Technical 13:55 Lactated Ringers PHA 01/06/25 Complete 1000ml (Lactated 14:00 Creatine Kinase, Total LAB 01/06/25 Complete 13:55 Lipase LAB 01/06/25 Complete 13:55 Triglycerides LAB 01/06/25 Complete 13:55 Drug Screen Urine LAB 01/06/25 Complete 13:55 Culture Urine [place] 01/06/25 In Process 14:32 Lidocaine Hcl 2% PHA 01/06/25 Complete Viscous (Lidocaine Hcl 15:30 Mag/Alum/Simeth 30ml PHA 01/06/25 Complete (Maalox Plus 30ml) 15:30 Current Medications Medications (Trade) Dose Ordered Sig/Rene Route PRN Reason Start Time Stop Time Status Last Admin Dose Admin Al Hydroxide/Mg Hydroxide (MAALox PLUS 30ML) 30 ml ONCE ONCE PO 01/06/25 15:30 01/06/25 15:31 DC 01/06/25 15:33 Lactated Ringer's 1,000 ml @ 0 mls/hr ONCE ONCE IV 01/06/25 14:00 01/06/25 14:01 DC 01/06/25 14:31 Lidocaine HCl (Lidocaine HCl 2% Viscous) 10 ml ONCE ONCE PO 01/06/25 15:30 01/06/25 15:31 DC 01/06/25 15:33 Vital Signs Date Time Temp Pulse Resp B/P (MAP) Pulse Ox O2 Delivery O2 Flow Rate FiO2 01/06/25 14:47 98.1 74 16 140/99 100 Room Air* 0 21 01/06/25 13:53 97.3 94 18 155/106 0 Room Air 0 DX & DISP Disposition: Discharge Departure Impression: Primary Impression: Abdominal pain Condition: Stable Additional Instructions: FOLLOW-UP WITH PRIMARY CARE PROVIDER IN 1 TO 2 DAYS. TAKE MEDICATIONS DIRECTED HERE IN THE EMERGENCY ROOM. OKAY TO CONTINUE HOME MEDICATIONS UNLESS OTHERWISE DISCUSSED DURING YOUR VISIT IN THE EMERGENCY ROOM TODAY. RETURN TO YOUR NEAREST EMERGENCY ROOM IF SYMPTOMS WORSEN OR IF THERE IS NO IMPROVEMENT. CALL 911 IF YOU NEED IMMEDIATE ASSISTANCE. TAKE TYLENOL [id number] NEEDED AND IF NO CONTRAINDICATIONS ARE PRESENT. INCREASE ORAL HYDRATION. A WOUND CULTURE OR URINE CULTURE WAS ORDERED HERE IN THE EMERGENCY ROOM DEPARTMENT PLEASE FOLLOW-UP WITH PRIMARY CARE PROVIDER AND ADVISE THEM TO GET REPEAT PORTS FROM OUR FACILITY. IF YOU HAD ANY NESTOR WRAP/SPLINTS THAT WERE APPLIED HERE, PLEASE DO NOT REMOVE THEM UNTIL YOU SEE YOUR PRIMARY CARE OR SPECIALTY. REFERRALS: Referrals: AMADA SALINAS MD (PCP) JENIFFER SIMS MD Time of Disposition: 16:04 RAHEL LAWSON MD Jan 06, 2025 15:30
[2025-01-06] MEDS: MAG/ALUM/SIMETH 30 ML UDCUP PO ONE (15:33)
[2025-01-06] MEDS: LIDOCAINE HCL 2% VISCOUS 15 ML UDCUP PO ONE (15:33)
[2025-01-06 16:07] VITALS: BP 137/89; PULSE 72; RESP 17; TEMP 98.3; O2SAT 0
--- NOTE | 2025-01-06 16:20 | NUR ---
PT AAOX3 , STABLE NO DISTRESS, VITALS WNL PAIN MORE AT EASE, PT IS NOW MORE COMFORTABLE, INSTRUCTIONS FOR HOME GIVEN, PT STATES HE UNDERSTANDS, IV WAS REMOVED, PT HAD GIRLFRIEND DRIVE HIM HOME.
== END 2025-01-06 16:24 | disposition home or self-care (01) ==
LOC: EDH 13:50
DX: R10.9 Unspecified abdominal pain (principal); E11.9 Type 2 diabetes mellitus without complications; E78.00 Pure hypercholesterolemia, unspecified; F17.200 Nicotine dependence, unspecified, uncomplicated; Z79.84 Long term (current) use of oral hypoglycemic drugs
CPT/HCPCS: 99284; 96360; 84478; 82550; 84484; 80053; 80305; 83690; 85025; 87086; 36415; 93005; 81001; J7120

== ENCOUNTER 2025-03-14 14:31 | Emergency (ER) | payer SELFPAY ==
[~2025-03-14] VITALS: Ht 172.7 cm; Wt 68.9 kg
--- NOTE | 2025-03-14 14:43 | ERN ---
ED Note History of Present Illness Stated Complaint: ABDOMINAL PAIN Chief Complaint: Abdominal Pain Time Seen by MD: 14:39 Dictation: PATIENT IS A 34-YEAR-OLD MALE WHO IS WELL KNOWN TO [facility] ED WITH COMPLAINTS OF EPIGASTRIC PAIN WITH NAUSEA ONSET LAST NIGHT. HE ALSO STATES HE HAS PAIN TO THE LEFT UPPER QUADRANT, HAS A HISTORY OF CHRONIC PANCREATITIS. NO FEVER NO CHILLS NO CHEST PAIN NO BACK PAIN. HE DOES NOT HAVE A PRIMARY CARE DOCTOR IN USES EMERGENCY ROOMS FOR HIS HEALTH CARE. Allergies: Coded Allergies: No Known Allergies (Verified Allergy, Unknown, 12/17/19) Home Meds Active Scripts [place]-3 Fatty Acids/Fish Oil (Eql Fish Oil 1,000 mg Softgel) 300 Mg-1,000 Mg Capsule, 2000 MG PO BID for 30 Days, #60 CAP Prov:BERONICA HUIZARP 06/27/23 Fenofibrate Nanocrystallized (Tricor) 145 Mg Tablet, 145 MG PO DAILY for 30 Days, #30 TAB 2 Refills Prov:SHENG LAWS NP 04/26/22 Atorvastatin Calcium (Atorvastatin Calcium) 40 Mg Tablet, 40 MG PO HS for 30 Days, #30 TAB 2 Refills Prov:SHENG LAWS NP 04/26/22 Reported Medications Metformin HCl (Metformin HCl) 1,000 Mg Tablet, 1 TAB PO BID for 30 Days, #60 TAB 0 Refills 12/13/24 Dapagliflozin Propanediol (Farxiga) 10 Mg Tablet, 1 TAB PO DAILY for 30 Days, #30 TAB 0 Refills 12/13/24 Past Medical History Past Medical History: Diabetes-Type II, GERD, High Cholesterol, Hypertension Additional Past Medical Hx: PANCREATITIS Surgical History: None Surgical History Other: RT NEPHROSTOMY TUBE Family History: DM, HTN Social History: Smokers, Negative, Lives with family, Other RN Note Reviewed/Agreed w/PFSH: Yes Review of System Dictation CONSTITUTIONAL: NEGATIVE EXCEPT FOR HPI HEAD/FACE: NEGATIVE EXCEPT FOR HPI EENT: NEGATIVE EXCEPT FOR HPI RESPIRATORY: NEGATIVE EXCEPT FOR HPI GASTROINTESTINAL/ABDOMINAL: NEGATIVE EXCEPT FOR HPI EPIGASTRIC AND LEFT UPPER QUADRANT PAIN WITH NAUSEA GENITOURINARY: NEGATIVE EXCEPT FOR HPI MUSCULOSKELETAL: NEGATIVE EXCEPT FOR HPI INTEGUMENTARY: NEGATIVE EXCEPT FOR HPI NEUROLOGICAL/PSYCH: NEGATIVE EXCEPT FOR HPI HEMATOLOGIC/LYMPHATIC: NEGATIVE EXCEPT FOR HPI ALL SYSTEMS NEGATIVE, EXCEPT NOTED ABOVE. 13 POINT REVIEW OF SYSTEMS ASSESSED AND ALL NEGATIVE EXCEPT FOR ABOVE. Initial Vital Sign VS Vital Signs Date Time Temp Pulse Resp B/P (MAP) Pulse Ox O2 Delivery O2 Flow Rate FiO2 03/14/25 14:36 98.1 84 18 148/102 03/14/25 15:25 97 Room Air* 0 21 Physical Exam Dictation VITAL SIGNS REVIEWED GENERAL APPEARANCE: ALERT, ORIENTED X 3, MODERATE ACUTE DISTRESS, WELL DEVELOPED, NOURISHED. HEAD AND FACE: NON-TRAUMATIC. EYES: PERRL, PINK CONJUNCTIVAS, EYELID NO TRAUMA, ANTERIOR CHAMBER WITH ARCUS SENILIS. EARS: PINNAS INTACT AND NO SIGNS OF TRAUMA OR ERYTHEMA EAR CANALS CLEAR AND NO DISCHARGE TM NO ERYTHEMA NOSE: NO DISCHARGE, NO BLEEDING. OROPHARYNX: MOUTH NORMAL, TONGUE PINK, PHARYNX CLEAR,NO ERYTHEMA, TONSILS NO EXUDATES, NO ABSCESSES NOTED, MUCOUS MEMB REN MOIST NECK: SUPPLE, NON-TENDER, NO THYROMEGALY, NO MASSES, NO JVD, NO BRUITS BREAST:DEFERRED CHEST:NO TENDERNESS, NO CREPITUS, NO PARADOXICAL MOVEMENT, NO RETRACTIONS LUNGS:CLEAR, WELL-VENTILATED, SYMMETRIC, NO RALES, NO WHEEZING, NO RHONCHI, NO S TRIDOR, GOOD BREATH SOUNDS BILATERALLY HEART: REGULAR RATE, REGULAR RHYTHM, NO MURMUR, NO GALLOPS VASCULAR: NO PERIPHERAL EDEMA, ABDOMEN: SOFT, POSITIVE BOWEL SOUNDS, NONDISTENDED, NO GUARDING, MILD TENDERNESS TO EPIGASTRIUM AND LEFT UPPER QUADRANT. NO REBOUND, NO MASSES NO HEPATOMEGALY, NO SPLENOMEGALY, NO BALL'S SIGN, NO HERNIAS. RECTAL: DEFERRED GENITAL: DEFERRED NEUROLOGICAL: NORMAL SPEECH, MOTOR FUNCTION INTACT, SENSORY FUNCTION INTACT MUSCULOSKELETAL: NECK NONTENDER, FULL RANGE OF MOTION, BACK NONTENDER, FULL RANGE OF MOTION, EXTREMITIES: NONTENDER, FULL RANGE OF MOTION SKIN: COLOR PINK, DRY, NO TURGOR, NO RASH, NO LACERATIONS, NO ABRASIONS, NO CONTUSIONS. LYMPHATIC: DEFERRED Results (Laboratory/Radiology) Laboratory/Radiology Laboratory Tests Test 03/14/25 14:45 03/14/25 15:36 White Blood Count 7.2 K/uL (4.8-10.8) Red Blood Count 4.66 MIL/uL (4.50-6.20) Hemoglobin 13.9 g/dL (14.0-18.0) L Hematocrit 41.8 % (42-54) L Mean Corpuscular Volume 89.7 fL (79-99) Mean Corpuscular Hemoglobin 29.8 pg (27.0-33.0) Mean Corpuscular Hemoglobin Concent 33.3 g/dL (32.0-36.0) Red Cell Distribution Width 11.8 % (11.0-15.5) Platelet Count 249 K/uL (130-400) Mean Platelet Volume 10.2 fL (7.5-10.5) Immature Granulocyte % (Auto) 0.6 % (0-1) Neutrophils (%) (Auto) 62.8 % (40.0-77.0) Lymphocytes (%) (Auto) 27.2 % (21.0-51.0) Monocytes (%) (Auto) 8.3 % (3.0-13.0) Eosinophils (%) (Auto) 0.7 % (0.0-8.0) Basophils (%) (Auto) 0.4 % (0.0-5.0) Neutrophils # (Auto) 4.5 K/uL (1.8-7.7) Lymphocytes # (Auto) 2.0 K/uL (1.0-4.8) Monocytes # (Auto) 0.6 K/uL (0.1-1.0) Eosinophils # (Auto) 0.05 K/uL (0.00-0.70) Basophils # (Auto) 0.03 K/uL (0.00-0.20) Absolute Immature Granulocyte (auto 0.04 K/uL (0-1) Nucleated Red Blood Cells 0.0 % (0.0-0.19) Sodium Level 141 mmol/L (136-145) Potassium Level 4.0 mmol/L (3.5-5.1) Chloride Level 103 mmol/L (101-111) Carbon Dioxide Level 28 mmol/L (21-32) Blood Urea Nitrogen 15 mg/dL (7-18) Creatinine 0.7 mg/dL (0.5-1.3) Glomerular Filtration Rate Calc 125 mL/min (>90) Random Glucose 103 mg/dL (70-105) Total Calcium 9.8 mg/dL (8.5-10.1) Triglycerides Level 235 mg/dL (30-200) H Lipase 329 U/L (16-77) H Urine Color LIGHT-YELLOW (YELLOW) Urine Appearance CLEAR (CLEAR) Urine pH 6.0 (5.0-8.0) Urine Specific [place] 1.035 (1.001-1.031) Urine Protein NEGATIVE mg/dL (NEGATIVE) Urine Glucose (UA) >=1000 mg/dL (NEGATIVE) H Urine Ketones 5 mg/dL (NEGATIVE) H Urine Occult Blood NEGATIVE (NEGATIVE) Urine Nitrate NEGATIVE (NEGATIVE) Urine Bilirubin NEGATIVE mg/dL (NEGATIVE) Urine Urobilinogen 0.2 mg/dL (0.2-1.0) Urine Leukocyte Esterase NEGATIVE Afshin/uL Urine RBC 2-5 /HPF (0-1) H Urine WBC 11-25 /HPF (0-1) H Urine WBC Clumps (Auto) RARE /HPF (0-1) Urine Bacteria RARE /HPF (None Seen) Labs Reviewed?: Yes ED Course ED Course Orders Procedure Category Date Status Time Cbc With Differential LAB 03/14/25 Complete 14:40 Urinalysis Profile LAB 03/14/25 Complete 14:40 0.9%Nacl 1000ml (Ns PHA 03/14/25 Complete 1000ml) 15:00 Morphine 2mg Syg PHA 03/14/25 Complete (Morphine 2mg Syg) 15:00 Ondansetron 4mg Inj PHA 03/14/25 Complete (Zofran 4mg Inj) 15:00 Lipase LAB 03/14/25 Complete 14:40 Basic Metabolic Panel LAB 03/14/25 Complete 14:40 Triglycerides LAB 03/14/25 Complete 15:43 Culture Urine [place] 03/14/25 In Process 16:04 Current Medications Medications (Trade) Dose Ordered Sig/Rene Route PRN Reason Start Time Stop Time Status Last Admin Dose Admin Morphine Sulfate (morPHINE 2MG SYG) 2 mg ONCE ONCE IVP 03/14/25 15:00 03/14/25 15:01 DC 03/14/25 15:27 Ondansetron HCl (zoFRAN 4MG INJ) 4 mg ONCE ONCE IVP 03/14/25 15:00 03/14/25 15:01 DC 03/14/25 15:27 Sodium Chloride 1,000 ml @ 0 mls/hr ONCE ONCE IV 03/14/25 15:00 03/14/25 15:01 DC 03/14/25 15:26 Vital Signs Date Time Temp Pulse Resp B/P (MAP) Pulse Ox O2 Delivery O2 Flow Rate FiO2 03/14/25 15:25 98.1 75 18 136/93 97 Room Air* 0 21 03/14/25 14:36 98.1 84 18 148/102 1650/patient has mildly elevated triglycerides and lipase. They do not exceed the need for admission and pain management. Patient will be discharged home to follow up with Dr. Altamirano in the next 1-2 days. Medical Decision Making MDM Medical decision-making based on basic labs for chronic pancreatitis. Lipase and triglycerides elevated however lower than the last visit to the emergency room. They do not meet the threshold for admission. Patient will be discharged home with omeprazole and Carafate, Referred to service unit operator oil well DX & DISP Disposition: Discharge Departure Impression: Primary Impression: Acute epigastric pain Additional Impressions: Hyperglyceridemia, Elevated lipase Condition: Stable Assign Patient to: Follow-up with primary care provider in 1 to 2 days. Take medications as directed here in the emergency room. Okay to continue home medications unless otherwise discussed during your visit in the emergency room today. Return to your nearest emergency room if symptoms worsen or if there is no improvement. Call 911 if you need immediate assistance. Take Tylenol or Motrin [id number] as needed and if no contraindications are present. Increase oral hydration. A wound culture or urine culture was ordered here in the emergency room department please follow-up with primary care provider and advise them to get repeat ports from our facility. If you had any Wally wrap/splints that were applied here, please do not remove them until you see your primary care or specialty. Follow a low fat bland diet. Water only for fluids. No spicy foods no alcohol, no coffee, no tea, no citrus fruit juice until cleared by service unit operator oil well, call for an appointment tomorrow. Scripts Omeprazole (Omeprazole) 40 Mg Capsule.dr 1 CAP PO DAILY for 30 Days, #30 CAP 0 Refills Prov: CLAUDIO COLLINS NP 03/14/25 Sucralfate (Carafate) 1 Gram Tablet 1 GM PO ACHS for 10 Days, #40 TAB Prov: CLAUDIO COLLINS [employer]PER[employer]OR [employer] 03/14/25 Referrals: AMADA SALINAS MD (PCP) LAUREN ACOSTA MD Time of Disposition: 16:54 I have reviewed the case, and I agree with, Diagnosis and Plan CLAUDIO COLLINS NP Mar 14, 2025 14:43
[2025-03-14 15:00] LABS: BASOPHILS # (AUTO) 0.03 K/uL (0.00-0.20); BASOPHILS % (AUTO) 0.4 % (0.0-5.0); EOSINOPHILS # (AUTO) 0.05 K/uL (0.00-0.70); EOSINOPHILS % (AUTO) 0.7 % (0.0-8.0); HEMATOCRIT 41.8 % (42-54); IMMATURE GRANULOCYTE ABSOLUTE 0.04 K/uL (0-1); LYMPHOCYTES % (AUTO) 27.2 % (21.0-51.0); MEAN CORPUSCULAR HEMOGLOBIN 29.8 pg (27.0-33.0); MEAN CORPUSCULAR HGB CONC 33.3 g/dL (32.0-36.0); MEAN CORPUSCULAR VOLUME 89.7 fL (79-99); MONOCYTES # (AUTO) 0.6 K/uL (0.1-1.0); MONOCYTES % (AUTO) 8.3 % (3.0-13.0); NEUTROPHILS # (AUTO) 4.5 K/uL (1.8-7.7); NEUTROPHILS % (AUTO) 62.8 % (40.0-77.0); PLATELET COUNT (AUTO) 249 K/uL (130-400); RED BLOOD CELL COUNT(AUTO) 4.66 MIL/uL (4.50-6.20); RED CELL DISTRIBUTION WIDTH 11.8 % (11.0-15.5); WHITE BLOOD COUNT (AUTO) 7.2 K/uL (4.8-10.8)
[2025-03-14 15:08] LABS: CREATININE 0.7 mg/dL (0.5-1.3)
[2025-03-14] MEDS: 0.9%NACL 1000ML 1,000 ML IV ONE (15:26)
[2025-03-14] MEDS: morPHINE 2 MG SYG IVP ONE (15:27)
[2025-03-14] MEDS: ondanSETRON 4MG INJ IVP ONE (15:27)
--- NOTE | 2025-03-14 15:27 | NUR ---
PATIENT BEDDED TO ROOM 19 AT THIS TIME
[2025-03-14 16:00] LABS: APPEARANCE,URINE CLEAR (CLEAR); BILIRUBIN,URINE NEGATIVE (NEGATIVE); COLOR,URINE LIGHT-YELLOW (YELLOW); GLUCOSE, URINE (UA) >=1000 mg/dL (NEGATIVE); KETONES,URINE 5 mg/dL (NEGATIVE); LEUKOCYTE ESTERASE ,URINE NEGATIVE Leu/uL (NEGATIVE); NITRATE,URINE NEGATIVE (NEGATIVE); OCCULT BLOOD,URINE NEGATIVE (NEGATIVE); PROTEIN,URINE NEGATIVE (NEGATIVE); UROBILINOGEN,URINE 0.2 mg/dL (0.2-1.0)
[2025-03-14 16:01] LABS: ADD UA MICROSCOPIC YES
[2025-03-14 16:03] LABS: BACTERIA,URINE RARE /HPF (None Seen); MUCUS,URINE RARE LPF (None Seen); WBC CLUMP RARE /HPF (0-1)
[2025-03-14] MEDS ORDERED: OMEP40CA21 PO (16:56)
[2025-03-14] MEDS ORDERED: SUCR1TAB28 PO (16:56)
[2025-03-14 17:03] VITALS: BP 118/75; PULSE 78; RESP 18; TEMP 98; O2SAT 97
[2025-03-14] MEDS ORDERED: FAMOTIDINE 20MG VIAL IV ONE (17:30)
== END 2025-03-14 17:10 | disposition home or self-care (01) ==
LOC: EDH 14:31
DX: R10.13 Epigastric pain (principal); E78.1 Pure hyperglyceridemia; R74.8 Abnormal levels of other serum enzymes; E11.9 Type 2 diabetes mellitus without complications; I10 Essential (primary) hypertension; F17.200 Nicotine dependence, unspecified, uncomplicated; Z79.84 Long term (current) use of oral hypoglycemic drugs
CPT/HCPCS: 99284; 96374; 96361; 96375; 84478; 80048; 83690; 85025; 87086; 81001; 36415; J2270; J7030; J2405